=== PATIENT | male | born 1940 | race Caucasian/White ===

== ENCOUNTER 2017-10-31 09:07 | Emergency (ER) | payer MEDICARE, OTHER ==
[~2017-10-31] VITALS: Ht 175.3 cm; Wt 90.7 kg
[~2017-10-31 09:07] MED LIST: ADVAIR 100-501 EACH INH; AMLODIPINE BES2.5 MG PO; ASPIR 8181 MG PO; ATORVASTATIN CA20 MG PO; CENTRUM SILVER1 EAC3 PO; CIPRODEX OTIC7.5 ML AD; CITRUCEL500 MG PO; DYRENIUM50 MG PO; FLONASE ALLERG9.9 ML; LINSEED OIL1 ML MISC; PRILOSEC OTC20 MG PO; PROAIR RESPICL90 MCG INH; PROSCAR5 MG PO; QUALAQUIN PO; TRIAMTERENE-HC1 EAC1 PO; VIAGRA100 MG PO
[2017-10-31] MEDS ORDERED: PREDNISONE20 MG PO (09:41)
[2017-10-31] MEDS ORDERED: ROBAXIN-750750 MG PO (09:41)
== END 2017-10-31 09:55 | disposition home or self-care (01) ==
LOC: ED 09:07
DX: M54.42 Lumbago with sciatica, left side (principal); J45.909 Unspecified asthma, uncomplicated; Z88.2 Allergy status to sulfonamides; Z88.5 Allergy status to narcotic agent; Z79.899 Other long term (current) drug therapy; Z79.82 Long term (current) use of aspirin
CPT/HCPCS: 99283

== ENCOUNTER 2018-08-08 10:40 | Emergency (ER) | payer MEDICARE, OTHER ==
[~2018-08-08] VITALS: Ht 175.3 cm; Wt 93.4 kg
--- OUTSIDE RECORDS SUMMARY | ~2018-08-08 | XMS | Encounter Summary ---
Demographics + + + | Address | [address] | | | [place] [address] | + + + | Home Phone | | + + + | Preferred Language | Unknown | + + + | Marital Status | | + + + | Lutheran Affiliation | Unknown | + + + | Race | Unknown | + + + | Ethnic Group | Unknown | + + + Author + + + | Author | [facility] | | | and [place] | + + + | Organization | [facility] | | | and [place] | + + + | Address | Unknown | + + + | Phone | Unavailable | + + + Support + + +---------+ + | Name | Relationship | Address | Phone | + + +---------+ + | Bhavani Wagner | ECON | Unknown | | + + +---------+ + Care Team Providers + +------+ + | Care Letterpress Printing Machinist Name | Role | Phone | + +------+ + | Darrel Ross NP | PCP | | + +------+ + Encounter Details +--------+ + + + + | Date | Type | Department | Care Team | Description | +--------+ + + + + | 07/29/ | Imaging | [facility] | Provider, | | | 2018 | Exam | [facility] | [address] | | | | | IMAGING | [place] [address] | | | | | [phone] | [place] [address] | | +--------+ + + + + Social History + +-------+ +--------+------+ | Tobacco Use | Types | Packs/Day | Years | Date | | | | | Used | | + +-------+ +--------+------+ | Former Smoker | | | | | + +-------+ +--------+------+ + +---+---+---+ | Smokeless Tobacco: | | | | | Never Used | | | | + +---+---+---+ + + +---------+ + | Alcohol Use | Drinks/We | oz/Week | Comments | | | ek | | | + + +---------+ + | Yes | 1 Shots | 0.6 | Socialy, but not often | | | of | | | | | liquor | | | + + +---------+ + + + + | Sex Assigned at | Date Recorded | | | | + + + | Not on file | | + + + as of this encounter Plan of Treatment +--------+---------+ + + + | Date | Type | Specialty | Care Team | Description | +--------+---------+ + + + | 09/09/ | Office | Neurosurgery | Caleb Romero MD | | | 2018 | Visit | | [address] [facility] | | | | | | [address] | | | | | | [address] | | | | | | | | +--------+---------+ + + + as of this encounter Procedures + +--------+ + + + | Procedure Name | Priori | Date/Time | Associated Diagnosis | Comments | | | ty | | | | + +--------+ + + + | MRI LUMBAR SPINE WO | Routin | 07/29/2018 | | Results for this | | CONTRAST | e | 0905 PDT | | procedure are in the | | | | | | results section. | + +--------+ + + + in this encounter Results MRI Lumbar Spine wo Contrast (07/29/2018 0905) + + + | Narrative | Performed At | + + + | External films for comparison only | [facility] | | | | | No results will be in the chart. | | + + + + +---------+ + + | Performing | Address | City/State/Zipcode | Phone Number | | Organization | | | | + +---------+ + + | [facility] | | | | + +---------+ + + in this encounter Visit Diagnoses Not on filein this encounter"
--- OUTSIDE RECORDS SUMMARY | ~2018-08-08 | XMS | Encounter Summary ---
Demographics + + + | Address | [address] | | | [place] [address] | + + + | Home Phone | | + + + | Preferred Language | Unknown | + + + | Marital Status | | + + + | Uatsdin Affiliation | Unknown | + + + | Race | Unknown | + + + | Ethnic Group | Unknown | + + + Author + + + | Author | [facility] | | | and [place] | + + + | Organization | [facility] | | | and [place] [...] Team Providers + +------+ + | Care Hvac Manager Name | Role | Phone | + +------+ + | Darrel Ross NP | PCP | | + +------+ + Reason for Referral Evaluate & Treat (Routine) + + + + + + + | Status | Reason | Specialty | Diagnoses / | Referred By | Referred To | | | | | Procedures | Contact | Contact | + + + + + + + | Authorized | Specialty | Physical | Diagnoses | Josh | [facility] | | | Services | Therapy | Lumbar | [facility] | [facility] | | | Required | | foraminal | Main, PA-C | PHYSICAL | | | | | stenosis | [address] | [address] | | | | | Lumbar | [address] | [place] | | | | | radiculopath | [address] | [place], [place] | | | | | y Foraminal | [place], | [address] | | | | | stenosis of | [place] [address] | Phone: | | | | | lumbar | Phone: | [phone] | | | | | region | [phone] | Fax: | | | | | Lumbar facet | Fax: | [phone] | | | | | arthropathy | [phone] | | | | | | Procedures | | | | | | | .him | | | | | | | 05/27/18 | | | + + + + + + + Reason for Visit + + + | Reason | Comments | + + + | Follow-up | Discuss Symptoms | + + + Encounter Details +--------+---------+ + + + | Date | Type | Department | Care Team | Description | +--------+---------+ + + + | 05/26/ | Office | [facility] | Clemente Moreno | Lumbar foraminal | | 2017 | Visit | NEUROSURGERY [address] | [address] | stenosis (Primary | | | | [address] | [address] | Dx); Lumbar | | | | [place], [place] | [place], [place] | radiculopathy; | | | | [address] | [address] | Foraminal stenosis | | | | [phone] | | of lumbar region; | | | | | | Lumbar facet | | | | | | arthropathy (HCC) | +--------+---------+ + + + Social History + +-------+ [...] + + + as of this encounter Last Filed Vital Signs + + + + | Vital Sign | Reading | Time Taken | + + + + | Blood Pressure | 132/85 | 05/26/201854 PDT | + + + + | Pulse | 73 | 05/26/201854 PDT | + + + + | Temperature | - | - | + + + + | Respiratory Rate | - | - | + + + + | Oxygen Saturation | - | - | + + + + | Inhaled Oxygen | - | - | | Concentration | | | + + + + | Weight | 92.4 kg (203 lb 11.3 | 05/26/2018953 PDT | | | oz) | | + + + + | Height | 175.3 cm (5' 9") | 05/26/201854 PDT | + + + + | Body Mass Index | 30.08 | 05/26/201854 PDT | + + + + in this encounter Instructions Patient Instructions - Bel Villarreal, Golf Course Architect - 05/26/201845 PDTIt wa s a pleasure to see you today. Here is what we discussed. - Let pain be your guide. If you are doing an activity that starts causing you pain back of f and ease back into it slowly. We don't want you taking any risks that do not need to be ta kevon. - We have sent an order for you to start physical therapy, we will give you a call once the referral has been approved so you can schedule. - We have also sent a prescription for a Medrol dosepak to your pharmacy. in this encounter Progress Notes Clemente Moreno PA-C - 05/26/201845 PDTFormatting of this note may be different fr om the original. Clemente Moreno PA-C [address] [facility] [facility], [address] [place] [address] FAX: [phone] NEUROSURGERY HISTORY AND PHYSICAL EXAMINATION CHIEF COMPLAINT: Chief Complaint Patient presents with Follow-up Discuss Symptoms HISTORY OF PRESENT ILLNESS: The patient is a 78 y.o. male with the complaint of back pain symptoms that began 3 months ago. The patient was previously seen in the office and returns today to check on his progress when he was seen before he had improvements of his symptoms. The patient describes that he is having more lower back pain radiating to the leg. He stat es that as soon as he puts pressure on his legs he will experience pain, worse on the right. Also progressive weakness in his legs. He states that he is now having trouble lifting his legs to step up and getting in and out of his car. He is also not able to walk for long dist ances without stopping due to increased pain. He is now taking Tylenol and Advil to relieve his pain. He states that his symptoms had been stable up until about a month ago. He would like to go back to his regular activities. He has a few trips coming up and would like to be feeling b claudia for them. He will be leaving for fishing at the end of this week. In August he will be going to [place] for a month. PAST MEDICAL HISTORY: Past Medical History: Diagnosis Date Allergic rhinitis Asthma Basal cell carcinoma Benign prostatic hyperplasia (BPH) with urinary urge incontinence Chest pain Colon polyps Congestive heart failure, chronic, left-sided (HCC) Coronary arteriosclerosis ED (erectile dysfunction) GERD (gastroesophageal reflux disease) History of colonic diverticulitis Hyperlipidemia Hypertension Impaired memory Osteoarthritis Presbycusis PAST SURGICAL HISTORY: Past Surgical History: Procedure Laterality Date CARPAL TUNNEL RELEASE FACIAL RECONSTRUCTION SURGERY skin cancer removal Basel cell carcinoma TONSILLECTOMY TURP N/A 01/09/2017 Procedure: Cyber Laser Prostate Vaporization; Surgeon: Vinnie Silverio MD; Location: [facility] MAIN OR VASECTOMY CURRENT MEDICATIONS: Current Outpatient Prescriptions Medication Sig Dispense Refill albuterol (VENTOLIN HFA) 90 mcg/puff inhaler Inhale 2 puffs into the lungs as needed fo r Wheezing. atorvaSTATin (LIPITOR) 20 mg tablet Take 20 mg by mouth nightly. cholecalciferol (CHOLECALCIFEROL) 1,000 units capsule Take 1,000 Units by mouth Daily. DHA-Vitamin C-Lutein (EYE HEALTH FORMULA PO) Take 1 capsule by mouth Daily. Flaxseed, Linseed, (FLAXSEED OIL) 1200 MG CAPS Take 1,200 mg by mouth Daily. fluticasone (FLONASE) 50 mcg/nasal spray 1 spray by Nasal route. Methylcellulose, Laxative, (CITRUCEL) 500 MG TABS Take 500 mg by mouth Daily. mometasone (ASMANEX 60 METERED DOSES) 220 mcg/puff inhaler Inhale 2 puffs into the lung s every evening. Multiple Vitamins-Minerals (CENTRUM SILVER PO) Take 1 tablet by mouth Daily. OLODATEROL HCL IN Inhale into the lungs as needed. Omeprazole (PRILOSEC PO) Take 1 tablet by mouth Daily. sildenafil (VIAGRA) 100 MG tablet Take 100 mg by mouth as needed for Erectile Dysfuncti on. triamterene-hydrochlorothiazide (DYAZIDE) 37.5-25 MG per capsule Take 1 capsule by mout h every morning. No current facility-administered medications for this visit. ALLERGIES: Allergies Allergen Reactions Lisinopril Cough Sulfa Antibiotics Skin rashes Hydrocodone Other (See Comments) Skin sloughing from penis SOCIAL HISTORY: The patient reports that he has quit smoking. He has never used smokeless tobacco. He repo rts that he drinks about 0.6 oz of alcohol per week . He reports that he does not use drugs. FAMILY HISTORY: Family History Problem Relation Age of Onset Heart defect Mother 59 Valve dysfunction COPD Father Heart failure Father Other cancer Brother Leukemia Cancer Brother Leukemia REVIEW OF SYSTEMS GENERALLY: No fever, no night sweats, no anemia, no fatigue, no recent profound weight ch anges. EYES: No eye problems, no use of corrective lenses, no eye injury, no double vision, no bl indness. EARS, NOSE, AND THROAT: No changes in taste or smell, no hearing difficulty, no ringing in the ears, no ear drainage, no dizziness, no voice changes, no difficulty swallowing, no sig nificant snoring, no sleep apnea, no sinus problems, no major dental work. NEUROLOGICALLY: Please see the review of systems discussed above in the history of present illness. In addition, the patient has change in walk, and pain in back. PSYCHIATRIC: No depression, no sleep disorders, no anxiety, no bipolar disorder, no psycho tic episodes. CARDIOVASCULAR: No heart attacks, no heart murmur, no heart fluttering, no chest pain, no ankle swelling. LUNG DISEASE: No shortness of breath, no cough, no tuberculosis, no bloody cough, no asth ma, no emphysema/COPD. GASTROINTESTINAL: No bowel disease, no nausea or vomiting, no rectal bleeding, no constipa tion, no stool incontinence, no liver disease, no gallbladder disease, no abdominal pain, no ulcers. KIDNEY DISEASE: No urinary frequency, no painful or difficult urination, no incontinence. ENDOCRINE: No diabetes, no thyroid disease, no osteopenia or osteoporosis, no breast drain age. SKIN: No breast lumps, no skin changes, no rashes, no itches. HEMATOLOGIC/LYMPHATIC: + enlarged lymph nodes, no easy or unusual bleeding, no personal hi story of cancer. RHEUMATOLOGIC: No joint arthritis, no rheumatoid arthritis. PHYSICAL EXAMINATION: Blood pressure 132/85, pulse 73, height 1.753 m (5' 9"), weight 92.4 kg (203 lb 11.3 oz). B olive mass index is 30.08 kg/m. GENERAL: Quintin Wagner is in no acute distress with unlabored respirations. The ruby ent does not appear uncomfortable throughout the exam today. HEENT: Head: Normocephalic/atraumatic with no areas of recent trauma. Eyes: Normal sclerae without icterus. Ears: No drainage or tenderness. Nasopharnyx: Clear without drainage. Oropharnyx: Clear without erythema. NECK (ANTERIOR): Supple and without palpable masses. CHEST: Clear to ausculation without crackles or wheeze. HEART: Regular rate and rhythm without murmurs. ABDOMEN: Soft, non-tender, non-distended, and without palpable masses. The patient is not o bese. SPINE: There is no tenderness of there cervical or thoracic spine. The lumbar spine shows there is no tenderness in the midline of the L1, L2, L3, L4, L5, S1 levels. To palpation, there is no significant myofascial tenderness. There is no significant pain to provacative testing of the SI joint. There is no major deformity noted. EXTREMITIES: No cyanosis, clubbing, or edema. NEUROLOGICAL EXAM: MOTOR EXAM: (5 IS NORMAL) * Indicates pain limited MUSCLE/ MOVEMENT: RIGHT LEFT Deltoids 5 5 Biceps 5 5 Triceps 5 5 Wrist Flexion 5 5 Wrist Extension 5 5 Median Intrinsics 5 5 Ulnar Intrinsics 5 5 Blanker Operator Strength 5 5 Hip Flexion 5 5 Hip Extension 5 5 Knee Flexion 5 5 Knee Extension 5 5 Dorsiflexion 5 5 Extensor Hallicus Longus 5 5 Plantarflexion 5 5 SENSORY EXAM: Sensory exam shows no diminished sensation to light touch or pain throughout the upper and lower extremities. REFLEXES: (2 OR 2+ IS NORMAL) REFLEX: RIGHT LEFT BICEPS 1 1 BRACHIORADIALIS 1 1 TRICEPS 1 1 PATELLAR 1 1 ACHILLES 1 1 CHEW'S ABSENT ABSENT PLANTAR DOWNGOING DOWNGOING GAIT: Gait is steady. TEST AND RADIOGRAPHIC REVIEW: The patient's imaging was reviewed in detail with the patient today during the visit. The MRI from 2018 show L4-5 disc bulging causing bilateral foraminal narrowing. There is a prob able L4 synovial cyst on the left compression L4. Lumbar x-rays show degeneration but no major instability. Bones appear stable. ASSESSMENT: NEUROSURGICAL DIAGNOSES: Encounter Diagnoses Name Primary? Lumbar foraminal stenosis Yes Lumbar radiculopathy Foraminal stenosis of lumbar region Lumbar facet arthropathy (HCC) GENERAL DIAGNOSES: Past Medical History: Diagnosis Date Allergic rhinitis Asthma Basal cell carcinoma Benign prostatic hyperplasia (BPH) with urinary urge incontinence Chest pain Colon polyps Congestive heart failure, chronic, left-sided (HCC) Coronary arteriosclerosis ED (erectile dysfunction) GERD (gastroesophageal reflux disease) History of colonic diverticulitis Hyperlipidemia Hypertension Impaired memory Osteoarthritis Presbycusis PLAN: Quintin Wagner presented today, and we went over in great detail his neurologic proble ms. The patient has L4-5 degenerative disc disease. The patient has progressive symptoms despi te non-operative measures. I had a lengthy discussion with the patient about his options for care including surgical a nd non-surgical options. In discussing the surgical options, we discussed in detail the patient's options for a comb ined anterior and posterior approach for lumbar fusion at L4-5. We answered a number of que stions about surgery and the different available techniques. The patient understands that in most instances the recovery from surgery can be lengthy and sometimes difficult. We have sent another order for him to return to physical therapy, a prescription for a medr ol dosepak, and a referral for injections. The patient would like to continue conservative care and return to discuss surgery or addit ional treatment options if the symptoms worsen. I recommended that we intensify his conserv ative therapy. We will provide her referral back to physical therapy as noted above. We al so discussed using a Medrol Dosepak as well as ordering bilateral L5-S1 epidural steroid inj ections. The patient will call us with a progress report when he returns from his fishing t rip next week. If he is continuing to have significant radicular symptoms into his hip and into his legs then we should consider starting Neurontin and tapering up to 300 mg 3 times a day. We will have him return in about 2 months to discuss his progress. I, Clemente Moreno PA-C, personally performed the services described in this documentation , as scribed by Bel Mark CMA in my presence, and it is both accurate and complet e. Clemente Moreno PA-C 05/26/18 ELECTRONICALLY SIGNED BY: Clemente Moreno PA-C, 05/26/2018 10:43in this encounter Plan of Treatment +--------+---------+ + + + | Date | Type | Specialty | Care Team | Description | +--------+---------+ + + + | 09/09/ | Office | Neurosurgery | Caleb Romero MD | | | 2018 | Visit | | [address] [facility] | | | | | | [address] | | | | | | [address] | | | | | | | | +--------+---------+ + + + + +--------+ + + | Name | Priori | Associated Diagnoses | Order Schedule | | | ty | | | + +--------+ + + | OUTPATIENT PT EXTERNAL | Routin | Lumbar foraminal | Ordered: 05/26/2018 | | | e | stenosis Lumbar | | | | | radiculopathy | | | | | Foraminal stenosis | | | | | of lumbar region | | | | | Lumbar facet | | | | | arthropathy | | + +--------+ + + as of this encounter Visit Diagnoses + + | Diagnosis | + + | Lumbar foraminal stenosis - Primary | + + | Spinal stenosis, lumbar region, without neurogenic claudication | + + | Lumbar radiculopathy | + + | Thoracic or lumbosacral neuritis or radiculitis, unspecified | + + | Foraminal stenosis of lumbar region | + + | Spinal stenosis, lumbar region, without neurogenic claudication | + + | Lumbar facet arthropathy | + + | Lumbosacral spondylosis without myelopathy | + +
--- OUTSIDE RECORDS SUMMARY | ~2018-08-08 | XMS | Encounter Summary ---
Demographics + + + | Address | [address] | | | [place] [address] | + + + | Home Phone | | + + + | Preferred Language | Unknown | + + + | Marital Status | | + + + | Judaism Affiliation | Unknown | + + + | Race | Unknown | + + + | Ethnic Group | Unknown | + + + Author + + + | Author | [facility] | | | and [place] | + + + | Organization | [facility] | | | and [place] | [...] Team Providers + +------+ + | Care Dry End Operator Name | Role | Phone | + +------+ + | Darrel Ross NP | PCP | | + +------+ + Encounter Details +--------+ + + + + | Date | Type | Department | Care Team | Description | +--------+ + + + + | 06/07/ | Orders Only | [facility] | Ismael Luna | Lumbar radiculopathy | | 2018 | | PHYSIATRY [address] | (Primary Dx) | | | | [address], | [place], [place] | | | | | [place] [address] | [address] | | | | | [phone] | | | +--------+ + + + + [...] 2018 | Visit | | [address] [facility] | | | | | | [address] | | | | | | [address] | | | | | | | | +--------+---------+ + + + as of this encounter Results [facility] Lumbar Transforaminal (06/17/2018 1115) + + -+ | Narrative | Performed At | + + -+ | 06/17/2018 | [facility] | | Bilateral Transforaminal Epidural Steroid Injections Diagnosis: Lumbar | | | radiculopathy ICD-10 Code M54.16 Quintin Wagner presents to the | | | fluoroscopy suite for fluoroscopically-guided bilateral L5-S1 | | | transforaminal epidural steroid injections as part of conservative | | | management for chronic pain with lumbar radiculopathy and degenerative | | | disc disease. After informed consent was obtained, the patient lay in | | | the prone position on the fluoroscopy table. The areas were | | | identified under fluoroscopic guidance. The areas were prepped and | | | draped in sterile fashion. A 25-gauge, 1.5-inch needle was inserted | | | into each region and approximately 3 mL of buffered 1% lidocaine was | | | infused. Then, a 22-gauge spinal needle was inserted into the | | | posterior superior transforaminal space bilaterally and advanced into | | | the epidural space under fluoroscopic guidance. Confirmation into the | | | epidural space was obtained with infusion of approximately 1 mL of | | | Omnipaque contrast which showed epidural flow as well as nerve sheath | | | flow. Then, a combination of 2 mL of 1% lidocaine and 1.5 mL of 10 | | | mg/mL dexamethasone was infused, divided between the two sides. The | | | patient tolerated the procedure well without complications. Pre- and | | | post-procedure blood pressures were stable. The patient was given | | | verbal as well as written follow-up instructions. Prior to the start | | | of the procedure, the following were performed and/or verified, | | | including correct patient identity, correct site/side marked and | | | visible, agreement on the procedure to be done, correct patient | | | positioning and an accurate procedure consent form. Any safety | | | precautions based on clinical history and/or medication use have been | | | addressed. I personally performed the procedure above. Estimated blood | | | loss: MinimalComplications: NoneFindings: As expectedAnesthesia: | | | Local 1% Lidocaine | | |visible, agreement on the procedure to be done, correct patient | | |positioning and an accurate procedure consent form. Any safety precautions | | |based on clinical history and/or medication use have been addressed. I | | |personally performed the procedure above. | | | | | |Estimated blood loss: Minimal | | |Complications: None | | |Findings: As expected | | |Anesthesia: Local 1% Lidocaine | | | | | | | | + + -+ + +---------+ + + | Performing | Address | City/State/Zipcode | Phone Number | | Organization | | | | + +---------+ + + | [facility] | | | | + +---------+ + + in this encounter Visit Diagnoses + + | Diagnosis | + + | Lumbar radiculopathy - Primary | + + | Thoracic or lumbosacral neuritis or radiculitis, unspecified | + +"
--- OUTSIDE RECORDS SUMMARY | ~2018-08-08 | XMS | Clinical Summary ---
Demographics + + + | Address | [address] | | | [place] [address] | + + + | Home Phone | | + + + | Preferred Language | Unknown | + + + | Marital Status | | + + + | Orthodox Affiliation | Unknown | + + + | Race | Unknown | + + + | Ethnic Group | Unknown | + + + Author + + + | Author | [facility] | | | and [place] | + + + | Organization | 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 | Disp. | Refills | Star | End | Statu | | | | | | t | Date | s | | | | | | Date | | | + + +--------+---------+------+------+-------+ | mometasone | Inhale 2 puffs into | | | | | Activ | | (ASMANEX 60 METERED | the lungs every | | | | | e | | DOSES) 220 mcg/puff | evening. | | | | | | | inhaler | | | | | | | + + +--------+---------+------+------+-------+ | atorvaSTATin | Take 20 mg by mouth | | | | | Activ | | (LIPITOR) 20 mg | nightly. | | | | | e | | tablet | | | | | | | + + +--------+---------+------+------+-------+ | Multiple | Take 1 tablet by | | | | | Activ | | Vitamins-Minerals | mouth Daily. | | | | | e | | (CENTRUM SILVER PO) | | | | | | | + + +--------+---------+------+------+-------+ | Methylcellulose, | Take 500 mg by mouth | | | | | Activ | | Laxative, (CITRUCEL) | Daily. | | | | | e | | 500 MG TABS | | | | | | | + + +--------+---------+------+------+-------+ | Flaxseed, Linseed, | Take 1,200 mg by | | | | | Activ | | (FLAXSEED OIL) 1200 | mouth Daily. | | | | | e | | MG CAPS | | | | | | | + + +--------+---------+------+------+-------+ | fluticasone | 1 spray by Nasal | | | | | Activ | | (FLONASE) 50 | route. | | | | | e | | mcg/nasal spray | | | | | | | [...] | | + + +--------+---------+------+------+-------+ | albuterol | Inhale 2 puffs into | | | | | Activ | | (VENTOLIN HFA) 90 | the lungs as needed | | | | | e | | mcg/puff inhaler | for Wheezing. | | | | | | + + +--------+---------+------+------+-------+ | sildenafil | Take 100 mg by mouth | | | | | Activ | | (VIAGRA) 100 MG | as needed for | | | | | e | | tablet | Erectile | | | | | | | | Dysfunction. | | | | | | + + +--------+---------+------+------+-------+ | Omeprazole | Take 1 tablet by | | | | | Activ | | (PRILOSEC PO) | mouth Daily. | | | | | e | + + +--------+---------+------+------+-------+ | cholecalciferol | Take 1,000 Units by | | | | | Activ | | (CHOLECALCIFEROL) | mouth Daily. | | | | | e | | 1,000 units capsule | | | | | | | + + +--------+---------+------+------+-------+ | OLODATEROL HCL IN | Inhale into the | | | | | Activ | | | lungs as needed. | | | | | e | + + +--------+---------+------+------+-------+ | DHA-Vitamin | Take 1 capsule by | | | | | Activ | | C-Lutein (E[facility] HEALTH | mouth Daily. | | | | | e | | FORMULA PO) | | | | | | | + + +--------+---------+------+------+-------+ | methylPREDNISolone | Follow package | 21 | 0 | 07/2 | | Activ | | (MEDROL DOSEPAK) 4 | directions. | tablet | | 5/20 | | e | | mg tablet | | | | 18 | | | + + +--------+---------+------+------+-------+ Active Problems + + + | Problem | Noted Date | + + + | Lumbar radiculopathy | 05/26/2018 | + + + | Foraminal stenosis of lumbar region | 05/26/2018 | + + + | Lumbar facet arthropathy | 05/26/2018 | + + + | Synovial cyst of lumbar spine | 01/22/2018 | + + + Encounters +--------+ + + + + | Date | Type | Specialty | Care Team | Description | +--------+ + + + + | 08/06/ | Ancillary | | Provider, | | | 2018 | Orders | | MD Brent | | +--------+ + + + + | 08/06/ | Procedure | | | | | 2017 | Pass | | | | +--------+ + + + + | 07/29/ | Imaging | | Provider, | | | 2017 | Exam | | MD Brent | | +--------+ + + + + | 07/09/ | Office | | Clemente Moreno | Foraminal stenosis | | 2017 | Visit | | LUPILLO Quach | of lumbar region | | | | | | (Primary Dx); Lumbar | | | | | | radiculopathy; | | | | | | Synovial cyst of | | | | | | lumbar spine; Lumbar | | | | | | facet arthropathy | | | | | | (HCC) | +--------+ + + + + | 06/17/ | Hospital | | Asad Renteria, | Lumbar radiculopathy | | 2017 | Encounter | | LUPILLO [employer], | | | | | | Wsblanquita | | +--------+ + + + + | 06/07/ | Orders Only | | Ismael Luna | Lumbar radiculopathy | | 2017 | | | MD Marcos | (Primary Dx) | +--------+ + + + + | 05/26/ | Office | | Clemente Moreno | Lumbar foraminal | | 2017 | Visit | | LUPILLO Quach | stenosis (Primary | | | | | | Dx); Lumbar | | | | | | radiculopathy; | | | | | | Foraminal stenosis | | | | | | of lumbar region; | | | | | | Lumbar facet | | | | | | arthropathy (HCC) | +--------+ + + + + from Last 3 Months Family History + + +------+ + | Medical History | Relation | Name | Comments | + + +------+ + | Other cancer | Brother | | Leukemia | + + +------+ + | Cancer | Brother | | Leukemia | + + +------+ + | COPD | Father | | | + + +------+ + | Heart failure | Father | | | + + +------+ + | Heart defect | Mother | | Valve dysfunction | + + +------+ + + +------+ + + | Relation | Name | Status | Comments | + +------+ + + | Brother | | | | + +------+ + + | Brother | | | | + +------+ + + | Father | | | | + +------+ + + | Mother | | | | + +------+ + + Social [...] + + + | Blood Pressure | 130/77 | 07/09/2018927 PDT | + + + + | Pulse | 67 | 07/09/2018 0928 PDT | + + + + | Temperature | 36.5 C (97.7 F) | 01/09/2017921 PST | + + + + | Respiratory Rate | 18 | 07/09/2018927 PDT | + + + + | Oxygen Saturation | 95% | 01/09/2017 113 PST | + + + + | Inhaled Oxygen | - | - | | Concentration | | | + + + + | Weight | 94.3 kg (207 lb 14.3 | 07/09/2018927 PDT | | | oz) | | + + + + | Height | 175.3 cm (5' 9") | 07/09/2018927 PDT | + + + + | Body Mass Index | 30.7 | 07/09/2018927 PDT | + + + + Plan of Treatment +--------+---------+ + + + | Date | Type | Specialty | Care Team | Description | +--------+---------+ + + + | 09/09/ | Office | | Caleb Romero MD | | | 2017 | Visit | | [address] [facility] | | | | | | [address] | | | | | | [id number] | | | | | | | | +--------+---------+ + + + + + + + + | Health [...] Vaccine: Influenza | | | | | (#1) | 8 | | | + + + + + Procedures + +--------+ + + + | Procedure Name | Priori | Date/Time | Associated Diagnosis | Comments | | | ty | | | | + +--------+ + + + | MRI LUMBAR SPINE WO | Routin | 07/29/2018 | | Results for this | | CONTRAST | e | 904 PDT | | procedure are in the | | | | | | results section. | + +--------+ + + + | FL EPIDURAL STEROID | Routin | 06/17/2018 | Lumbar | Results for this | | INJECTION LUMBAR | e | 1115 PDT | radiculopathy | procedure are in the | | TRANSFORAMINAL | | | | results section. | + +--------+ + + + from Last 3 Months Results MRI Lumbar Spine wo Contrast (07/29/2018904) + + + | Narrative | Performed [...] | | | + +---------+ + + FL CHICO Lumbar Transforaminal (06/17/2018 1115) + + -+ | Narrative | Performed At | + + -+ | 06/17/2018 | [facility] | | Bilateral Transforaminal Epidural Steroid Injections Diagnosis: Lumbar | | | radiculopathy ICD-10 Code M54.16 Neymar Wagner presents to the | | | [...] + + | Performing | Address | City/State[facility] | Phone Number | | Organization | | | | + +---------+ + + | [facility] | | | | + +---------+ + + from Last 3 Months Insurance + +--------+ +--------+ +---------+ | Payer | Benefi | Subscriber | Type | Phone | Address | | | t Plan | ID | | | | | | / | | | | | | | Group | | | | | + +--------+ +--------+ +---------+ | MEDICARE | MEDICA | [id number] | Medica | [phone] | | | RE | | re | [phone] | | | | PART A | | | | | | | AND B | | | | | + +--------+ +--------+ +---------+ | CIGNA | CIGNA | [id number] | Indemn | [phone] | | | MDCR | | ity | [phone] | | | | SUPPLE | | | | | | | MENT | | | | | | | SOLUTI | | | | | | | ONS | | | | | + +--------+ +--------+ +---------+ + +--------+ +--------+ + + | Guarantor Name | Accoun | Relation to | Date | Phone | Billing Address | | | t Type | Patient | of | | | | | | | | | | + +--------+ +--------+ + + | NEYMAR WAGNER | Person | Self [birth year] Home: | [address] | | | [place] | | 1940 | [phone] [place] [address] | | | margie | | | 1890 | | + +--------+ +--------+ + +
--- OUTSIDE RECORDS SUMMARY | ~2018-08-08 | XMS | Encounter Summary ---
Demographics + + + | Address | [address] | | | [place] [address] | + + + | Home Phone | | + + + | Preferred Language | Unknown | + + + | Marital Status | | + + + | Uatsdin Affiliation | Unknown | + + + | Race | Unknown | + + + | Ethnic Group | Unknown | + + + Author + + + | Author | [facility] | | | and [place] | + + + | Organization | [facility] | | | and [place] [...] Team Providers + +------+ + | Care Filter Cloth Maker Name | Role | Phone | + +------+ + | Darrel Ross NP | PCP | | + +------+ + Reason for Referral Diagnostic/Screening (Routine) +--------+--------+ + + + + | Status | Reason | Specialty | Diagnoses / | Referred By | Referred To | | | | | Procedures | Contact | Contact | +--------+--------+ + + + + | Closed | | MRI | Diagnoses | [place], | [address] | | | | | Foraminal | Clemente | [facility] | | | | | stenosis of | [place] Quach | [address] | | | | | lumbar | [address] | [address] | | | | | region | [address] | [place], [place] | | | | | Lumbar | [address] | [address] | | | | | radiculopath | [place], | Phone: | | | | | y Synovial | [place] [address] | [phone] | | | | | cyst of | Phone: | Fax: | | | | | lumbar spine | [phone] | [phone] | | | | | Lumbar | Fax: | | | | | | facet | [phone] | | | | | | arthropathy | | | | | | | Procedures | | | | | | | MRI Lumbar | | | | | | | Spine wo | | | | | | | Contrast | | | +--------+--------+ + + + + Reason for Visit + + + | Reason | Comments | + + + | Follow-up | Discuss injections | + + + | Back Pain | | + + + Encounter Details +--------+---------+ + + + | Date | Type | Department | Care Team | Description | +--------+---------+ + + + | 07/09/ | Office | [facility] | Clemente Moreno | Foraminal stenosis | | 2018 | Visit | NEUROSURGERY [address] | [address] | of lumbar region | | | | [address] | [address] | (Primary Dx); Lumbar | | | | [place] | [place] | radiculopathy; | | | | [phone] | [address] | Synovial cyst of | | | | [phone] | | lumbar spine; Lumbar | | | | | | facet arthropathy | | | | | | ([facility]) | +--------+---------+ + + + Social History [...] + + | Pulse | 67 | 07/09/2018927 PDT | + + + [...] 07/09/2018927 PDT | + + + + in this encounter Instructions Patient Instructions - Kamla Brown, Informatics Pharmacist - 07/09/2018929 PDTIt was rossi borrero to see you today, we discussed the following in your appointment: 1. We always hope that the steroid spinal injections will work and give you relief from yocasta e of the discomfort. They are not a guarantee fix, but we like to try. 2. The MRI that we have is not very clear it has some artifact that causes problems when judi rodriguez to review it. We will order a new MRI to be completed at [facility] in [place]. Once it is authorized we will fax the order over and call you to set up an MRI appoin tment date. Please call us once it is completed then we can request those MRI images for Dr. Romero and Rika Moreno PA-C to review. 3. We can start looking at surgery options sometime around September. If you do choose back surgery it would look something like this: -1-3 days in the hospital, spend the first month lifting no more than 5lbs, no bending, lif ting above your head, or twisting. -We will want you to be up and walking very frequently. For the first 10-14 days we want yo u to be up every 45 minutes for 1-2 minutes in your house. After 10-14 days when you are fee ling comfortable you can walk outside with a walking partner. -You would wear a back brace for at least the first month. -No intercourse for the first month. -No driving for the first few weeks to 1 month as long as you have your strength back and a re not taking pain medication then you could drive. -You would need help with things like tying your shoes, getting socks on and what not to pr event you from bending over for that first month at least. -Recovery time would be 6-12 months depending on bone fusion and healing. You will have yocasta e waxing and waning of symptoms. The pain will vary in intensity and vary from day to day. A s time moves on the frequency and intensity of the pain will slowly go away.in this encounte r Progress Notes Clemente Moreno PA-C - 07/09/2018 0930 PDTFormatting of this note may be different fr om the original. Clemente Moreno PA-C [address] [address] [place], [place] [address] FAX: [phone] NEUROSURGERY HISTORY AND PHYSICAL EXAMINATION CHIEF COMPLAINT: Chief Complaint Patient presents with Follow-up Discuss injections Back Pain HISTORY OF PRESENT ILLNESS: The patient is a 78 y.o. male with the complaint of back pain symptoms that began 6-7 months ago. The patient was previously seen in the office and retur ns today to check on his lumbar pain after having lumbar injections done by physiatry in Jun. It is hard to tell if he had any improvement in symptoms as he still has the same sympt oms that have not changed for the better, but slightly worsening. He still gets the sharp pa in that is about 8-9/10 when he does any kind of "unnatural" movement like stepping of a cur b, coughing or sudden jerking motions that he did not notice. This will send a shock of pain from his lower back down into the right leg down into his feet. He is unable to He struggl es with sleeping due to being in pain and uncomfortable. He states that as soon as he puts pressure on his legs he will experience pain, worse on th e right. His right leg symptoms have progressed since his previous MRI Also progressive wea kness in his legs. He states that he is now having trouble lifting his legs to step up and g etting in and out of his car that is accompanied with lower back pain. He is also not able t o walk for long distances just about 1/2 a mile if he takes that slow, without stopping due to increased pain. He is walking much slower than before and his notices he tends to le an to favor the right leg. They feel feel like his right leg is weaker.. He is in physical therapy and he is able to walk with out his cane for the last few weeks due to the physical therapy. PAST MEDICAL HISTORY: Past Medical History: Diagnosis [...] Prostate Vaporization; Surgeon: Vinnie Silverio MD; Location: [facility] MAIN OR VASECTOMY CURRENT MEDICATIONS: Current Outpatient [...] TABS Take 500 mg by mouth Daily. methylPREDNISolone (MEDROL DOSEPAK) 4 mg tablet Follow package directions. 21 tablet 0 mometasone (ASMANEX 60 METERED DOSES) [...] present illness. In addition, the patient has pain in the back only when he coughs. PSYCHIATRIC: No depression, no sleep disorders, no [...] no personal h istory of cancer. RHEUMATOLOGIC: No joint arthritis, no rheumatoid arthritis. PHYSICAL EXAMINATION: Blood pressure 130/77, pulse 67, resp. rate 18, height 1.753 m (5' 9"), weight 94.3 kg (207 lb 14.3 oz). Body mass index is 30.7 kg/m. 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 In addition there appears to be facet cys t noted at L5 on the left as well. Lumbar x-rays show degeneration but no major instability. Bones appear stable. ASSESSMENT: NEUROSURGICAL DIAGNOSES: Encounter Diagnoses Name Primary? Foraminal stenosis of lumbar region Yes Lumbar radiculopathy Synovial cyst of lumbar spine Lumbar facet arthropathy (HCC) GENERAL DIAGNOSES: Past [...] has progressive symptoms despi te non-operative measures. His right leg symptoms appear to have been worsening since his p revious MRI I had a lengthy discussion with the [...] surgery can be lengthy and sometimes difficult. The patient would like to be considered for surgery. I would like him to have a repeat MRI primarily because of his progressive right leg symptoms however also there is motion artifa ct makes it difficult to assess his foraminal stenosis and to further evaluate his facet cys t at L4-5 and L5-S1. When the MRI is been completed he will let us know so that I can revie w this with . At that time we'll make further recommendations begin the review proces s as well as the scheduling and authorizing process. Our target would be for September if we decided to move forward with surgery. I, Clemente Moreno PA-C, personally performed the services described in this documentation , as scribed by IGLESIA Tatum in my presence, and it is both accurate and complete. Clemente Moreno PA-C 07/09/18 ELECTRONICALLY SIGNED BY: Clemente Moreno PA-C, 07/09/2018 10:09 Portions of this report were transcribed using [employer] voice recognition software. A lthough effort was made in correcting the errors; grammatical and sound alike errors may sti ll be present. in this encounter Plan of Treatment +--------+---------+ + + + | Date | Type | Specialty | Care Team | Description | +--------+---------+ + + + | 09/09/ | Office | Neurosurgery | Caleb Romero MD | | | 2018 | Visit | | [address] [facility] | | | | | | [address] [place] | | | | | | [id number] | | | | | | | | +--------+---------+ + + + + +--------+ + + | Name | Priori | Associated Diagnoses | Order Schedule | | | ty | | | + +--------+ + + | MRI Lumbar Spine wo Contrast | Routin | Foraminal stenosis | Expected: 07/19/2018 | | | e | of lumbar region | (Approximate), | | | | Lumbar radiculopathy | Expires: 07/08/2019 | | | | Synovial cyst of | | | | | lumbar spine Lumbar | | | | | facet arthropathy | | + +--------+ + + as of this encounter Visit Diagnoses + + | Diagnosis | + + | Foraminal stenosis of lumbar region - Primary | + + | Spinal stenosis, lumbar region, without neurogenic claudication | + + | Lumbar radiculopathy | + + | Thoracic or lumbosacral neuritis or radiculitis, unspecified | + + | Synovial cyst of lumbar spine | + + | Synovial cyst, unspecified | + + | Lumbar facet arthropathy | + + | Lumbosacral spondylosis without myelopathy | + +
--- OUTSIDE RECORDS SUMMARY | ~2018-08-08 | XMS | Clinical Summary ---
Demographics + + + | Address | [address] | | | [place] [address] | + + + | Home Phone | | + + + | Preferred Language | Unknown | + + + | Marital Status | | + + + | Druze Affiliation | Unknown | + + + | Race | White | + + + | Ethnic Group | Not or | + + + Author + + + | Organization | Unknown | + + + | Address | Unknown | + + + | Phone | Unavailable | + + + Care Team Providers + +------+ + | Care Visual And Stock Associate Name | Role | Phone | + +------+ + PP | Unavailable | + +------+ + Source Comments INESSA is fully live on both [facility] and [facility] InPatient.[facility] Allergies Not on File Current Medications Not on file Active Problems Not [...] on file | | + + + Plan of Treatment + + + + + | Health Maintenance | Due Date | Last Done | Comments | + + + + + | Pneumococcal (Adult) | | | | | (1 of 2 - PCV13) | 5 | | | + + + + + | Influenza (Flu) | | | | | vaccination (#1) | 8 | | | + + + + + Results Not on filefrom Last 3 Months"
--- OUTSIDE RECORDS SUMMARY | ~2018-08-08 | XMS | Encounter Summary ---
Demographics + + + | Address | [address] | | | [place] [address] | + + + | Home Phone | | + + + | Preferred Language | Unknown | + + + | Marital Status | | + + + | Restorationism Affiliation | Unknown | + + + | Race | Unknown | + + + | Ethnic Group | Unknown | + + + Author + + + | Author | [facility] | | | and [place] | + + + | Organization | [facility] | | | and [...] Team Providers + +------+ + | Care Assistant Manager Of Operations Name | Role | Phone | + +------+ + | Darrel Ross NP | PCP | | + +------+ + Reason for Visit Service/Procedure (Routine) +--------+--------+ + + + + | Status | Reason | Specialty | Diagnoses / | Referred By | Referred To | | | | | Procedures | Contact | Contact | +--------+--------+ + + + + | Closed | | Radiology | Diagnoses | | [facility] | | | | | Lumbar | Cheryl, | [address] | | | | | radiculopath | Ismael Rodríguez MD | Dariel [place], | | | | | y | [address] | [place] | | | | | Procedures | [place] | [address] | | | | | [place] INJECT | [place] | Phone: | | | | | ANES/STEROID | [address] | [phone] | | | | | FORAMEN | Phone: | Fax: | | | | | LUMBAR/SACRA | [phone] | [phone] | | | | | L W IMG | Fax: | | | | | | GUIDE ,1 | [phone] | | | | | | LEVEL MA | | | | | | | TRIAMCINOLON | | | | | | | E ACET INJ | | | | | | | NOS, 10 MG | | | | | | | Bilateral | | | | | | | L5/S1 TFESI | | | | | | | referred by | | | | | | | Clemente | | | | | | | Main Moreno, | | | | | | | PA-C | | | +--------+--------+ + + + + Encounter Details +--------+ + + + + | Date | Type | Department | Care Team | Description | +--------+ + + + + | 08/16/ | Hospital | [facility] | Asad Renteria, | Lumbar radiculopathy | | 2018 | Encounter | MED CTR XRAY [address] | PA-C [address] | | | | | [place] | [address] [place] | | | | | [place] [address] | [place] [address] | | | | | [phone] | [phone] | | | | | | | | | | | | Field Training Agent, [facility] | | +--------+ + + + + [...] this encounter Last Filed Vital Signs + +---------+ + | Vital Sign | Reading | Time Taken | + +---------+ + | Blood Pressure | 146/79 | 06/17/2018 1114 PDT | + +---------+ + | Pulse | 70 | 06/17/20181113 PDT | + +---------+ + | Temperature | - | - | + +---------+ + | Respiratory Rate | - | - | + +---------+ + | Oxygen Saturation | - | - | + +---------+ + | Inhaled Oxygen | - | - | | Concentration | | | + +---------+ + | Weight | - | - | + +---------+ + | Height | - | - | + +---------+ + | Body Mass Index | - | - | + +---------+ + in this encounter Medications at Time of Discharge + + +--------+---------+ + + | Medication | Sig. | Disp. | Refills | Start | End Date | | | | | | Date | | + + +--------+---------+ + + | albuterol | Inhale 2 puffs into | | | | | | (VENTOLIN HFA) 90 | the lungs as needed | | | | | | mcg/puff inhaler | for Wheezing. | | | | | + + +--------+---------+ + + | atorvaSTATin | Take 20 mg by mouth | | | | | | (LIPITOR) 20 mg | nightly. | | | | | | tablet | | | | | | + + +--------+---------+ + + | cholecalciferol | Take 1,000 Units by | | | | | | (CHOLECALCIFEROL) | mouth Daily. | | | | | | 1,000 units capsule | | | | | | + + +--------+---------+ + + | DHA-Vitamin | Take 1 capsule by | | | | | | C-Lutein (EYE HEALTH | mouth Daily. | | | | | | FORMULA PO) | | | | | | + + +--------+---------+ + + | Flaxseed, Linseed, | Take 1,200 mg by | | | | | | (FLAXSEED OIL) 1200 | mouth Daily. | | | | | | MG CAPS | | | | | | + + +--------+---------+ + + | fluticasone | 1 spray by Nasal | | | | | | (FLONASE) 50 | route. | | | | | | mcg/nasal spray | | | | | | + + +--------+---------+ + + | Methylcellulose, | Take 500 mg by mouth | | | | | | Laxative, (CITRUCEL) | Daily. | | | | | | 500 MG TABS | | | | | | + + +--------+---------+ + + | methylPREDNISolone | Follow package | 21 | 0 | 05/26/20 | | | (MEDROL DOSEPAK) 4 | directions. | tablet | | 18 | | | mg tablet | | | | | | + + +--------+---------+ + + | mometasone | Inhale 2 puffs into | | | | | | (ASMANEX 60 METERED | the lungs every | | | | | | DOSES) 220 mcg/puff | evening. | | | | | | inhaler | | | | | | + + +--------+---------+ + + | Multiple | Take 1 tablet by | | | | | | Vitamins-Minerals | mouth Daily. | | | | | | (CENTRUM SILVER PO) | | | | | | + + +--------+---------+ + + | OLODATEROL HCL IN | Inhale into the | | | | | | | lungs as needed. | | | | | + + +--------+---------+ + + | Omeprazole | Take 1 tablet by | | | | | | (PRILOSEC PO) | mouth Daily. | | | | | + + +--------+---------+ + + | sildenafil | Take 100 mg by mouth | | | | | | (VIAGRA) 100 MG | as needed for | | | | | | tablet | Erectile | | | | | | | Dysfunction. | | | | | + + +--------+---------+ + + | | Take 1 capsule by | | | | | | triamterene-hydrochl | mouth every morning. | | | | | | orothiazide | | | | | | | (DYAZIDE) 37.5-25 MG | | | | | | | per capsule | | | | | | + + +--------+---------+ + + as of this encounter Plan of Treatment +--------+---------+ + + + | Date | Type | Specialty | Care Team | Description | +--------+---------+ + + + | 09/09/ | Office | Neurosurgery | Caleb Romero MD | | | 2018 | Visit | | [address] [facility] | | | | | | [address] [place] | | | | | | [address] | | | | | | | [...] + + + in this encounter Results [place] [facility] Lumbar Transforaminal [...] Diagnosis | + + | Lumbar radiculopathy | + + | Thoracic or lumbosacral neuritis or radiculitis, unspecified | + + Administered Medications + +--------+ +-------+------+------+ | Medication Order | MAR | Action | Dose | Rate | Site | | | Action | Date | | | | + +--------+ +-------+------+------+ | dexamethasone (PF) 10 mg/mL | Given | | 15 mg | | | | injection 15 mg 15 mg, Other, | | 8 10:48 | | | | | ONCE, [facility] 06/17/18 at 1045, For 1 | | PDT | | | | | dose | | | | | | + +--------+ +-------+------+------+ +---+---+ | | | +---+---+ + +-------+ +-------+---+---+ | iohexol (OMNIPAQUE 300) 300 | Given | | 4 mLs | | | | mg/mL injection 4 mL 4 mL, | | 8 10:46 | | | | | Other, ONCE, [facility] 06/17/18 at 1045, | | PDT | | | | | For 1 dose | | | | | | + +-------+ +-------+---+---+ +---+---+ | | | +---+---+ + +-------+ +-------+---+---+ | lidocaine (PF) 1% injection 2 | Given | | 2 mLs | | | | mL 2 mL, Other, ONCE, [facility] | | 8 10:48 | | | | | 06/17/18 at 1045, For 1 dose, | | PDT | | | | | EPIDURAL | | | | | | + +-------+ +-------+---+---+ +---+---+ | | | +---+---+ + +-------+ +-------+---+---+ | lidocaine buffered 1.3% | Given | | 6 mLs | | | | injection 6 mL 6 mL, Other, | | 8 10:44 | | | | | ONCE, [facility] 06/17/18 at 1045, For 1 | | PDT | | | | | dose, INTRADERMAL | | | | | | + +-------+ +-------+---+---+ +---+---+ | | | +---+---+ in this encounter"
--- OUTSIDE RECORDS SUMMARY | ~2018-08-08 | XMS | Encounter Summary ---
Demographics + + + | Address | [address] | | | [place] [address] | + + + | Home Phone | | + + + | Preferred Language | Unknown | + + + | Marital Status | | + + + | Yazidism Affiliation | Unknown | + + + | Race | Unknown | + + + | Ethnic Group | Unknown | + + + Author + + + | Author | [facility] | | | and Gurinder[place] | + + + | Organization | [facility] | | | and [place] | [...] Team Providers + +------+ + | Care Batch Freezer Operator Name | Role | Phone | + +------+ + | Darrel Ross NP | PCP | | + +------+ + Encounter Details +--------+ + + + + | Date | Type | Department | Care Team | Description | +--------+ + + + + | 08/06/ | Procedure | [facility] | | | | 2017 | Pass | MED CTR EXTERNAL | | | | | | IMAGING | | | | | | [phone] | | | +--------+ + + + [...] | Visit | | [address] [facility] | | | | | | [address] | | | | | | [address] | | | | | | | | +--------+---------+ + + + as of this encounter Visit Diagnoses Not on filein this encounter"
--- OUTSIDE RECORDS SUMMARY | ~2018-08-08 | XMS | Clinical Summary ---
Demographics + + + | Address | [address] | | | [place] [address] | + + + | Home Phone | | + + + | Preferred Language | Unknown | + + + | Marital Status | | + + + | Anabaptism Affiliation | Unknown | + + + | Race | White | + + + | Ethnic Group | Not or | + + + Author + + + | Organization | Unknown | + + + | Address | Unknown | + + + | Phone | Unavailable | + + + Care Team Providers + +------+ + | Care Corner Former Name | Role | Phone | + +------+ + PP | Unavailable | + +------+ + Source Comments INESSA is fully live on both [facility] Ambulatory and [facility] InPatient.[facility] Allergies Not on File Current Medications [...]
--- OUTSIDE RECORDS SUMMARY | ~2018-08-08 | XMS | Encounter Summary ---
Demographics + + + | Address | [address] | | | [place] [address] | + + + | Home Phone | | + + + | Preferred Language | Unknown | + + + | Marital Status | | + + + | Protestant Affiliation | Unknown | + + + | Race | Unknown | + + + | Ethnic Group | Unknown | + + + Author + + + | Author | [facility] | | | and Gurinderana | + + + | Organization | [facility] | | | and [place] [...] Team Providers + +------+ + | Care Awning Hanger Helper Name | Role | Phone | + [...] Christian [address] | | | | | [phone] | [place] [address] | | +--------+ + + + + [...] | [address] [facility] | | | | | | [address] | | | | | | [address] | | | | | | | [...]
--- OUTSIDE RECORDS SUMMARY | ~2018-08-08 | XMS | Encounter Summary ---
Demographics + + + | Address | [address] | | | [place] [address] | + + + | Home Phone | | + + + | Preferred Language | Unknown | + + + | Marital Status | | + + + | Confucianist Affiliation | Unknown | + + + | Race | Unknown | + + + | Ethnic Group | Unknown | + + + Author + + + | Author | [facility] | | | and Gurinder[place] | + + + | Organization | [facility] | | | and [...] Providers + +------+ + | Care Client Service Coordinator Name | Role | Phone | + [...] | Services | Therapy | Lumbar | [place] | [facility] | | | Required | | foraminal | Main, PA-C | PHYSICAL | | | | | stenosis | [address] | THERAPY [address] | | | | | Lumbar | [address] | [place] | | | | | radiculopath | [address] | [place], [place] | | | | | y Foraminal | [place], | [address] | | | | | stenosis of | [place] [address] | Phone: | | | | | lumbar | Phone: | [phone] | | | | | region | [phone] | Fax: | | | | | Lumbar facet | Fax: | [phone] | | | | | arthropathy | [phone] | | | | | | Procedures [...] + + | 05/26/ | Office | [facility] | Clemente Moreno | Lumbar foraminal | | 2017 | Visit | NEUROSURGERY [address] | [address] | stenosis (Primary | | | | [address] | [address] | Dx); Lumbar | | | | [place], [place] | [place], [place] | radiculopathy; | | | | [address] | [address] | Foraminal stenosis | | | | [phone] | | of lumbar region; | | [...] encounter Instructions Patient Instructions - Bel Villarreal, Turbine Attendant - 05/26/201845 PDTIt wa s a pleasure [...] om the original. Clemente Moreno PA-C [address] [facility] [place] [address] FAX: [phone] NEUROSURGERY HISTORY AND PHYSICAL EXAMINATION CHIEF COMPLAINT: [...] Prostate Vaporization; Surgeon: Vinnie Silverio MD; Location: [facility] MAIN OR VASECTOMY CURRENT MEDICATIONS: [...] Intrinsics 5 5 Ulnar Intrinsics 5 5 Computer Repair Engineer Strength 5 5 Hip Flexion 5 5 [...] 2018 | Visit | | [address] [facility] | | | | | | [...]
--- OUTSIDE RECORDS SUMMARY | ~2018-08-08 | XMS | Clinical Summary ---
Demographics + + + | Address | [address] | | | [place] [address] | + + + | Home Phone | | + + + | Preferred Language | Unknown | + + + | Marital Status | | + + + | Orthodox Affiliation | Unknown | + + + | Race | Unknown | + + + | Ethnic Group | Unknown | + + + Author + + + | Author | [facility] [employer] | + + + | Organization | [facility] [employer] | + + + | Address | Unknown | + + + | Phone | Unavailable | + + + Support + + + + + | Name | Relationship | Address | Phone | + + + + + | Detailed,Message | ECON | [address] | | | | | [place], [place] | | | | | [address] | | + + + + + | Bhavani Echeverria | ECON | Unknown | | + + + + + Care Team Providers + +------+ + | Care Project Architect Name | Role | Phone | + +------+ + | Shawn Perez MD | PP | | + +------+ + [...] | | | + + +--------+---------+------+------+-------+ | omeprazole | Take 20 mg by mouth | | | | | Activ | | (PRILOSEC) 20 MG | every morning before | | | | | e | | capsule | breakfast. | | | | | | + + +--------+---------+------+------+-------+ | triamterene | Take 50 mg by mouth | | | | | Activ | | (DYRENIUM) 50 MG | daily. | | | | | e | | capsule | | | | | | | + + +--------+---------+------+------+-------+ | fluticasone | 1 spray by Each Nare | | | | | Activ | | (FLONASE) 50 MCG/ACT | route daily. | | | | | e | | nasal | | | | | | | + + +--------+---------+------+------+-------+ | | Inhale 1 puff into | | | | | Activ | | fluticasone-salmeter | the lungs 2 (two) | | | | | e | | ol (ADVAIR) 100-50 | times daily. | | | | | | | MCG/DOSE diskus | | | | | | | [...] | | | + + +--------+---------+------+------+-------+ | amLODIPine | Take 2.5 mg by mouth | | | | | Activ | | (NORVASC) 2.5 MG | daily. | | | | | [...] | Activ | | Vitamins-Minerals | mouth daily. | | | | | e | | (MULTIVITAMIN WITH | | | | | | | | MINERALS) tablet | | | | | | | + + +--------+---------+------+------+-------+ | quiNINE 324 MG | Take 324 mg by mouth | | | | | Activ | | capsule | nightly as needed. | | | | | e | + + +--------+---------+------+------+-------+ | Flaxseed, Linseed, [...] Noted Date | + + + | Allergic rhinitis [...] of colon | | + +---+ | CHF (congestive heart failure) | | + +---+ | Erectile dysfunction | | + +---+ | Essential hypertension | | + +---+ | Osteoarthrosis | | + +---+ | Presbycusis | | + +---+ Family History + + +------+ + | [...] + + + | Blood Pressure | 110/70 | 02/28/2016 10:09 AM PDT | + + + + | Pulse | 68 | 02/28/2016 10:09 AM PDT | + + + + | Temperature | - | - | + + + + | Respiratory Rate | 18 | 02/28/2016 10:09 AM PDT | + + + + | Oxygen Saturation | 95% | 02/28/2016 10:09 AM PDT | + + + + | Inhaled Oxygen | - | - | | Concentration | | | + + + + | Weight | 92.5 kg (204 lb) | 02/28/2016 10:09 AM PDT | + + + + | Height | 174 cm (5' 8.5") | 02/28/2016 10:09 AM PDT | + + + + | Body Mass Index | 30.57 | 02/28/2016 10:09 AM PDT | + + + + Plan [...] filefrom Last 3 Months Insurance + +--------+ +------+-------+ + | Payer | Benefi | Subscriber | Type | Phone | Address | | | t Plan | ID | | | | | | / | | | | | | | Group | | | | | + +--------+ +------+-------+ + | MEDICARE | MEDICA | [id number] | | | [address] | | | RE | | | | [place] [address] | | | IP-OP | | | | | + +--------+ +------+-------+ + | COMMERCIAL OTHER | TRANSA | [id number] | | | | | | MERICA | | | | | | | LIFE | | | | | + +--------+ +------+-------+ + + +--------+ +--------+ + + | Guarantor Name | Accoun | Relation to | Date | Phone | Billing Address | | | t Type | Patient | of | | | | | | | | | | + +--------+ +--------+ + + | QUINTIN WAGNER | Person | Self [birth year] Home: | [address] | | | al/Fam | | 1940 | [phone] | [place] [address] | | | margie | | | [phone] | | + +--------+ +--------+ + +
--- OUTSIDE RECORDS SUMMARY | ~2018-08-08 | XMS | Clinical Summary ---
Demographics + + + | Address | [address] | | | [place] [address] | + + + | Home Phone | | + + + | Preferred Language | Unknown | + + + | Marital Status | | + + + | Christian Affiliation | Unknown | + + + | Race | Unknown | + + + | Ethnic Group | Unknown | + + + Author + + + | Author | [facility] [employer] | + + + | Organization | [facility] [employer] | + + + | Address | Unknown | + + + | Phone | Unavailable | + + + Support + + + + + | Name | Relationship | Address | Phone | + + + + + | Detailed,Message | ECON | [address] | | | | | [place], [place] | | | | | [address] | | + + + + + | Bhavani Echeverria | ECON | Unknown | | + + + + + Care Team Providers + +------+ + | Care Irrigation Teacher Name | Role | Phone | [...] +------+-------+ + | MEDICARE | MEDICA | [id number] | | | [address] | | | RE | | | | [place] [address] | | | IP-OP | | | | | + +--------+ +------+-------+ + | COMMERCIAL OTHER | TRANSA | [id number] | | | | | | MERICA [...] | | al/Fam | | 1940 | [phone] | [place] [address] | | | margie | | | [phone] | | + +--------+ +--------+ + +
--- OUTSIDE RECORDS SUMMARY | ~2018-08-08 | XMS | Encounter Summary ---
Demographics + + + | Address | [address] | | | [place] [address] | + + + | Home Phone | | + + + | Preferred Language | Unknown | + + + | Marital Status | | + + + | Islam Affiliation | Unknown | + + + | Race | Unknown | + + + | Ethnic Group | Unknown | + + + Author + + + | Author | [facility] | | | and [place] | + + + | Organization | [facility] | | | and [...] Providers + +------+ + | Care Assistant Center Director Name | Role | Phone | + +------+ + | Darrel Ross NP | PCP | | + +------+ + Encounter Details +--------+ + + + + | Date | Type | Department | Care Team | Description | +--------+ + + + + | 08/06/ | Ancillary | [facility] | Provider, | | | 2018 | Orders | MED CTR EXTERNAL | MD [address] | | | | | IMAGING | [place] [address] | | | | | [phone] | [place] [address] | | +--------+ + + + + [...] 2018 | Visit | | [address] [facility] | | | | | | [address] | | | | | | [address] | | | | | | | | +--------+---------+ + + + as of this encounter Results MRI Lumbar Spine wo Contrast (07/29/2018904) [...]
--- OUTSIDE RECORDS SUMMARY | ~2018-08-08 | XMS | Encounter Summary ---
Demographics + + + | Address | [address] | | | [place] [address] | + + + | Home Phone | | + + + | Preferred Language | Unknown | + + + | Marital Status | | + + + | Advent Affiliation | Unknown | + + + | Race | Unknown | + + + | Ethnic Group | Unknown | + + + Author + + + | Author | [facility] | | | and [place]inder[place] | + + + | Organization | [facility] | | | and [place] [...] Team Providers + +------+ + | Care Honest John Rocket Crew Member Name | Role | Phone | + [...] | | | Foraminal | Clemente | [facility] | | | | | stenosis of | [address] | [address] | | | | | lumbar | [address] | [address] | | | | | region | [address] | [place], [place] | | | | | Lumbar | [address] | [address] | | | | | radiculopath | [place], | Phone: | | | | | y Synovial | [place] [address] | [phone] | | | | | cyst of | Phone: | Fax: | | | | | lumbar spine | [phone] | [phone] | | | | | Lumbar | Fax: | | | | | | facet | [phone] | | | | | | arthropathy [...] + + | 07/09/ | Office | [facility] | Clemente Moreno | Foraminal stenosis | | 2018 | Visit | NEUROSURGERY [address] | [address] | of lumbar region | | | | [address] | [address] | (Primary Dx); Lumbar | | | | [place], [place] | [place], [place] | radiculopathy; | | | | [address] | [address] | Synovial cyst of | | | | [phone] | | lumbar spine; Lumbar | | | | | | facet arthropathy | | | | | | ([facility]) | +--------+---------+ + + + Social History [...] encounter Instructions Patient Instructions - Kamla Brown, Logging Supervisor - 07/09/2018929 PDTIt was rossi borrero to [...] a new MRI to be completed at [facility] in [place]. Once it [...] om the original. Clemente Moreno PA-C [address] [facility], [address] [place], [place] [address] FAX: [phone] NEUROSURGERY HISTORY AND PHYSICAL EXAMINATION CHIEF COMPLAINT: [...] Prostate Vaporization; Surgeon: Vinnie Silverio MD; Location: [facility] MAIN OR VASECTOMY CURRENT MEDICATIONS: Current [...] Intrinsics 5 5 Ulnar Intrinsics 5 5 Launch Manager Strength 5 5 Hip Flexion 5 5 [...] Portions of this report were transcribed using [employer] voice recognition software. A lthough effort was [...] 2018 | Visit | | [address] [facility] | | | | | | [address] [place] | | | | | | [id number] | | | | | | | [...]
--- OUTSIDE RECORDS SUMMARY | ~2018-08-08 | XMS | Encounter Summary ---
Demographics + + + | Address | [address] | | | [place] [address] | + + + | Home Phone | | + + + | Preferred Language | Unknown | + + + | Marital Status | | + + + | Mandaen Affiliation | Unknown | + + + | Race | Unknown | + + + | Ethnic Group | Unknown | + + + Author + + + | Author | [facility] | | | and [place] | + + + | Organization | [facility] | | [...] Team Providers + +------+ + | Care Electric Serviceman Name | Role | Phone | + [...] | (Primary Dx) | | | | [place], | [place], [place] | | | | | [place] [address] | [address] | | | | | [phone] | | | +--------+ + + + [...] | Visit | | [address] [facility] | | | | | | [address] | | | | | | [address] | | | | | | | [...]
--- OUTSIDE RECORDS SUMMARY | ~2018-08-08 | XMS | Clinical Summary ---
Demographics + + + | Address | [address] | | | [place] [address] | + + + | Home Phone | | + + + | Preferred Language | Unknown | + + + | Marital Status | | + + + | Voodoo Affiliation | Unknown | + + + | Race | Unknown | + + + | Ethnic Group | Unknown | + + + Author + + + | Author | [facility] | | | and [place]inder[place] | + + + | Organization | [facility] | | | and [place] [...] Team Providers + +------+ + | Care Baker Operator Automatic Name | Role | Phone | + [...] | 2017 | Encounter | | LUPILL[address] Field Handyman, | | | | | | Ws[place]quita [...] 2017 | Visit | | [address] [facility] | | | | | | [address] | | | | | | [address] | | | | | | | [...] + + | Performing | Address | City[facility]State[facility] | Phone Number | | Organization | [...] +--------+ +---------+ | MEDICARE | MEDICA | [id number] | Medica | [phone] | | | RE | | re | [phone] | | | | PART A | | | | | | | AND B | | | | | + +--------+ +--------+ +---------+ | CIGNA | CIGNA | [id number] | Indemn | [phone] | | [...] | 1940 | [phone] | [place] [address] | | | margie | | | 1890 | | + +--------+ +--------+ + +
--- OUTSIDE RECORDS SUMMARY | ~2018-08-08 | XMS | Encounter Summary ---
Demographics + + + | Address | [address] | | | [place] [address] | + + + | Home Phone | | + + + | Preferred Language | Unknown | + + + | Marital Status | | + + + | Anabaptist Affiliation | Unknown | + + + | Race | Unknown | + + + | Ethnic Group | Unknown | + + + Author + + + | Author | [facility] | | | and [place] | + + + | Organization | [facility] | | [...] Team Providers + +------+ + | Care Vice President & General Manager [employer] Name | Role | Phone | + [...] IMAGING | | | | | | [phone] | | | +--------+ + + + [...] | Visit | | [address] [facility] | | | | | | [address] | | | | | | [address] | | | | | | | | +--------+---------+ + + + as of this encounter Visit Diagnoses Not on filein this encounter"
--- OUTSIDE RECORDS SUMMARY | ~2018-08-08 | XMS | Encounter Summary ---
Demographics + + + | Address | [address] | | | [place] [address] | + + + | Home Phone | | + + + | Preferred Language | Unknown | + + + | Marital Status | | + + + | Adventist Affiliation | Unknown | + + + | Race | Unknown | + + + | Ethnic Group | Unknown | + + + Author + + + | Author | [facility] | | | and Gurinderana | + + + | Organization | [facility] | | | and [...] Team Providers + +------+ + | Care Ambulance Assistant Name | Role | Phone | + [...] | Lumbar | Cheryl, | [address] | | | | | radiculopath | Ismael Rodríguez MD | [place], | | | | | y | [address] | [place] | | | | | Procedures | [place] | [address] | | | | | [place] INJECT | [place] | Phone: | | | | | ANES/STEROID | [address] | [phone] | | | | | FORAMEN | Phone: | Fax: | | | | | LUMBAR/SACRA | [phone] | [phone] | | | | | L W IMG | Fax: | | | | | | GUIDE ,1 | [phone] | | | | | | LEVEL [place] | | | | | | | [...] + + | 08/16/ | Hospital | [facility] | Asad Renteria, | Lumbar radiculopathy | | 2018 | Encounter | MED CTR XRAY [address] | PA-C [address] | | | | | [place] | [address] [place] | | | | | [place] [address] | [place] [address] | | | | | [phone] | [phone] | | | | | | | | | | | | Regional Medical Director, [facility] | | +--------+ + + + [...] | Visit | | [address] [facility] | | | | | | [address] [place] | | | | | | [address] | | | | | | | [...] 10:48 | | | | | ONCE, [facility] 06/17/18 at 1045, For 1 | | [...] 10:44 | | | | | ONCE, [facility] 06/17/18 at 1045, For 1 | | PDT | | | | | dose, INTRADERMAL | | | | | | + +-------+ +-------+---+---+ +---+---+ | | | +---+---+ in this encounter"
--- OUTSIDE RECORDS SUMMARY | ~2018-08-08 | XMS | Encounter Summary ---
Demographics + + + | Address | [address] | | | [place] [address] | + + + | Home Phone [...] | Author | [facility] | | | and Gurinderana | + + + | Organization | [facility] | [...] Team Providers + +------+ + | Care Inbound Sales Consultant Name | Role | Phone | + [...] | MED CTR EXTERNAL | MD [address] | | | | | IMAGING | [place] | | | | | [phone] | [place] [address] | | +--------+ + + + + [...] 2018 | Visit | | [address] [facility] | | | | | | [address] [place] | | | | | | [id number] | | | | | | | [...]
[~2018-08-08 10:40] MED LIST changes: +PREDNISONE20 MG PO; +ROBAXIN-750750 MG PO
[2018-08-08] MEDS ORDERED: PREDNISONE20 MG PO (12:21)
[2018-08-08] MEDS ORDERED: DOXYCYCLINE HY100 MG PO (12:21)
--- NOTE | 2018-08-09 18:39 | EKG ---
[facility] [address] [facility] [facility] [place] [address] Signed Normal sinus rhythm Right bundle branch block Left anterior fascicular block Bifascicular block Abnormal ECG No previous ECGs available Confirmed by VIJAY GONZALES MD ([id number]) on 08/09/2018 6:39:37 PM Electronically Signed By: VIJAY GONZALES MD 08/09/18 1839 PATIENT NAME: THONYNEYMAR MELE Electrocardiogram DATE OF : 40 PHYSICIAN: VIJAY GONZALES MD REPORT #: [id number] REPORT IS CONFIDENTIAL AND NOT TO BE RELEASED WITHOUT AUTHORIZATION
== END 2018-08-08 13:00 | disposition home or self-care (01) ==
LOC: ED 10:40
DX: J44.0 Chronic obstructive pulmonary disease with (acute) lower respiratory infection (principal); J18.9 Pneumonia, unspecified organism; J44.1 Chronic obstructive pulmonary disease with (acute) exacerbation; Z87.891 Personal history of nicotine dependence; Z88.2 Allergy status to sulfonamides; Z88.5 Allergy status to narcotic agent; Z79.899 Other long term (current) drug therapy; Z79.82 Long term (current) use of aspirin
CPT/HCPCS: 71046; 80053; 83880; 84484; 85025; 93005; 93010; 94640; 96374; 99285; J2930

== ENCOUNTER 2019-03-29 12:21 | Emergency (ER) | payer MEDICARE, OTHER ==
[~2019-03-29] VITALS: Ht 175.3 cm; Wt 94.8 kg
--- OUTSIDE RECORDS SUMMARY | ~2019-03-29 | XMS | Clinical Summary ---
Demographics + + + | Address | [address] | | | [place] [address] | + + + | Home Phone | | + + + | Preferred Language | Unknown | + + + | Marital Status | | + + + | Synagogue Affiliation | Unknown | + + + | Race | White | + + + | Ethnic Group | Not or | + + + Author + + + | Organization | Unknown | + + + | Address | Unknown | + + + | Phone | Unavailable | + + + Care Team Providers + +------+ + | Care Client Delivery Manager Name | Role | Phone | + +------+ + PP | Unavailable | + +------+ + Source Comments INESSA is fully live on both [facility] Ambulatory and [facility] InPatient.[facility] Allergies Not on File Medications Not on file Active Problems Not on file Social History + +-------+ +--------+------+ | Tobacco Use | Types | Packs/Day | Years | Date | | | | | Used | | + +-------+ +--------+------+ | Never Assessed | | | | | + +-------+ +--------+------+ + + + | Sex Assigned at | Date Recorded | | | | + + + | Not on file | | + + + + + + + | Job Start Date | Occupation | Industry | + + + + | Not on file | Not on file | Not on file | + + + + + + + + | Travel History | Travel Start | Travel End | + + + + + + | No recent travel history available. | + + Plan of Treatment + + + + + | Health Maintenance | Due Date | Last Done | Comments | + + + + + | Pneumococcal (Adult) | | | | | (1 of 2 - PCV13) | 5 | | | + + + + + | Influenza (Flu) | | | | | vaccination (Season | 9 | | | | Ended) | | | | + + + + + Results Not on filefrom Last 3 Months"
--- OUTSIDE RECORDS SUMMARY | ~2019-03-29 | XMS | Clinical Summary ---
Demographics + + + | Address | [address] | | | [place] [address] | + + + | Home Phone | | + + + | Preferred Language | Unknown | + + + | Marital Status | | + + + | Pentecostal Affiliation | Unknown | + + + | Race | Unknown | + + + | Ethnic Group | Unknown | + + + Author + + + | Author | [facility] | + + + | Organization | [facility] | + + + | Address | Unknown | + + + | Phone | Unavailable | + + + Support + + + + + | Name | Relationship | Address | Phone | + + + + + | Detailed,Message | ECON | [address] | | | | | [place], [place] | | | | | [address] | | + + + + + | Bhavani Echeverria | ECON | Unknown | | + + + + + Care Team Providers + +------+ + | Care Camp Maintenance Supervisor Name | Role | Phone | + +------+ + | Darrel Ross | PP | | + +------+ + Allergies + + + + + + | Active Allergy | Reactions | Severity | Noted | Comments | | | | | Date | | + + + + + + | Hydrocodone | Hives | High | 07/05/20 | | | | | | 15 | | + + + + + + | Lisinopril | Cough | Low | 07/05/20 | | | | | | 15 | | + + + + + + | Sulfa Antibiotics | Hives | High | 07/05/20 | | | | | | 15 | | + + + + + + Current Medications + + +--------+---------+------+------+-------+ | Prescription | Sig. | Disp. | Refills | Star | End | Statu | | | | | | t | Date | s | | | | | | Date | | | + + +--------+---------+------+------+-------+ | albuterol (PROAIR | Inhale 2 puffs into | | | | | Activ | | HFA) 108 (90 BASE) | the lungs every 4 | | | | | e | | MCG/ACT inhaler | (four) hours as | | | | | | | | needed for Wheezing. | | | | | | + + +--------+---------+------+------+-------+ | aspirin 81 MG | Take 81 mg by mouth | | | | | Activ | | tablet | daily. | | | | | e | + + +--------+---------+------+------+-------+ | Methylcellulose, | Take 500 mg by mouth | | | | | Activ | | Laxative, (CITRUCEL) | daily. | | | | | e | | 500 MG TABS | | | | | | | + + +--------+---------+------+------+-------+ | Flaxseed, Linseed, | Take 1 tablet by | | | | | Activ | | (FLAX SEEDS PO) | mouth daily. | | | | | e | + + +--------+---------+------+------+-------+ | nitroGLYCERIN | Place 1 tablet under | 90 | 12 | 10/1 | | Activ | | (NITROSTAT) 0.4 MG | the tongue every 5 | tablet | | 5/20 | | e | | SL | (five) minutes as | | | 15 | | | | tabletIndications: | needed for Chest | | | | | | | Abnormal | pain. | | | | | | | cardiovascular | | | | | | | | stress test | | | | | | | + + +--------+---------+------+------+-------+ | atorvastatin | Take 20 mg by mouth | | | | | Activ | | (LIPITOR) 20 MG | nightly. | | | | | e | | tablet | | | | | | | + + +--------+---------+------+------+-------+ | | Take 1 capsule by | | | | | Activ | | triamterene-hydrochl | mouth every morning. | | | | | e | | orothiazide | | | | | | | | (DYAZIDE) 37.5-25 MG | | | | | | | | per capsule | | | | | | | + + +--------+---------+------+------+-------+ | mometasone | Inhale 1 puff into | | | | | Activ | | (ASMANEX) 220 | the lungs daily. | | | | | e | | MCG/INH inhaler | | | | | | | + + +--------+---------+------+------+-------+ | Olodaterol HCl | Inhale into the | | | | | Activ | | (STRIVERDI RESPIMAT) | lungs. | | | | | e | | 2.5 MCG/ACT AERS | | | | | | | + + +--------+---------+------+------+-------+ | cholecalciferol | Take by mouth. | | | | | Activ | | 92392 units CAPS | | | | | | e | + + +--------+---------+------+------+-------+ | Multiple | Take by mouth. 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) | | + + + | Chest pain | | + + + + + | Last Assessment & Plan: No chest pain75 yr old male with h/o | | HTN, HLDEKG showed NSR PACs, RBBB, high lateral infarctGood | | functional capacityEST nuclear stress test reasonable exercise | | capacity with small apical ischemiaEcho normal LV function, WMA, | | valves, structureContinue ASA, Norvasc, TriamtereneDiscussed | | about stress test- its role in management of CAD, signs and | | symptoms of CAD- management options including coronary angiogram, | | medical management, he do not have any symptoms at this time- we | | will continue to monitor closely for symptoms. Coronary | | angiogram if symptoms recur or worsenHe will come to ER in case | | of acute chest painNGT sl prn as neededDiscussed about CAD | | presentations, management options, diet, exerciseAdvised him to | | stop using sildenafil and also explained heart risks if taken | | together with nitroglycerineContinue Norvasc, TriamtereneLipid | | profile from Dr. Morales office to review.- lipids reviewed- LDL- | | 100, HDL- 34.9, TGL- 145, CHS- 164 09/2015F/u in 6 months or | | early. | + + + +---+ | Colon polyps | | + +---+ | Diverticulosis of colon | | + +---+ | Erectile dysfunction | | + +---+ | Essential hypertension | | + +---+ | Osteoarthrosis | | + +---+ | Presbycusis | | + +---+ Resolved Problems + +--------+ + | Problem | Noted | Resolved | | | Date | Date | + +--------+ + | CHF (congestive heart failure) | | | | | | 8 | + +--------+ + Family History + + +------+ + | Medical History | Relation | Name | Comments | + + +------+ + | Heart failure | Father | | | + + +------+ + + +------+ + + | Relation | Name | Status | Comments | + +------+ + + | Father | | | COPD, CHF | | | | (Age | | | | | 80) | | + +------+ + + | Mother | | | VALVE | | | | (Age | | | | | 59) | | + +------+ + + Social History + +-------+ +--------+------+ [...] | | + + +---------+ + | No | 0 | 0.0 | | | | Standard | | | | | drinks or | | | | | | | | | | equivalen | | | | | t | | | + + +---------+ + + + + | Sex Assigned at | Date Recorded | | | | + + + | Not on file | | + + + Last Filed Vital Signs + + + + | Vital Sign | Reading | Time Taken | + + + + | Blood Pressure | 134/80 | 09/21/2018 3:46 PM PST | + + + + | Pulse | 91 | 09/21/2018 3:46 PM PST | + + + + | Temperature | - | - | + + + + | Respiratory Rate | 18 | 09/21/2018 3:46 PM PST | + + + + | Oxygen Saturation | 95% | 09/21/2018 3:46 PM PST | + + + + | Inhaled Oxygen | - | - | | Concentration | | | + + + + | Weight | 92.8 kg (204 lb 9.6 | 09/21/2018 3:46 PM PST | | | oz) | | + + + + | Height | 175.3 cm (5' 9") | 09/21/2018 3:46 PM PST | + + + + | Body Mass Index | 30.21 | 09/21/2018 3:46 PM PST | + + + + Plan of Treatment + + + + + | Health Maintenance | Due Date | Last Done | Comments | + + + + + | Vaccine: | | | | | Dtap/Tdap/Td (1 - | 9 | | | | Tdap) | | | | + + + + + | Vaccine: Zoster (1 | | | | | of 2) | 0 | | | + + + + + | Vaccine: | | | | | Pneumococcal 65+ | 5 | | | | Low/Medium Risk (1 | | | | | of 2 - PCV13) | | | | + + + + + | Vaccine: Influenza | | | | | (Season Ended) | 9 | | | + + + + + Results Not on filefrom Last 3 Months Insurance + +--------+ +--------+-------+ + | Payer | Benefi | Subscriber | Type | Phone | Address | | | t Plan | ID | | | | | | / | | | | | | | Group | | | | | + +--------+ +--------+-------+ + | MEDICARE | MEDICA | [id number] | | | [address] | | | RE | | | | [place] [phone] | | | IP-OP | | | | | + +--------+ +--------+-------+ + | CIG[employer] | LOYAL | [id number] | Indemn | | | | | AMERIC | | ity | | | | | AN | | | | | + +--------+ +--------+-------+ + + +--------+ +--------+ + + | Guarantor Name | Accoun | Relation to | Date | Phone | Billing Address | | | t Type | Patient | of | | | | | | | | | | + +--------+ +--------+ + + | QUINTIN WAGNER | Person | Self [birth year] Home: | [address] | | | [place] | | 1940 | [phone] [place] [address] | | | marg[place] | | | [phone] | | + +--------+ +--------+ + +
--- OUTSIDE RECORDS SUMMARY | ~2019-03-29 | XMS | Encounter Summary ---
Demographics + + + | Address | [address] | | | [place] [address] | + + + | Home Phone | | + + + | Preferred Language | Unknown | + + + | Marital Status | | + + + | Faith Affiliation | Unknown | + + + | Race | Unknown | + + + | Ethnic Group | Unknown | + + + Author + + + | Author | [facility] | | | and [place] | + + + | Organization | [facility] | | | and [place] | + + + | Address | Unknown | + + + | Phone | Unavailable | + + + Support + + + + + | Name | Relationship | Address | Phone | + + + + + | Detailed,Message | ECON | [address] | | | | | [place], [place] | | | | | [address] | | + + + + + | Bhavani Echeverria | ECON | Unknown | | + + + + + Care Team Providers + +------+ + | Care Chief Construction Inspector Name | Role | Phone | + +------+ + | Darrel Ross NP | PCP | | + +------+ + Reason for Visit +---------+ + | Reason | Comments | +---------+ + | Post Op | | +---------+ + Encounter Details +--------+---------+ + + + | Date | Type | Department | Care Team | Description | +--------+---------+ + + + | 01/10/ | Office | [facility] [place] | Mahesh Perez, | S/P lumbar fusion | | 2019 | Visit | NEUROSURGERY [address] | PA-C [address] | (Primary Dx); Back | | | | [address] | [address] | pain, unspecified | | | | [place], [place] | [place] [address] | back location, | | | | [address] | [phone] | unspecified back | | | | [phone] | | pain laterality, | | | | | | unspecified | | | | | | chronicity; Weakness | | | | | | of right leg | +--------+---------+ + + + Social History + + + +--------+ + | Tobacco Use | Types | Packs/Day | Years | Date | | | | | Used | | + + + +--------+ + | Former Smoker | Cigarettes, Cigars, | 0.25 | 3 | Quit: 1960 | | | Pipe | | | | + + + +--------+ + + +---+---+---+ | Smokeless Tobacco: | | | | | Never Used | | | | + +---+---+---+ + + +---------+ + | Alcohol Use | Drinks/We | oz/Week | Comments | | | ek | | | + + +---------+ + | Yes | 1 Shots | 0.6 | Socially, but not often | | | of [...] recent travel history available. | + + documented as of this encounter Last Filed Vital Signs + + + + | Vital Sign | Reading | Time Taken | + + + + | Blood Pressure | 138/90 | 01/10/2019 1021 PDT | + + + + | Pulse | 100 | 01/10/2019 1021 PDT | + + + + | Temperature | - | - | + + + + | Respiratory Rate | - | - | + + + + | Oxygen Saturation | - | - | + + + + | Inhaled Oxygen | - | - | | Concentration | | | + + + + | Weight | 91.2 kg (201 lb) | 01/10/2019 1021 PDT | + + + + | Height | 175.3 cm (5' 9") | 01/10/2019 1021 PDT | + + + + | Body Mass Index | 29.68 | 01/10/2019 1021 PDT | + + + + documented in this encounter Patient Instructions Patient Instructions Margo Corrigan, Marketing Designer - 01/10/2019 10:00 PDT You can try taking Oxycodone and Robaxin together however if you find him dosing off or teja ble to finish a sentence then you will know that you should not give the Robaxin and Oxycodo ne together. You can try staggering the dosing of Robaxin and Oxycodone to help avoid the s edating him. You can also try taking 1/2 a Robaxin instead of a full one. You received a bone growth stimulator today. Make sure that you wear that daily until the battery runs out which will be about 9 months or so. You can use Vitamin E oil on your incision sites to help them heal up nicely. Try to avoid putting the oil directly on the incisions for the extension 2 weeks and just rub the oil ar ound your incisions. We also gave you refills on your Oxycodone and Robaxin (Methocarbamol). Let us know when y ou will need a refill. We are going to cancel the physical therapy for now. If you decide that you want to do [facility] physical therapy in a month or so please call and let us know. 1 Week from now you can begin this process: 4 WEEK LUMBAR POST-OP INSTRUCTIONS: You may now slowly increase your lifting up to 15 pounds as tolerated. You may now reach o verhead but it should only be 1-2 pounds. Please refrain from twisting for the next 8 weeks . In the meantime, you can also begin to wean out of your brace as instructed below. SPINE BRACE WEANING PROTOCOL (5 WEEKS) Below are instructions for weaning your brace. You can move through the weeks slower if yo u feel the need to do so, but the overall goal is to get you out of the brace slowly over th e next several weeks. WEEK 1 If you have been using your brace for activities like sleeping, showering, do not use the P2i race for these activities any longer but continue using it for everything else. WEEK 2 Stop wearing your brace for sitting and short distance walking. You should use the brace f or anything more involved. WEEK 3 Stop using the brace for medium distance walking. You can bend and twist your back but sti ll proceed slowly with these activities. WEEK 4 Stop using the brace for everything but the most difficult tasks. You should now be able t o go on long walks and lift more weight as directed. Add more bending and twisting as goldy ated. WEEK 5 Stop using the brace for daily use. I would encourage you to use the brace in the future f or activities that you know might aggravate your back or cause pain. You should still work to strengthen your back and use good technique when forklift picker things and bending. documented in this encounter Progress Notes Mahesh Perez PA-C - 01/10/2019 1000 PDTFormatting of this note might be different fro m the original. Mahesh Perez PA-C [address], [address] [place] [address] PHONE: FAX: NEUROSURGERY FOLLOW-UP CHIEF COMPLAINT: Chief Complaint Patient presents with Post Op HISTORY OF PRESENT ILLNESS: Quintin Wagner is a 78 y.o. male that had a lumbar fusion for back and right leg pain on 12/23/2018. He returns and overall is doing fairly well. Today he states that his right leg pain has improved since surgery. Since surgery he has h ad muscle pain in his back which has subsided somewhat. He is scheduled to go in for a phys ical therapy evaluation tomorrow however he is concerned that he is not ready to begin. He has been walking as much as directed. He is taking (2) Oxycodone every 6 hours at this point. He has had no issues with his surgical site. PAST MEDICAL HISTORY: Past Medical History: Diagnosis Date Allergic rhinitis Asthma Basal cell carcinoma Benign prostatic hyperplasia (BPH) with urinary urge incontinence Chest pain Colon polyps Congestive heart failure, chronic, left-sided (HCC) Coronary arteriosclerosis ED (erectile dysfunction) GERD (gastroesophageal reflux disease) Hard of hearing hearing aids History of colonic diverticulitis Hyperlipidemia Hypertension Impaired memory Osteoarthritis Presbycusis PAST SURGICAL HISTORY: Past Surgical History: Procedure Laterality Date CARPAL TUNNEL RELEASE FACIAL RECONSTRUCTION SURGERY LUMBAR SPINE SURGERY N/A 12/23/2018 Procedure: L4-5 LAIF, L5-S1 TLIF; Surgeon: Caleb Villasenor MD; Location: [facility] MAIN OR skin cancer removal Basel cell carcinoma TONSILLECTOMY TURP N/A 01/09/2017 Procedure: Cyber Laser Prostate Vaporization; Surgeon: Vinnie Silverio MD; Location: [facility] MAIN OR VASECTOMY CURRENT MEDICATIONS: Current Outpatient Prescriptions Medication Sig Dispense Refill acetaminophen (TYLENOL) 325 mg tablet Take 2 tablets by mouth every 4 hours as needed f or Pain. 120 tablet 1 albuterol (VENTOLIN HFA) 90 mcg/puff inhaler Inhale 2 puffs into the lungs as needed fo r Wheezing. aspirin 81 mg EC tablet Take 81 mg by mouth Daily. atorvaSTATin (LIPITOR) 20 mg tablet Take 20 mg by mouth nightly. DHA-Vitamin C-Lutein (EYE HEALTH FORMULA PO) Take 1 capsule by mouth Daily. docusate-senna (SENOKOT-S) 50-8.6 mg per tablet Take 1 tablet by mouth BID PC. 60 table t 1 fluticasone (FLONASE) 50 mcg/nasal spray 1 spray by Nasal route. methocarbamol (ROBAXIN) 750 mg tablet Take 1 tablet by mouth every 6 hours as needed fo r Muscle spasms. 40 tablet 0 Methylcellulose, Laxative, (CITRUCEL) 500 MG TABS Take 500 mg by mouth Daily. mometasone (ASMANEX 60 METERED DOSES) 220 mcg/puff inhaler Inhale 2 puffs into the lung s Daily. Multiple Vitamins-Minerals (CENTRUM SILVER PO) Take 1 tablet by mouth Daily. OLODATEROL HCL IN Inhale into the lungs as needed. oxyCODONE (ROXICODONE) 5 mg tablet Take 1-2 tablets by mouth every 6 hours as needed fo r Pain. Exam today: Recent major spine surgery. 60 tablet 0 sildenafil (VIAGRA) 100 MG tablet Take 100 mg by mouth as needed for Erectile Dysfuncti on. triamterene-hydrochlorothiazide (DYAZIDE) 37.5-25 MG per capsule Take 1 capsule by mout h Daily. 30 capsule 0 No current facility-administered medications for this visit. ALLERGIES: Allergies Allergen Reactions Hydrocodone Other (See Comments) Skin sloughing from penis Lisinopril Other (See Comments) Cough Sulfa Antibiotics Rash SOCIAL HISTORY: The patient reports that he quit smoking about 59 years ago. His smoking use included Ciga rettes, Cigars, and Pipe. He has a 0.75 pack-year smoking history. He has never used smokele ss tobacco. He reports that he drinks about 0.6 oz of alcohol per week . He reports that he does not use drugs. FAMILY HISTORY: Family History Problem Relation Age of Onset Heart defect Mother 59 Valve dysfunction COPD Father Heart failure Father Other cancer Brother Leukemia Cancer Brother Leukemia REVIEW OF SYSTEMS: GENERALLY: No fever, no night sweats, no anemia, no fatigue, no recent profound weight ch anges. EYES: No eye problems, no impaired sight, + use of corrective lenses, no eye injury, no do uble vision, no transient blindness. EARS, NOSE, AND THROAT: No changes in taste or smell, + hearing difficulty, no ringing in the ears, no ear drainage, no ear injury, no dizziness, no voice changes, no difficulty swal lowing, no significant snoring, no sleep apnea/CPAP, no sinus problems, no major dental work . NEUROLOGICALLY: Please see the review of systems discussed above in the history of present illness. In addition, the patient has numbness/pain of legs, muscle aching. PSYCHIATRIC: No depression, + difficulty sleeping, no anxiety, no bipolar disorder. CARDIOVASCULAR: No heart attacks, no heart murmur, no heart fluttering, no chest pain, no ankle swelling. LUNG DISEASE: No shortness of breath, no cough, no tuberculosis, no bloody cough, no asthm a, no emphysema/COPD. GASTROINTESTINAL: No bowel disease, no nausea or vomiting, no rectal bleeding, no constipa tion, no fecal stool incontinence, no liver/gallbladder disease, no abdominal pain, no ulcer s. KIDNEY DISEASE: No urinary frequency, no painful or difficult urination, no urinary incont inence, no bladder problems, no impotence. ENDOCRINE: No diabetes, no thyroid disease, no osteopenia or osteoporosis, no breast drain age. SKIN: No breast lumps, no skin disease or skin changes, no rashes/itches. HEMATOLOGIC/LYMPHATIC: No enlarged lymph nodes, no easy or unusual bleeding, no personal h istory of cancer. RHEUMATOLOGIC: + joint pain/arthritis, no rheumatoid arthritis. INTERIM PHYSICAL EXAMINATION: Blood pressure 138/90, pulse 100, height 1.753 m (5' 9"), weight 91.2 kg (201 lb). Body mas s index is 29.68 kg/m. GENERAL: Quintin Wagner is in no acute distress with unlabored respirations. SPINE: The patient s incisions are healing well without drainage, significant erythema, o r discharge. EXTREMITIES: No lower extremity edema. NEUROLOGICAL EXAMINATION: MENTAL STATUS: The patient is awake, alert, and oriented. He follows simple and complex commands MOTOR EXAM: Motor strength is 5/5 with the exception of right dorsiflexion which is 4 almos t 4-/5. SENSORY EXAM: The sensory examination is unchanged when compared to the preoperative exam. RADIOGRAPHIC REVIEW: His x-rays show stable instrumentation and alignment and were reviewed with the him today. There have been no interval changes since the immediate postoperative films. Complete fusi on has not yet occurred, but this is normal and would not be expected at this time. ASSESSMENT: Outpatient Morphine Equivalent Daily Dose (MEDD) 01/10/19 and after 30-60 mg MEDD Order Name Dose Route Frequency Maximum MEDD oxyCODONE (ROXICODONE) 5 mg tablet 5-10 mg Oral EVERY 6 HOURS PRN 30-60 mg MEDD Total Potential Daily Morphine Equivalence 30-60 mg MEDD Calculation Information oxyCODONE (ROXICODONE) 5 mg tablet oxyCODONE 5 mg Tabs: single dose of 5-10 mg * 4 doses per day * morphine equivalence facto r of 1.5 = 30-60 mg MEDD PEG Pain screening tool: Total score: 5 (01/10/19 1023) Encounter Diagnoses Name Primary? S/P lumbar fusion Yes Back pain, unspecified back location, unspecified back pain laterality, unspecified chr onicity Weakness of right leg PLAN: Overall, the he is doing well. The patient can see some improvements but continues to melany yuli from recent surgery. We discussed increasing the patient s activities now allowing 15 pound lifting. The ruby ent will begin the process of brace weaning as directed. We would like the patient to advclifton liao slowly with this process and discussed this at length during today's visit. Right now my primary concern is the right dorsiflexion weakness. Because of this, I am asking that he co me back for an 8 week postop evaluation and set up to 12 weeks. We will still have a 3 gurinder h postop appointment set up for him to meet with Dr. villasenor, but in addition to this I will see him 1 month earlier. If there is any worsening I will likely order physical therapy focusi ng on this along with aquatic therapy and a consideration for an MRI if appropriate. Right now, I am concerned that physical therapy may be too aggressive for him and have asked him t o continue walking around his house as much as possible for short stents every 30-40 minutes . We discussed that we can provide pain medications for up to 84 days after their surgical da te. We discussed the need to continue tapering pain medication. If they need longer term p ain medication, they should begin working on either pain management or with the primary care provider. The patient's MEDD, pain assessments, as well as [place] and [place] RESIDENT MANAGER's were reviewed under the documentation encounter on 12/07/2018 by me personally. We are hoping to see improvement over the coming weeks to months and plan to continue to fo llow this patient. The patient will follow-up in clinic in around 8 weeks for re-evaluation . I, Mahesh Perez PA-C, personally performed the services described in this documentati on, as scribed by IGLESIA Cortes, in my presence, and it is both accurate and complet e. Mahesh Perez PA-C 01/10/19 ELECTRONICALLY SIGNED BY: Mahesh Perez PA-C, 01/10/2019 11:05 documented in this e ncounter Plan of Treatment Not on filedocumented as of this encounter Results XR Lumbar Spine 2 or 3 Vw (03/17/2019 9:19 PDT) + + | Specimen | + + | | + + + + + | Narrative | Performed At | + + + | XR LUMBAR SPINE 2 OR 3 VW 03/17/2019 9:19 AM HISTORY: 3 month PO. | [facility] | | COMPARISON: Multiple priors. FINDINGS: Again visualized are | | | hardware for posterior fusion from L4 through S1 with spacer hardware | | | at these levels. Right lateral screws are noted of L4 and L5. The | | | spacer hardware at L4-5 extends beyond the anterior borders of the | | | vertebral bodies, as before. There is mild spondylosis. S1 shows | | | transitional morphology. Bone mineralization is mildly decreased. | | | Vertebral body height are preserved with no evidence for compression | | | fractures. Disc height are maintained. Facet joints are intact. | | | Visualized ribs and pelvic osseous structures show no acute findings. | | | There is mild atherosclerosis. IMPRESSION - Stable posterior | | | fusion from L4 through S1. Dictated and Signed by: Chele Henderson, | | | MD Electronically signed: 03/17/2019 9:58 AM | | + + + + + | Procedure Note | + + | Josr, Rad Results In - 03/17/2019 1001 PDT XR LUMBAR SPINE 2 OR 3 VW 03/17/2019 9:19 AM | | | | HISTORY: 3 month PO. | | | | COMPARISON: Multiple priors. | | | | FINDINGS: | | Again visualized are hardware for posterior fusion from L4 through S1 with | | spacer hardware at these levels. Right lateral screws are noted of L4 and L5. | | The spacer hardware at L4-5 extends beyond the anterior borders of the vertebral | | bodies, as before. There is mild spondylosis. S1 shows transitional morphology. | | Bone mineralization is mildly decreased. Vertebral body height are preserved | | with no evidence for compression fractures. Disc height are maintained. Facet | | joints are intact. Visualized ribs and pelvic osseous structures show no acute | | findings. There is mild atherosclerosis. | | | | IMPRESSION - | | Stable posterior fusion from L4 through S1. | | | | Dictated and Signed by: Chele Henderson MD | | Electronically signed: 03/17/2019 9:58 AM | + + + +---------+ + + | Performing | Address | City/State/Zipcode | Phone Number | | Organization | | | | + +---------+ + + | [facility] | | | | + +---------+ + + documented in this encounter Visit Diagnoses + + | Diagnosis | + + | S/P lumbar fusion - Primary Arthrodesis status | + + | Back pain, unspecified back location, unspecified back pain laterality, unspecified | | chronicity | + + | Weakness of right leg Other musculoskeletal symptoms referable to limbs | + + documented in this encounter
--- OUTSIDE RECORDS SUMMARY | ~2019-03-29 | XMS | Encounter Summary ---
Demographics + + + | Address | [address] | | | [place] [address] | + + + | Home Phone | | + + + | Preferred Language | Unknown | + + + | Marital Status | | + + + | Zoroastrian Affiliation | Unknown | + + + | Race | Unknown | + + + | Ethnic Group | Unknown | + + + Author + + + | Author | [facility] | | | and [place] | + + + | Organization | [facility] | | | and [place] | + + + | Address | Unknown | + + + | Phone | Unavailable | + + + Support + + + + + | Name | Relationship | Address | Phone | + + + + + | Detailed,Message | ECON | [address] | | | | | [place] | | | | | [address] | | + + + + + | Bhavani Echeverria | ECON | Unknown | | + + + + + Care Team Providers + +------+ + | Care Fingernail Former Name | Role | Phone | + [...] | Specialty | Physical | Diagnoses | Caleb Romero | [facility] | | | Services | Therapy | S/P lumbar | [address] | HOSPITAL | | | Required | | fusion | [address] | PHYSICAL | | | | | | [address] | [address]AP[address] | | | | | | [place], | [place] | | | | | | [place] [address] | [place] | | | | | | Phone: | [phone] | | | | | | [phone] | Phone: | | | | | | Fax: | [phone] | | | | | | [phone] | Fax: | | | | | | | [phone] | + + + + + + + Reason for Visit + + + | Reason | Comments | + + + | Post-op Exam | 3 month post op | + + + | Weakness | right leg | + + + Encounter Details +--------+---------+ + + + | Date | Type | Department | Care Team | Description | +--------+---------+ + + + | 03/17/ | Office | [facility] | Caleb Romero MD | S/P lumbar fusion | | 2019 | Visit | NEUR[address]URGERY [address] | [address] [place] | | | | | [address] | [address] [place] | | | | | [place] | [address] | | | | | [address] | | | | | | [phone] | | | +--------+---------+ + + + Social History [...] + + + | Blood Pressure | 119/65 | 03/17/20191108 PDT | + + + + | Pulse | - | - | + + + + | Temperature | - | - | + + + + | Respiratory Rate | - | - | + + + + | Oxygen Saturation | - | - | + + + + | Inhaled Oxygen | - | - | | Concentration | | | + + + + | Weight | 95.8 kg (211 lb 3.2 | 03/17/2019 1109 PDT | | | oz) | | + + + + | Height | 175.3 cm (5' 9") | 03/17/2019 1109 PDT | + + + + | Body Mass Index | 31.19 | 03/17/2019 1109 PDT | + + + + documented in this encounter Progress Notes Caleb Romero MD - 03/17/2019 1100 PDTFormatting of this note might be different from the o radhainal. Caleb Romero MD [address] [place] [address], [address] [place] [address] PHONE: FAX: NEUROSURGERY FOLLOW-UP CHIEF COMPLAINT: Chief Complaint Patient presents with Post-op Exam 3 month post op Weakness right leg HISTORY OF PRESENT ILLNESS: uQintin Wagner is a 79 y.o. male that had a lumbar fusion for back and right leg symptoms on 12/23/2018. He returns and overall is doing better than last visit. He still has some right foot weakness but it has improved. His pain is lessen ed and he is off narcotics. He has some numbness in the right foot still. He has been walking as much as directed. He has had no issues with his [...] Procedure: L4-5 LAIF, L5-S1 TLIF; Surgeon: Caleb Romero MD; Location: [facility] MAIN OR skin cancer removal Basel cell carcinoma TONSILLECTOMY TURP N/A 01/09/2017 Procedure: Cyber Laser Prostate Vaporization; Surgeon: Vinnie Silverio MD; Location: [facility] MAIN OR VASECTOMY CURRENT MEDICATIONS: Current Outpatient Medications Medication Sig Dispense Refill acetaminophen (TYLENOL) 325 [...] mcg/nasal spray 1 spray by Nasal route. latanoprost (XALATAN) 0.005% ophthalmic solution Place 1 drop into both eyes Daily. 0 meloxicam (MOBIC) 15 mg tablet Take 0.5 tablets by mouth Twice daily as needed for Jeniffer n. 30 tablet 1 methocarbamol (ROBAXIN) 750 mg tablet Take 1 tablet by mouth every 6 hours as needed fo r Muscle spasms. 40 tablet 0 mometasone (ASMANEX 60 METERED DOSES) 220 mcg/puff inhaler Inhale 2 puffs into the lung s Daily. Multiple Vitamins-Minerals (CENTRUM SILVER PO) Take 1 tablet by mouth Daily. OLODATEROL HCL IN Inhale into the lungs as needed. oxyCODONE (ROXICODONE) 5 mg tablet Take 1-2 tablets by mouth every 6 hours as needed fo r Pain. Exam today: Recent major spine surgery. 20 tablet 0 RESTASIS 0.05 % ophthalmic emulsion Place 1 drop into both eyes 2 times daily. 0 sildenafil (VIAGRA) 100 MG tablet Take [...] 59 years ago. His smoking use included ciga rettes, cigars, and pipe. He has a 0.75 pack-year smoking history. He has never used smokele ss tobacco. He reports that he drinks about 0.6 oz of alcohol per week. He reports that he d oes not use drugs. FAMILY HISTORY: Family History Problem Relation Age of Onset Heart defect Mother 59 Valve dysfunction COPD Father Heart failure Father Other cancer Brother Leukemia Cancer Brother Leukemia REVIEW OF SYSTEMS GENERALLY: No fever, no night sweats, no anemia, no fatigue, no recent profound weight ch anges. EYES: No eye problems, + use of corrective lenses, no eye injury, no double vision, no bli ndness. EARS, NOSE, AND THROAT: No changes in taste or smell, no hearing difficulty, no ringing in the ears, no ear drainage, no dizziness, no voice changes, no difficulty swallowing, no sig nificant snoring, no sleep apnea, no sinus problems, no major dental work. NEUROLOGICALLY: Please see the review of systems discussed above in the history of present illness. In addition, the patient has + muscle ache, + pain in back. PSYCHIATRIC: No depression, no [...] vomiting, no rectal bleeding, no constipa tion, + stool incontinence, no liver disease, no gallbladder disease, no abdominal pain, no ulcers. KIDNEY DISEASE: No urinary frequency, no painful or difficult urination, no incontinence. ENDOCRINE: No diabetes, no thyroid disease, no osteopenia or osteoporosis, no breast drain age. SKIN: No breast lumps, no skin changes, no rashes, no itches. HEMATOLOGIC/LYMPHATIC: No enlarged lymph nodes, no easy or unusual bleeding, no personal h istory of cancer. RHEUMATOLOGIC: + joint arthritis, no rheumatoid arthritis. INTERIM PHYSICAL EXAMINATION: Blood pressure 119/65, height 1.753 m (5' 9"), weight 95.8 kg (211 lb 3.2 oz). Body mass in dex is 31.19 kg/m. GENERAL: Quintin Wagner is in no acute distress with unlabored respirations. SPINE: The patient s incisions are well healed. EXTREMITIES: No lower extremity edema. NEUROLOGICAL EXAMINATION: MENTAL STATUS: The patient is awake, alert, and oriented. He follows simple and complex commands MOTOR EXAM: MUSCLE/ MOVEMENT: RIGHT LEFT Hip Flexion 5 5 Hip Extension 5 5 Knee Flexion 5 5 Knee Extension 5 5 Dorsiflexion 4+ 5 Extensor Hallicus Longus 5 5 Plantarflexion 5 5 SENSORY EXAM: The sensory examination is unchanged when compared to the preoperative exam. Motor strength was 5/5 before surgery. REFLEXES: (2 OR 2+ IS NORMAL) REFLEX: RIGHT LEFT PATELLAR 2 2 ACHILLES 2 2 HOFFMANS ABSENT ABSENT RADIOGRAPHIC REVIEW: His MRI and x-rays show improvement overall although there is some inflammation at the righ t L5 region. ASSESSMENT: Encounter Diagnosis Name Primary? S/P lumbar fusion PLAN: Overall, the he is doing fairly well . The patient can see some improvements but continues to recover from recent surgery. His pain is reduced and his strength is increasing. I oft en see that NSAIDS will help at this stage and discussed the minimal risk to his fusion. I recommended a short term course and instructed him to wean them when the symptoms are better . I also asked him to call in about 4 weeks to update me. We discussed increasing the patient s activities now allowing up to a 75 pound lifting re striction. We would like the patient to advance slowly with this process and discussed this at length during today's visit. I would also like the patient to continue with postoperati ve rehabilitation and to advance with therapy as tolerated. termite treater pain medication does not appear to be needed. He will have x-rays in 6 months for review to assess his fusion and should follow-up in per son if he doesn't make the progress that we would expect. ELECTRONICALLY SIGNED BY: Caleb Romero MD, 03/17/2019 11:49 documented in this encounte r Plan of Treatment + +--------+ + + | Name | Priori | Associated Diagnoses | Order Schedule | | | ty | | | + +--------+ + + | XR Lumbar Spine 2 or 3 Vw | Routin | S/P lumbar fusion | Expected: 09/13/2019 | | | e | | (Approximate), | | | | | Expires: 03/15/2020 | + +--------+ + + + +--------+ + + | Name | Priori | Associated Diagnoses | Order Schedule | | | ty | | | + +--------+ + + | OUTPATIENT PT EXTERNAL | Routin | S/P lumbar fusion | Ordered: 03/17/2019 | | | e | | | + +--------+ + + documented as of this encounter Visit Diagnoses + + | Diagnosis | + + | S/P lumbar fusion Arthrodesis status | + + documented in this encounter
--- OUTSIDE RECORDS SUMMARY | ~2019-03-29 | XMS | Encounter Summary ---
Demographics + + + | Address | [address] | | | [place] [address] | + + + | Home Phone | | + + + | Preferred Language | Unknown | + + + | Marital Status | | + + + | Jew Affiliation | Unknown | + + + | Race | Unknown | + + + | Ethnic Group | Unknown | + + + Author + + + | Author | [facility] | | | and [place] | + + + | Organization | [facility] | | | and [place] | + + + | Address | Unknown | + + + | Phone | Unavailable | + + + Support + + + + + | Name | Relationship | Address | Phone | + + + + + | Detailed,Message | ECON | [address] | | | | | [place], [place] | | | | | [address] | | + + + + + | Bhavani Echeverria | ECON | Unknown | | + + + + + Care Team Providers + +------+ + | Care Student Advisor Name | Role | Phone | + +------+ + | Darrel Ross NP | PCP | | + +------+ + Reason for Visit + + + | Reason | Comments | + + + | Post-op Question | | + + + Encounter Details +--------+ + + + + | Date | Type | Department | Care Team | Description | +--------+ + + + + | 01/25/ | Telephone | [facility] [place] | Caleb Romero MD | Post-op Question | | 2019 | | [address]UR[address] | [address] [facility] | | | | | [address] [facility] [address] | [address] [place] | | | | | [place], [place] | [address] | | | | | [address] | | | | | | [phone] | | | +--------+ + + + + Social History + + [...] + + documented as of this encounter Plan of Treatment Not on filedocumented as of this encounter Visit Diagnoses Not on filedocumented in this encounter"
--- OUTSIDE RECORDS SUMMARY | ~2019-03-29 | XMS | Encounter Summary ---
Demographics + + + | Address | [address] | | | [place] [address] | + + + | Home Phone | | + + + | Preferred Language | Unknown | + + + | Marital Status | | + + + | Zoroastrian Affiliation | Unknown | + + + | Race | Unknown | + + + | Ethnic Group | Unknown | + + + Author + + + | Author | [facility] | | | and [place] | + + + | Organization | [facility] | | | and [place] | + + + | Address | Unknown | + + + | Phone | Unavailable | + + + Support + + + + + | Name | Relationship | Address | Phone | + + + + + | Detailed,Message | ECON | [address] | | | | | [place], [place] | | | | | [address] | | + + + + + | Bhavani Echeverria | ECON | Unknown | | + + + + + Care Team Providers + +------+ + | Care Gold Blower Name | Role | Phone | + +------+ + | Darrel Ross NP | PCP | | + +------+ + Encounter Details +--------+ + + + + | Date | Type | Department | Care Team | Description | +--------+ + + + + | 02/09/ | Orders Only | [facility] [place] | Mahesh Perez, | Synovial cyst of | | 2019 | | NEUROSURGERY [address] | PA-C [address] | lumbar spine | | | | [address] | [address] [place] | (Primary Dx); Lumbar | | | | [place], [place] | [place] [address] | radiculopathy | | | | [address] | [phone] | | | | | [phone] | | | +--------+ + + + [...] as of this encounter Plan of Treatment + +--------+ + + | Name | Priori | Associated Diagnoses | Order Schedule | | | ty | | | + +--------+ + + | Bun/Creatinine Ratio | Routin | Synovial cyst of | 1 Occurrences | | | e | lumbar spine Lumbar | starting 02/09/2019 | | | | radiculopathy | until 02/10/2020 | + +--------+ + + documented as of this encounter Visit Diagnoses + + | Diagnosis | + + | 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
--- OUTSIDE RECORDS SUMMARY | ~2019-03-29 | XMS | Encounter Summary ---
Demographics + + + | Address | [address] | | | [place] [address] | + + + | Home Phone | | + + + | Preferred Language | Unknown | + + + | Marital Status | | + + + | Anabaptist Affiliation | Unknown | + + + | Race | White | + + + | Ethnic Group | Not or | + + + Author + + + | Author | [facility] | + + + | Organization | [facility] | + + + | Address | Unknown | + + + | Phone | Unavailable | + + + Care Team Providers + +------+ + | Care Primary Counselor Name | Role | Phone | + +------+ + PCP | Unavailable | + +------+ + Encounter Details +--------+ + + + + | Date | Type | Department | Care Team | Description | +--------+ + + + + | 11/06/ | Office | [facility] | Note, Outpatient | Progress Note | | 1998 | Visit-Trans | MEDICINE | Clinic | | | | cribed | | | | +--------+ + + [...] + + documented as of this encounter Progress Notes Interface, Master Police Detective In - 11/02/2006 5:10 AM PSTCLINIC DATE: 11/06/1998 NEURO-OTOLOGY [facility]: SUBJECTIVE: The patient is a 58-year-old male who is referred from the Audiology Clinic regarding an asymmetric speech discrimination score. The patient presented today in Audiology for a routine hearing test regarding bilateral slowly progressive hearing loss over the past several years. The patient states the hearing loss has been equal on both sides. He has tenderness which is likewise symmetric. He does not notice that one ear is any worse or less useable than the other. He does not use the phone preferentially in one ear. 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 He also occasionally hunts. All told none of the exposures are side specific nor significant enough to explain the decreased discrimination score on the right. The patient denies any exposures to ototoxic medications. He has never had meningitis. He denies any significant family history of hearing. He denies any dizziness spells or unsteadiness. PAST MEDICAL HISTORY: Asthma. REVIEW OF SYSTEMS: Cardiac, respiratory, hematologic, and head and neck review of systems are negative except as above. MEDICATIONS: Serevent meter dose inhaler and Flovent. ALLERGIES: No known medication allergies. HABITS: Tobacco - none. Alcohol - none. SOCIAL HISTORY: The patient lives in [place], [place] with his . PHYSICAL EXAMINATION: This is a healthy appearing male in no apparent distress. The oral cavity/oropharynx reveals no lesions or abnormalities. The nose is clear bilaterally. On examination of the ears, the right tympanic membrane is slightly atelectatic, but moves well with pneumatoscopy. The left tympanic membrane is normal and canal clear. The nasopharynx, hypopharynx, and glottis are grossly normal to mirror examination. The neck is supple without lymphadenopathy or masses, thyroid gland normal. The chest is clear to auscultation bilaterally. The heart has a regular rate and rhythm without murmurs, rubs, or gallops. DIAGNOSTICS: Audiogram from today is reviewed. It shows a fairly symmetric bilateral severe high frequency sensorineural hearing loss. Speech discrimination score is 92% on the left and 72% on the right. ASSESSMENT: Bilateral sensorineural high frequency hearing loss most likely attributable to aging and noise exposure. Poor speech discrimination in the right ear raises the possibility of an acoustic neuroma. PLAN: Approximately 30 minutes was spent discussing the different options for working up this poor speech discrimination. Both observation and obtaining an MRI scan were considered. The patient prefers to proceed with an MRI scan and as such, will have that test performed [facility]. We will review the MRI scan and the patient will telephone the clinic in one to two weeks for the results. The patient was seen and examined by Dr. Armin Gonzalez in clinic today. Jovan Vasquez M.D. Armin Gonzalez M.D., F.A.C.S. BOB/humphrey P cc: documente d in this encounter Plan of Treatment Not on filedocumented as of this encounter Visit Diagnoses Not on filedocumented in this encounter"
--- OUTSIDE RECORDS SUMMARY | ~2019-03-29 | XMS | Encounter Summary ---
Demographics + + + | Address | [address] | | | [place] [address] | + + + | Home Phone | | + + + | Preferred Language | Unknown | + + + | Marital Status | | + + + | Buddhist Affiliation | Unknown | + + + | Race | Unknown | + + + | Ethnic Group | Unknown | + + + Author + + + | Author | [facility] | | | and [place]inder[place] | + + + | Organization | [facility] | | | and [place] | + + + | Address | Unknown | + + + | Phone | Unavailable | + + + Support + + + + + | Name | Relationship | Address | Phone | + + + + + | Detailed,Message | ECON | [address] | | | | | [place], [place] | | | | | [address] | | + + + + + | Bhavani Echeverria | ECON | Unknown | | + + + + + Care Team Providers + +------+ + | Care Revenue Agent Name | Role | Phone | + [...] + + + | Closed | | Radiology | Diagnoses | Sucharda, | [facility] | | | | | S/P lumbar | Mahesh E, | [address] | | | | | fusion Back | PA-C [address] | [place], | | | | | pain, | [address] | [place] | | | | | unspecified | [address] | [address] | | | | | back | [place], | Phone: | | | | | location, | [place] [address] | [phone] | | | | | unspecified | Phone: | Fax: | | | | | back pain | [phone] | [phone] | | | | | laterality, | Fax: | | | | | | unspecified | [phone] | | | | | | chronicity | | | | | | | Right leg | | | | | | | weakness | | | | | | | L-MRI | | | | | | | Procedures | | | | | | | MRI Lumbar | | | | | | | Spine w wo | | | | | | | Contrast | | | +--------+--------+ + + + + Reason for Visit +---------+ + | Reason | Comments | +---------+ + | Post Op | | +---------+ + Encounter Details +--------+---------+ + + + | Date | Type | Department | Care Team | Description | +--------+---------+ + + + | 02/07/ | Office | [facility] | Mahesh Perez, | S/P lumbar fusion | | 2019 | Visit | NEUROSURGERY [address] | PA-C [address] | (Primary Dx); Back | | | | [address] | [address] [place] | pain, unspecified | | | | [place], [place] | [place] [address] | back location, | | | | [address] | [phone] | unspecified back | | | | [phone] | | pain laterality, | | | | | | unspecified | | | | | | chronicity; Right | | | | | | leg weakness; Lumbar | | | | | | radiculopathy | +--------+---------+ + + + Social History [...] + + + | Blood Pressure | 115/84 | 02/07/2019 1332 PDT | + + + + | Pulse | 100 | 02/07/2019 1332 PDT | + + + + | [...] Weight | 91.2 kg (201 lb) | 02/07/2019 1332 PDT | + + + + | Height | 175.3 cm (5' 9") | 02/07/2019 1332 PDT | + + + + | Body Mass Index | 29.68 | 02/07/2019 1332 PDT | + + + + documented in this encounter Patient Instructions Patient Instructions Margo Corrigan, Sociology Professor - 02/07/2019 13:00 PDT We would like to get an MRI of your lumbar back so that we can take a closer look at the ne rves in your back. We will take a look after it is completed and let you know the results. Try to not use the pain medication for the leg pain. Try using tylenol for your leg pain a s needed. Unless you are having muscle spasms try not taking the muscle relaxer. In addition we would like to have you start a medication called GABAPENTIN. This should he lp your leg symptoms. This medication has the possibility of making you sleepy. Try taking this tonight before bed to see if this helps your leg symptoms enough so that you are able to sleep. Tomorrow add a morning dose and afternoon dose to see if it helps throughout the day. Check in with us to let us know how the gabapentin is working for you. We can always incre ase the dose if you are tolerating the gabapentin okay. Let pain be your guide. If you are doing an activity that starts causing you pain back off and ease back into it slowly. We don't want you taking any risks that do not need to be ta kevon. We like to use surgery as a last resort. We are permanently altering your spine for the re st of your life. Pay attention to evolving trends. If you notice an increase in pain that does not get bett er with a few days rest and medication please let us know. documented in this encounter Progress Notes Mahesh Perez PA-C - 02/07/2019 1300 PDTFormatting of this note might be different fro m the original. Mahesh Perez PA-C [address] [place] [address] PHONE: FAX: NEUROSURGERY FOLLOW-UP CHIEF COMPLAINT: Chief Complaint Patient presents with Post Op HISTORY OF PRESENT ILLNESS: Quintin Wagner is a 79 y.o. male that had a lumbar fusion for back and right leg symptoms on 12/23/2018. He returns and overall is doing fair. He returns today for re-evaluation of his right dorsiflexion. He describes today that he s truggles to get comfortable at night so that he can get a good nights sleep. He thinks that his symptoms have remained stable overall. He experiences some pain in his left leg howeve r a majority of his pain is in his right leg. His states that when he tries to walk wi th a walking stick he cannot walk very far and it looks painful. He has been walking as much as directed. He is taking pain medications and muscle relaxers at this point. These medications help him get to sleep a little but only because they make him sleepy. They really don't help his leg pain that much. He is not currently taking gabap entin or other other nerve medications. He has had no issues with his [...] L5-S1 TLIF; Surgeon: Caleb Romero MD; Location: [facility] MAIN OR skin cancer removal Basel cell carcinoma TONSILLECTOMY TURP N/A 01/09/2017 Procedure: Cyber Laser Prostate Vaporization; Surgeon: Vinnie Silverio MD; Location: [facility] MAIN OR VASECTOMY CURRENT MEDICATIONS: Current [...] mcg/nasal spray 1 spray by Nasal route. gabapentin (NEURONTIN) 300 mg capsule Take 1 capsule by mouth 3 times daily. 90 capsule 2 latanoprost (XALATAN) 0.005% ophthalmic solution Place 1 drop into both eyes Daily. 0 methocarbamol (ROBAXIN) 750 mg tablet Take 1 [...] Recent major spine surgery. 60 tablet 0 RESTASIS 0.05 % ophthalmic emulsion [...] smoking history. He has never used smokele [employer] tobacco. He reports that he drinks about [...] no recent profound weight ch anges. EYES: + eye problems, no impaired sight, no use of corrective lenses, no eye [...] addition, the patient has numbness/pain of legs, awake with numbness/pain, wea kness, muscle aching. PSYCHIATRIC: No depression, + difficulty [...] h istory of cancer. RHEUMATOLOGIC: No joint pain/arthritis, no rheumatoid arthritis. INTERIM PHYSICAL EXAMINATION: Blood pressure 115/84, pulse 100, height 1.753 m (5' 9"), [...] 5 5 Knee Extension 5 5 Dorsiflexion 4 almost 4- 5 Extensor Hallicus Longus 5 5 Plantarflexion 5 5 SENSORY EXAM: The sensory examination is unchanged when compared to the preoperative exam. Motor strength was 5/5 before surgery. REFLEXES: (2 OR 2+ IS NORMAL) REFLEX: RIGHT LEFT PATELLAR 2 2 ACHILLES 2 2 HOFFMANS ABSENT ABSENT ASSESSMENT: Outpatient Morphine Equivalent Daily Dose (MEDD) 02/07/19 and after 30-60 mg MEDD Order Name [...] MEDD PEG Pain screening tool: Total score: 7 (02/07/19 1335) Encounter Diagnoses Name Primary? S/P lumbar fusion Yes Back pain, unspecified back location, unspecified back pain laterality, unspecified chr onicity Right leg weakness Lumbar radiculopathy PLAN: Overall, the he is doing okay. The patient can see some improvements but continues to melany yuli from recent surgery.I don't get the sense that it is any worse since his last visit, but it certainly isn't any better. Given that it was 5/5 Before surgery and it is now 4-/5 and certainly is no better than it was a month ago. Given that it has been 2 months without im provement and is notably worse in this 1 specific dermatomal I feel that it is appropriate a t this time we will get an MRI of his lumbar spine. This will be with and without contrast. To help him with his symptoms, I have given him a prescription of Neurontin. He is aware of the potential side effects and will call us should any of these arise. Patient is also a ch that adjustments can be made to increase the dose as needed. He will call us in the ne xt 7-10 days and report to us how he is doing on his Neurontin. We discussed increasing the patient s activities now allowing 15 pound lifting. The ruby ent will begin the process of brace weaning as discussed at his 4 week post operative appoin tment. We would like the patient to advance slowly with this process and discussed this at length during today's visit. We discussed that we can provide pain medications for up to 84 days after their surgical da te. We discussed the need to continue tapering pain medication. If they need longer term p ain medication, they should begin working on either pain management or with the primary care provider. The patient needs to obtain a new MRI as recommended. We will look at the MRI and call him with results and he can also follow up in clinic with Dr. Romero at his 3 month post op. Mahesh Mullins PA-C, personally performed the services described in this documentati on, as scribed by IGLESIA Cortes, in my presence, and it is both accurate and complet eCarlita Perez PA-C 02/07/19 ELECTRONICALLY SIGNED BY: Mahesh Perez PA-C, 02/07/2019 14:18 documented in this e ncounter Plan of Treatment Not on filedocumented as of this encounter Results MRI Lumbar Spine w wo Contrast (02/14/2019 10:28 PDT) + + | Specimen | + + | | + + + + + | Narrative | Performed At | + + + | MRI LUMBAR SPINE W WO CONTRAST 02/14/2019 9:59 AM HISTORY: s/p | [facility] | | lumbar fusion, right dorsiflexion weakness. COMPARISON: None. | | | PROTOCOL: Sagittal T2, sagittal T1, axial T2, axial T1, sagittal STIR, | | | coronal T2, sagittal T1 fat sat postgadolinium, axial T1 fat sat | | | post gadolinium. The patient was administered 10 cc Gadavist. | | | FINDINGS: Again visualized are hardware for posterior fusion from L4 | | | through S1 with spacer hardware at these levels. There is mild | | | spondylosis. Vertebral body height are preserved. Disc height | | | are maintained. Imaged spinal cord and cauda equina demonstrate | | | normal signal with no evidence for myelomalacia or mass lesions. The | | | conus medullaris terminates at level L1-2, which is normal. L3-4: | | | Moderate facet hypertrophy and ligamentum flavum hypertrophy are | | | present. There is a small right facet joint effusion. Mild central | | | stenosis is observed with AP dimension of the canal measuring 10 mm. | | | There is no neural foraminal canal stenosis. L4-5: A 1 mm | | | posterior disc bulge is seen along with moderate facet hypertrophy | | | and ligamentum flavum hypertrophy. There is mild central stenosis | | | transversely with the canal measuring 10 mm. Moderate bilateral | | | neural foraminal canal stenoses are noted. L5-S1: No central | | | canal or neural foramina canal stenosis. Imaged abdomen and pelvis | | | demonstrate no acute findings. IMPRESSION - Posterior fusion | | | from L4 through S1. Degenerative changes including mild central | | | stenoses at L3-4 and L4-5. Moderate bilateral neural foraminal canal | | | stenoses are at L4-5. Dictated and Signed by: Chele Henderson MD | | | Electronically signed: 02/14/2019 10:59 AM | | + + + + + | Procedure Note | + + | Josr, Rad Results In - 02/14/2019 1103 PDT MRI LUMBAR SPINE W WO CONTRAST 02/14/2019 | | 9:59 AM HISTORY: s/p lumbar fusion, right dorsiflexion weakness.COMPARISON: | | None.PROTOCOL: Sagittal T2, sagittal T1, axial T2, axial T1, sagittal STIR, coronalT2, | | sagittal T1 fat sat postgadolinium, axial T1 fat sat post gadolinium. Thepatient was | | administered 10 cc Gadavist.FINDINGS:Again visualized are hardware for posterior fusion | | from L4 through S1 withspacer hardware at these levels. There is mild spondylosis. | | Vertebral bodyheight are preserved. Disc height are maintained. Imaged spinal cord and | | cauda equina demonstrate normal signal with no evidencefor myelomalacia or mass lesions. | | The conus medullaris terminates at level L1-2,which is normal.L3-4: Moderate facet | | hypertrophy and ligamentum flavum hypertrophy are present.There is a small right facet | | joint effusion. Mild central stenosis is observedwith AP dimension of the canal | | measuring 10 mm. There is no neural foraminalcanal stenosis.L4-5: A 1 mm posterior disc | | bulge is seen along with moderate facet hypertrophyand ligamentum flavum hypertrophy. | | There is mild central stenosis transverselywith the canal measuring 10 mm. Moderate | | bilateral neural foraminal canalstenoses are noted. L5-S1: No central canal or neural | | foramina canal stenosis.Imaged abdomen and pelvis demonstrate no acute | | findings.IMPRESSION -Posterior fusion from L4 through S1.Degenerative changes including | | mild central stenoses at L3-4 and L4-5. Moderatebilateral neural foraminal canal | | stenoses are at L4-5.Dictated and Signed by: Chele Henderson MD Electronically signed: | | 02/14/2019 10:59 AM | | | |L3-4: Moderate facet hypertrophy and ligamentum flavum hypertrophy are present. | |There is a small right facet joint effusion. Mild central stenosis is observed | |with AP dimension of the canal measuring 10 mm. There is no neural foraminal | |canal stenosis. | | | |L4-5: A 1 mm posterior disc bulge is seen along with moderate facet hypertrophy | |and ligamentum flavum hypertrophy. There is mild central stenosis transversely | |with the canal measuring 10 mm. Moderate bilateral neural foraminal canal | |stenoses are noted. | | | |L5-S1: No central canal or neural foramina canal stenosis. | | | |Imaged abdomen and pelvis demonstrate no acute findings. | | | |IMPRESSION - | |Posterior fusion from L4 through S1. | | | |Degenerative changes including mild central stenoses at L3-4 and L4-5. Moderate | |bilateral neural foraminal canal stenoses are at L4-5. | | | |Dictated and Signed by: Chele Henderson MD | | Electronically signed: 02/14/2019 10:59 AM | + + + +---------+ + [...] | | chronicity | + + | Right leg weakness Other musculoskeletal symptoms referable to limbs | + + | Lumbar radiculopathy Thoracic or lumbosacral neuritis or radiculitis, unspecified | + + documented in this encounter
--- OUTSIDE RECORDS SUMMARY | ~2019-03-29 | XMS | Encounter Summary ---
Demographics + + + | Address | [address] | | | [place] [address] | + + + | Home Phone | | + + + | Preferred Language | Unknown | + + + | Marital Status | | + + + | Bahai Affiliation | Unknown | + + + | Race | Unknown | + + + | Ethnic Group | Unknown | + + + Author + + + | Author | [facility] | | | and [place] | + + + | Organization | [facility] | | | and [place] | + + + | Address | Unknown | + + + | Phone | Unavailable | + + + Support + + + + + | Name | Relationship | Address | Phone | + + + + + | Detailed,Message | ECON | [address] | | | | | [place], [place] | | | | | [address] | | + + + + + | Bhavani Echeverria | ECON | Unknown | | + + + + + Care Team Providers + +------+ + | Care Drafting Teacher Name | Role | Phone | + [...] lumbar | Mahesh E, | [address] | | | | | fusion Back | PA-C [address] | [place], | | | | | pain, | [address] | [place] | | | | | unspecified | [address] | [address] | | | | | back | [place], | Phone: | | | | | location, | [place] [address] | [phone] | | | | | unspecified | Phone: | Fax: | | | | | back pain | [phone] | [phone] | | | | | laterality, | Fax: | | | | | | unspecified | [phone] | | | | | | chronicity [...] | | +--------+--------+ + + + + Diagnostic/Screening (Routine) +--------+--------+ + + + + | Status | Reason | Specialty | Diagnoses / | Referred By | Referred To | | | | | Procedures | Contact | Contact | +--------+--------+ + + + + | Closed | | Radiology | Diagnoses | Sucharda, | [facility] | | | | | S/P lumbar | Mahesh E, | [address] | | | | | fusion Back | PA-C [address] | [place], | | | | | pain, | [address] | [place] | | | | | unspecified | [address] | [address] | | | | | back | [place], | Phone: | | | | | location, | [place] [address] | [phone] | | | | | unspecified | Phone: | Fax: | | | | | back pain | [phone] | [phone] | | | | | laterality, | Fax: | | | | | | unspecified | [phone] | | | | | | chronicity [...] + + + + Reason for Visit Diagnostic/Screening (Routine) +--------+--------+ + + + + | Status | Reason | Specialty | Diagnoses / | Referred By | Referred To | | | | | Procedures | Contact | Contact | +--------+--------+ + + + + | Closed | | Radiology | Diagnoses | Sucharda, | [facility] | | | | | S/P lumbar | Mahesh E, | [address] | | | | | fusion Back | PA-C [address] | [place], | | | | | pain, | [address] | [place] | | | | | unspecified | [address] | [address] | | | | | back | [place], | Phone: | | | | | location, | [place] [address] | [phone] | | | | | unspecified | Phone: | Fax: | | | | | back pain | [phone] | [phone] | | | | | laterality, | Fax: | | | | | | unspecified | [phone] | | | | | | chronicity [...] | | +--------+--------+ + + + + Encounter Details +--------+ + + + + | Date | Type | Department | Care Team | Description | +--------+ + + + + | 02/14/ | Hospital | [facility] | Mahesh Perez, | S/P lumbar fusion; | | 2019 | Encounter | [facility] [address] | PA-C [address] | Back pain, | | | | [address] [place], | [address] [place] | unspecified back | | | | [place] [address] | [place] [address] | location, | | | | [phone] | [phone] | unspecified back | | | | | | pain laterality, | | | | | | unspecified | | | | | | chronicity; Right | | | | | | leg weakness | +--------+ + + + + Social [...] + + documented as of this encounter Medications at Time of Discharge + + + +---------+ + + | Medication | Sig | Dispensed | Refills | Start | End Date | | | | | | Date | | + + + +---------+ + + | acetaminophen | Take 2 tablets by | 120 | 1 | 01/04/20 | | | (TYLENOL) 325 mg | mouth every 4 hours | tablet | | 19 | | | tablet | as needed for Pain. | | | | | + + + +---------+ + + | albuterol | Inhale 2 puffs into | | 0 | | | | (VENTOLIN HFA) 90 | the lungs as needed | | | | | | mcg/puff inhaler | for Wheezing. | | | | | + + + +---------+ + + | aspirin 81 mg EC | Take 81 mg by mouth | | 0 | | | | tablet | Daily. | | | | | + + + +---------+ + + | atorvaSTATin | Take 20 mg by mouth | | 0 | | | | (LIPITOR) 20 mg | nightly. | | | | | | tablet | | | | | | + + + +---------+ + + | DHA-Vitamin | Take 1 capsule by | | 0 | | | | C-Lutein (EYE HEALTH | mouth Daily. | | | | | | FORMULA PO) | | | | | | + + + +---------+ + + | docusate-senna | Take 1 tablet by | 60 | 1 | 01/04/20 | | | (SENOKOT-S) 50-8.6 | mouth BID PC. | tablet | | 19 | | | mg per tablet | | | | | | + + + +---------+ + + | fluticasone | 1 spray by Nasal | | 0 | | | | (FLONASE) 50 | route. | | | | | | mcg/nasal spray | | | | | | + + + +---------+ + + | latanoprost | Place 1 drop into | | 0 | 01/19/20 | | | (XALATAN) 0.005% | both eyes Daily. | | | 19 | | | ophthalmic solution | | | | | | + + + +---------+ + + | methocarbamol | Take 1 tablet by | 40 | 0 | 01/11/20 | | | (ROBAXIN) 750 mg | mouth every 6 hours | tablet | | 19 | | | tabletIndications: | as needed for Muscle | | | | | | S/P lumbar fusion, | spasms. | | | | | | Back pain, | | | | | | | unspecified back | | | | | | | location, | | | | | | | unspecified back | | | | | | | pain laterality, | | | | | | | unspecified | | | | | | | chronicity | | | | | | + + + +---------+ + + | mometasone | Inhale 2 puffs into | | 0 | | | | (ASMANEX 60 METERED | the lungs Daily. | | | | | | DOSES) 220 mcg/puff | | | | | | | inhaler | | | | | | + + + +---------+ + + | Multiple | Take 1 tablet by | | 0 | | | | Vitamins-Minerals | mouth Daily. | | | | | | (CENTRUM SILVER PO) | | | | | | + + + +---------+ + + | OLODATEROL HCL IN | Inhale into the | | 0 | | | | | lungs as needed. | | | | | + + + +---------+ + + | oxyCODONE | Take 1-2 tablets by | 20 | 0 | 02/08/20 | | | (ROXICODONE) 5 mg | mouth every 6 hours | tablet | | 19 | | | tabletIndications: | as needed for Pain. | | | | | | S/P lumbar fusion, | Exam today: Recent | | | | | | Back pain, | major spine surgery. | | | | | | unspecified back | | | | | | | location, | | | | | | | unspecified back | | | | | | | pain laterality, | | | | | | | unspecified | | | | | | | chronicity | | | | | | + + + +---------+ + + | RESTASIS 0.05 % | Place 1 drop into | | 0 | 01/19/20 | | | ophthalmic emulsion | both eyes 2 times | | | 19 | | | | daily. | | | | | + + + +---------+ + + | sildenafil | Take 100 mg by mouth | | 0 | | | | (VIAGRA) 100 MG | as needed for | | | | | | tablet | Erectile | | | | | | | Dysfunction. | | | | | + + + +---------+ + + | | Take 1 capsule by | 30 | 0 | 03/05/20 | | | triamterene-hydrochl | mouth Daily. | capsule | | 19 | | | orothiazide | | | | | | | (DYAZIDE) 37.5-25 MG | | | | | | | per capsule | | | | | | + + + +---------+ + + | gabapentin | Take 1 capsule by | 90 | 2 | 02/08/20 | | | (NEURONTIN) 300 mg | mouth 3 times daily. | capsule | | 19 | 9 | | capsuleIndications: | | | | | | | S/P lumbar fusion, | | | | | | | Back pain, | | | | | | | unspecified back | | | | | | | location, | | | | | | | unspecified back | | | | | | | pain laterality, | | | | | | | unspecified | | | | | | | chronicity, Right | | | | | | | leg weakness | | | | | | + + + +---------+ + + | Methylcellulose, | Take 500 mg by mouth | | 0 | | | | Laxative, (CITRUCEL) | Daily. | | | | 9 | | 500 MG TABS | | | | | | + + + +---------+ + + documented as of this encounter Plan of Treatment Not on filedocumented as of this encounter Procedures + +--------+ + + + | Procedure Name | Priori | Date/Time | Associated Diagnosis | Comments | | | ty | | | | + +--------+ + + + | MRI LUMBAR SPINE W | Routin | 02/14/2019 | S/P lumbar fusion | Results for this | | WO CONTRAST | e | 10:28 PDT | Back pain, | procedure are in the | | | | | unspecified back | results section. | | | | | location, | | | | | | unspecified back | | | | | | pain laterality, | | | | | | unspecified | | | | | | chronicity Right | | | | | | leg weakness | | + +--------+ + + + documented in this encounter Results MRI Lumbar Spine w [...] lumbar fusion Arthrodesis status | + + | Back pain, unspecified back location, unspecified back pain laterality, unspecified | | chronicity | + + | Right leg weakness Other musculoskeletal symptoms referable to limbs | + + documented in this encounter Administered Medications + +--------+ +--------+------+------+ | Medication Order | MAR | Action | Dose | Rate | Site | | | Action | Date | | | | + +--------+ +--------+------+------+ | gadobutrol (GADAVIST) injection | Given | 02/15/20 | 10 mLs | | | | 10 mL 10 mL, Intravenous, ONCE | | 19 10:28 | | | | | PRN, Other, Starting 02/14/19 | | PDT | | | | | at 1027, For 1 dose, MRI | | | | | | + +--------+ +--------+------+------+ +---+---+ | | | +---+---+ documented in this encounter"
--- OUTSIDE RECORDS SUMMARY | ~2019-03-29 | XMS | Encounter Summary ---
Demographics + + + | Address | [address] | | | [place] [address] | + + + | Home Phone | | + + + | Preferred Language | Unknown | + + + | Marital Status | | + + + | Evangelical Affiliation | Unknown | + + + | Race | White | + + + | Ethnic Group | Not or | + + + Author + + + | Author | [facility] | + + + | Organization | [facility] | + + + | Address | Unknown | + + + | Phone | Unavailable | + + + Care Team Providers + +------+ + | Care Fashion Show Director Name | Role | Phone | + [...] as of this encounter Progress Notes Interface, Mangle Roll Operator In - 11/02/2006 5:10 AM PSTCLINIC DATE: [...] none. SOCIAL HISTORY: The patient lives in [place], [place] with his . PHYSICAL EXAMINATION: This [...]
--- OUTSIDE RECORDS SUMMARY | ~2019-03-29 | XMS | Clinical Summary ---
Demographics + + + | Address | [address] | | | [place] [address] | + + + | Home Phone | | + + + | Preferred Language | Unknown | + + + | Marital Status | | + + + | Baptism Affiliation | Unknown | + + + | Race | Unknown | + + + | Ethnic Group | Unknown | + + + Author + + + | Author | [facility] | | | and [place] | + + + | Organization | [facility] | | | and [place] | + + + | Address | Unknown | + + + | Phone | Unavailable | + + + Support + + + + + | Name | Relationship | Address | Phone | + + + + + | Detailed,Message | ECON | [address] | | | | | [place], [place] | | | | | [id number] | | + + + + + | Bhavani Echeverria | ECON | Unknown | | + + + + + Care Team Providers + +------+ + | [employer] Up Technician Name | Role | Phone | + [...] + + + + | Lisinopril | Other (See Comments) | Low | 01/09/20 | Cough | | | | | 17 | | + + + + + + | Sulfa Antibiotics | Rash | Low | 01/09/20 | | | | | | 17 | | + + + + + + Medications + + + +---------+------+------+-------+ | Medication | Sig | Dispensed | Refills | Star | End | Statu | | | | | | t | Date | s | | | | | | Date | | | + + + +---------+------+------+-------+ | mometasone | Inhale 2 puffs into | | 0 | | | Activ | | (ASMANEX 60 METERED | the lungs Daily. | | | | | e | | DOSES) 220 mcg/puff | | | | | | | | inhaler | | | | | | | + + + +---------+------+------+-------+ | atorvaSTATin | Take 20 mg by mouth | | 0 | | | Activ | | (LIPITOR) 20 mg | nightly. | | | | | e | | tablet | | | | | | | + + + +---------+------+------+-------+ | Multiple | Take 1 tablet by | | 0 | | | Activ | | Vitamins-Minerals | mouth Daily. | | | | | e | | (CENTRUM SILVER PO) | | | | | | | + + + +---------+------+------+-------+ | fluticasone | 1 spray by Nasal | | 0 | | | Activ | | (FLONASE) 50 | route. | | | | | e | | mcg/nasal spray | | | | | | | + + + +---------+------+------+-------+ | albuterol | Inhale 2 puffs into | | 0 | | | Activ | | (VENTOLIN HFA) 90 | the lungs as needed | | | | | e | | mcg/puff inhaler | for Wheezing. | | | | | | + + + +---------+------+------+-------+ | sildenafil | Take 100 mg by mouth | | 0 | | | Activ | | (VIAGRA) 100 MG | as needed for | | | | | e | | tablet | Erectile | | | | | | | | Dysfunction. | | | | | | + + + +---------+------+------+-------+ | OLODATEROL HCL IN | Inhale into the | | 0 | | | Activ | | | lungs as needed. | | | | | e | + + + +---------+------+------+-------+ | DHA-Vitamin | Take 1 capsule by | | 0 | | | Activ | | C-Lutein (EYE HEALTH | mouth Daily. | | | | | e | | FORMULA PO) | | | | | | | + + + +---------+------+------+-------+ | aspirin 81 mg EC | Take 81 mg by mouth | | 0 | | | Activ | | tablet | Daily. | | | | | e | + + + +---------+------+------+-------+ | docusate-senna | Take 1 tablet by | 60 | 1 | 03/0 | | Activ | | (SENOKOT-S) 50-8.6 | mouth BID PC. | tablet | | 4/20 | | e | | mg per tablet | | | | 19 | | | + + + +---------+------+------+-------+ | acetaminophen | Take 2 tablets by | 120 | 1 | 03/0 | | Activ | | (TYLENOL) 325 mg | mouth every 4 hours | tablet | | 4/20 | | e | | tablet | as needed for Pain. | | | 19 | | | + + + +---------+------+------+-------+ | | Take 1 capsule by | 30 | 0 | 03/0 | | Activ | | triamterene-hydrochl | mouth Daily. | capsule | | 5/20 | | e | | orothiazide | | | | 19 | | | | (DYAZIDE) 37.5-25 MG | | | | | | | | per capsule | | | | | | | + + + +---------+------+------+-------+ | methocarbamol | Take 1 tablet by | 40 | 0 | 03/1 | | Activ | | (ROBAXIN) 750 mg | mouth every 6 hours | tablet | | 1/20 | | e | | tabletIndications: | as needed for Muscle | | | 19 | | | | S/P lumbar fusion, | spasms. | | | | | | | [...] | | | | + + + +---------+------+------+-------+ | RESTASIS 0.05 % | Place 1 drop into | | 0 | 03/2 | | Activ | | ophthalmic emulsion | both eyes 2 times | | | 0/20 | | e | | | daily. | | | 19 | | | + + + +---------+------+------+-------+ | latanoprost | Place 1 drop into | | 0 | 03/1 | | Activ | | (XALATAN) 0.005% | both eyes Daily. | | | 9/20 | | e | | ophthalmic solution | | | | 19 | | | + + + +---------+------+------+-------+ | oxyCODONE | Take 1-2 tablets by | 20 | 0 | 04/0 | | Activ | | (ROXICODONE) 5 mg | mouth every 6 hours | tablet | | 8/20 | | e | | tabletIndications: | as needed for Pain. | | | 19 | | | | S/P lumbar fusion, | Exam today: Recent | | | | | | | Back pain, | major spine surgery. | | | | | | | [...] | | | | + + + +---------+------+------+-------+ | meloxicam (MOBIC) | Take 0.5 tablets by | 30 | 1 | 05/1 | 05/1 | Activ | | 15 mg tablet | mouth Twice daily | tablet | | 6/20 | 520 | e | | | as needed for Pain. | | | 19 | 20 | | + + + +---------+------+------+-------+ | Methylcellulose, | Take 500 mg by mouth | | 0 | | 05/1 | Disco | | Laxative, (CITRUCEL) | Daily. | | | | 6/20 | ntinu | | 500 MG TABS | | | | | 19 | ed | + + + +---------+------+------+-------+ | gabapentin | Take 1 capsule by | 90 | 2 | 04/0 | 05/1 | Disco | | (NEURONTIN) 300 mg | mouth 3 times daily. | capsule | | 8/20 | 6/20 | ntinu | | capsuleIndications: | | | | 19 | 19 | ed | | S/P lumbar fusion, | | [...] | | | | + + + +---------+------+------+-------+ Active Problems + + + | Problem | Noted Date | + + + | S/P lumbar fusion | 03/17/2019 | + + + | Acute bilateral low back pain with sciatica | 12/28/2018 | + + + | Simple chronic bronchitis | 12/28/2018 | + + + | CAD (coronary artery disease) | 12/23/2018 | + + + | Spinal stenosis of lumbar region without neurogenic claudication | 09/09/2018 | + + + | Lumbar radiculopathy | 05/26/2018 | + + + | Foraminal stenosis of lumbar region | 05/26/2018 | + + + | Lumbar facet arthropathy | 05/26/2018 | + + + | Synovial cyst of lumbar spine | 01/22/2018 | + + + | Hypertension | | + + + | Hyperlipidemia | | + + + | Congestive heart failure, chronic, left-sided | | + + + | Chest pain | | + + + | Asthma | | + + + Encounters +--------+ + + + + | Date | Type | Specialty | Care Team | Description | +--------+ + + + + | 03/29/ | Telephone | | Caleb Romero MD | Headache | | 2019 | | | | | +--------+ + + + + | 03/17/ | Office | | Caleb Romero MD | S/P lumbar fusion | | 2018 | Visit | | | | +--------+ + + + + | 03/17/ | Hospital | | Mahesh Perez, | S/P lumbar fusion; | | 2018 | Encounter | | PA-C | Back pain, | | | | | | unspecified back | | | | | | location, | | | | | | unspecified back | | | | | | pain laterality, | | | | | | unspecified | | | | | | chronicity; Weakness | | | | | | of right leg | +--------+ + + + + | 02/14/ | Hospital | | Mahesh Perez, | S/P lumbar fusion; | | 2018 | Encounter | | PA-C | Back pain, | | | | | | unspecified back | | | | | | location, | | | | | | unspecified back | | | | | | pain laterality, | | | | | | unspecified | | | | | | chronicity; Right | | | | | | leg weakness | +--------+ + + + + | 02/09/ | Orders Only | | Mahesh Perez, | Synovial cyst of | | 2018 | | | PA-C | lumbar spine | | | | | | (Primary Dx); Lumbar | | | | | | radiculopathy | +--------+ + + + + | 02/07/ | Office | | Mahesh Perez, | S/P lumbar fusion | | 2018 | Visit | | PA-C | (Primary Dx); Back | | | | | | pain, unspecified | | | | | | back location, | | | | | | unspecified back | | | | | | pain laterality, | | | | | | unspecified | | | | | | chronicity; Right | | | | | | leg weakness; Lumbar | | | | | | radiculopathy | +--------+ + + + + | 01/25/ | Telephone | | Caleb Romero MD | Post-op Question | | 2018 | | | | | +--------+ + + + + | 01/20/ | Telephone | | Caleb Romero MD | Other (Therapy ) | | 2018 | | | | | +--------+ + + + + | 01/10/ | Office | | Mahesh Perez, | S/P lumbar fusion | | 2019 | Visit | | PA-Tami | (Primary Dx); Back | | | | | | pain, unspecified | | | | | | back location, | | | | | | unspecified back | | | | | | pain laterality, | | | | | | unspecified | | | | | | chronicity; Weakness | | | | | | of right leg | +--------+ + + + + | 01/10/ | Hospital | | Caleb Romero MD | Lumbar | | 2018 | Encounter | | | radiculopathy; S/P | | | | | | lumbar fusion | +--------+ + + + + | 01/03/ | Hospital | | Joelle Lugo, PT | | | 2018 | Encounter | | | | +--------+ + + + + | 12/27/ | Hospital | | Santana Sagastume | Spinal stenosis of | | 2019 - | Encounter | | MD Selena | lumbar region | | | | | | without neurogenic | | 01/03/ | | | | claudication | | 2018 | | | | (Primary Dx); Lumbar | | | | | | radiculopathy | +--------+ + + + + +---+ + | | Discharge | | | Summary - | | | Santana Sagastume | | | MD Selena | | | - | | | 01/03/2019 | | | 10:44 PST | | | Formatting | | | of this | | | note might | | | be | | | different | | | from the | | | original.RE | | | HABILITATIO | | | N DISCHARGE | | | SUMMARY | | | Patient | | | Identificat | | | ion: Quintin | | | Gale | | | MarshallDOB | | | : | | | 1940MR | | | [id number] | | | 76Admit | | | Date: | | | 12/27/2018At | | | tending | | | Provider: | | | Santana | | | Selena | | | MD Mitesh | | | | | | Neurosurgeo | | | n : Caleb | | | A Yam, | | | | | | | | | | | | Primary | | | Care | | | Physician: | | | Darrel RCarlita | | | [place], | | | EDUCATIONAL INSTITUTION CURATOR | | | Impairment | | | Group: | | | Spinal Cord | | | | | | Dysfunction | | | , | | | Non-traumat | | | ic 04.130 | | | Other | | | non-traumat | | | ic spinal | | | cordEtiolog | | | ic | | | Diagnosis: | | | spinal | | | stenosisDis | | | charge date | | | and time: | | | 01/03/19 | | | Discharge | | | Physician: | | | Santana | | | Selena | | | Mitesh, | | | MDProblem | | | ListPrincip | | | al Problem: | | | Lumbar | | | radiculopat | | | hyActive | | | Problems: | | | Synovial | | | cyst of | | | lumbar | | | spine | | | Foraminal | | | stenosis of | | | lumbar | | | region | | | Spinal | | | stenosis of | | | lumbar | | | region | | | without | | | neurogenic | | | claudicatio | | | n | | | Hypertensio | | | n Acute | | | bilateral | | | low back | | | pain with | | | sciatica | | | Simple | | | chronic | | | bronchitis | | | Consults:Re | | | hab Nursing | | | Physical | | | TherapyOccu | | | pational | | | TherapySpee | | | ch | | | TherapySoci | | | al Work | | | Significant | | | Diagnostic | | | Studies: | | | Recent | | | Results | | | (from the | | | past 360 | | | hour(s)) [place] | | | C-Arm | | | Stats No | | | Charge | | | Narrative | | | This exam | | | has been | | | auto-finali | | | zed. It | | | was entered | | | for | | | statistical | | | purposes | | | only. XR | | | Lumbar | | | Spine 2 or | | | 3 Vw | | | Narrative | | | XR LUMBAR | | | SPINE 2 OR | | | 3 VW | | | 12/23/2018 | | | 1:52 | | | PMHISTORY: | | | SP lumbar | | | surgery | | | with | | | hardware..C | | | OMPARISON: | | | 01/20/2018FI | | | NDINGS: | | | Interval | | | posterior | | | and | | | interbody | | | fusion of | | | L4-S1. | | | Right | | | lateral | | | screwsare | | | seen at | | | L4-L5. | | | Vertebral | | | body | | | heights are | | | preserved. | | | Aortic | | | calcificati | | | onsare | | | seen. Right | | | paraspinal | | | surgical | | | drainage | | | catheter is | | | | | | present.IMP | | | RESSION -No | | | | | | radiographi | | | c evidence | | | for an | | | immediate | | | postoperati | | | ve | | | complicatio | | | n.Dictated | | | and Signed | | | by: Santino | | | MD Han | | | | | | Electronica | | | lly signed: | | | 12/23/2018 | | | 2:32 PM | | | Treatments: | | | intensive | | | inpatient | | | rehabilitat | | | ionADMISSIO | | | N HPI: | | | Chief | | | Complaint/I | | | dentificati | | | on: Quintin | | | Gale | | | Bernard i | | | s a 78 | | | y.o. male | | | who was | | | admitted to | | | [place] | | | [facility] | | | on | | | 12/23/2018 | | | for Lumbar | | | radiculopat | | | hy | | | (M54.16), | | | Synovial | | | cyst of | | | lumbar | | | spine | | | (M71.38), | | | Foraminal | | | stenosis of | | | lumbar | | | region | | | (M99.83), | | | Lumbar | | | facet | | | arthropathy | | | (M47.816), | | | Spinal | | | stenosis of | | | lumbar | | | region | | | without | | | neurogenic | | | claudicatio | | | n | | | (M48.061). | | | PM&R | | | consultatio | | | n was | | | requested | | | by | | | Caleb Calero | | | MD Heather to | | | provide an | | | opinion | | | regarding | | | Quintin Gale | | | Bernard r | | | ehabilitati | | | on | | | needs. 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 It | | | began to | | | worsen | | | in intensi | | | fy last | | | year ,It | | | was | | | refractory | | | to | | | conservativ | | | e | | | management. | | | So with | | | standing | | | and walking | | | began | | | getting | | | pain in his | | | legs left | | | worse than | | | right and | | | at times | | | with | | | associated | | | weakness | | | which he | | | feels | | | worsened | | | recently. | | | He was | | | going to | | | the gym and | | | try to do | | | some | | | strengtheni | | | ng without | | | benefit. | | | Also he | | | also noted | | | times some | | | numbness | | | and | | | tingling in | | | his legs | | | mainly | | | around the | | | feet , | | | worse than | | | left. Thyr | | | oid | | | neurosurgic | | | germainey by | | | yam. | | | Imaging | | | study | | | showed | | | advanced | | | degenerativ | | | e changes | | | of lumbar | | | spine with | | | severe | | | stenosis | | | with | | | central and | | | foraminal | | | compromise | | | at L4-5 and | | | L5-S1 on | | | the left as | | | was | | | exacerbated | | | by large | | | left | | | foraminal | | | synovial | | | cyst. He | | | therefore | | | was | | | admitted to | | | the | | | hospital | | | and | | | underwent | | | surgery | | | December 23 | | | :Proc. | | | Date | | | 12/23/2018 | | | Preop Dx | | | Spinal | | | stenosis | | | without | | | claudicatio | | | nForaminal | | | stenosis of | | | lumbar | | | region | | | (M99.83)Lum | | | bar facet | | | arthropathy | | | | | | (M47.816)Alaina | | | mbar | | | radiculopat | | | hy | | | (M54.16) | | | Postop Dx | | | same | | | Procedure | | | 1. | | | Minimally | | | invasive | | | lumbar | | | fusion via | | | anterior | | | and | | | posterior | | | approaches2 | | | . Combined | | | posteriolat | | | eral and | | | posterior | | | interbody | | | arthrodesis | | | L5-S13. | | | Anterior | | | lumbar | | | interbody | | | arthrodesis | | | L4-54. | | | Posterolate | | | ral lumbar | | | arthrodesis | | | L4, L55. | | | Posterior | | | spinal | | | instrumenta | | | tion L4-S1 | | | with use of | | | Precept6. | | | Placement | | | of PEEK | | | interbody | | | spacer | | | L4-5, | | | L5-S17. L5 | | | and partial | | | S1 | | | laminectomy | | | , L5-S1 | | | facetectomy | | | , L5 and S1 | | | | | | foraminotom | | | y for | | | decompressi | | | on of L5 | | | and S1 | | | nerves8. | | | Microsurgic | | | al | | | technique | | | with use of | | | operating | | | microscope9 | | | . | | | Intraoperat | | | candy | | | fluoroscopy | | | for spinal | | | | | | instrumenta | | | tion | | | Anesthesia | | | General | | | Surgeon | | | Je | | | Yam, MD - | | | PrimaryDere | | | k E | | | Sucharda, | | | PA-C - | | | Assisting | | | EBL 204 | | | Findings | | | L4-5 and | | | L5-S1 facet | | | | | | arthropathy | | | . B | | | bracing. | | | Complicatio | | | ns none | | | Tolerated | | | procedure | | | well | | | neurologica | | | lly and | | | orthopedica | | | lly. He | | | has | | | a history | | | of loose | | | stools but | | | no | | | incontinenc | | | e. He | | | does have | | | bowel | | | urgency and | | | some | | | bladder | | | urgency. | | | Since | | | hospitaliza | | | tion 90s | | | and | | | constipatio | | | n but is | | | passing | | | flatus. he | | | was been | | | stabilized | | | acutely, | | | but still | | | has | | | problems | | | with | | | self-care | | | and | | | functional | | | mobility. 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 | | | | | | Benign | | | prostatic | | | hyperplasia | | | (BPH) with | | | urinary | | | urge | | | incontinenc | | | e | | | Chest | | | pain | | | Colon | | | polyps | | | | | | Congestive | | | heart | | | failure, | | | chronic, | | | left-sided | | | (HCC) | | | Coronary | | | arterioscle | | | rosis | | | ED | | | (erectile | | | dysfunction | | | ) | | | GERD | | | (gastroesop | | | hageal | | | reflux | | | disease) | | | | | | Hard of | | | hearing | | | hearing | | | aids | | | History | | | of colonic | | | diverticuli | | | tis | | | | | | Hyperlipide | | | isaias | | | | | | Hypertensio | | | n | | | Impaired | | | memory | | | | | | Osteoarthri | | | tis | | | | | | Presbycusis | | | PSx:Past | | | Surgical | | | History: | | | Procedure | | | Laterality | | | Date | | | CARPAL | | | TUNNEL | | | RELEASE | | | | | | FACIAL | | | RECONSTRUCT | | | ION SURGERY | | | | | | LUMBAR | | | SPINE | | | SURGERY N/A | | | 12/23/2018 | | | Procedure: | | | L4-5 LAIF, | | | L5-S1 | | | TLIF; | | | Surgeon: | | | Je | | | Yam, MD; | | | Location: | | | [facility] OR | | | | | | skin | | | cancer | | | removal | | | Basel cell | | | carcinoma | | | | | | | | | TONSILLECTO | | | MY | | | TURP N/A | | | 01/09/2017 | | | Procedure: | | | Cyber Laser | | | Prostate | | | Vaporizatio | | | n; | | | Surgeon: | | | Vinnie G | | | Sislow, MD; | | | Location: | | | [facility] | | | OR | | | VASECTOMY | | | Meds | | | During | | | Hospitaliza | | | tionNo | | | current | | | facility-ad | | | ministered | | | medications | | | for this | | | encounter. | | | Current | | | Outpatient | | | Prescriptio | | | ns | | | Medication | | | Sig | | | Dispense | | | Refill | | | | | | acetaminoph | | | en | | | (TYLENOL) | | | 325 mg | | | tablet Take | | | 2 tablets | | | by mouth | | | every 4 | | | hours as | | | needed for | | | Pain. 120 | | | tablet 1 | | | albuterol | | | (VENTOLIN | | | HFA) 90 | | | mcg/puff | | | inhaler | | | Inhale 2 | | | puffs into | | | the lungs | | | as needed | | | for | | | Wheezing. | | | | | | aspirin | | | 81 mg EC | | | tablet Take | | | 81 mg by | | | mouth | | | Daily. | | | | | | atorvaSTATi | | | n (LIPITOR) | | | 20 mg | | | tablet Take | | | 20 mg by | | | mouth | | | nightly. | | | | | | | | | cyclobenzap | | | rine | | | (FLEXERIL) | | | 10 mg | | | tablet Take | | | 1 tablet | | | by mouth | | | nightly as | | | needed for | | | Muscle | | | spasms. 20 | | | tablet 0 | | | | | | DHA-Vitamin | | | C-Lutein | | | (EYE HEALTH | | | FORMULA | | | PO) Take 1 | | | capsule by | | | mouth | | | Daily. | | | | | | docusate-se | | | nna | | | (SENOKOT-S) | | | 50-8.6 mg | | | per tablet | | | Take 1 | | | tablet by | | | mouth BID | | | PC. 60 | | | tablet 1 | | | | | | famotidine | | | (PEPCID) 20 | | | mg tablet | | | Take 1 | | | tablet by | | | mouth 2 | | | times daily | | | (before | | | meals). 60 | | | tablet 1 | | | | | | fluticasone | | | (FLONASE) | | | 50 | | | mcg/nasal | | | spray 1 | | | spray by | | | Nasal | | | route. | | | | | | methocarbam | | | ol | | | (ROBAXIN) | | | 750 mg | | | tablet Take | | | 1 tablet | | | by mouth | | | every 6 | | | hours as | | | needed for | | | Muscle | | | spasms. 40 | | | tablet 0 | | | | | | Methylcellu | | | lose, | | | Laxative, | | | (CITRUCEL) | | | 500 MG TABS | | | Take 500 | | | mg by mouth | | | Daily. | | | | | | | | | mometasone | | | (ASMANEX 60 | | | METERED | | | DOSES) 220 | | | mcg/puff | | | inhaler | | | Inhale 2 | | | puffs into | | | the lungs | | | Daily. | | | Multiple | | | Vitamins-Mi | | | nerals | | | (CENTRUM | | | SILVER PO) | | | Take 1 | | | tablet by | | | mouth | | | Daily. | | | | | | OLODATEROL | | | HCL IN | | | Inhale | | | into the | | | lungs as | | | needed. | | | | | | oxyCODONE | | | | | | (ROXICODONE | | | ) 5 mg | | | tablet Take | | | 1-2 | | | tablets by | | | mouth every | | | 6 hours as | | | needed for | | | Pain. 60 | | | tablet 0 | | | | | | sildenafil | | | (VIAGRA) | | | 100 MG | | | tablet Take | | | 100 mg by | | | mouth as | | | needed for | | | Erectile | | | Dysfunction | | | . | | | | | | triamterene | | | -hydrochlor | | | othiazide | | | (DYAZIDE) | | | 37.5-25 MG | | | per capsule | | | Take 1 | | | capsule by | | | mouth | | | Daily. 30 | | | capsule 0 | | | Allergies:A | | | llergies | | | Allergen | | | Reactions | | | Hydrocodone | | | Other (See | | | Comments) | | | Skin | | | sloughing | | | from penis | | | | | | Sulfa | | | Antibiotics | | | Rash | | | Intolerance | | | Allergen | | | Reactions | | | | | | Lisinopril | | | Other (See | | | Comments) | | | Cough | | | Family | | | History:Fam | | | margie History | | | Problem | | | Relation | | | Age of | | | Onset | | | Heart | | | defect | | | Mother 59 | | | Valve | | | dysfunction | | | | | | COPD | | | Father | | | Heart | | | failure | | | Father | | | Other | | | cancer | | | Brother | | | Leukemia | | | | | | Cancer | | | Brother | | | Leukemia | | | Social | | | History: | | | per chart | | | review and | | | confirmed | | | with | | | ptSocial | | | History | | | Social | | | History | | | Marital | | | status: | | | | | | Spouse | | | name: N/A | | | | | | Number of | | | children: | | | N/A | | | Years of | | | education: | | | N/A | | | Occupationa | | | l History | | | | | | Not on | | | file. | | | Social | | | History | | | Main Topics | | | | | | Smoking | | | status: | | | Former | | | Smoker | | | Packs/day: | | | 0.25 | | | Years: 3.00 | | | Types: | | | Cigarettes, | | | Cigars, | | | Pipe Quit | | | date: 1960 | | | | | | Smokeless | | | tobacco: | | | Never Used | | | | | | Alcohol | | | use 0.6 | | | oz/week 1 | | | Shots of | | | liquor per | | | week | | | Comment: | | | Socially, | | | but not | | | often | | | Drug use: | | | No | | | Sexual | | | activity: | | | Not on file | | | Other | | | Topics | | | Concern | | | Not on | | | file Social | | | History | | | Narrative | | | | | | No | | | narrative | | | on file | | | Functional | | | Status:Curr | | | ent:[facility] | | | BladderScor | | | e: 5 [facility] | | | Bowel | | | Score: 6 | | | [facility] | | | Bed/Chair/W | | | heelchair | | | Score: 5 | | | [facility] Toilet | | | Transfer | | | Score: 6 | | | [facility] | | | Tub/Shower | | | Transfer | | | Score: 5 | | | [facility] Walk | | | Score: 5 | | | [facility] | | | Distance | | | Walked(feet | | | ): 150 feet | | | [facility] | | | Wheelchair | | | Score: | | | [facility] Stairs | | | Score :4 | | | [facility] Eating | | | Score: 7 | | | [facility] | | | Grooming | | | Score: 6 | | | [facility] Bathing | | | Score: 5 | | | [facility] | | | Dressing | | | Upper Body | | | Score: 6 | | | [facility] | | | Dressing | | | Lower Body | | | Score: 5 | | | [facility] | | | Toileting | | | Score: 5 | | | DISCHARGE | | | PHYSICAL | | | EXAMINATION | | | :VS: BP | | | 139/81 | | | | Pulse 72 | | | | Temp 37.3 | | | C (99.1 | | | F) (Oral) | | | | Resp 18 | | | | Ht | | | 1.753 m (5' | | | 9") | Wt | | | 89.5 kg | | | (197 lb 5 | | | oz) | SpO2 | | | 95% | | | Comment: | | | Sitting in | | | chair, no | | | signs of | | | distress | | | | BMI 29.14 | | | kg/m | | | HEENT: | | | Eyes clear. | | | Oral | | | mucosa | | | moist.LYMPH | | | ATICS: No | | | significant | | | adenopathy | | | noted in | | | neck, | | | axilla or | | | groin.RESPI | | | RATORY: | | | Breathing | | | comfortably | | | , unlabored | | | | | | respiration | | | s.CARDIOVAS | | | CULAR: | | | Regular | | | rate and | | | rhythm | | | without | | | audible | | | murmur or | | | rub noted. | | | No edema. | | | Palpable | | | peripheral | | | pulses.RICK | | | ROINTESTINA | | | L: Abdomen | | | soft, | | | non-tender, | | | with | | | active | | | bowel | | | sounds | | | present.MUS | | | CULOSKELETA | | | L: | | | Extremities | | | symmetric | | | with stable | | | range of | | | motion.NEUR | | | OLOGIC: | | | Stable. | | | LABORATORY: | | | @LAB72@[facility] | | | ital | | | Course:REAS | | | ON FOR | | | ADMISSION:C | | | omprehensiv | | | e medical | | | inpatient | | | rehabilitat | | | ion program | | | to treat | | | problems | | | with | | | self-care | | | and | | | functional | | | mobility | | | secondary | | | to and | | | multiple | | | comorbiditi | | | es. Please | | | see | | | History & | | | Physical | | | for full | | | details of | | | history and | | | status at | | | time of | | | admission.[facility] | | | [facility] | | | COURSE:The | | | patient was | | | admitted | | | to the | | | inpatient | | | rehabilitat | | | ion service | | | and | | | participate | | | d in full | | | program. | | | Vital | | | Signs, | | | including | | | orthostatic | | | blood | | | pressure | | | and pulse, | | | and changes | | | with | | | exercise | | | activity | | | were | | | closely | | | monitored | | | and | | | discussed. | | | | | | Respiratory | | | Therapy | | | protocol | | | was | | | implemented | | | . Bowel | | | and bladder | | | management | | | program | | | was begun. | | | | | | Appropriate | | | nutrition | | | was | | | provided. | | | Follow-up | | | laboratory | | | data was | | | obtained | | | regarding | | | metabolic | | | and | | | hematologic | | | issues. | | | Pain | | | management | | | was | | | effective | | | with | | | prescribed | | | medications | | | . Staff | | | reinforced | | | safety | | | measures | | | and | | | awareness.T | | | he patient | | | was also | | | seen and | | | followed | | | closely by | | | hospitalist | | | s for | | | medical | | | comorbiditi | | | es. Self | | | care and | | | function | | | mobility | | | are | | | improved. | | | Appropriate | | | patient | | | education | | | and family | | | training | | | have been | | | provided.Th | | | e patient | | | will be | | | discharged | | | today with | | | referral to | | | outpatient | | | PT | | | services. | | | Please see | | | final | | | Rehabilitat | | | ion Team | | | Conference | | | Note for | | | Functional | | | Status of | | | Discharge.R | | | efer to | | | Case | | | Management | | | Discharge | | | Instruction | | | s regarding | | | | | | coordinatio | | | n of future | | | | | | rehabilitat | | | ion | | | therapies | | | and | | | discharge | | | equipment | | | needs, as | | | well as | | | Medical | | | follow-up | | | appointment | | | s.IMPRESSIO | | | N :1. 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 | | | Severe | | | lumbar | | | spine | | | stenosis | | | with the | | | central and | | | foraminal | | | compromise | | | bilaterally | | | at L4-5 | | | and L5-S1, | | | with | | | exacerbatio | | | n of the | | | foraminal | | | stenosis by | | | associated | | | large | | | left-sided | | | foraminal | | | synovial | | | cyst at | | | L5-S1 ; | | | requiring | | | 3. | | | Successfu | | | l surgery | | | 12/23/18 :1. | | | | | | | | | Minimally | | | invasive | | | lumbar | | | fusion via | | | anterior | | | and | | | posterior | | | approaches2 | | | . Combined | | | posteriolat | | | eral and | | | posterior | | | interbody | | | arthrodesis | | | L5-S13. | | | Anterior | | | lumbar | | | interbody | | | arthrodesis | | | L4-54. | | | Posterolate | | | ral lumbar | | | arthrodesis | | | L4, L55. | | | Posterior | | | spinal | | | instrumenta | | | tion L4-S1 | | | with use of | | | Precept6. | | | Placement | | | of PEEK | | | interbody | | | spacer | | | L4-5, | | | L5-S1L5 and | | | partial S1 | | | | | | laminectomy | | | , L5-S1 | | | facetectomy | | | , L5 and S1 | | | | | | foraminotom | | | y for | | | decompressi | | | on of L5 | | | and S1 | | | nerves 4. | | | Acute | | | postoperati | | | ve pain, | | | requiring | | | narcotic | | | analgesics | | | 5. Acute | | | bowel and | | | bladder | | | voiding | | | problems A | | | ssociated | | | active | | | medical | | | comorbiditi | | | es : 6. | | | Hyperte | | | nsion 7. | | | COPD | | | with | | | bronchospas | | | tic | | | componentDI | | | SCHARGE | | | MEDICATIONS | | | : Discharge | | | | | | Medications | | | New | | | Medications | | | Details | | | | | | cyclobenzap | | | rine 10 mg | | | tablet Take | | | 1 tablet | | | by mouth | | | nightly as | | | needed for | | | Muscle | | | spasms.aka: | | | FLEXERIL | | | docusate-se | | | nna 50-8.6 | | | mg per | | | tablet Take | | | 1 tablet | | | by mouth | | | BID PC.aka: | | | SENOKOT-S | | | famotidine | | | 20 mg | | | tablet Take | | | 1 tablet | | | by mouth 2 | | | times daily | | | (before | | | meals).aka: | | | PEPCID | | | methocarbam | | | ol 750 mg | | | tabletNotes | | | to | | | patient: | | | May take at | | | 12:30 Take | | | 1 tablet | | | by mouth | | | every 6 | | | hours as | | | needed for | | | Muscle | | | spasms.aka: | | | ROBAXIN | | | oxyCODONE 5 | | | mg tablet | | | Take 1-2 | | | tablets by | | | mouth every | | | 6 hours as | | | needed for | | | Pain.aka: | | | ROXICODONE | | | Changed | | | Medications | | | Details | | | | | | acetaminoph | | | en 325 mg | | | tablet Take | | | 2 tablets | | | by mouth | | | every 4 | | | hours as | | | needed for | | | Pain.What | | | changed: | | | medication | | | strength | | | how much to | | | take | | | when to | | | take | | | thisaka: | | | TYLENOL | | | triamterene | | | -hydrochlor | | | othiazide | | | 37.5-25 MG | | | per capsule | | | Take 1 | | | capsule by | | | mouth | | | Daily.What | | | changed: | | | when to | | | take | | | thisaka: | | | DYAZIDE | | | Unchanged | | | Medications | | | Details | | | ASMANEX 60 | | | METERED | | | DOSES 220 | | | mcg/puff | | | inhalerGene | | | horacio drug: | | | mometasone | | | Inhale 2 | | | puffs into | | | the lungs | | | Daily. | | | aspirin 81 | | | mg EC | | | tablet Take | | | 81 mg by | | | mouth | | | Daily. | | | atorvaSTATi | | | n 20 mg | | | tablet Take | | | 20 mg by | | | mouth | | | nightly.aka | | | : LIPITOR | | | CENTRUM | | | SILVER PO | | | Take 1 | | | tablet by | | | mouth | | | Daily. | | | CITRUCEL | | | 500 MG | | | TabsGeneric | | | drug: | | | Methylcellu | | | lose | | | (Laxative) | | | Take 500 mg | | | by mouth | | | Daily. EYE | | | HEALTH | | | FORMULA PO | | | Take 1 | | | capsule by | | | mouth | | | Daily. | | | fluticasone | | | 50 | | | mcg/nasal | | | spray 1 | | | spray by | | | Nasal | | | route.aka: | | | FLONASE | | | OLODATEROL | | | HCL IN | | | Inhale | | | into the | | | lungs as | | | needed. | | | VENTOLIN | | | HFA 90 | | | mcg/puff | | | inhalerGene | | | horacio drug: | | | albuterol | | | Inhale 2 | | | puffs into | | | the lungs | | | as needed | | | for | | | Wheezing. | | | VIAGRA 100 | | | MG | | | tabletGener | | | ic drug: | | | sildenafil | | | Take 100 mg | | | by mouth | | | as needed | | | for | | | Erectile | | | Dysfunction | | | . | | | Discontinue | | | d | | | Medications | | | | | | cholecalcif | | | bhakti 1,000 | | | units | | | capsuleGene | | | horacio drug: | | | cholecalcif | | | bhakti | | | Flaxseed | | | Oil 1200 MG | | | Caps | | | PRILOSEC PO | | | TYLENOL PM | | | EXTRA | | | STRENGTH | | | 25-500 MG | | | TabsGeneric | | | drug: | | | diphenhydrA | | | MINE-acetam | | | inophen | | | Current | | | Discharge | | | Medication | | | List | | | START | | | taking | | | these | | | medications | | | | | | Medication | | | Dose Last | | | Dose Taken; | | | | | | acetaminoph | | | en | | | (TYLENOL) | | | 325 mg | | | tablet 650 | | | mg [ ] | | | Take 2 | | | tablets by | | | mouth every | | | 4 hours as | | | needed for | | | Pain. Qty: | | | 120 | | | tablet | | | Refills: 1 | | | Start | | | date: | | | 01/03/2019 | | | | | | cyclobenzap | | | rine | | | (FLEXERIL) | | | 10 mg | | | tablet 10 | | | mg [ ] | | | Take 1 | | | tablet by | | | mouth | | | nightly as | | | needed for | | | Muscle | | | spasms. | | | Qty: 20 | | | tablet | | | Refills: 0 | | | Start | | | date: | | | 01/03/2019 | | | | | | docusate-se | | | nna | | | (SENOKOT-S) | | | 50-8.6 mg | | | per tablet | | | 1 tablet [ | | | ] Take 1 | | | tablet by | | | mouth BID | | | PC. Qty: | | | 60 tablet | | | Refills: 1 | | | Start | | | date: | | | 01/03/2019 | | | | | | famotidine | | | (PEPCID) 20 | | | mg tablet | | | 20 mg [ ] | | | Take 1 | | | tablet by | | | mouth 2 | | | times daily | | | (before | | | meals). | | | Qty: 60 | | | tablet | | | Refills: 1 | | | Start | | | date: | | | 01/03/2019 | | | | | | methocarbam | | | ol | | | (ROBAXIN) | | | 750 mg | | | tablet 750 | | | mg [ ] | | | Take 1 | | | tablet by | | | mouth every | | | 6 hours as | | | needed for | | | Muscle | | | spasms. | | | Qty: 40 | | | tablet | | | Refills: 0 | | | Start | | | date: | | | 01/03/2019 | | | | | | oxyCODONE | | | (ROXICODONE | | | ) 5 mg | | | tablet 5-10 | | | mg [ ] | | | Take 1-2 | | | tablets by | | | mouth every | | | 6 hours as | | | needed for | | | Pain. Qty: | | | 60 tablet | | | Refills: | | | 0 Start | | | date: | | | 01/03/2019 | | | | | | triamterene | | | -hydrochlor | | | othiazide | | | (DYAZIDE) | | | 37.5-25 MG | | | per capsule | | | 1 capsule | | | [ ] Take | | | 1 capsule | | | by mouth | | | Daily. Qty: | | | 30 | | | capsule | | | Refills: 0 | | | Start | | | date: | | | 01/04/2019 | | | | | | CONTINUE | | | these | | | medications | | | which have | | | NOT | | | CHANGED | | | Medication | | | Dose Last | | | Dose Taken; | | | albuterol | | | (VENTOLIN | | | HFA) 90 | | | mcg/puff | | | inhaler 2 | | | puffs [ ] | | | Inhale 2 | | | puffs into | | | the lungs | | | as needed | | | for | | | Wheezing. | | | | | | aspirin 81 | | | mg EC | | | tablet 81 | | | mg [ ] | | | Take 81 mg | | | by mouth | | | Daily. | | | | | | atorvaSTATi | | | n (LIPITOR) | | | 20 mg | | | tablet 20 | | | mg [ ] | | | Take 20 mg | | | by mouth | | | nightly. | | | | | | DHA-Vitamin | | | C-Lutein | | | (EYE HEALTH | | | FORMULA | | | PO) 1 | | | capsule [ | | | ] Take 1 | | | capsule by | | | mouth | | | Daily. | | | | | | fluticasone | | | (FLONASE) | | | 50 | | | mcg/nasal | | | spray 1 | | | spray [ ] | | | 1 spray | | | by Nasal | | | route. | | | | | | Methylcellu | | | lose, | | | Laxative, | | | (CITRUCEL) | | | 500 MG TABS | | | 500 mg [ | | | ] Take | | | 500 mg by | | | mouth | | | Daily. | | | | | | mometasone | | | (ASMANEX 60 | | | METERED | | | DOSES) 220 | | | mcg/puff | | | inhaler 2 | | | puffs [ ] | | | Inhale 2 | | | puffs into | | | the lungs | | | Daily. | | | | | | Multiple | | | Vitamins-Mi | | | nerals | | | (CENTRUM | | | SILVER PO) | | | 1 tablet [ | | | ] Take 1 | | | tablet by | | | mouth | | | Daily. | | | | | | OLODATEROL | | | HCL IN [ | | | ] Inhale | | | into the | | | lungs as | | | needed. | | | | | | sildenafil | | | (VIAGRA) | | | 100 MG | | | tablet 100 | | | mg [ ] | | | Take 100 mg | | | by mouth | | | as needed | | | for | | | Erectile | | | Dysfunction | | | . | | | | | | DISPOSITION | | | : Home with | | | | | | familyFOLLO | | | [facility]:-PCP: | | | 1-2 weeks | | | after d/c | | | from | | | hospital:[facility] | | | [place], | | | EDUCATIONAL INSTITUTION CURATOR | | | Neurosurgeo | | | n : Caleb | | | A Yam, | | | MD | | | | | | 01/10/19DISC | | | HARGE | | | INSTRUCTION | | | S:Discharge | | | | | | Instruction | | | s Patient | | | has front | | | wheel | | | walker.Home | | | | | | program.Out | | | patient | | | physical | | | therapy.Fol | | | low-up | | | appointment | | | s with his | | | community | | | physicians | | | as above.I | | | spent 35 | | | minutes on | | | date of | | | discharge | | | with | | | unit/floor | | | time | | | including | | | face to | | | face with | | | the | | | patient, | | | with over | | | 50% spent | | | in | | | counseling | | | and/or | | | coordinatio | | | n of care | | | regarding | | | discharge | | | meds, and | | | addressing | | | home | | | program, | | | f/u | | | appointment | | | s, setting | | | up d/c | | | therapies, | | | arranging | | | for | | | equipment.S | | | igned:Santana | | | H. Hill, | | | MD | | | 0:44CC: | | | Neurosurgeo | | | n : Caleb | | | A Yam, | | | MD | | | | | | | | | Primary | | | Care | | | Physician: | | | Darrel Lawson | | | [place], | | | EDUCATIONAL INSTITUTION CURATOR Portions | | | of this | | | chart may | | | have been | | | created | | | with [employer] | | | voice | | | recognition | | | software. | | | Occasional | | | wrong-word | | | or | | | | | | sound-alike | | | | | | | | | substitutio | | | ns may have | | | occurred | | | due to the | | | inherent | | | limitations | | | of voice | | | recognition | | | software. | | | Please read | | | the chart | | | carefully | | | and | | | recognize, | | | using | | | context, | | | where these | | | | | | substitutio | | | ns have | | | occurred | | | Electronica | | | lly signed | | | by Santana | | | Selena | | | MD Mitesh at | | | 01/04/2019 | | | 13:03 PST | +---+ + from Last 3 Months Immunizations + + + + | Name | Dates Previously Given | Next Due | + + + + | ZOEY PF 18-64 | 08/07/2016, 08/09/2013, 11/06/2009 | | | YRS,QUAD INTRADERMAL | | | + + + + | INFLUENZA 65 Y OR >, | 08/16/2014 | | | TRIVALENT HIGH-DOSE | | | + + + + | INFLUENZA PF 65 Y OR | 07/09/2018 | | | >,TRIVALENT (FLUAD) | | | + + + + | PNEUMOCOCCAL | 09/30/2016, 08/09/2013 | | | POLYSACCHARIDE | | | | 23-VALENT (PPSV23) | | | + + + + | ZOSTER, 1 DOSE | 02/01/2009 | | | (ZOSTAVAX) | | | + + + + Family History + + +------+ + [...] + +------+ + + Social History + + + [...] recent travel history available. | + + Last Filed Vital Signs + + + + | Vital Sign | Reading | Time Taken | + + + + | Blood Pressure | 119/65 | 03/17/2019 1109 PDT | + + + + | Pulse | 100 | 02/07/2019 1332 PDT | + + + + | Temperature | 37.3 C (99.1 F) | 01/03/2019804 PST | + + + + | Respiratory Rate | 18 | 01/03/2019935 PST | + + + + | Oxygen Saturation | 95% | 01/03/2019935 PST | + + + + | Inhaled Oxygen | - | - | | Concentration | | | + + + + | Weight | 95.8 kg (211 lb 3.2 | 03/17/20191108 PDT | | | oz) | | + + + + | Height | 175.3 cm (5' 9") | 03/17/20191108 PDT | + + + + | Body Mass Index | 31.19 | 03/17/2019 1109 PDT | + + + + Plan of Treatment + + + + + | Health Maintenance | Due Date | Last Done | Comments | + + + + + | Vaccine: | | | | | Dtap/Tdap/Td (1 - | 9 | | | | Tdap) | | | | + + + + + | Vaccine: Zoster (2 | | 02/01/2009 | | | of 3) | 9 | | | + + + + + | Adult Annual | | | | | Wellness Visit | 5 | | | + + + + + | Vaccine: | | 09/30/2016, 08/09/2013 | | | Pneumococcal 65+ | 7 | | | | Low/Medium Risk (2 | | | | | of 2 - PCV13) | | | | + + + + + | Vaccine: Influenza | Completed | 07/09/2018, 08/07/2016, | | | | | 08/16/2014, Additional history | | | | | exists | | + + + + + Implants + +--------+--------+ +--------+--------+--------+ | Implanted | Type | Area | Manufacture | Device | Shelf | Model | | | | | r | | Expira | / | | | | | | Identi | tion | Serial | | | | | | fier | Date | / Lot | + +--------+--------+ +--------+--------+--------+ | Tlif Oblique [id number] 12deg | Generi | N/A: | NUVASIVE - | | | [id number] | | - Sn/AImplanted: Qty: 1 on | c | Spine | NVSV | | | 2 /N/A | | 12/23/2018 by Caleb Romero, | | Lumbar | | | | /N/A | | MD | | | | | | | + +--------+--------+ +--------+--------+--------+ | Tlif Oblique [id number] 12deg | Generi | N/A: | NUVASIVE - | | | [id number] | | - Sn/AImplanted: Qty: 1 on | c | Spine | NVSV | | | 2 /N/A | | 12/23/2018 by Caleb Romero, | | Lumbar | | | | /N/A | | MD | | | | | | | + +--------+--------+ +--------+--------+--------+ | Imp Spn Intbdy Cor | Generi | N/A: | NUVASIVE - | | | [id number] | | [id number] - Sn/AImplanted: | c | Spine | NVSV | | | 5 /N/A | | Qty: 1 on 12/23/2018 by Heather, | | Lumbar | | | | /N/A | | Caleb Calero MD | | | | | | | + +--------+--------+ +--------+--------+--------+ | He Ti Prebent Lordtc 65mm - | Generi | N/A: | NUVASIVE - | | | [id number] | | Sn/AImplanted: Qty: 1 on | c | Spine | NVSV | | | 5 /N/A | | 12/23/2018 by Caleb Romero, | | Lumbar | | | | /N/A | | MD | | | | | | | + +--------+--------+ +--------+--------+--------+ | He Ti Prebent Lordtc 60mm - | Generi | N/A: | NUVASIVE - | | | [id number] | | Sn/AImplanted: Qty: 1 on | c | Spine | NVSV | | | 0 /N/A | | 12/23/2018 by Caleb Romero, | | Lumbar | | | | /N/A | | MD | | | | | | | + +--------+--------+ +--------+--------+--------+ | Putty Ai 10cc Dbm - | Graft | N/A: | MEDTRONIC - | | 06/30/ | [id number] | | [id number]: Qty: 1 | | Spine | MEDT | | 2020 | | | on 12/23/2018 by Caleb Romero | | Lumbar | | | | /[id number] | | MD Abdias | | | | | | 6-024 | | | | | | | | /N/A | + +--------+--------+ +--------+--------+--------+ | Graft Infuse Bone Kit Xxs - | Graft | N/A: | MEDTRONIC - | | 09/01/ | [id number] | | Sn/AImplanted: Qty: 1 on | | Spine | MEDT | | 2018 | 0 /N/A | | 12/23/2018 by Caleb Romero, | | Lumbar | | | | | | MD | | | | | | /[id number] | | | | | | | | [id number] | + +--------+--------+ +--------+--------+--------+ | Graft Infuse Bone Kit Xs - | Graft | N/A: | MEDTRONIC - | | 09/01/ | [id number] | | Sn/AImplanted: Qty: 1 on | | Spine | MEDT | | 2019 | 0 /N/A | | 12/23/2018 by Caleb Romero, | | Lumbar | | | | | | MD | | | | | | /[id number] | | | | | | | | [id number] | + +--------+--------+ +--------+--------+--------+ | Screw Set - Sn/AImplanted: | Screw | N/A: | NUVASIVE - | | | [id number] | | Qty: 6 on 12/23/2018 by Heather, | | Spine | NVSV | | | 0 /N/A | | Caleb Calero MD | | Lumbar | | | | /N/A | + +--------+--------+ +--------+--------+--------+ | Screw Yaquelin Alba Xlf 5.5x25mm - | Screw | N/A: | NUVASIVE - | | | [id number] | | Sn/AImplanted: Qty: 2 on | | Spine | NVSV | | | 5 /N/A | | 12/23/2018 by Caleb Romero, | | Lumbar | | | | /N/A | | MD | | | | | | | + +--------+--------+ +--------+--------+--------+ | Screw Polyax Prcpt 7.5x50mm - | Screw | N/A: | NUVASIVE - | | | [id number] | | [id number]: Qty: 4 | | Spine | NVSV | | | 0A / / | | on 12/23/2018 by Caleb Romero | | Lumbar | | | | | | A, MD | | | | | | | + +--------+--------+ +--------+--------+--------+ | Screw Polyax Prcpt 8.5x50mm - | Screw | N/A: | NUVASIVE - | | | [id number] | | [id number]: Qty: 2 | | Spine | NVSV | | | 0A / / | | on 12/23/2018 by Caleb Romero | | Lumbar | | | | | | A, MD | | | | | | | + +--------+--------+ +--------+--------+--------+ Procedures + +--------+ + + + | Procedure Name | Priori | Date/Time | Associated Diagnosis | Comments | | | ty | | | | + +--------+ + + + | XR LUMBAR SPINE 2 OR | Routin | 03/17/2019 | S/P lumbar fusion | Results for this | | 3 VW | e | 9:19 PDT | Back pain, | procedure are in the | | | | | unspecified back | results section. | | | | | location, | | | | | | unspecified back | | | | | | pain laterality, | | | | | | unspecified | | | | | | chronicity Weakness | | | | | | of right leg | | + +--------+ + + + [...] | + +--------+ + + + | XR LUMBAR SPINE 2 OR | Routin | 01/10/2019 | Lumbar | Results for this | | 3 VW | e | 9:14 PDT | radiculopathy S/P | procedure are in the | | | | | lumbar fusion | results section. | + +--------+ + + + | POC GLUCOSE | Routin | 01/03/2019 | | Results for this | | | e | 6:27 PST | | procedure are in the | | | | | | results section. | + +--------+ + + + | CBC WITH | Routin | 01/03/2019 | | Results for this | | DIFFERENTIAL | e | 6:01 PST | | procedure are in the | | | | | | results section. | + +--------+ + + + | BASIC METABOLIC | Routin | 01/03/2019 | | Results for this | | PANEL | e | 6:01 PST | | procedure are in the | | | | | | results section. | + +--------+ + + + | POC GLUCOSE | Routin | 01/02/2019 | | Results for this | | | e | 21:28 PST | | procedure are in the | | | | | | results section. | + +--------+ + + + | POC GLUCOSE | Routin | 01/02/2019 | | Results for this | | | e | 16:45 PST | | procedure are in the | | | | | | results section. | + +--------+ + + + | POC GLUCOSE | Routin | 01/02/2019 | | Results for this | | | e | 12:01 PST | | procedure are in the | | | | | | results section. | + +--------+ + + + | POC GLUCOSE | Routin | 01/02/2019 | | Results for this | | | e | 6:45 PST | | procedure are in the | | | | | | results section. | + +--------+ + + + | POC GLUCOSE | Routin | 01/01/2019 | | Results for this | | | e | 22:15 PST | | procedure are in the | | | | | | results section. | + +--------+ + + + | POC GLUCOSE | Routin | 01/01/2019 | | Results for this | | | e | 11:56 PST | | procedure are in the | | | | | | results section. | + +--------+ + + + | POC GLUCOSE | Routin | 01/01/2019 | | Results for this | | | e | 6:49 PST | | procedure are in the | | | | | | results section. | + +--------+ + + + | POC GLUCOSE | Routin | 12/31/2018 | | Results for this | | | e | 22:11 PST | | procedure are in the | | | | | | results section. | + +--------+ + + + | POC GLUCOSE | Routin | 12/31/2018 | | Results for this | | | e | 17:17 PST | | procedure are in the | | | | | | results section. | + +--------+ + + + | POC GLUCOSE | Routin | 12/31/2018 | | Results for this | | | e | 6:46 PST | | procedure are in the | | | | | | results section. | + +--------+ + + + | POC GLUCOSE | Routin | 12/30/2018 | | Results for this | | | e | 21:57 PST | | procedure are in the | | | | | | results section. | + +--------+ + + + | POC GLUCOSE | Routin | 12/30/2018 | | Results for this | | | e | 17:24 PST | | procedure are in the | | | | | | results section. | + +--------+ + + + | POC GLUCOSE | Routin | 12/30/2018 | | Results for this | | | e | 12:53 PST | | procedure are in the | | | | | | results section. | + +--------+ + + + | POC GLUCOSE | Routin | 12/30/2018 | | Results for this | | | e | 6:52 PST | | procedure are in the | | | | | | results section. | + +--------+ + + + from Last 3 Months Results XR Lumbar Spine 2 or 3 Vw (03/17/2019 9:19 PDT)Only the most recent of 2 results within e time period is included. + + | Specimen | + + [...] through S1. Dictated and Signed by: Chele Henderson | | | Electronically signed: 03/17/2019 9:58 AM | | [...] | | | + +---------+ + + MRI Lumbar Spine w wo Contrast (02/14/2019 [...] | | | + +---------+ + + POC Glucose (01/03/2019 6:27 PST)Only the most recent of 15 results within the time period is included. + +-------+ + + + | Component | Value | Ref Range | Performed | Pathologist | | | | | At | Signature | + +-------+ + + + | Glucose, | 109 | 70 - 109 mg/dL | [facility] | | | P[facility] | | | [facility] | | | | | | [facility] | | | | | | [facility] - | | | | | | LABORATORY | | + +-------+ + + + + + | Specimen | + + | Blood | + + + + + + + | Performing | Address | City/State/Zipcode | Phone Number | | Organization | | | | + + + + + | [facility] | [address] | [place] | [phone] | | [facility] | | [id number] | | | - LABORATORY | | | | + + + + + CBC with Differential (01/03/2019 6:01 PST) + + + + + + | Component | Value | Ref Range | Performed | Pathologist | | | | | At | Signature | + + + + + + | WBC | 10.5 | 4.0 - 11.0 K/uL | [facility] | | | | | | [facility] | | | | | | [facility] | | | | | | [facility] - | | | | | | LABORATORY | | + + + + + + | RBC | 5.49 | 4.30 - 5.70 | [facility] | | | | | M/uL | [facility] | | | | | | [facility] | | | | | | [facility] - | | | | | | LABORATORY | | + + + + + + | Hemoglobin | 15.3 | 13.5 - 18.0 | [facility] | | | | | g/dL | [facility] | | | | | | [facility] | | | | | | [facility] - | | | | | | LABORATORY | | + + + + + + | Hematocrit | 46.3 | 40.0 - 51.0 % | [facility] | | | | | | [facility] | | | | | | [facility] | | | | | | [facility] - | | | | | | LABORATORY | | + + + + + + | MCV | 84.3 | 83.0 - 101.0 fL | [facility] | | | | | [facility] [facility] | | | | | | [facility] - | | | | | | LABORATORY | | + + + + + + | MCH | 27.9 (L) | 28.0 - 35.0 pg | [facility] | | | | | | [facility] | | | [facility] | [facility] | | | | | | [facility]ENTER - | | | | | | LABORATORY | | + + + + + + | MCHC | 33.0 | 32.0 - 36.0 | [facility] | | | | | g/dL | [facility] | | | | | | [facility] | | | | | | [facility] - | | | | | | LABORATORY | | + + + + + + | RDW-CV | 13.2 | <15.0 % | [facility] | | | | | | [facility] | | [facility] | [facility] | | | | | | [facility] - | | | | | | LABORATORY | | + + + + + + | RDW-SD | 40.6 | 35.1 - 46.3 fL | [facility] | | | | | | [facility] | | [facility] | [facility] | | | | | | CENTER - | | | | | | LABORATORY | | + + + + + + | Platelet | 362 | 140 - 440 K/uL | [facility] | | | Count | | | [facility] | | | | | [facility] | | | | | | [facility]ENTER - | | | | | | LABORATORY | | + + + + + + | MPV | 8.4 | 6.5 - 12.4 fL | [facility] | | | | | | [facility] | | [facility] | [facility] | | | | | | CENTER - | | | | | | LABORATORY | | + + + + + + | % | 50.2 | 45.0 - 82.0 % | [facility] | | | Neutrophils | | | [facility] | | | | | | [facility] | | | | | | CENTER - | | | | | | LABORATORY | | + + + + + + | % | 22.3 | 20.0 - 45.0 % | [facility] | | | Lymphocytes | | | [facility] | | | | | | [facility] | | | | | | CENTER - | | | | | | LABORATORY | | + + + + + + | % Monocytes | 12.3 (H) | 4.0 - 12.0 % | [facility] | | | | | | [facility] | | | | | | [facility] | | | | | | CENTER - | | | | | | LABORATORY | | + + + + + + | % | 11.8 (H) | 0.0 - 5.0 % | [facility] | | | Eosinophils | | | [facility] | | | | | | [facility] | | | | | | CENTER - | | | | | | LABORATORY | | + + + + + + | % Basophils | 1.0 | 0.0 - 1.0 % | [facility] | | | | | | [facility] | | | | | | [facility] | | | | | | CENTER - | | | | | | LABORATORY | | + + + + + + | % Immature | 2.4 (H)Comment: | 0.0 - 0.4 % | [facility] | | | Granulocyte | Preliminary studIes have | | [facility] | | | s | indicated the IG% | | MEDICAL | | | | and/or IG# show promise | | CENTER - | | | | as an early screen for | | LABORATORY | | | | infection. | | | | + + + + + + | Absolute | 5.26 | 1.80 - 8.50 | [facility] | | | Neutrophils | | K/uL | [facility] | | | | | | [facility] | | | | | | CENTER - | | | | | | LABORATORY | | + + + + + + | Absolute | 2.34 | 0.60 - 3.20 | [facility] | | | Lymphocytes | | K/uL | [facility] | | | | | | [facility] | | | | | | CENTER - | | | | | | LABORATORY | | + + + + + + | Absolute | 1.29 (H) | 0.00 - 1.00 | [facility] | | | Monocytes | | K/uL | [facility] | | | | | | [facility] | | | | | | CENTER - | | | | | | LABORATORY | | + + + + + + | Absolute | 1.24 (H) | 0.00 - 0.40 | [facility] | | | Eosinophils | | K/uL | [facility] | | | | | | MEDICAL | | | | | | CENTER - | | | | | | LABORATORY | | + + + + + + | Absolute | 0.10 | 0.00 - 0.10 | [facility] | | | Basophils | | K/uL | [facility] | | | | | | [facility] | | | | | | CENTER - | | | | | | LABORATORY | | + + + + + + | Absolute | 0.25 (H) | 0.00 - 0.03 | [facility] | | | Immature | | K/uL | [facility] | | | Granulocyte | | | MEDICAL | | | s | | | CENTER - | | | | | | LABORATORY | | + + + + + + | % nRBC | 0 | 0 - 2 per 100 | [facility] | | | | | WBC's | [facility] | | | | | | MEDICAL | | | | | | CENTER - | | | | | | LABORATORY | | + + + + + + | Absolute | 0.00 | 0.00 - 0.01 | [facility] | | | nRBC | | K/uL | [facility] | | | | | | MEDICAL | | | | | | CENTER - | | | | | | LABORATORY | | + + + + + + + + | Specimen | + + | Blood | + + + + + + + | Performing | Address | City/State/Zipcode | Phone Number | | Organization | | | | + + + + + | [facility] | [address] | [place], [place] | [phone] | | [facility] | | [address] | | | - LABORATORY | | | | + + + + + Basic Metabolic Panel (01/03/2019 6:01 PST) + +---------+ + + + | Component | Value | Ref Range | Performed | Pathologist | | | | | At | Signature | + +---------+ + + + | Na | 136 | 136 - 145 | [facility] | | | | | mmol/L | [facility] | | | | | | MEDICAL | | | | | | CENTER - | | | | | | LABORATORY | | + +---------+ + + + | K | 3.8 | 3.4 - 5.1 | [facility] | | | | | mmol/L | [facility] | | | | | | MEDICAL | | | | | | CENTER - | | | | | | LABORATORY | | + +---------+ + + + | Cl | 96 (L) | 98 - 107 mmol/L | [facility] | | | | | | [facility] | | | | | | [facility] | | | | | | CENTER - | | | | | | LABORATORY | | + +---------+ + + + | CO2 | 34 (H) | 20 - 31 mmol/L | [facility] | | | | | | [facility] | | | | | | [facility] | | | | | | CENTER - | | | | | | LABORATORY | | + +---------+ + + + | Anion Gap | 6 | 3 - 16 mmol/L | [facility] | | | | | | [facility] | | | | | | [facility]ICAL | | | | | | CENTER - | | | | | | LABORATORY | | + +---------+ + + + | Glucose | 116 (H) | 60 - 106 mg/dL | [facility] | | | | | | [facility] | | | | | | MEDICAL | | | | | | CENTER - | | | | | | LABORATORY | | + +---------+ + + + | BUN | 16 | 9 - 23 mg/dL | [facility] | | | | | | [facility] | | | | | | MEDICAL | | | | | | CENTER - | | | | | | LABORATORY | | + +---------+ + + + | Creatinine | 1.06 | 0.70 - 1.30 | [facility] | | | | | mg/dL | [facility] | | | [facility] | | MEDICAL | | | | | | CENTER - | | | | | | LABORATORY | | + +---------+ + + + | eGFR if not | >60 | >=60 | [facility] | | | | | mL/min/1.73m2 | [facility] | | | [facility] | | | MEDICAL | | | | | | CENTER - | | | | | | LABORATORY | | + +---------+ + + + | Ca | 9.4 | 8.7 - 10.4 | [facility] | | | | | mg/dL | [facility] | | | | | | MEDICAL | | | | | | CENTER - | | | | | | LABORATORY | | + +---------+ + + + | BUN/Creatin | 15.1 | | [facility] | | | ine Ratio | | | [facility] | | | | | | MEDICAL | | | | | | CENTER - | | | | | | LABORATORY | | + +---------+ + + + + + | Specimen | + + | Blood | + + + + + + + | Performing | Address | City/State/Zipcode | Phone Number | | Organization | | | | + + + + + | [facility] | [address] | [place] | [phone] | | [facility] | | [address] | | | - LABORATORY | | | | + + + + + from Last 3 Months Insurance + +--------+ +--------+ +---------+--------+ | Payer | Benefi | Subscriber | Effect | Phone | Address | Type | | | t Plan | ID | candy | | | | | | / | | Dates | | | | | | Group | | | | | | + +--------+ +--------+ +---------+--------+ | MEDICARE | MEDICA | [id number] | 01/01/20 | [phone] | | Medica | | | RE | | 05-Pre | 5 | | re | | | PART A | | sent | | | | | | AND B | | | | | | + +--------+ +--------+ +---------+--------+ | CIGNA | CIGNA | [id number] | 03/02/20 | [phone] | | Indemn | | | MDCR | | 17-Pre | 1 | | ity | | | SUPPLE | | sent | | | | | | MENT | | | | | | | | SOLUTI | | | | | | | | ONS | | | | | | + +--------+ +--------+ +---------+--------+ + +--------+ +--------+ + + | Guarantor Name | Accoun | Relation to | Date | Phone | Billing Address | | | t Type | Patient | of | | | | | | | | | | + +--------+ +--------+ + + | Quintin Wagner | Person | Self [birth year] | [address] | | | al/Fam | | 1940 | [phone] | [place] [address] | | | margie | | | 0 (Home) | | + +--------+ +--------+ + + Advance Directives Patient has advance care planning documents, and code status on file. For more information, please contact:[facility] [place] [address] + + + + + | Code Status | Date | Date | Comments | | | Activated | Inactivated | | + + + + + | Full Code | 12/28/2018 | 01/03/2019 | | | | 14:37 | 13:45 | | + + + + + + + + +---+ | | | | | + + + +---+ | Full Code | 12/23/2018 | 12/27/2018 | | | | 14:08 | 14:28 | | + + + +---+ + + + +---+ | | | | | + + + +---+ | Full Code | 01/09/2017 | 01/09/2017 | | | | 10:03 | 15:50 | | + + + +---+
--- OUTSIDE RECORDS SUMMARY | ~2019-03-29 | XMS | Encounter Summary ---
Demographics + + + | Address | [address] | | | [place] [address] | + + + | Home Phone | | + + + | Preferred Language | Unknown | + + + | Marital Status | | + + + | Cheondoism Affiliation | Unknown | + + + | Race | Unknown | + + + | Ethnic Group | Unknown | + + + Author + + + | Author | [facility] | | | and [place] | + + + | Organization | [facility] | | | and [place] | + + + | Address | Unknown | + + + | Phone | Unavailable | + + + Support + + + + + | Name | Relationship | Address | Phone | + + + + + | Detailed,Message | ECON | [address] | | | | | [place], [place] | | | | | [address] | | + + + + + | Bhavani Echeverria | ECON | Unknown | | + + + + + Care Team Providers + +------+ + | Care Day Care Center Director Name | Role | Phone | [...] lumbar | Mahesh E, | [address] | | | | | fusion Back | PA-C [address] | [place], | | | | | pain, | [address] | [place] | | | | | unspecified | [address] | [address] | | | | | back | [place], | Phone: | | | | | location, | [place] [address] | [phone] | | | | | unspecified | Phone: | Fax: | | | | | back pain | [phone] | [phone] | | | | | laterality, | Fax: | | | | | | unspecified | [phone] | | | | | | chronicity [...] + + | 02/07/ | Office | [facility] | Mahesh Perez, | S/P lumbar fusion | | 2019 | Visit | NEUROSURGERY [address] | PA-C [address] | (Primary Dx); Back | | | | [address] | [address] [place] | pain, unspecified | | | | [place], [place] | [place] [address] | back location, | | | | [address] | [phone] | unspecified back | | | | [phone] | | pain laterality, | | | [...] encounter Patient Instructions Patient Instructions Margo Corrigan, Aircraft Electronics Technical Officer - 02/07/2019 13:00 PDT We would like [...] m the original. Mahesh Perez PA-C [address] [facility], [address] [place] [address] PHONE: FAX: NEUROSURGERY FOLLOW-UP CHIEF COMPLAINT: Chief [...] L5-S1 TLIF; Surgeon: Caleb Romero MD; Location: [facility] MAIN OR skin cancer removal Basel cell carcinoma TONSILLECTOMY TURP N/A 01/09/2017 Procedure: Cyber Laser Prostate Vaporization; Surgeon: Vinnie Silverio MD; Location: [facility] MAIN OR VASECTOMY CURRENT MEDICATIONS: Current [...] smoking history. He has never used smokele [employer] tobacco. He reports that he drinks about [...]
--- OUTSIDE RECORDS SUMMARY | ~2019-03-29 | XMS | Encounter Summary ---
Demographics + + + | Address | [address] | | | [place] [address] | + + + | Home Phone | | + + + | Preferred Language | Unknown | + + + | Marital Status | | + + + | Congregation Affiliation | Unknown | + + + | Race | Unknown | + + + | Ethnic Group | Unknown | + + + Author + + + | Author | [facility] | | | and [place] | + + + | Organization | [facility] | | | and [place] | + + + | Address | Unknown | + + + | Phone | Unavailable | + + + Support + + + + + | Name | Relationship | Address | Phone | + + + + + | Detailed,Message | ECON | [address] | | | | | [place], [place] | | | | | [address] | | + + + + + | Bhavani Echeverria | ECON | Unknown | | + + + + + Care Team Providers + +------+ + | Care Hims Clerk Name | Role | Phone | + +------+ + | Darrel Ross NP | PCP | | + +------+ + Encounter Details +--------+ + + + + | Date | Type | Department | Care Team | Description | +--------+ + + + + | 01/10/ | Hospital | [facility] | Caleb Romero MD | Lumbar | | 2019 | Encounter | MED CTR XRAY [address] | [address] [place] | radiculopathy; S/P | | | | [place] | [address] [place], [place] | lumbar fusion | | | | [place] [address] | [id number] | | | | | [phone] | | | +--------+ + + + [...] capsule by | 30 | 0 | 01/05/20 | | | triamterene-hydrochl | mouth Daily. [...] oxyCODONE | Take 1-2 tablets by | 60 | 0 | 01/11/20 | | | (ROXICODONE) 5 mg | mouth every 6 hours | tablet | | 19 | 9 | | tabletIndications: | as needed for [...] section. | + +--------+ + + + documented in this encounter Results XR Lumbar Spine 2 or 3 Vw (01/10/2019 9:14 PDT) + + | Specimen | + + | | + + + + + | Narrative | Performed At | + + + | EXAM:XR LUMBAR SPINE 2 OR 3 VW CLINICAL HISTORY: S/P: | [facility] | | COMPARISON: Lumbar spine . radiographs dating to 01/11/2018. | | | FINDINGS: Frontal and lateral views of the Lumbar spine. Posterior and | | | interbody fusion changes at L4-L5 and L5-S1. Right lateral screws | | | are present in L4 and L5. The hardware is intact. There is no | | | change in position of the interbody graft markers. There is no | | | change in spinal alignment. There are no interval compression | | | deformities. Interval removal of the drain catheter. IMPRESSION | | | - No radiographic evidence for an interval complication. | | | Dictated and Signed by: Kong Butler MD Electronically signed: | | | 01/10/2019 10:07 AM | | + + + + + | Procedure Note | + + | Josr, Primitivo Results In - 01/10/2019 1010 PDT EXAM:XR LUMBAR SPINE 2 OR 3 VW | | | | CLINICAL HISTORY: S/P: | | | | COMPARISON: Lumbar spine . radiographs dating to 01/11/2018. | | | | FINDINGS: Frontal and lateral views of the Lumbar spine. Posterior and interbody | | fusion changes at L4-L5 and L5-S1. Right lateral screws are present in L4 and | | L5. The hardware is intact. There is no change in position of the interbody | | graft markers. There is no change in spinal alignment. There are no interval | | compression deformities. Interval removal of the drain catheter. | | | | IMPRESSION - | | | | No radiographic evidence for an interval complication. | | | | Dictated and Signed by: Kong Butler MD | | Electronically signed: 01/10/2019 10:07 AM | + + + +---------+ + + | Performing | Address | City/State/Zipcode | Phone Number | | Organization | | | | + +---------+ + + | [facility] | | | | + +---------+ + + documented in this encounter Visit Diagnoses + + | Diagnosis | + + | Lumbar radiculopathy Thoracic or lumbosacral neuritis or radiculitis, unspecified | + + | S/P lumbar fusion Arthrodesis status | + + documented in this encounter"
--- OUTSIDE RECORDS SUMMARY | ~2019-03-29 | XMS | Encounter Summary ---
Demographics + + + | Address | [address] | | | [place] [address] | + + + | Home Phone | | + + + | Preferred Language | Unknown | + + + | Marital Status | | + + + | Congregation Affiliation | Unknown | + + + | Race | Unknown | + + + | Ethnic Group | Unknown | + + + Author + + + | Author | [facility] | | | and [place] | + + + | Organization | [facility] | | | and [place] | + + + | Address | Unknown | + + + | Phone | Unavailable | + + + Support + + + + + | Name | Relationship | Address | Phone | + + + + + | Detailed,Message | ECON | [address] | | | | | [place], [place] | | | | | [address] | | + + + + + | Bhavani Echeverria | ECON | Unknown | | + + + + + Care Team Providers + +------+ + | Care Product Distribution Specialist Name | Role | Phone | + +------+ + | Darrel Ross NP | PCP | | + +------+ + Encounter Details +--------+ + + + + | Date | Type | Department | Care Team | Description | +--------+ + + + + | 03/17/ | Hospital | [facility] | Mahesh Perez, | S/P lumbar fusion; | | 2019 | Encounter | MED CTR XRAY [address] | PA-C [address] | Back pain, | | | | [place] | [address] [place] | unspecified back | | | | [place] [address] | [place] [address] | location, | | | | [phone] | [phone] | unspecified back | | | | | | pain laterality, | | | | | | unspecified | | | | | | chronicity; Weakness | | | | | | of right leg | +--------+ + + + + Social [...] + + + +---------+ + + | meloxicam (MOBIC) | Take 0.5 tablets by | 30 | 1 | 03/17/20 | | | 15 mg tablet | mouth Twice daily | tablet | | 19 | 0 | | | as needed for Pain. [...] 1 drop into | | 0 | 01/20/20 | | | ophthalmic emulsion | both [...] limbs | + + documented in this encounter"
--- OUTSIDE RECORDS SUMMARY | ~2019-03-29 | XMS | Encounter Summary ---
Demographics + + + | Address | [address] | | | [place] [address] | + + + | Home Phone | | + + + | Preferred Language | Unknown | + + + | Marital Status | | + + + | Temple Affiliation | Unknown | + + + | Race | Unknown | + + + | Ethnic Group | Unknown | + + + Author + + + | Author | [facility] | | | and [place] | + + + | Organization | [facility] | | | and [place] | + + + | Address | Unknown | + + + | Phone | Unavailable | + + + Support + + + + + | Name | Relationship | Address | Phone | + + + + + | Detailed,Message | ECON | [address] | | | | | [place] | | | | | [address] | | + + + + + | Bhavani Echeverria | ECON | Unknown | | + + + + + Care Team Providers + +------+ + | Care It Service Technician Name | Role | Phone | + +------+ + | Darrel Ross NP | PCP | | + +------+ + Reason for Visit + + + | Reason | Comments | + + + | Headache | | + + + Encounter Details +--------+ + + + + | Date | Type | Department | Care Team | Description | +--------+ + + + + | 03/29/ | Telephone | [facility] | Caleb Romero MD | Headache | | 2019 | | NEUROSURGERY [address] | [address] [place] | | | | | [address] | [address] [place] | | | | | [place] | [address] | | | | | [address] | | | | | | [phone] | | | +--------+ + + + [...]
--- OUTSIDE RECORDS SUMMARY | ~2019-03-29 | XMS | Encounter Summary ---
Demographics + + + | Address | [address] | | | [place] [address] | + + + | Home Phone | | + + + | Preferred Language | Unknown | + + + | Marital Status | | + + + | Oriental Orthodox Affiliation | Unknown | + + + | Race | Unknown | + + + | Ethnic Group | Unknown | + + + Author + + + | Author | [facility] | | | and [place] | + + + | Organization | [facility] | | | and [place] | + + + | Address | Unknown | + + + | Phone | Unavailable | + + + Support + + + + + | Name | Relationship | Address | Phone | + + + + + | Detailed,Message | ECON | [address] | | | | | [place], [place] | | | | | [address] | | + + + + + | Bhavani Echeverria | ECON | Unknown | | + + + + + Care Team Providers + +------+ + | Care Home Health Aide Caregiver Name | Role | Phone | + +------+ + | Darrel Ross NP | PCP | | + +------+ + Encounter Details +--------+ + + + + | Date | Type | Department | Care Team | Description | +--------+ + + + + | 01/03/ | Hospital | [facility] | Joelle Lugo, PT | | | 2019 | Encounter | MED CTR ACUTE | | | | | | PHYSICAL THERAPY | | | | | | [address] | | | | | | [place] [address] | | | | | | [phone] | | | +--------+ + + + [...] + + + +---------+ + + | cyclobenzaprine | Take 1 tablet by | 20 | 0 | 01/04/20 | | | (FLEXERIL) 10 mg | mouth nightly as | tablet | | 19 | 9 | | tablet | needed for Muscle | | | | | | | spasms. | | | | | + + + +---------+ + + | famotidine | Take 1 tablet by | 60 | 1 | 01/04/20 | | | (PEPCID) 20 mg | mouth 2 times daily | tablet | | 19 | 9 | | tablet | (before meals). | | | | | + + + +---------+ + + | methocarbamol | Take 1 tablet by | 40 | 0 | 01/04/20 | | | (ROBAXIN) 750 mg | mouth every 6 hours | tablet | | 19 | 9 | | tablet | as needed for Muscle | | | | | | | spasms. | | | | | + + [...] tablets by | 60 | 0 | 01/04/20 | | | (ROXICODONE) 5 mg | mouth every 6 hours | tablet | | 19 | 9 | | tablet | as needed for Pain. | | | | | + + + +---------+ + + documented as of this encounter Plan of Treatment Not on filedocumented as of this encounter Visit Diagnoses Not on filedocumented in this encounter"
--- OUTSIDE RECORDS SUMMARY | ~2019-03-29 | XMS | Encounter Summary ---
Demographics + + + | Address | [address] | | | [place] [address] | + + + | Home Phone | | + + + | Preferred Language | Unknown | + + + | Marital Status | | + + + | Baptism Affiliation | Unknown | + + + | Race | Unknown | + + + | Ethnic Group | Unknown | + + + Author + + + | Author | [facility] | | | and [place] | + + + | Organization | [facility] | | | and [place] | + + + | Address | Unknown | + + + | Phone | Unavailable | + + + Support + + + + + | Name | Relationship | Address | Phone | + + + + + | Detailed,Message | ECON | [address] | | | | | [place] | | | | | [address] | | + + + + + | Bhavani Echeverria | ECON | Unknown | | + + + + + Care Team Providers + +------+ + | Care Transfer Car Operator Name | Role | Phone | [...] | | | | | | [place] [address] | [place] | | | | | | Phone: | [address] | | | | | | [phone] | Phone: | | | | | | Fax: | [phone] | | | | | | [phone] | Fax: | | | | | | | [phone] | + + + + + + [...] + + | 03/17/ | Office | [facility] | Caleb Romero MD | S/P lumbar fusion | | 2019 | Visit | NEUROSURGERY [address] | [address] [place] | | | | | [address] | [address] [place] | | | | | [place] | [address] | | | | | [address] | | | | | | [phone] | | | +--------+---------+ + + + [...] from the o radhainal. Caleb Romero MD [address] [place] [address], [address] [place] [address] PHONE: FAX: NEUROSURGERY FOLLOW-UP CHIEF COMPLAINT: Chief Complaint Patient presents with Post-op Exam 3 month post op Weakness right leg HISTORY OF PRESENT ILLNESS: Quintin Wagner is [...] L5-S1 TLIF; Surgeon: Caleb Romero MD; Location: [facility] MAIN OR skin cancer removal Basel cell carcinoma TONSILLECTOMY TURP N/A 01/09/2017 Procedure: Cyber Laser Prostate Vaporization; Surgeon: Vinnie Silverio MD; Location: [facility] MAIN OR VASECTOMY CURRENT MEDICATIONS: Current [...] and to advance with therapy as tolerated. 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
--- OUTSIDE RECORDS SUMMARY | ~2019-03-29 | XMS | Encounter Summary ---
Demographics + + + | Address | [address] | | | [place] [address] | + + + | Home Phone | | + + + | Preferred Language | Unknown | + + + | Marital Status | | + + + | Nondenominational Affiliation | Unknown | + + + | Race | Unknown | + + + | Ethnic Group | Unknown | + + + Author + + + | Author | [facility] | | | and [place] | + + + | Organization | [facility] | | | and [place] | + + + | Address | Unknown | + + + | Phone | Unavailable | + + + Support + + + + + | Name | Relationship | Address | Phone | + + + + + | Detailed,Message | ECON | [address] | | | | | [place], [place] | | | | | [address] | | + + + + + | Bhavani Echeverria | ECON | Unknown | | + + + + + Care Team Providers + +------+ + | Care Director Of Corporate Strategy Name | Role | Phone | + [...] + + | 01/10/ | Office | [facility] | Mahesh Perez, | S/P lumbar fusion | | 2019 | Visit | NEUROSURGERY [address] | PA-C [address] | (Primary Dx); Back | | | | [address] | [address] [place] | pain, unspecified | | | | [place], [place] | [place] [address] | back location, | | | | [address] | [phone] | unspecified back | | | | [phone] | | pain laterality, | | | [...] encounter Patient Instructions Patient Instructions Margo Corrigan, Admin Secretary - 01/10/2019 10:00 PDT You can try [...] decide that you want to do [facility] in a month or so [...] like sleeping, showering, do not use the [employer] race for these activities any longer but [...] your back and use good technique when package pick up things and bending. documented in this encounter Progress Notes Mahesh Perez PA-C - 01/10/2019 1000 PDTFormatting of this note might be different fro m the original. Mahesh Perez PA-C [address] [facility] [place] [address] PHONE: FAX: NEUROSURGERY FOLLOW-UP CHIEF COMPLAINT: Chief [...] L5-S1 TLIF; Surgeon: Caleb Villasenor MD; Location: [facility] MAIN OR skin cancer removal Basel cell carcinoma TONSILLECTOMY TURP N/A 01/09/2017 Procedure: Cyber Laser Prostate Vaporization; Surgeon: Vinnie Silverio MD; Location: [facility] MAIN OR VASECTOMY CURRENT MEDICATIONS: Current [...] patient's MEDD, pain assessments, as well as [place] and [place] BOILER SHOP SUPERVISOR's were reviewed under the documentation encounter on [...]
--- OUTSIDE RECORDS SUMMARY | ~2019-03-29 | XMS | Encounter Summary ---
Demographics + + + | Address | [address] | | | [place] [address] | + + + | Home Phone | | + + + | Preferred Language | Unknown | + + + | Marital Status | | + + + | Confucianism Affiliation | Unknown | + + + | Race | Unknown | + + + | Ethnic Group | Unknown | + + + Author + + + | Author | [facility] | | | and [place] | + + + | Organization | [facility] | | | and [place] | + + + | Address | Unknown | + + + | Phone | Unavailable | + + + Support + + + + + | Name | Relationship | Address | Phone | + + + + + | Detailed,Message | ECON | [address] | | | | | [place], [place] | | | | | [address] | | + + + + + | Bhavani Echeverria | ECON | Unknown | | + + + + + Care Team Providers + +------+ + | Care Station Mechanic Apprentice Name | Role | Phone | + +------+ + | Darrel Ross NP | PCP | | + +------+ + Encounter Details +--------+ + + + + | Date | Type | Department | Care Team | Description | +--------+ + + + + | 01/10/ | Hospital | [facility] | Caleb Romero MD | Lumbar | | 2019 | Encounter | MED CTR XRAY [address] | [address] | radiculopathy; S/P | | | | [place] | [address] [place], [place] | lumbar fusion | | | | [place] [address] | [id number] | | | | | [phone] | | | +--------+ + + + [...]
--- OUTSIDE RECORDS SUMMARY | ~2019-03-29 | XMS | Encounter Summary ---
Demographics + + + | Address | [address] | | | [place] [address] | + + + | Home Phone | | + + + | Preferred Language | Unknown | + + + | Marital Status | | + + + | Scientology Affiliation | Unknown | + + + | Race | Unknown | + + + | Ethnic Group | Unknown | + + + Author + + + | Author | [facility] | | | and [place] | + + + | Organization | [facility] | | | and [place] | + + + | Address | Unknown | + + + | Phone | Unavailable | + + + Support + + + + + | Name | Relationship | Address | Phone | + + + + + | Detailed,Message | ECON | [address] | | | | | [place], [place] | | | | | [address] | | + + + + + | Bhavani Echeverria | ECON | Unknown | | + + + + + Care Team Providers + +------+ + | Care Vine Pruner Name | Role | Phone | + +------+ + | Darrel Ross NP | PCP | | + +------+ + Encounter Details +--------+ + + + + | Date | Type | Department | Care Team | Description | +--------+ + + + + | 01/03/ | Hospital | [facility] | Joelle Lugo, PT | | | 2019 | Encounter | MED CTR ACUTE | | | | | | PHYSICAL THERAPY | | | | | | [address] | | | | | | [place] [address] | | | | | | [phone] | | | +--------+ + + + [...]
--- OUTSIDE RECORDS SUMMARY | ~2019-03-29 | XMS | Clinical Summary ---
Demographics + + + | Address | [address] | | | [place] [address] | + + + | Home Phone | | + + + | Preferred Language | Unknown | + + + | Marital Status | | + + + | Zoroastrianism Affiliation | Unknown | + + + | Race | Unknown | + + + | Ethnic Group | Unknown | + + + Author + + + | Author | [facility] | + + + | Organization | [facility] | + + + | Address | Unknown | + + + | Phone | Unavailable | + + + Support + + + + + | Name | Relationship | Address | Phone | + + + + + | Detailed,Message | ECON | [address] | | | | | [place], [place] | | | | | [address] | | + + + + + | Bhavani Echeverria | ECON | Unknown | | + + + + + Care Team Providers + +------+ + | Care Stranding Supervisor Name | Role | Phone | [...] | | | | Activ | | [phone] units CAPS | | | | | [...] +--------+-------+ + | MEDICARE | MEDICA | [id number] | | | [address] | | | RE | | | | [place] [address] | | | IP-OP | | | | | + +--------+ +--------+-------+ + | CIGNA | LOYAL | [id number] | Indemn | | | | | [...] | 1940 | [phone] | [place] [address] | | | margie | | | [phone] | | + +--------+ +--------+ + +
--- OUTSIDE RECORDS SUMMARY | ~2019-03-29 | XMS | Encounter Summary ---
Demographics + + + | Address | [address] | | | [place] [address] | + + + | Home Phone | | + + + | Preferred Language | Unknown | + + + | Marital Status | | + + + | Church Affiliation | Unknown | + + + | Race | Unknown | + + + | Ethnic Group | Unknown | + + + Author + + + | Author | [facility] | | | and [place] | + + + | Organization | [facility] | | | and [place] | + + + | Address | Unknown | + + + | Phone | Unavailable | + + + Support + + + + + | Name | Relationship | Address | Phone | + + + + + | Detailed,Message | ECON | [address] | | | | | [place] | | | | | [address] | | + + + + + | Bhavani Echeverria | ECON | Unknown | | + + + + + Care Team Providers + +------+ + | Care Clay House Worker Name | Role | Phone | + +------+ + | Darrel Ross NP | PCP | | + +------+ + Reason for Visit +--------+ + | Reason | Comments | +--------+ + | Other | Therapy | +--------+ + Encounter Details +--------+ + + + + | Date | Type | Department | Care Team | Description | +--------+ + + + + | 01/20/ | [facility] | [facility] [place] | Caleb [facility] | Other (Therapy ) | | 2019 | | NEUROSUR[address]ERY [address] | [address] | | | | | [address] [facility] [address] | [address] [place] | | | | | [place] | [address] | | | | | [address] | | | | | | [phone] | | | +--------+ + + + [...]
--- OUTSIDE RECORDS SUMMARY | ~2019-03-29 | XMS | Encounter Summary ---
Demographics + + + | Address | [address] | | | [place] [address] | + + + | Home Phone | | + + + | Preferred Language | Unknown | + + + | Marital Status | | + + + | Jew Affiliation | Unknown | + + + | Race | Unknown | + + + | Ethnic Group | Unknown | + + + Author + + + | Author | [facility] | | | and [place] | + + + | Organization | [facility] | | | and [place] | + + + | Address | Unknown | + + + | Phone | Unavailable | + + + Support + + + + + | Name | Relationship | Address | Phone | + + + + + | Detailed,Message | ECON | [address] | | | | | [place] | | | | | [address] | | + + + + + | Bhavani Echeverria | ECON | Unknown | | + + + + + Care Team Providers + +------+ + | Care Wood Cabinetmaker Name | Role | Phone | + [...] + + | 01/20/ | Telephone | [facility] [place] | Caleb Romero MD | Other (Therapy ) | | 2019 | | [address] | [address] | | | | | [address] [facility] [address] | [address] | | | | | [place] | [address] | | | | | [address] | | | | | | [phone] | | | +--------+ + + + [...]
--- OUTSIDE RECORDS SUMMARY | ~2019-03-29 | XMS | Encounter Summary ---
Demographics + + + | Address | [address] | | | [place] [address] | + + + | Home Phone | | + + + | Preferred Language | Unknown | + + + | Marital Status | | + + + | Islam Affiliation | Unknown | + + + | Race | Unknown | + + + | Ethnic Group | Unknown | + + + Author + + + | Author | [facility] | | | and [place] | + + + | Organization | [facility] | | | and [place] | + + + | Address | Unknown | + + + | Phone | Unavailable | + + + Support + + + + + | Name | Relationship | Address | Phone | + + + + + | Detailed,Message | ECON | [address] | | | | | [place] | | | | | [address] | | + + + + + | Bhavani Echeverria | ECON | Unknown | | + + + + + Care Team Providers + +------+ + | Care Dishwashing Machine Repairer Name | Role | Phone | + [...] | [address] | | | | | [address] | | | | | | [phone] | | | +--------+ + + + [...]
--- OUTSIDE RECORDS SUMMARY | ~2019-03-29 | XMS | Encounter Summary ---
Demographics + + + | Address | [address] | | | [place] [address] | + + + | Home Phone | | + + + | Preferred Language | Unknown | + + + | Marital Status | | + + + | Christianity Affiliation | Unknown | + + + | Race | Unknown | + + + | Ethnic Group | Unknown | + + + Author + + + | Author | [facility] | | | and [place] | + + + | Organization | [facility] | | | and [place] | + + + | Address | Unknown | + + + | Phone | Unavailable | + + + Support + + + + + | Name | Relationship | Address | Phone | + + + + + | Detailed,Message | ECON | [address] | | | | | [place], [place] | | | | | [address] | | + + + + + | Bhavani Echeverria | ECON | Unknown | | + + + + + Care Team Providers + +------+ + | Care Longshore Equipment Operator Name | Role | Phone | + +------+ + | Darrel Ross NP | PCP | | + +------+ + Encounter Details +--------+ + + + + | Date | Type | Department | Care Team | Description | +--------+ + + + + | 03/17/ | Hospital | [facility] | Mahesh Perez, | S/P lumbar fusion; | | 2019 | Encounter | MED CTR XRAY [address] | PA-C [address] | Back pain, | | | | [place] | [address] [place] | unspecified back | | | | [place] [address] | [place] [address] | location, | | | | [phone] | [phone] | unspecified back | | | | [...]
--- OUTSIDE RECORDS SUMMARY | ~2019-03-29 | XMS | Clinical Summary ---
Demographics + + + | Address | [address] | | | [place] [address] | + + + | Home Phone | | + + + | Preferred Language | Unknown | + + + | Marital Status | | + + + | Catholic Affiliation | Unknown | + + + | Race | White | + + + | Ethnic Group | Not or | + + + Author + + + | Organization | Unknown | + + + | Address | Unknown | + + + | Phone | Unavailable | + + + Care Team Providers + +------+ + | Care Thermodynamics Teacher Name | Role | Phone | + +------+ + PP | Unavailable | + +------+ + Source Comments INESSA is fully live on both [facility] and [facility] InPatient.[facility] Allergies Not on File Medications Not on [...]
--- OUTSIDE RECORDS SUMMARY | ~2019-03-29 | XMS | Encounter Summary ---
Demographics + + + | Address | [address] | | | [place] [address] | + + + | Home Phone | | + + + | Preferred Language | Unknown | + + + | Marital Status | | + + + | Buddhist Affiliation | Unknown | + + + | Race | Unknown | + + + | Ethnic Group | Unknown | + + + Author + + + | Author | [facility] | | | and [place] | + + + | Organization | [facility] | | | and [place] | + + + | Address | Unknown | + + + | Phone | Unavailable | + + + Support + + + + + | Name | Relationship | Address | Phone | + + + + + | Detailed,Message | ECON | [address] | | | | | [place] | | | | | [address] | | + + + + + | Bhavani Echeverria | ECON | Unknown | | + + + + + Care Team Providers + +------+ + | Care Studio Control Operator Name | Role | Phone | [...] + + | Authorized | Specialty | Occupational | Diagnoses | [place], | [facility] | | | Services | Therapy | Spinal | [facility] | | | Required | | stenosis of | MD [place] | PHYSICAL | | | | | lumbar | [address] | [address] | | | | | region | [place] [facility] | | | | | without | [place] | [place] | | | | | neurogenic | [address] | [address] | | | | | claudication | Phone: | Phone: | | | | | | [phone] | [phone] | | | | | | Fax: | Fax: | | | | | | [phone] | [phone] | + + + + + + + Evaluate & Treat (Routine) + + + + + + + | Status | Reason | Specialty | Diagnoses / | Referred By | Referred To | | | | | Procedures | Contact | Contact | + + + + + + + | Authorized | Specialty | Physical | Diagnoses | [place], | [facility] | | | Services | Therapy | Spinal | [facility] | [facility] | | | Required | | stenosis of | MD [place] | PHYSICAL | | | | | lumbar | [address] | [address] | | | | | region | [place] | [place] | | | | | without | [place] | [place] | | | | | neurogenic | [address] | [address] | | | | | claudication | Phone: | Phone: | | | | | | [phone] | [phone] | | | | | | Fax: | Fax: | | | | | | [phone] | [phone] | + + + + + + + Encounter Details +--------+ + + + + | Date | Type | Department | Care Team | Description | +--------+ + + + + | 12/27/ | Hospital | [facility] | Santana Sagastume | Spinal stenosis of | | 2019 - | Encounter | [facility] [address] | MD [place] [address] | lumbar region | | | | [place], | [address] [place] | without neurogenic | | 01/03/ | | [place] [address] | [place] [address] | claudication | | 2019 | | [phone] | [phone] | (Primary Dx); Lumbar | | | | | | radiculopathy | +--------+ + + + + Social [...] + + + | Blood Pressure | 139/81 | 01/03/2019 0805 PST | + + + + | Pulse | 72 | 01/03/2019935 PST | + + + [...] + + + + | Weight | 89.5 kg (197 lb 5 | 01/03/2019612 PST | | | oz) | | + + + + | Height | 175.3 cm (5' 9") | 12/27/2018 1630 PST | + + + + | Body Mass Index | 29.14 | 12/27/2018 1630 PST | + + + + documented in this encounter Discharge Summaries Santana Sagastume MD - 01/03/2019 1044 PST REHABILITATION DISCHARGE SUMMARY Patient Identification: Quintin Wagner : 1940 Admit Date: 12/27/2018 Attending Provider: Santana Sagastume MD Neurosurgeon : Caleb Villasenor MD Primary Care Physician: Darrel Ross NP Impairment Group: Spinal Cord Dysfunction, Non-traumatic 04.130 Other non-traumatic spinal cord Etiologic Diagnosis: spinal stenosis Discharge date and time: 01/03/19 Discharge Physician: Santana Sagastume MD 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 It was entered for statistical purposes only. XR Lumbar Spine 2 or 3 Vw Narrative XR LUMBAR SPINE 2 OR 3 VW 12/23/2018 1:52 PM HISTORY: SP lumbar surgery with hardware.. COMPARISON: 01/20/2018 FINDINGS: Interval posterior and interbody fusion of L4-S1. Right lateral screws are seen at L4-L5. Vertebral body heights are preserved. Aortic calcifications are seen. Right paraspinal surgical drainage catheter is present. IMPRESSION - No radiographic evidence for an immediate postoperative complication. Dictated and Signed by: Santino Short MD Electronically signed: 12/23/2018 2:32 PM Treatments: intensive inpatient rehabilitation ADMISSION HPI: Chief Complaint/Identification: Quintin Lewis a 78 y.o.malewho was [facility] on 2018for Lumbar radiculopathy (M54.16), Synovial cyst of lumbar spine (M71.38), Foraminal s tenosis of lumbar region (M99.83), Lumbar facet arthropathy (M47.816), Spinal stenosis of raymundo mbar region without neurogenic claudication (M48.061). PM&R consultation was requested by Dr. Caleb Villasenor MDto provide an opinion regarding Quintin Wagnerrehabilitation lauren cohen. 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 It began to worsen inintensify last year , It was refractory to conservative management. So with standing and walking began getting pain in his legs left worse than right and at times with associated weakness which he feels worsened recently. He was going to the gym and try to do some strengthening without benefi t. Also he also noted times some numbness and tingling in his legs mainly around the feet , worse than left. Thyroid neurosurgically by Dr. villasenro. Imaging study showed advanced degenerative changes of lumbar spine with severe stenosis with central and foraminal compromise at L4-5 and L5-S1 o n the left as was exacerbated by large left foraminal synovial cyst. He therefore was admitted to the hospital and underwent surgery December 23 : Proc. Date 12/23/2018 Preop Dx Spinal stenosis without claudication Foraminal stenosis of lumbar region (M99.83) Lumbar facet arthropathy (M47.816) Lumbar radiculopathy (M54.16) Postop Dx same Procedure 1. Minimally invasive lumbar fusion via anterior and posterior approaches 2. Combined posteriolateral and posterior interbody arthrodesis L5-S1 3. Anterior lumbar interbody arthrodesis L4-5 4. Posterolateral lumbar arthrodesis L4, L5 5. Posterior spinal instrumentation L4-S1 with use of Precept 6. Placement of PEEK interbody spacer L4-5, L5-S1 7. L5 and partial S1 laminectomy, L5-S1 facetectomy, L5 and S1 foraminotomy for decompressi on of L5 and S1 nerves 8. Microsurgical technique with use of operating microscope 9. Intraoperative fluoroscopy for spinal instrumentation Anesthesia General Surgeon Caleb Villasenor MD - Primary Mahesh Perez PA-C - Assisting EBL 204 Findings L4-5 and L5-S1 facet arthropathy. B bracing. Complications none Tolerated procedure well neurologically and orthopedically. He has ahistory of loose stools but no incontinence. He does have bowel urgency and yocasta e bladder urgency. Since hospitalization 90s and constipation but is passing flatus. he was been stabilized acutely, but still has problems with self-care and functional mobili ty. It was recommended he have a short stay in inpatient rehab so we can follow status clos jasen and facilitate more rapid return to home safely and avoid prolonged convalescence in a [facility] home. PMHx: (per chart review confirmed with pt) Past Medical History: Diagnosis Date Allergic rhinitis Asthma Basal cell carcinoma Benign prostatic hyperplasia (BPH) with urinary urge incontinence Chest pain Colon polyps Congestive heart failure, chronic, left-sided (HCC) Coronary arteriosclerosis ED (erectile dysfunction) GERD (gastroesophageal reflux disease) Hard of hearing hearing aids History of colonic diverticulitis Hyperlipidemia Hypertension Impaired memory Osteoarthritis Presbycusis PSx: Past Surgical History: Procedure Laterality Date CARPAL TUNNEL RELEASE FACIAL RECONSTRUCTION SURGERY LUMBAR SPINE SURGERY N/A 12/23/2018 Procedure: L4-5 LAIF, L5-S1 TLIF; Surgeon: Caleb Villasenor MD; Location: [facility] MA[facility] OR skin cancer removal Basel cell carcinoma TONSILLECTOMY TURP N/A 01/09/2017 Procedure: Cyber Laser Prostate Vaporization; Surgeon: Vinnie Silverio MD; Location: [facility] MA[facility] OR VASECTOMY Meds During Hospitalization No current facility-administered medications for this encounter. Current Outpatient Prescriptions Medication Sig Dispense Refill [...] tablet Take 20 mg by mouth nightly. cyclobenzaprine (FLEXERIL) 10 mg tablet Take 1 tablet by mouth nightly as needed for Mu scle spasms. 20 tablet 0 DHA-Vitamin C-Lutein (EYE HEALTH FORMULA PO) Take 1 capsule by mouth Daily. docusate-senna (SENOKOT-S) 50-8.6 mg per tablet Take 1 tablet by mouth BID PC. 60 table t 1 famotidine (PEPCID) 20 mg tablet Take 1 tablet by mouth 2 times daily (before meals). 6 0 tablet 1 fluticasone (FLONASE) 50 mcg/nasal spray 1 [...] 6 hours as needed fo r Pain. 60 tablet 0 sildenafil (VIAGRA) 100 MG tablet Take 100 mg by mouth as needed for Erectile Dysfuncti on. triamterene-hydrochlorothiazide (DYAZIDE) 37.5-25 MG per capsule Take 1 capsule by mout h Daily. 30 capsule 0 Allergies: Allergies Allergen Reactions Hydrocodone Other (See Comments) Skin sloughing from penis Sulfa Antibiotics Rash Intolerance Allergen Reactions Lisinopril Other (See Comments) Cough Family History: Family History Problem Relation Age of Onset Heart defect Mother 59 Valve dysfunction COPD Father Heart failure Father Other cancer Brother Leukemia Cancer Brother Leukemia Social History: per chart review and confirmed with pt Social History Social History Marital status: Spouse name: N/A Number of children: N/A Years of education: N/A Occupational History Not on file. Social History Main Topics Smoking status: Former Smoker Packs/day: 0.25 Years: 3.00 Types: Cigarettes, Cigars, Pipe Quit date: 1959 Smokeless tobacco: Never Used Alcohol use 0.6 oz/week 1 Shots of liquor per week Comment: Socially, but not often Drug use: No Sexual activity: Not on file Other Topics Concern Not on file Social History Narrative No narrative on file Functional Status: Current: FIM BladderScore: 5 FIM Bowel Score: 6 FIM Bed/Chair/Wheelchair Score: 5 FIM Toilet Transfer Score: 6 FIM Tub/Shower Transfer Score: 5 FIM Walk Score: 5 FIM Distance Walked(feet): 150 feet FIM Wheelchair Score: FIM Stairs Score :4 FIM Eating Score: 7 FIM Grooming Score: 6 FIM Bathing Score: 5 FIM Dressing Upper Body Score: 6 FIM Dressing Lower Body Score: 5 FIM Toileting Score: 5 DISCHARGE PHYSICAL EXAMINATION: VS: BP 139/81 | Pulse 72 | Temp 37.3 C (99.1 F) (Oral) | Resp 18 | Ht 1.753 m (5' 9 ") | Wt 89.5 kg (197 lb 5 oz) | SpO2 95% Comment: Sitting in chair, no signs of distress | BMI 29.14 kg/m HEENT: Eyes clear. Oral mucosa moist. LYMPHATICS: No significant adenopathy noted in neck, axilla or groin. RESPIRATORY: Breathing comfortably, unlabored respirations. CARDIOVASCULAR: Regular rate and rhythm without audible murmur or rub noted. No edema. Pal pable peripheral pulses. GASTROINTESTINAL: Abdomen soft, non-tender, with active bowel sounds present. MUSCULOSKELETAL: Extremities symmetric with stable range of motion. NEUROLOGIC: Stable. LABORATORY: @LAB72@ Hospital Course: REASON FOR ADMISSION: Comprehensive medical inpatient rehabilitation program to treat problems with self-care and functional mobility secondary to and multiple comorbidities. Please see History & Physical for full details of history and status at time of admission. HOSPITAL COURSE: The patient was admitted to the inpatient rehabilitation service and participated in full p rogram. Vital Signs, including orthostatic blood pressure and pulse, and changes with exercise acti vity were closely monitored and discussed. Respiratory Therapy protocol was implemented. Bowel and bladder management program was begun. Appropriate nutrition was provided. Follow-up laboratory data was obtained regarding metabolic and hematologic issues. Pain management was effective with prescribed medications. Staff reinforced safety measures and awareness. The patient was also seen and followed closely by hospitalists for medical comorbidities. Self care and function mobility are improved. Appropriate patient education and family training have been provided. The patient will be discharged today with referral to outpatient PT services. Please see final Rehabilitation Team Conference Note for Functional Status of Discharge. Refer to Case Management Discharge Instructions regarding coordination of future rehabilita tion therapies and discharge equipment needs, as well as Medical follow-up appointments. IMPRESSION : 1. 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 Severe lumbar spine stenosis with the central and foraminal compromise bilaterally at L4-5 and L5-S1, with exacerbation of the foraminal stenosis by associated large left-sided f oraminal synovial cyst at L5-S1 ; requiring 3. Successful surgery 12/23/18 : 1. Minimally invasive lumbar fusion via anterior and posterior approaches 2. Combined posteriolateral and posterior interbody arthrodesis L5-S1 3. Anterior lumbar interbody arthrodesis L4-5 4. Posterolateral lumbar arthrodesis L4, L5 5. Posterior spinal instrumentation L4-S1 with use of Precept 6. Placement of PEEK interbody spacer L4-5, L5-S1 L5 and partial S1 laminectomy, L5-S1 facetectomy, L5 and S1 foraminotomy for decompression of L5 and S1 nerves 4. Acute postoperative pain, requiring narcotic analgesics 5. Acute bowel and bladder voiding problems Associated active medical comorbidities : 6. Hypertension 7. COPD with bronchospastic component DISCHARGE MEDICATIONS: Discharge Medications New Medications Details cyclobenzaprine 10 mg tablet Take 1 tablet by mouth nightly as needed for Muscle spasms. aka: FLEXERIL docusate-senna 50-8.6 mg per tablet Take 1 tablet by mouth BID PC. aka: SENOKOT-S famotidine 20 mg tablet Take 1 tablet by mouth 2 times daily (before meals). aka: PEPCID methocarbamol 750 mg tablet Notes to patient: May take at 12:30 Take 1 tablet by mouth every 6 hours as needed for Muscle spasms. aka: ROBAXIN oxyCODONE 5 mg tablet Take 1-2 tablets by mouth every 6 hours as needed for Pain. aka: ROXICODONE Changed Medications Details acetaminophen 325 mg tablet Take 2 tablets by mouth every 4 hours as needed for Pain. What changed: medication strength how much to take when to take this aka: TYLENOL triamterene-hydrochlorothiazide 37.5-25 MG per capsule Take 1 capsule by mouth Daily. What changed: when to take this aka: DYAZIDE Unchanged Medications Details ASMANEX 60 METERED DOSES 220 mcg/puff inhaler Generic drug: mometasone Inhale 2 puffs into the lungs Daily. aspirin 81 mg EC tablet Take 81 mg by mouth Daily. atorvaSTATin 20 mg tablet Take 20 mg by mouth nightly. aka: LIPITOR CENTRUM SILVER PO Take 1 tablet by mouth Daily. CITRUCEL 500 MG Tabs Generic drug: Methylcellulose (Laxative) Take 500 mg by mouth Daily. EYE HEALTH FORMULA PO Take 1 capsule by mouth Daily. fluticasone 50 mcg/nasal spray 1 spray by Nasal route. aka: FLONASE OLODATEROL HCL IN Inhale into the lungs as needed. VENTOLIN HFA 90 mcg/puff inhaler Generic drug: albuterol Inhale 2 puffs into the lungs as needed for Wheezing. VIAGRA 100 MG tablet Generic drug: sildenafil Take 100 mg by mouth as needed for Erectile Dysfunction. Discontinued Medications cholecalciferol 1,000 units capsule Generic drug: cholecalciferol Flaxseed Oil 1200 MG Caps PRILOSEC PO TYLENOL PM EXTRA STRENGTH 25-500 MG Tabs Generic drug: diphenhydrAMINE-acetaminophen Current Discharge Medication List START taking these medications Medication Dose Last Dose Taken; acetaminophen (TYLENOL) 325 mg tablet 650 mg [ ] Take 2 tablets by mouth every 4 hours as needed for Pain. Qty: 120 tablet Refills: 1 Start date: 01/03/2019 cyclobenzaprine (FLEXERIL) 10 mg tablet 10 mg [ ] Take 1 tablet by mouth nightly as needed for Muscle spasms. Qty: 20 tablet Refills: 0 Start date: 01/03/2019 docusate-senna (SENOKOT-S) 50-8.6 mg per tablet 1 tablet [ ] Take 1 tablet by mouth BID PC. Qty: 60 tablet Refills: 1 Start date: 01/03/2019 famotidine (PEPCID) 20 mg tablet 20 mg [ ] Take 1 tablet by mouth 2 times daily (before meals). Qty: 60 tablet Refills: 1 Start date: 01/03/2019 methocarbamol (ROBAXIN) 750 mg tablet 750 mg [ ] Take 1 tablet by mouth every 6 hours as needed for Muscle spasms. Qty: 40 tablet Refills: 0 Start date: 01/03/2019 oxyCODONE (ROXICODONE) 5 mg tablet 5-10 mg [ ] Take 1-2 tablets by mouth every 6 hours as needed for Pain. Qty: 60 tablet Refills: 0 Start date: 01/03/2019 triamterene-hydrochlorothiazide (DYAZIDE) 37.5-25 MG per capsule 1 capsule [ ] Take 1 capsule by mouth Daily. Qty: 30 capsule Refills: 0 Start date: 01/04/2019 CONTINUE these medications which have NOT CHANGED Medication Dose Last Dose Taken; albuterol (VENTOLIN HFA) 90 mcg/puff inhaler 2 puffs [ ] Inhale 2 puffs into the lungs as needed for Wheezing. aspirin 81 mg EC tablet 81 mg [ ] Take 81 mg by mouth Daily. atorvaSTATin (LIPITOR) 20 mg tablet 20 mg [ ] Take 20 mg by mouth nightly. DHA-Vitamin C-Lutein (EYE HEALTH FORMULA PO) 1 capsule [ ] Take 1 capsule by mouth Daily. fluticasone (FLONASE) 50 mcg/nasal spray 1 spray [ ] 1 spray by Nasal route. Methylcellulose, Laxative, (CITRUCEL) 500 MG TABS 500 mg [ ] Take 500 mg by mouth Daily. mometasone (ASMANEX 60 METERED DOSES) 220 mcg/puff inhaler 2 puffs [ ] Inhale 2 puffs into the lungs Daily. Multiple Vitamins-Minerals (CENTRUM SILVER PO) 1 tablet [ ] Take 1 tablet by mouth Daily. OLODATEROL HCL IN [ ] Inhale into the lungs as needed. sildenafil (VIAGRA) 100 MG tablet 100 mg [ ] Take 100 mg by mouth as needed for Erectile Dysfunction. DISPOSITION: Home with family FOLLOW UP: -PCP: 1-2 weeks after d/c from hospital:Darrel Ross NP Neurosurgeon : Caleb Villasenor MD 01/10/19 DISCHARGE INSTRUCTIONS: Discharge Instructions Patient has front wheel walker. Home program. Outpatient physical therapy. Follow-up appointments with his community physicians as above. I spent 35 minutes on date of discharge with unit/floor time including face to face with th e patient, with over 50% spent in counseling and/or coordination of care regarding discharge meds, and addressing home program, f/u appointments, setting up d/c therapies, arranging fo r equipment. Signed: Santana Sagastume MD 01/04/2019 10:44 CC: Neurosurgeon : Caleb Villasenor MD Primary Care Physician: Darrel Ross NP Portions of this chart may have been created with [employer] voice recognition software. Occasi onal wrong-word or sound-alike substitutions may have occurred due to the inherent alvarez itations of voice recognition software. Please read the chart carefully and recognize, using context, where these substitutions have occurred documented in this encounter Discharge Instructions Instructions Jeanne Lyons RN - 01/03/2019Formatting of this note might be different fr om the original. Laminectomy The entire lamina is removed from the affected vertebra. Vertebrae are the bones that make up the spine. Laminectomy is a surgery that removes the p art of the vertebra called the lamina. This takes pressure off nerves in the low back and he lps reduce symptoms. A similar surgery is called a laminotomy. For a laminotomy, only part o f the lamina is removed. A laminectomy is usually done to remove pressure from the spinal cord or the nerve roots. I t can also be done to access a tumor, an infection, an abnormal blood vessel, or a blood antonieta t. A laminectomy can be followed by a fusion of the vertebrae. Before your surgery Be sure to follow all of your doctor's instructions on preparing for surgery. Follow any directions you are given for not eating or drinking before surgery. If you take a daily medicine, ask if you should still take it the morning of surgery. If you take any blood-thinning medicines, such as aspirin, discuss them with your doctor at least a week before surgery. At the hospital, your temperature, pulse, breathing, and blood pressure will be checked. An IV (intravenous line) will be started to provide fluids and medicines needed during s urgery. During your surgery Once in the operating room, you will be given anesthesia. After you are asleep, an incision is made near the center of your low back. The incision may be 2 to 6 inches long, depending on how many vertebrae are involved. You may have 1 or 2 drains, which will be removed in the next few days. During a laminectomy, the lamina, or bone that forms the back of the spinal canal, is re moved from the affected vertebra. The opening created may be enough to take pressure off the spinal cord or the nerve roots. If needed, your doctor can also remove any bone spurs or di sk matter pressing on the nerve root. After laminectomy, the opening in the spine is protect ed by the thick back muscles, which are closed over the bony defect. Once the nerve is free of pressure, the incision is closed with stitches or surgical sta ples. After your surgery After surgery, you ll be sent to the PACU or postanesthesia care unit. When you are fully awake and stable, you ll be moved to your room. The nurses will give you medicines to eas e your pain. You may have a small tube called a catheter in your bladder. Soon, healthcare p roviders will help you get up and moving. You ll also be shown how to keep your lungs tres r with coughing and deep breathing exercises. When to call your healthcare provider Once at home, call your provider if you have any of the symptoms below: Unusual redness, heat, or drainage at the incision site Increasing pain, numbness, or weakness in your leg Fever over 100.4F (38C), or higher, or as advised Date Last Reviewed: 04/02/201819991319-3997 [employer]. [address] [place] [address]. All righ ts reserved. This information is not intended as a substitute for professional medical care. Always follow your healthcare professional's instructions. Cyclobenzaprine tablets Brand Names: Fexmid, Flexeril What is this medicine? CYCLOBENZAPRINE (sye kloe KATE za preen) is a muscle relaxer. It is used to treat muscle mirtha n, spasms, and stiffness. How should I use this medicine? Take this medicine by mouth with a glass of water. Follow the directions on the prescriptio n label. If this medicine upsets your stomach, take it with food or milk. Take your medicine at regular intervals. Do not take it more often than directed. Talk to your cable installer regarding the use of this medicine in children. Special care may be needed. What side effects may I notice from receiving this medicine? Side effects that you should report to your doctor or health neonatal intensive care nurse as soon as p ossible: allergic reactions like skin rash, itching or hives, swelling of the face, lips, or tong ue breathing problems chest pain fast, irregular heartbeat hallucinations seizures unusually weak or tired Side effects that usually do not require medical attention (report to your doctor or health neonatal intensive care nurse if they continue or are bothersome): headache nausea, vomiting What may interact with this medicine? Do not take this medicine with any of the following medications: certain medicines for fungal infections like fluconazole, itraconazole, ketoconazole, po saconazole, voriconazole cisapride dofetilide dronedarone halofantrine levomethadyl MAOIs like Carbex, Eldepryl, Marplan, Nardil, and Parnate narcotic medicines for cough pimozide thioridazine ziprasidone This medicine may also interact with the following medications: alcohol antihistamines for allergy, cough and cold certain medicines for anxiety or sleep certain medicines for cancer certain medicines for depression like amitriptyline, fluoxetine, sertraline certain medicines for infection like alfuzosin, chloroquine, clarithromycin, levofloxaci n, mefloquine, pentamidine, troleandomycin certain medicines for irregular heart beat certain medicines for seizures like phenobarbital, primidone contrast dyes general anesthetics like halothane, isoflurane, methoxyflurane, propofol local anesthetics like lidocaine, pramoxine, tetracaine medicines that relax muscles for surgery narcotic medicines for pain other medicines that prolong the QT interval (cause an abnormal heart rhythm) phenothiazines like chlorpromazine, mesoridazine, prochlorperazine What if I miss a dose? If you miss a dose, take it as soon as you can. If it is almost time for your next dose, ta ke only that dose. Do not take double or extra doses. Where should I keep my medicine? Keep out of the reach of children. Store at room temperature between 15 and 30 degrees C (59 and 86 degrees F). Keep container tightly closed. Throw away any unused medicine after the expiration date. What should I tell my health care provider before I take this medicine? They need to know if you have any of these conditions: heart disease, irregular heartbeat, or previous heart attack liver disease thyroid problem an unusual or allergic reaction to cyclobenzaprine, tricyclic antidepressants, lactose, other medicines, foods, dyes, or preservatives or trying to get breast-feeding What should I watch for while using this medicine? Tell your doctor or health neonatal intensive care nurse if your symptoms do not start to get better or if they get worse. You may get drowsy or dizzy. Do not drive, use machinery, or do anything that needs mental alertness until you know how this medicine affects you. Do not stand or sit up quickly, mona cially if you are an older patient. This reduces the risk of dizzy or fainting spells. Alcoh ol may interfere with the effect of this medicine. Avoid alcoholic drinks. If you are taking another medicine that also causes drowsiness, you may have more side effe cts. Give your health care provider a list of all medicines you use. Your doctor will tell y ou how much medicine to take. Do not take more medicine than directed. Call emergency for he lp if you have problems breathing or unusual sleepiness. Your mouth may get dry. Chewing sugarless gum or sucking hard candy, and drinking plenty of water may help. Contact your doctor if the problem does not go away or is severe. NOTE:This sheet is a summary. It may not cover all possible information. If you have questi ons about this medicine, talk to your doctor, pharmacist, or health care provider. Copyright 2019 [employer] Methocarbamol tablets Brand Name: Robaxin What is this medicine? METHOCARBAMOL (meth oh MARCELA ba mole) helps to relieve pain and stiffness in muscles caused b y strains, sprains, or other injury to your muscles. How should I use this medicine? Take this medicine by mouth with a full glass of water. Follow the directions on the prescr iption label. Take your medicine at regular intervals. Do not take your medicine more often than directed. Talk to your cable installer regarding the use of this medicine in children. Special care may be needed. What side effects may I notice from receiving this medicine? Side effects that you should report to your doctor or health neonatal intensive care nurse as soon as p ossible: allergic reactions like skin rash, itching or hives, swelling of the face, lips, or tong ue breathing problems confusion seizures unusually weak or tired Side effects that usually do not require medical attention (report to your doctor or health neonatal intensive care nurse if they continue or are bothersome): dizziness headache metallic taste tiredness upset stomach What may interact with this medicine? Do not take this medication with any of the following medicines: narcotic medicines for cough This medicine may also interact with the following medications: alcohol antihistamines for allergy, cough and cold certain medicines for anxiety or sleep certain medicines for depression like amitriptyline, fluoxetine, sertraline certain medicines for seizures like phenobarbital, primidone cholinesterase inhibitors like neostigmine, ambenonium, and pyridostigmine bromide general anesthetics like halothane, isoflurane, methoxyflurane, propofol local anesthetics like lidocaine, pramoxine, tetracaine medicines that relax muscles for surgery narcotic medicines for pain phenothiazines like chlorpromazine, mesoridazine, prochlorperazine, thioridazine What if I miss a dose? If you miss a dose, take it as soon as you can. If it is almost time for your next dose, ta ke only the next dose. Do not take double or extra doses. Where should I keep my medicine? Keep out of the reach of children. Store at room temperature between 20 and 25 degrees C (68 and 77 degrees F). Keep container tightly closed. Throw away any unused medicine after the expiration date. What should I tell my health care provider before I take this medicine? They need to know if you have any of these conditions: kidney disease seizures an unusual or allergic reaction to methocarbamol, other medicines, foods, dyes, or prese rvatives or trying to get breast-feeding What should I watch for while using this medicine? Tell your doctor or health neonatal intensive care nurse if your symptoms do not start to get better or if they get worse. You may get drowsy or dizzy. Do not drive, use machinery, or do anything that needs mental alertness until you know how this medicine affects you. Do not stand or sit up quickly, mona cially if you are an older patient. This reduces the risk of dizzy or fainting spells. Alcoh ol may interfere with the effect of this medicine. Avoid alcoholic drinks. If you are taking another medicine that also causes drowsiness, you may have more side effe cts. Give your health care provider a list of all medicines you use. Your doctor will tell y ou how much medicine to take. Do not take more medicine than directed. Call emergency for he lp if you have problems breathing or unusual sleepiness. NOTE:This sheet is a summary. It may not cover all possible information. If you have questi ons about this medicine, talk to your doctor, pharmacist, or health care provider. Copyright 2019 [employer] Acetaminophen; Oxycodone capsules What is this medicine? ACETAMINOPHEN; OXYCODONE (a set a MYLES yamil fen; ox i KOE done) is a pain reliever. It is use d to treat moderate to severe pain. How should I use this medicine? Take this medicine by mouth with a full glass of water. Follow the directions on the prescr iption label. You can take it with or without food. If it upsets your stomach, take it with food. Take your medicine at regular intervals. Do not take it more often than directed. A special MedGuide will be given to you by the pharmacist with each prescription and refill . Be sure to read this information carefully each time. Talk to your cable installer regarding the use of this medicine in children. Special care may be needed. What side effects may I notice from receiving this medicine? Side effects that you should report to your doctor or health neonatal intensive care nurse as soon as p ossible: allergic reactions like skin rash, itching or hives, swelling of the face, lips, or tong ue breathing problems confusion redness, blistering, peeling or loosening of the skin, including inside the mouth signs and symptoms of liver injury like dark yellow or brown urine; general ill feeling or flu-like symptoms; light-colored stools; loss of appetite; nausea; right upper belly pain ; unusually weak or tired; yellowing of the eyes or skin signs and symptoms of low blood pressure like dizziness; feeling faint or lightheaded, f alls; unusually weak or tired trouble passing urine or change in the amount of urine Side effects that usually do not require medical attention (report to your doctor or health neonatal intensive care nurse if they continue or are bothersome): constipation dry mouth nausea, vomiting tiredness What may interact with this medicine? This medicine may interact with the following medications: alcohol antihistamines for allergy, cough and cold antiviral medicines for HIV or AIDS atropine certain antibiotics like clarithromycin, erythromycin, linezolid, rifampin certain medicines for anxiety or sleep certain medicines for bladder problems like oxybutynin, tolterodine certain medicines for depression like amitriptyline, fluoxetine, sertraline certain medicines for fungal infections like ketoconazole, itraconazole, voriconazole certain medicines for migraine headache like almotriptan, eletriptan, frovatriptan, daisha triptan, rizatriptan, sumatriptan, zolmitriptan certain medicines for nausea or vomiting like dolasetron, ondansetron, palonosetron certain medicines for Parkinson's disease like benztropine, trihexyphenidyl certain medicines for seizures like phenobarbital, phenytoin, primidone certain medicines for stomach problems like dicyclomine, hyoscyamine certain medicines for travel sickness like scopolamine diuretics general anesthetics like halothane, isoflurane, methoxyflurane, propofol ipratropium local anesthetics like lidocaine, pramoxine, tetracaine MAOIs like Carbex, Eldepryl, Marplan, Nardil, and Parnate medicines that relax muscles for surgery methylene blue nilotinib other medicines with acetaminophen other narcotic medicines for pain or cough phenothiazines like chlorpromazine, mesoridazine, prochlorperazine, thioridazine What if I miss a dose? If you miss a dose, take it as soon as you can. If it is almost time for your next dose, ta ke only that dose. Do not take double or extra doses. Where should I keep my medicine? Keep out of the reach of children. This medicine can be abused. Keep your medicine in a saf e place to protect it from theft. Do not share this medicine with anyone. Selling or giving away this medicine is dangerous and against the law. Store at room temperature between 15 and 30 degrees C (59 and 86 degrees F). Keep container tightly closed. Protect from light. This medicine may cause harm and if it is taken by other adults, children, or pets. R eturn medicine that has not been used to an official disposal site. Contact the [employer] at [phone] or your [facility] government to find a site. If you cannot return the medicine, flush it down the toilet. Do not use the medicine after the expiration date. What should I tell my health care provider before I take this medicine? They need to know if you have any of these conditions: brain tumor Crohn's disease, inflammatory bowel disease, or ulcerative colitis drug abuse or addiction head injury heart or circulation problems if you often drink alcohol kidney disease or problems going to the bathroom liver disease lung disease, asthma, or breathing problems an unusual or allergic reaction to salicylates, acetaminophen, oxycodone, other opioid a nalgesics, other medicines, foods, dyes, or preservatives or trying to get breast-feeding What should I watch for while using this medicine? Tell your doctor or health neonatal intensive care nurse if your pain does not go away, if it gets wors e, or if you have new or a different type of pain. You may develop tolerance to the medicine . Tolerance means that you will need a higher dose of the medication for pain relief. Tolera nce is normal and is expected if you take this medicine for a long time. Do not suddenly stop taking your medicine because you may develop a severe reaction. Your b olive becomes used to the medicine. This does NOT mean you are addicted. Addiction is a behavi or related to getting and using a drug for a nonmedical reason. If you have pain, you have a medical reason to take pain medicine. Your doctor will tell you how much medicine to take. If your doctor wants you to stop the medicine, the dose will be slowly lowered over time to avoid any side effects. There are different types of narcotic medicines (opiates). If you take more than one type a t the same time or if you are taking another medicine that also causes drowsiness, you may h ave more side effects. Give your health care provider a list of all medicines you use. Your doctor will tell you how much medicine to take. Do not take more medicine than directed. James l emergency for help if you have problems breathing or unusual sleepiness. Do not take other medicines that contain acetaminophen with this medicine. Always read labramakrishna kidd carefully. If you have questions, ask your doctor or pharmacist. If you take too much acetaminophen get medical help right away. Too much acetaminophen can be very dangerous and cause liver damage. Even if you do not have symptoms, it is important to get help right away. You may get drowsy or dizzy. Do not drive, use machinery, or do anything that needs mental alertness until you know how this medicine affects you. Do not stand or sit up quickly, mona cially if you are an older patient. This reduces the risk of dizzy or fainting spells. Alcoh ol may interfere with the effect of this medicine. Avoid alcoholic drinks. The medicine will cause constipation. Try to have a bowel movement at least every 2 to 3 da ys. If you do not have a bowel movement for 3 days, call your doctor or health care professi onal. Your mouth may get dry. Chewing sugarless gum or sucking hard candy, and drinking plenty of water may help. Contact your doctor if the problem does not go away or is severe. NOTE:This sheet is a summary. It may not cover all possible information. If you have questi ons about this medicine, talk to your doctor, pharmacist, or health care provider. Copyright 2019 [employer] documented in this encounter Medications at Time of [...] capsule by | 30 | 0 | 01/04/ | | | triamterene-hydrochl | mouth Daily. [...] documented as of this encounter Progress Notes Santana Sagastume MD - 01/02/2019 1327 PST [id number] Daily Progress Note Date: 01/02/2019 ANU Wagner is a 78 y.o. male who was admitted 12/27/2018 Reason for encounter : CC : Physician follow-up to address the Medical and Rehabilitation needs, issues, and prob lems . These include serving as the patient's attending physician while on our Inpatient Acute R ehabilitation Service . I am responsible for managing and treating the active medical diagnoses as documented in t he Rehabilitation History and Physical Impressions , Progress Notes , and Orders . Also I am responsible for leading and directing our Interdisciplinary Rehabilitation Treatm ent Team members' efforts including management of problems with function including facilitat ing our patient achieving optimal levels of independence and safety with self-care/activitie s of daily living , as well as safely negotiating the environment / functional mobility. Interval History: His rehab program is progressing well. Chief problem : Weakness and difficulty with self-care/ADLs and functional mobility Patient is pleased with his progress. He states his pain is improved. He is eager for discharge to home and in fact is insistent on discharge to home tomorrow. 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 Hypertension Acute bilateral low back pain with sciatica Simple chronic bronchitis ROS- Review of systems stated in the Interval History as applicable Current Meds: Current Facility-Administered Medications: acetaminophen (TYLENOL) tablet 650 mg, 650 mg, Oral, Q4H PRN, Santana Sagastume MD, 6 50 mg at 01/02/19 0549 albuterol 2.5 mg/3 mL nebulizer solution 2.5 mg, 2.5 mg, Nebulization, RT Q4H PRN, Paulino esther Sagastume MD, 2.5 mg at 12/30/182006 aluminum & magnesium hydroxide-simethicone (MAALOX PLUS REGULAR STRENGTH) 200-200-20 m g/5 mL suspension 30 mL, 30 mL, Oral, 4x Daily PC and HS, Santana Sagatsume MD, 30 mL at 105 atorvaSTATin (LIPITOR) tablet 20 mg, 20 mg, Oral, Nightly, Santana Sagastume MD, 20 m g at 01/01/19 211 budesonide (PULMICORT) 0.5 mg/2 mL nebulizer solution 0.5 mg, 0.5 mg, Nebulization, RT BID, Santana Sagastume MD, 0.5 mg at 01/02/19 0751 calcium carbonate (TUMS) chewable tablet 500-1,000 mg, 500-1,000 mg, Oral, Q4H PRN, Deutsch reyes Sagastume MD, 1,000 mg at 12/30/18 0955 cloNIDine (CATAPRES) tablet 0.1 mg, 0.1 mg, Oral, 4x Daily PRN, Santana Sagastume MD cyclobenzaprine (FLEXERIL) tablet 10 mg, 10 mg, Oral, Q8H PRN, Santana Sagastume MD, 10 mg at 12/29/18 0116 docusate sodium (COLACE) capsule 100 mg, 100 mg, Oral, BID PC, Santana Sagastume MD, 100 mg at 01/02/19 1056 docusate-senna (SENOKOT-S) 50-8.6 mg per tablet 2 tablet, 2 tablet, Oral, BID PC, Celia Sagastume MD, 2 tablet at 01/02/19 1056 enoxaparin (LOVENOX) 40 mg/0.4 mL injection 40 mg, 40 mg, Subcutaneous, Daily, Santana Sagastume MD, 40 mg at 01/02/19 1054 famotidine (PEPCID) tablet 20 mg, 20 mg, Oral, BID AC, Santana Sagastume MD, 20 mg at 01/02/19 0644 fluticasone (FLONASE) 50 mcg/nasal spray 2 spray, 2 spray, Each Nare, BID PRN, Santana Sagastume MD methocarbamol (ROBAXIN) tablet 1,500 mg, 1,500 mg, Oral, Q6H PRN, Zahida Bradley D, 1,500 mg at 01/02/19 1055 ondansetron (ZOFRAN ODT) disintegrating tablet 4 mg, 4 mg, Oral, Q6H PRN, Santana Sagastume MD oxyCODONE (ROXICODONE) tablet 5-10 mg, 5-10 mg, Oral, Q4H PRN, Santana Sagastume MD, 10 mg at 01/02/19 1106 polyethylene glycol (MIRALAX) powder 17 g, 17 g, Oral, Daily, Santana Sagastume MD, 1 7 g at 01/01/19 0940 triamterene-hydrochlorothiazide (DYAZIDE) 37.5-25 MG per capsule 1 capsule, 1 capsule, Oral, Daily, Santana Sagastume MD, 1 capsule at 01/02/19 1055 zolpidem (AMBIEN) tablet 5 mg, 5 mg, Oral, Nightly PRN, Santana Sagastume MD Allergies: Allergies Allergen Reactions Hydrocodone Other (See Comments) Skin sloughing from penis Sulfa Antibiotics Rash Intolerance Allergen Reactions Lisinopril Other (See Comments) Cough PFSH has been reviewed for today as applicable. The complete PFSH is documented in the ini tia history and physical on admission to our Inpatient Rehab services Physical Exam: BP 160/79 | Pulse 86 | Temp 36.8 C (98.2 F) (Oral) | Resp 16 | Ht 1.753 m (5' 9") | Wt 91.4 kg (201 lb 8 oz) | SpO2 96% | BMI 29.76 kg/m Gen: Alert, sitting in bed, NAD EYES: Conjunctiva clear. Pupils react to light. ENMT: External nose and ears normal. Mucosa moist in nose and mouth. NECK: No abnormal masses noted. Trachea midline. No thyromegaly. LYMPTHATIC: No significant adenopathy noted in neck, axillae or groin. RESPIRATORY: Normal comfortable respiratory effort. Lungs clear. CARDIOVASCULAR: No abnormal thrill or palpitation. Regular rate and rhythm.Peripheral pulses are symmetric. GASTROINTESTINAL: No abnormal masses noted. No organomegaly appreciated. Abdomen soft. Bowel sounds present. The surgical incisions in the lateral abdomen and lumbar region posteriorly are clean and h ealing. No drainage. MUSCULOSKELETAL: Range of motion stable. No new areas of increased tenderness noted. NEUROLOGIC: The patient is Alert. The strength and mobility are both improving. Labs: Recent Results (from the past 48 hour(s)) POC Glucose Result Value Ref Range Glucose, POC 124 (H) 70 - 109 mg/dL POC Glucose Result Value Ref Range Glucose, POC 142 (H) 70 - 109 mg/dL POC Glucose Result Value Ref Range Glucose, POC 135 (H) 70 - 109 mg/dL POC Glucose Result Value Ref Range Glucose, POC 98 70 - 109 mg/dL POC Glucose Result Value Ref Range Glucose, POC 112 (H) 70 - 109 mg/dL POC Glucose Result Value Ref Range Glucose, POC 150 (H) 70 - 109 mg/dL POC Glucose Result Value Ref Range Glucose, POC 138 (H) 70 - 109 mg/dL Most recent FIM scores: Report Date 01/02/2019 FIM BladderScore: 5 FIM Bowel Score: 6 FIM Bed/Chair/Wheelchair Score: 5 FIM Toilet Transfer Score: 5 FIM Tub/Shower Transfer Score: 5 FIM Walk Score: 1 FIM Distance Walked(feet): 40 feet FIM Wheelchair Score: FIM Stairs Score :4 FIM Eating Score: 7 FIM Grooming Score: 5 FIM Bathing Score: 5 FIM Dressing Upper Body Score: 5 FIM Dressing Lower Body Score: 5 FIM Toileting Score: 5 Assessment and Rehab Plan: . 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 Severe lumbar spine stenosis with the central and foraminal compromise bilaterally at L4-5 and L5-S1, with exacerbation of the foraminal stenosis by associated large left-sided f oraminal synovial cyst at L5-S1 ; requiring 3. Successful surgery 12/23/18 : 1. Minimally invasive lumbar fusion via anterior and posterior approaches 2. Combined posteriolateral and posterior interbody arthrodesis L5-S1 3. Anterior lumbar interbody arthrodesis L4-5 4. Posterolateral lumbar arthrodesis L4, L5 5. Posterior spinal instrumentation L4-S1 with use of Precept 6. Placement of PEEK interbody spacer L4-5, L5-S1 L5 and partial S1 laminectomy, L5-S1 facetectomy, L5 and S1 foraminotomy for decompression of L5 and S1 nerves 4. Acute postoperative pain, requiring narcotic analgesics 5. Acute bowel and bladder voiding problems Associated active medical comorbidities : 6. Hypertension 7. COPD with bronchospastic component #Diet - Active Orders Diet Diet general; Effective Now PLAN : The patient is seen in collaboration with the rehab team. I met with the charge nurse regarding overall nursing care concerns. Medication and lab data reviewed. I ordered to recheck lab in the morning. We also met with the patient's bedside nurse, reviewing the patient's current status and a ddressing any questions, concerns and/or related issues. Doing well with his bowel and bladder program. Note: my Progress Notes document close and ongoing Physiatric involvement; [id number] vis its , professionally assessing the Patient, both Medically and Functionally, with the empha sis on the important interactions between our Patient's current clinical status, especially issues/barriers that may impact on the Rehabilitation Team's treatment and progress toward o ur medical and functional go I opine that this is important, so we may maximize our Patient's capacity to benefit from [facility] Comprehensive Inpatient Medical Rehabilitation process. I also met with his physical therapist. The patient showed significant improvement in his safety awareness with mobility. Discussed with him and his regarding current status and her needs. Given his improvement we will plan on completing the inpatient training today and tomorrow morning with discharge to home tomorrow. Signed: Santana Sagastume MD ihoracio, Zahida Simmons D - 12/31/2018 1647 PST [id number] Medicine Daily Progress Note Date: 12/31/2018 ANU Wagner is a 78 y.o. male who was admitted 12/27/2018 Reason for encounter : CC : Physician follow-up to address the Medical and Rehabilitation needs, issues, and prob lems . These include serving as the patient's attending physician while on our Inpatient Acute R ehabilitation Service . I am responsible for managing and treating the active medical diagnoses as documented in [facility] Rehabilitation History and Physical Impressions , Progress Notes , and Orders . Also I am responsible for leading and directing our Interdisciplinary Rehabilitation Treatm ent Team members' efforts including management of problems with function including facilitat ing our patient achieving optimal levels of independence and safety with self-care/activitie s of daily living , as well as safely negotiating the environment / functional mobility. Interval History: No new significant acute problems reported today. Chief problem : Weakness and difficulty with self-care/ADLs and functional mobility Is in better spirits. He reports his pain is improved some. 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 Hypertension Acute bilateral low back pain with sciatica Simple chronic bronchitis ROS- Review of systems stated in the Interval History as applicable Current Meds: Current Facility-Administered Medications: acetaminophen (TYLENOL) tablet 650 mg, 650 mg, Oral, Q4H PRN, Santana Sagastume MD, 6 50 mg at 12/31/18 1532 albuterol 2.5 mg/3 mL nebulizer solution 2.5 mg, 2.5 mg, Nebulization, RT Q4H PRN, Paulino Sagastume MD, 2.5 mg at 12/30/18 2007 aluminum & magnesium hydroxide-simethicone (MAALOX PLUS REGULAR STRENGTH) 200-200-20 m g/5 mL suspension 30 mL, 30 mL, Oral, 4x Daily PC and HS, Santana Sagastume MD, 30 mL at 1401 atorvaSTATin (LIPITOR) tablet 20 mg, 20 mg, Oral, Nightly, Santana Sagastume MD, 20 m g at 12/30/18 2158 budesonide (PULMICORT) 0.5 mg/2 mL nebulizer solution 0.5 mg, 0.5 mg, Nebulization, RT BID, Santana Sagastume MD, 0.5 mg at 12/31/18 0739 calcium carbonate (TUMS) chewable tablet 500-1,000 mg, 500-1,000 mg, Oral, Q4H PRN, Deutsch reyes Sagastume MD, 1,000 mg at 12/30/18 0955 cloNIDine (CATAPRES) tablet 0.1 mg, 0.1 mg, Oral, 4x Daily PRN, Santana Sagastume MD cyclobenzaprine (FLEXERIL) tablet 10 mg, 10 mg, Oral, Q8H PRN, Santana Sagastume MD, 10 mg at 12/29/18 0116 docusate sodium (COLACE) capsule 100 mg, 100 mg, Oral, BID PC, Santana Sagastume MD, 100 mg at 12/31/18 0818 docusate-senna (SENOKOT-S) 50-8.6 mg per tablet 2 tablet, 2 tablet, Oral, BID PC, Celia Sagastume MD, 2 tablet at 12/31/18 0818 enoxaparin (LOVENOX) 40 mg/0.4 mL injection 40 mg, 40 mg, Subcutaneous, Daily, Santana Sagastume MD, 40 mg at 12/31/18 0817 famotidine (PEPCID) tablet 20 mg, 20 mg, Oral, BID AC, Santana Sagastume MD, 20 mg at 12/31/18 1532 fluticasone (FLONASE) 50 mcg/nasal spray 2 spray, 2 spray, Each Nare, BID PRN, Santana Sagastume MD methocarbamol (ROBAXIN) tablet 1,500 mg, 1,500 mg, Oral, Q6H PRN, Zahida Bradley D, 1,500 mg at 12/31/18 1401 ondansetron (ZOFRAN ODT) disintegrating tablet 4 mg, 4 mg, Oral, Q6H PRN, Santana Sagastume MD oxyCODONE (ROXICODONE) tablet 5-10 mg, 5-10 mg, Oral, Q4H PRN, Santana Sagastume MD, 10 mg at 12/31/18 1532 polyethylene glycol (MIRALAX) powder 17 g, 17 g, Oral, Daily, Santana Sagastume MD, 1 7 g at 12/31/18 0817 triamterene-hydrochlorothiazide (DYAZIDE) 37.5-25 MG per capsule 1 capsule, 1 capsule, Oral, Daily, Santana Sagastume MD, 1 capsule at 12/31/18 0818 zolpidem (AMBIEN) tablet 5 mg, 5 mg, Oral, Nightly PRN, Santana Sagastume MD Allergies: Allergies Allergen Reactions Hydrocodone Other (See Comments) Skin sloughing from penis Sulfa Antibiotics Rash Intolerance Allergen Reactions Lisinopril Other (See Comments) Cough PFSH has been reviewed for today as applicable. [facility] physical on admission to our Inpatient Rehab services Physical Exam: BP 146/70 | Pulse 78 | Temp 36.1 C (97 F) (Axillary) | Resp 18 | Ht 1.753 m (5' 9") | Wt 91.4 kg (201 lb 8 oz) | SpO2 94% | BMI 29.76 kg/m Gen: Alert, sitting in bed, NAD ENT: Sclerae clear. Oral mucosa moist. NECK: Supple. Trachea midline. No thyromegaly. RESPIRATORY: Lungs are clear to auscultation and percussion bilaterally with symmetrical a ir movement. The patient is breathing comfortably. CARDIOVASCULAR: Cardiac rhythmis regular. No murmur. Peripheral pulses stable. GASTROINTENSTINAL: Abdomen soft and nontender. Bowel sounds Present. GENITOURINARY: Genital normal adult male. rectal exam not performed. Bowel and bladder m anagement program continued. MUSCULOSKELETAL: Extremities stable. Range of motion is stable. NEUROLOGIC: Finds the patient awake, alert and cooperative. Follows commands. Strength an d mobility are stable Labs: Recent Results (from the past 48 hour(s)) POC Glucose Result Value Ref Range Glucose, POC 113 (H) 70 - 109 mg/dL POC Glucose Result Value Ref Range Glucose, POC 107 70 - 109 mg/dL POC Glucose Result Value Ref Range Glucose, POC 130 (H) 70 - 109 mg/dL POC Glucose Result Value Ref Range Glucose, POC 143 (H) 70 - 109 mg/dL POC Glucose Result Value Ref Range Glucose, POC 115 (H) 70 - 109 mg/dL POC Glucose Result Value Ref Range Glucose, POC 141 (H) 70 - 109 mg/dL POC Glucose Result Value Ref Range Glucose, POC 117 (H) 70 - 109 mg/dL Most recent FIM scores: Report Date 12/31/2018 FIM BladderScore: 5 FIM Bowel Score: 6 FIM Bed/Chair/Wheelchair Score: 5 FIM Toilet Transfer Score: 5 FIM Tub/Shower Transfer Score: 5 FIM Walk Score: 1 FIM Distance Walked(feet): 40 feet FIM Wheelchair Score: FIM Stairs Score :4 FIM Eating Score: 7 FIM Grooming Score: 5 FIM Bathing Score: 5 FIM Dressing Upper Body Score: 5 FIM Dressing Lower Body Score: 5 FIM Toileting Score: 5 Assessment and Rehab Plan: . 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 Severe lumbar spine stenosis with the central and foraminal compromise bilaterally at L4-5 and L5-S1, with exacerbation of the foraminal stenosis by associated large left-sided f oraminal synovial cyst at L5-S1 ; requiring 3. Successful surgery 12/23/18 : 1. Minimally invasive lumbar fusion via anterior and posterior approaches 2. Combined posteriolateral and posterior interbody arthrodesis L5-S1 3. Anterior lumbar interbody arthrodesis L4-5 4. Posterolateral lumbar arthrodesis L4, L5 5. Posterior spinal instrumentation L4-S1 with use of Precept 6. Placement of PEEK interbody spacer L4-5, L5-S1 L5 and partial S1 laminectomy, L5-S1 facetectomy, L5 and S1 foraminotomy for decompression of L5 and S1 nerves 4. Acute postoperative pain, requiring narcotic analgesics 5. Acute bowel and bladder voiding problems Associated active medical comorbidities : 6. Hypertension 7. COPD with bronchospastic component #Diet - Active Orders Diet Diet general; Effective Now PLAN : The patient is seen and evaluated on rounds. Laboratory data reviewed. Meds reviewed. I reviewed status with patient's nurse and addressed current status, questions and issues. I reviewed status with patient's Rehabilitation speech therapist and addressed current sta tus, questionsand issues. The testing showed moderate deficits with short-term memory as well as impaired judgment an d problem solving, especially for more complex task. Fortunately for these areas. I met with our patient and the supportive employment case manager, and we reviewed the overall plan of care and p rojected discharged date and destination. The patient is hopeful illness. That the discharge date. We'll follow-up check with the team on this. Note: My Progress Notes document close and ongoing Physiatric involvement; [id number] vi sits, professionally assessing the Patient, both Medically and Functionally, with the empha sis on the important interactions between our Patient's current clinical status, especially issues/barriers that may impact on the Rehabilitation Team's treatment and progress toward our medical and functional goals. I opine that this is important, so we will maximize our Patient's capacity to benefit from the Comprehensive Inpatient Medical Rehabilitation process. We are following up on and addressing rehabilitation team treatment focus in current progra m. The patient status and our Medical Rehabilitation team's recommendations were shared in d etail with the patient. An overview of our current treatment plan was provided to the savi galan. Each wall steamer is addressing this as the patient advances within the short-term rehabi litation treatment plan. We opine that we may continue to anticipate significant practical improvement in function o f our patient measured against the patient's condition at the onset of the inpatient rehabil itation treatment program. Patient demonstrates functional deficits in strength, balance, functional mobility and safe ty negotiating his environment, coordination, ADL's and cognition. I will coordinate with the full team regarding the above plan and continue full rehabilitat ion program. Please see rehabilitation team notes. Signed: Santana Sagastume MD eyna Mulligan RN - 12/30/2018 2238 PSTRN entered the room to find pt in the bathroom alone washing his hands a t the sink with his FWW. Pt did not call for assist. Pt turned bed alarm off. Assisted pt ba ck to bed. Ensured bed alarm on and call light within reach. Pt verbalized understanding of need to call for assist and not to get OOB without an assist. Santana Hernandes MD - 12/30/2018 1513 PSTFormatting o f this note might be different from the original. [id number] Rehabilitation Medicine Daily Progress Note Date: 12/30/2018 ID Quintin Wagner is a 78 y.o. male who was admitted 12/27/2018 Reason for encounter : CC : Physician follow-up to address the Medical and Rehabilitation needs, issues, and prob lems . These include serving as the patient's attending physician while on our Inpatient Acute R ehabilitation Service . I am responsible for managing and treating the active medical diagnoses as documented in t he Rehabilitation History and Physical Impressions , Progress Notes , and Orders . Also I am responsible for leading and directing our Interdisciplinary Rehabilitation Treatm ent Team members' efforts including management of problems with function including facilitat ing our patient achieving optimal levels of independence and safety with self-care/activitie s of daily living , as well as safely negotiating the environment / functional mobility. Interval History: Blood sugar pattern assessed. Running in the low to mid 100s. Chief problem : Weakness and difficulty with self-care/ADLs and functional mobility He is complaining of upset stomach and intermittent nausea. Also with increased activity he is complaining of some increased pain in his back and legs . 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 Hypertension Acute bilateral low back pain with sciatica Simple chronic bronchitis ROS- Review of systems stated in the Interval History as applicable Current Meds: Current Facility-Administered Medications: acetaminophen (TYLENOL) tablet 650 mg, 650 mg, Oral, Q4H PRN, Santana Sagastume MD, 6 50 mg at 12/30/18 1250 albuterol 2.5 mg/3 mL nebulizer solution 2.5 mg, 2.5 mg, Nebulization, RT Q4H PRN, Paulino Sagastume MD, 2.5 mg at 12/29/182048 aluminum & magnesium hydroxide-simethicone (MAALOX PLUS REGULAR STRENGTH) 200-200-20 m g/5 mL suspension 30 mL, 30 mL, Oral, 4x Daily PC and HS, Santana Sagastume MD atorvaSTATin (LIPITOR) tablet 20 mg, 20 mg, Oral, Nightly, Santana Sagastume MD, 20 m g at 12/29/18 2030 budesonide (PULMICORT) 0.5 mg/2 mL nebulizer solution 0.5 mg, 0.5 mg, Nebulization, RT BID, Santana Sagastume MD, 0.5 mg at 12/29/18 205 calcium carbonate (TUMS) chewable tablet 500-1,000 mg, 500-1,000 mg, Oral, Q4H PRN, Deutsch reyes Sagastume MD, 1,000 mg at 12/30/18 0955 cloNIDine (CATAPRES) tablet 0.1 mg, 0.1 mg, Oral, 4x Daily PRN, Santana Sagastume MD cyclobenzaprine (FLEXERIL) tablet 10 mg, 10 mg, Oral, Q8H PRN, Santana Sagastume MD, 10 mg at 12/29/18 0116 docusate sodium (COLACE) capsule 100 mg, 100 mg, Oral, BID PC, Santana Sagastume MD, 100 mg at 12/30/18 0820 docusate-senna (SENOKOT-S) 50-8.6 mg per tablet 2 tablet, 2 tablet, Oral, BID PC, Celia Sagastume MD, 2 tablet at 12/30/18 0820 enoxaparin (LOVENOX) 40 mg/0.4 mL injection 40 mg, 40 mg, Subcutaneous, Daily, Santana Sagastume MD, 40 mg at 12/30/18 0819 famotidine (PEPCID) tablet 20 mg, 20 mg, Oral, BID AC, Santana Sagastume MD fluticasone (FLONASE) 50 mcg/nasal spray 2 spray, 2 spray, Each Nare, BID PRN, Santana Sagastume MD methocarbamol (ROBAXIN) tablet 1,500 mg, 1,500 mg, Oral, Q6H PRN, Zahida Bradley D, 1,500 mg at 12/30/18 1027 ondansetron (ZOFRAN ODT) disintegrating tablet 4 mg, 4 mg, Oral, Q6H PRN, Santana Sagastume MD oxyCODONE (ROXICODONE) tablet 5-10 mg, 5-10 mg, Oral, Q4H PRN, Santana Sagastume MD, 10 mg at 12/30/18 1250 polyethylene glycol (MIRALAX) powder 17 g, 17 g, Oral, Daily, Santana Sagastume MD, 1 7 g at 12/30/18 0819 triamterene-hydrochlorothiazide (DYAZIDE) 37.5-25 MG per capsule 1 capsule, 1 capsule, Oral, Daily, Santana Sagastume MD, 1 capsule at 12/30/18 0820 zolpidem (AMBIEN) tablet 5 mg, 5 mg, Oral, Nightly PRN, Santana Sagastume MD Allergies: Allergies Allergen Reactions Hydrocodone Other (See Comments) Skin sloughing from penis Sulfa Antibiotics Rash Intolerance Allergen Reactions Lisinopril Other (See Comments) Cough PFSH has been reviewed for today as applicable. The complete PFSH is documented in the ini tia history and physical on admission to our Inpatient Rehab services Physical Exam: BP 124/73 | Pulse 80 | Temp 36.1 C (97 F) (Oral) | Resp 15 | Ht 1.753 m (5' 9") | Wt 91.4 kg (201 lb 8 oz) | SpO2 92% | BMI 29.76 kg/m Gen: Alert, sitting in bed, NAD HEENT: Head normocephalic. Mucosa moist. Pupils reactive to light. RESPIRATORY: Breathing comfortably. On auscultation lungs are clear, without retractions or adventitious sounds. CARDIOVASCULAR: Cardiac auscultation reveals regular rate and rhythm. Edema-none. CHEST: Nontender. GASTROINTESTINAL: Abdomen soft with active bowel sounds present. No abnormal masses or ten derness. The surgical incisions in the lateral abdomen area and lumbar region are clean and healing. MUSCULOSKELETAL: Extremities symmetric. Range of motion stable. NEUROLOGIC: The patient is alert. . PSYCHIATRIC: Mood and affect stable Focuses on the Examiner and follows commands Cranial nerves stable. Strength is stable. Labs: Recent Results (from the past 48 hour(s)) POC Glucose Result Value Ref Range Glucose, POC 138 (H) 70 - 109 mg/dL POC Glucose Result Value Ref Range Glucose, POC 109 70 - 109 mg/dL POC Glucose Result Value Ref Range Glucose, POC 97 70 - 109 mg/dL POC Glucose Result Value Ref Range Glucose, POC 91 70 - 109 mg/dL POC Glucose Result Value Ref Range Glucose, POC 113 (H) 70 - 109 mg/dL POC Glucose Result Value Ref Range Glucose, POC 107 70 - 109 mg/dL POC Glucose Result Value Ref Range Glucose, POC 130 (H) 70 - 109 mg/dL POC Glucose Result Value Ref Range Glucose, POC 143 (H) 70 - 109 mg/dL Most recent FIM scores: Report Date 12/30/2018 FIM BladderScore: 5 FIM Bowel Score: 6 FIM Bed/Chair/Wheelchair Score: 5 FIM Toilet Transfer Score: 5 FIM Tub/Shower Transfer Score: 5 FIM Walk Score: 2 FIM Distance Walked(feet): 100 feet FIM Wheelchair Score: FIM Stairs Score :4 FIM Eating Score: 7 FIM Grooming Score: 5 FIM Bathing Score: 5 FIM Dressing Upper Body Score: 5 FIM Dressing Lower Body Score: 5 FIM Toileting Score: 5 Assessment and Rehab Plan: . 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 Severe lumbar spine stenosis with the central and foraminal compromise bilaterally at L4-5 and L5-S1, with exacerbation of the foraminal stenosis by associated large left-sided f oraminal synovial cyst at L5-S1 ; requiring 3. Successful surgery 12/23/18 : 1. Minimally invasive lumbar fusion via anterior and posterior approaches 2. Combined posteriolateral and posterior interbody arthrodesis L5-S1 3. Anterior lumbar interbody arthrodesis L4-5 4. Posterolateral lumbar arthrodesis L4, L5 5. Posterior spinal instrumentation L4-S1 with use of Precept 6. Placement of PEEK interbody spacer L4-5, L5-S1 L5 and partial S1 laminectomy, L5-S1 facetectomy, L5 and S1 foraminotomy for decompression of L5 and S1 nerves 4. Acute postoperative pain, requiring narcotic analgesics 5. Acute bowel and bladder voiding problems Associated active medical comorbidities : 6. Hypertension 7. COPD with bronchospastic component #Diet - Active Orders Diet Diet general; Effective Now PLAN : The patient is seen and clinical status addressed in collaboration with the rehab team. I met with the charge nurse and discussed the overall nursing problematic issues. We als o followed up with the patient's floor nurse, discussing the above, as well as addressing th e specific nursing patient care focus of the day. He is doing better with his bowel and bladder program. I ordered to change suppository gloria ly when necessary. For his systolic place him on Pepcid 20 mg twice a day as well as adding in Mylanta 4 times a day with meals and bedtime. The full Medical Rehabilitation Team did meet today in conference. The patient's pertinent active medical problems, comorbidities, and medical rehabilitation needs were discussed and shared with the team members. I opine that there is a reasonable expectation that due to the complexity of our patient's current active nursing/medical management and rehabilitation needs, currently our patient r equires an inpatient stay, including a physician lead and coordinated Interdisciplinary Tea m approach to the delivery of rehabilitation care. I chaired the Rehabilitation Team Conference and led the Team's discussion. Each Studio Control Operator reported on the current treatment focus ; we all discussed and assessed o ur patient's current status and any barriers; noting tolerance and compliance progress towar ds the rehabilitation goals. The full Rehab Team collaborated; considering and addressing the patient's current clinical medical and rehabilitation functional needs , tolerance and compliance with the rehabilitat ion treatment , noting any active issues and seeking resolution of any problems/barriers imp eding progress towards goals. I garnered the information from all of the Medical Rehabilitation in flight crew member's assessments and reports as we synthesized and advanced the overall plan of care. The validity of our re habilitation goals were reassessed as we monitored and revised the treatment plan as indicat ed. He remains impulsive with his mobility. I ordered a speech therapy to do more detailed cognitive eval to further assess this. Is doing better with his self-care skills and is now independent with basic ADLs of feeding grooming and hygiene. His other ADLs are standby assist. OT and nursing recording on safety with bathroom skills and IADLs. Transfers are standby assist with cues. Standing balance and endurance are improved. However advancing his ambulation with front wheel walker. Currently he is able to go 40 fe et with assist. However he does complain of increased pain in the back and left leg with this. We are investigating this problem further. Scheduling additional hands-on family training for his . I recommend day pass this weekend to work on his rehab skills in the community setting. Projecting discharged to home next January 05. Following team conference I met with the patient and discussed the above. Safety with self-care and mobility were discussed. The patient's current Rehabilitation plan of care and projected discharge destination were discussed and reviewed with the patient and our supportive employment case manager. She is collaborating with the patient's support system to solicit their input as we advan ce the program. Total time: 36 minutes. We spent greater than 50% of the time regarding patient care and coordination on this date, including unit/floor time, as well as time communicating with the patient and treatment team as discussed above. Signed: Santana Sagastume MD ill, Zahida Simmons D - 12/29/2018 1702 PST [id number] Rehabilitation Medicine Daily Progress Note Date: 12/29/2018 ANU Wagner is a 78 y.o. male who was admitted 12/27/2018 Reason for encounter : CC : Physician follow-up to address the Medical and Rehabilitation needs, issues, and prob lems . These include serving as the patient's attending physician while on our Inpatient Acute R ehabilitation Service . I am responsible for managing and treating the active medical diagnoses as documented in t he Rehabilitation History and Physical Impressions and Progress Notes . Also I am responsible for leading and directing our Interdisciplinary Rehabilitation treatm ent Team members' efforts including management of problems with function including safety wi th self-care/activities of daily living as well as safely negotiating the environment/functi onal mobility. Interval history: He still is having problems with his bowels and not had a good BM since admission here and in fact on discussion of having a BM on acute. He is passing flatus. I ordered suppository after dinner tonight. With his bladder is doing well. We checked his postvoid residuals and they were low at 60 and 0 cc. Ordered to DC the scans. Chief problem : Weakness and difficulty with self-care/ADLs and functional mobility Reviewed the above. He is complaining that he is having ongoing and with increased activity increased back pain . I increased his Roxicodone 5 10 milligrams every 3 hours when necessary. 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 Hypertension Acute bilateral low back pain with sciatica Simple chronic bronchitis Current Meds: Current Facility-Administered Medications: acetaminophen (TYLENOL) tablet 650 mg, 650 mg, Oral, Q4H PRN, Santana Sagastume MD, 6 50 mg at 12/29/18 1128 albuterol 2.5 mg/3 mL nebulizer solution 2.5 mg, 2.5 mg, Nebulization, RT Q4H PRN, Paulino Sagastume MD aluminum & magnesium hydroxide-simethicone (MAALOX PLUS REGULAR STRENGTH) 200-200-20 m g/5 mL suspension 30 mL, 30 mL, Oral, Q4H PRN, Santana Sagastume MD, 30 mL at 12/28/18 0428 atorvaSTATin (LIPITOR) tablet 20 mg, 20 mg, Oral, Nightly, Santana Sagastume MD, 20 m g at 12/28/182035 bisacodyl (DULCOLAX) suppository 10 mg, 10 mg, Rectal, Daily, Santana Sagastume MD budesonide (PULMICORT) 0.5 mg/2 mL nebulizer solution 0.5 mg, 0.5 mg, Nebulization, RT BID, Santana Sagastume MD, 0.5 mg at 12/29/18 0956 calcium carbonate (TUMS) chewable tablet 500-1,000 mg, 500-1,000 mg, Oral, Q4H PRN, Deutsch reyes Sagastume MD, 1,000 mg at 12/28/18 2036 cloNIDine (CATAPRES) tablet 0.1 mg, 0.1 mg, Oral, 4x Daily PRN, Santana Sagastume MD cyclobenzaprine (FLEXERIL) tablet 10 mg, 10 mg, Oral, Q8H PRN, Santana Sagastume MD, 10 mg at 12/29/18 0116 docusate sodium (COLACE) capsule 100 mg, 100 mg, Oral, BID PC, Santana Sagastume MD, 100 mg at 12/29/18 0856 docusate-senna (SENOKOT-S) 50-8.6 mg per tablet 2 tablet, 2 tablet, Oral, BID PC, Celia Sagastume MD, 2 tablet at 12/29/18 0856 enoxaparin (LOVENOX) 40 mg/0.4 mL injection 40 mg, 40 mg, Subcutaneous, Daily, Santana Sagastume MD, 40 mg at 12/29/18 0856 famotidine (PEPCID) tablet 20 mg, 20 mg, Oral, BID, Santana Sagastume MD, 20 mg at 0856 fluticasone (FLONASE) 50 mcg/nasal spray 2 spray, 2 spray, Each Nare, BID PRN, Santana Sagastume MD methocarbamol (ROBAXIN) tablet 1,500 mg, 1,500 mg, Oral, Q6H PRN, Zahida Bradley D, 1,500 mg at 12/29/18 1227 ondansetron (ZOFRAN ODT) disintegrating tablet 4 mg, 4 mg, Oral, Q6H PRN, Santana Sagastume MD oxyCODONE (ROXICODONE) tablet 5-10 mg, 5-10 mg, Oral, Q3H PRN, Santana Sagastume MD polyethylene glycol (MIRALAX) powder 17 g, 17 g, Oral, Daily, Santana Sagastume MD, 1 7 g at 12/29/18 0856 triamterene-hydrochlorothiazide (DYAZIDE) 37.5-25 MG per capsule 1 capsule, 1 capsule, Oral, Daily, Santana Sagastume MD, 1 capsule at 12/29/18 0856 zolpidem (AMBIEN) tablet 5 mg, 5 mg, Oral, Nightly PRN, Santana Sagastume MD Allergies: Allergies Allergen Reactions Hydrocodone Other (See Comments) Skin sloughing from penis Sulfa Antibiotics Rash Intolerance Allergen Reactions Lisinopril Other (See Comments) Cough Physical Exam: BP 128/70 | Pulse 87 | Temp 36 C (96.8 F) (Oral) | Resp 18 | Ht 1.753 m (5' 9") | Wt 91.4 kg (201 lb 8 oz) | SpO2 95% | BMI 29.76 kg/m Gen: Alert, sitting in bed, NAD ENT: Sclerae clear. Oral mucosa moist. NECK: Supple. Trachea midline. No thyromegaly. RESPIRATORY: Lungs are clear to auscultation and percussion bilaterally with symmetrical a ir movement. The patient is breathing comfortably. CARDIOVASCULAR: Cardiac rhythmis regular. No murmur. Peripheral pulses stable. GASTROINTENSTINAL: Abdomen soft and nontender. Bowel sounds Present. GENITOURINARY: Genital normal adult male, no discharge; rectal exam not performed. Bowel and bladder management program continued. Abdominal and lumbar surgical incisions are clean and healing MUSCULOSKELETAL: Extremities stable. Range of motion is stable. NEUROLOGIC: Finds the patient awake, alert and cooperative. Follows Commands. Strength and mobility are stable. Labs: Recent Results (from the past 48 hour(s)) B Type Natriuretic Peptide Result Value Ref Range BNP 115 (H) <100 pg/mL CBC with Differential Result Value Ref Range WBC 18.7 (H) 4.0 - 11.0 K/uL RBC 5.55 4.30 - 5.70 M/uL Hemoglobin 15.4 13.5 - 18.0 g/dL Hematocrit 46.1 40.0 - 51.0 % MCV 83.1 83.0 - 101.0 fL MCH 27.7 (L) 28.0 - 35.0 pg MCHC 33.4 32.0 - 36.0 g/dL RDW-CV 13.3 <15.0 % RDW-SD 40.1 35.1 - 46.3 fL Platelet Count 402 140 - 440 K/uL MPV 8.7 6.5 - 12.4 fL % Neutrophils 64.7 45.0 - 82.0 % % Lymphocytes 20.9 20.0 - 45.0 % % Monocytes 9.0 4.0 - 12.0 % % Eosinophils 0.9 0.0 - 5.0 % % Basophils 0.4 0.0 - 1.0 % % Immature Granulocytes 4.1 (H) 0.0 - 0.4 % Absolute Neutrophils 12.09 (H) 1.80 - 8.50 K/uL Absolute Lymphocytes 3.91 (H) 0.60 - 3.20 K/uL Absolute Monocytes 1.68 (H) 0.00 - 1.00 K/uL Absolute Eosinophils 0.17 0.00 - 0.40 K/uL Absolute Basophils 0.07 0.00 - 0.10 K/uL Absolute Immature Granulocytes 0.77 (H) 0.00 - 0.03 K/uL % nRBC 0 0 - 2 per 100 WBC's Absolute nRBC 0.02 (H) 0.00 - 0.01 K/uL Comprehensive Metabolic Panel Result Value Ref Range Na 135 (L) 136 - 149 mmol/L K 3.8 3.5 - 5.1 mmol/L Cl 97 (L) 98 - 109 mmol/L CO2 28 24 - 31 mmol/L Anion Gap 10 3 - 16 mmol/L Glucose 124 (H) 70 - 109 mg/dL BUN 21 (H) 7 - 18 mg/dL Creatinine 0.86 0.60 - 1.30 mg/dL eGFR if not >60 >=60 mL/min/1.73m2 Ca 8.8 8.3 - 10.5 mg/dL Albumin 3.1 (L) 3.2 - 5.0 g/dL Bilirubin Total 0.8 0.1 - 1.5 mg/dL Total Protein 6.7 6.0 - 7.8 g/dL AST 32 10 - 42 U/L ALT 40 6 - 45 U/L Alkaline Phosphatase 46 40 - 110 U/L Globulin 3.6 2.1 - 3.8 g/dL Albumin/Globulin Ratio 0.9 0.8 - 2.0 BUN/Creatinine Ratio 24.4 Hemoglobin A1C Result Value Ref Range Hemoglobin A1c 6.3 (H) 4.3 - 6.0 % Estimated Average Glucose 134 mg/dL Magnesium Result Value Ref Range Magnesium 2.0 1.8 - 2.5 mg/dL Prealbumin Result Value Ref Range Prealbumin 29 18 - 38 mg/dL POC Glucose Result Value Ref Range Glucose, POC 138 (H) 70 - 109 mg/dL POC Glucose Result Value Ref Range Glucose, POC 109 70 - 109 mg/dL POC Glucose Result Value Ref Range Glucose, POC 97 70 - 109 mg/dL POC Glucose Result Value Ref Range Glucose, POC 91 70 - 109 mg/dL Most recent FIM scores: Report Date 12/29/2018 FIM BladderScore: 5 FIM Bowel Score: 6 FIM Bed/Chair/Wheelchair Score: 5 FIM Toilet Transfer Score: 5 FIM Tub/Shower Transfer Score: 4 FIM Walk Score: 2 FIM Distance Walked(feet): 100 feet FIM Wheelchair Score: FIM Stairs Score :4 FIM Eating Score: 7 FIM Grooming Score: 5 FIM Bathing Score: 4 FIM Dressing Upper Body Score: 5 FIM Dressing Lower Body Score: 4 FIM Toileting Score: 5 Assessment and Rehab Plan: . The patient is benefiting from inpatient rehabilitation : Physiatric and nursing interv ention; physical therapy, occupational therapy, case management, and social insurance administrator #Rehab - -Continue PT for gait, mobility -Continue OT for ADL's, toileting, adaptive equipment -Continue SW for discharge planning IMPRESSION : 1. 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 Severe lumbar spine stenosis with the central and foraminal compromise bilaterally at L 4-5 and L5-S1, with exacerbation of the foraminal stenosis by associated large left-sided fo raminal synovial cyst at L5-S1 ; requiring 3. Successful surgery 12/23/18 : 1. Minimally invasive lumbar fusion via anterior and posterior approaches 2. Combined posteriolateral and posterior interbody arthrodesis L5-S1 3. Anterior lumbar interbody arthrodesis L4-5 4. Posterolateral lumbar arthrodesis L4, L5 5. Posterior spinal instrumentation L4-S1 with use of Precept 6. Placement of PEEK interbody spacer L4-5, L5-S1 L5 and partial S1 laminectomy, L5-S1 facetectomy, L5 and S1 foraminotomy for decompression of L5 and S1 nerves 4. Acute postoperative pain, requiring narcotic analgesics 5. Acute bowel and bladder voiding problems Associated active medical comorbidities : 6. Hypertension 7. COPD with bronchospastic component #Diet - Active Orders Diet Diet general; Effective Now PLAN : We are following up on yesterday's rehabilitation team conference. The patient's current Rehabilitation Team treatment focus and recommendations were discus sed with the patient. An overview of our current progress toward goals, and active Comprehensive Inpatient Medica l Rehabilitation treatment plan was provided to the patient. Each wall steamer is addressing this as the patient advances within the short-term rehabili tation treatment plan. We opine that we may continue to anticipate significant practical improvement in function f or our patient measured against the patient's condition at the onset of the inpatient rehabi litation program. The patient is seen and evaluated on rounds. Laboratory data reviewed. Meds reviewed. See the above comments on the adjustments in the meds. I reviewed status with patient's nurse and addressed current status, questions and issues. As above, we addressed the bowel and bladder program. I reviewed status with patient's Rehabilitation therapist and addressed current status, qu estionsand issues. Also evaluated him in the rehab therapy clinic. 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 However he remains impulsive. I discussed with him our concerns about the safety issues. PT is addressing this. I met with our patient and the supportive employment case manager, and we reviewed the overall plan of care and p rojected discharged date and destination. Note: My Progress Notes document close and ongoing Physiatric involvement; [id number] vi sits, professionally assessing the Patient, both Medically and Functionally, with the empha sis on the important interactions between our Patient's current clinical status, especially issues/barriers that may impact on the Rehabilitation Team's treatment and progress toward our medical and functional goals. I opine that this is important, so we will maximize our Patient's capacity to benefit from the Comprehensive Inpatient Medical Rehabilitation process. I will coordinate with the full team regarding the above plan and continue full rehabilitat ion program. Please see rehabilitation team notes. Individualized Overall Plan of Care: The patient is admitted for a course of Comprehensive Inpatient Medical Rehabilitation Serv ices, both reasonable and necessary; including 24 hr. Physician supervision for direction of all medical and rehabilitation care. The patient's functional status on admission to Inpatient Rehab is different and has declin ed compared to his/her premorbid status. The current functional status is similar to the Patient's functional status documented in the Pre-Admission screen. Specific plans are as follows: Medical issues: See H&P, Problem List, and Orders Precautions: Fall/Safety, Aspiration, Pain, Spinal, Seizure, Shower, Pressure Ulcer, Bowel and Bladder, Metabolic, and Vital Signs precautions Rehabilitation Nursing: Address, treat and train the patient and family/caregivers: Medication management, indicati on and management bowel and bladder, and coordination with the Human Performance Technologist managing medical co -morbidities; including Coordinate with Rehab therapies as we carry over and continue the Re habilitation Skill Training from the Rehab Clinic to the Nursing Unit. Therapies: Physical Therapy (Approx. 1 and one half hours daily at least 6 days per week) to include a s indicated: transfer training, gait training, balance juju, neuro juju, A/PROM, strengthen ing, and to safely negotiate the environment Occupational Therapy (Approx 1 and one half hours daily at least 6 days per week) to includ e: self care/ADL training, A/PROM, strengthening, visual-perceptual juju, neuro juju, IADLs , and safely function and perform self care skills Automobile Bumper Straightener Respiratory Therapy Please see each of the Medical Rehabilitation Team members' Individualized Plans of Care . I appreciate their input . I opine that this is important. I chandra additional pertinent information, and from this. I integrate input from all of of our Medical Rehabilitation Team that is required for fur ther details regarding the ongoing and further development of the Patient's expected course of Treatment Note: I synthesized all of the Rehabilitation Team Members' input to support this documente d overall Plan of Care. These expectations for the Patient's course of treatment are also based on my professional Physiatric training and experience as it pertains to our Patient's medical and functional ne eds and conditions. I coordinate all of this collaboration of our Interdisciplinary Team, along with my medical opinions considering our Patient's impairments, functional status, co- morbid I complicatin g conditions, and any other contributing factors. Goals: Medical stability and safety with all aspects of function to allow discharge to the [facility] at the optimal level of function. Current goals include medication management and administration, appropriate diet and nutrit ion, optimal management of bowel and bladder, addressing and minimizing pain management, fa cilitating mood and affect. Also addressing any problems with Activities of Daily Living, transfers, and safely negotia ting the environment. Family/caregiver training, and evaluation for adaptive equipment, will be included as progr am is advanced. Specific short term and buttermaker helper Rehabilitation Team Treatment Goals will be developed, sh ared and implemented in collaboration with our patient and family/caregivers. The Patient Care Secretary is the faye Rehab wall steamer interfacing with them. Rehab Potential: Good Expected Functional Level at Discharge: Independent/Modified Independent. Estimated length of stay: 4 days Discharge Plan: Discharge to pre-morbid independent living setting with the supportive care of patient's spouse/significant other/family/caregivers and community resources. Total time: 36 minutes. I spent greater than 50% of the time regarding patient care and co ordination of the Medical Rehabilitation Team treatment focus addressing these patient care needs on this date, including nursing unit/floor time, as well as time communicating with [facility] patient and treatment team as discussed above. Signed: Santana Sagastume MD Portions of this chart may have been created with [employer] voice recognition software. Occasi onal wrong-word or sound-alike substitutions may have occurred due to the inherent alvarez itations of voice recognition software. Please read the chart carefully and recognize, using context, where these substitutions have occurred. Reyna Moreno RN - 12/29/2018 0602 PSTContinues w/poor pain relief, asking for pain med an hour after receiving dose. Have tried ice pack to back and warm blanket to back w/o success. Will plan to repeat oxycodone at 0730. Will discuss w/Dr Sagastume pain management options Reyna Moreno RN - 12/29/2018 0211 PSTExperiencing increased pain in back radiating to rt buttock and down rt leg. Medicated w/oxycodone, tyle nol, and flexeril at 0110. Continues to c/o pain and request further pain med at this time.E lectronically signed by Reyna Camara RN at 12/29/2018 2:12 PSTHill, Santana Walters MD - 1401 PST [facility] Daily Progress Note Date: 12/28/2018 ID Quintin Wagner is a 78 y.o. male who was admitted 12/27/2018 Reason for encounter : CC : Physician follow-up to address the Medical and Rehabilitation needs, issues, and prob lems . These include serving as the patient's attending physician while on our Inpatient Acute R ehabilitation Service . I am responsible for managing and treating the active medical diagnoses as documented in t he Rehabilitation History and Physical Impressions and Progress Notes . Also I am responsible for leading and directing our Interdisciplinary Rehabilitation treatm ent Team members' efforts including management of problems with function including safety wi th self-care/activities of daily living as well as safely negotiating the environment/functi onal mobility. Interval history: Patient was admitted the inpatient rehab program yesterday Chief problem : Weakness and difficulty with self-care/ADLs and functional mobility He states he had some difficulty sleeping last night, partly due to his back pain, and also probably due to abdominal discomfort because he has not had a bowel movement since hospital ization. He is passing flatus. 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 Hypertension Acute bilateral low back pain with sciatica Simple chronic bronchitis Current Meds: Current Facility-Administered Medications: acetaminophen (TYLENOL) tablet 650 mg, 650 mg, Oral, Q4H PRN, Santana Sagastume MD, 6 50 mg at 12/28/18 1214 albuterol 2.5 mg/3 mL nebulizer solution 2.5 mg, 2.5 mg, Nebulization, RT Q4H PRN, Paulino Sagastume MD aluminum & magnesium hydroxide-simethicone (MAALOX PLUS REGULAR STRENGTH) 200-200-20 m g/5 mL suspension 30 mL, 30 mL, Oral, Q4H PRN, Santana Sagastume MD, 30 mL at 12/28/18 0428 atorvaSTATin (LIPITOR) tablet 20 mg, 20 mg, Oral, Nightly, Santana Sagastume MD, 20 m g at 12/27/182017 budesonide (PULMICORT) 0.5 mg/2 mL nebulizer solution 0.5 mg, 0.5 mg, Nebulization, RT BID, Santana Sagastume MD, 0.5 mg at 12/28/18 0921 calcium carbonate (TUMS) chewable tablet 500-1,000 mg, 500-1,000 mg, Oral, Q4H PRN, Deutsch reyes Sagastume MD, 1,000 mg at 12/27/182017 cloNIDine (CATAPRES) tablet 0.1 mg, 0.1 mg, Oral, 4x Daily PRN, Santana Sagastume MD cyclobenzaprine (FLEXERIL) tablet 10 mg, 10 mg, Oral, Q8H PRN, Santana Sagastume MD docusate sodium (COLACE) capsule 100 mg, 100 mg, Oral, BID PC, Santana Sagastume MD, 100 mg at 12/28/18 0812 docusate-senna (SENOKOT-S) 50-8.6 mg per tablet 2 tablet, 2 tablet, Oral, BID PC, Celia Sagastume MD, 2 tablet at 12/28/18 0813 enoxaparin (LOVENOX) 40 mg/0.4 mL injection 40 mg, 40 mg, Subcutaneous, Daily, Santana Sagastume MD, 40 mg at 12/28/18 0815 famotidine (PEPCID) tablet 20 mg, 20 mg, Oral, BID, Santana Sagastume MD, 20 mg at 0812 fluticasone (FLONASE) 50 mcg/nasal spray 2 spray, 2 spray, Each Nare, BID PRN, Santana Sagastume MD methocarbamol (ROBAXIN) tablet 1,500 mg, 1,500 mg, Oral, Q6H PRN, Zahida Bradley ondansetron (ZOFRAN ODT) disintegrating tablet 4 mg, 4 mg, Oral, Q6H PRN, Santana Sagastume MD oxyCODONE (ROXICODONE) tablet 5 mg, 5 mg, Oral, Q3H PRN, Santana Sagastume MD, 5 mg a t 12/28/18 1214 polyethylene glycol (MIRALAX) powder 17 g, 17 g, Oral, Daily, Santana Sagastume MD, 1 7 g at 12/28/18 0812 triamterene-hydrochlorothiazide (DYAZIDE) 37.5-25 MG per capsule 1 capsule, 1 capsule, Oral, Daily, Santana Sagastume MD, 1 capsule at 12/28/18 0812 zolpidem (AMBIEN) tablet 5 mg, 5 mg, Oral, Nightly PRN, Santana Sagastume MD Allergies: Allergies Allergen Reactions Hydrocodone Other (See Comments) Skin sloughing from penis Sulfa Antibiotics Rash Intolerance Allergen Reactions Lisinopril Other (See Comments) Cough Physical Exam: BP 122/80 | Pulse 84 | Temp 36.4 C (97.6 F) (Oral) | Resp 18 | Ht 1.753 m (5' 9") | Wt 91.4 kg (201 lb 8 oz) | SpO2 96% | BMI 29.76 kg/m Gen: Alert, sitting in bed, NAD HEENT: Head normocephalic. Mucosa moist. Pupils reactive to light. RESPIRATORY: Breathing comfortably. On auscultation lungs are clear, without retractions or adventitious sounds. CARDIOVASCULAR: Cardiac auscultation reveals regular rate and rhythm. Edema-none. CHEST: Nontender. GASTROINTESTINAL: Abdomen soft , mildly distended , with active bowel sounds present. No a bnormal masses or tenderness. The surgical incisions on the abdomen and back are clean and healing. MUSCULOSKELETAL: Extremities symmetric. Range of motion stable. NEUROLOGIC: The patient is alert. . PSYCHIATRIC: Mood and affect stable Focuses on the Examiner and follows commands Cranial nerves stable. NEUROMUSCULOSKELETAL: Normal tone and bullk. Strength testing in both upper extremities is normal and unremarkable. He has good contro l of his trunk musculature. In the lower extremity strength testing cause increased back pain with slight associated gi veaway weakness. Superimposed on this is mild smooth weakness of his ankle and toe dorsifle xors and foot everters right more than left. Sensation is intact to confrontation throughout. DTRs symmetric and hypoactive throughout. Labs: Recent Results (from the past 48 hour(s)) B Type Natriuretic Peptide Result Value Ref Range BNP 115 (H) <100 pg/mL CBC with Differential Result Value Ref Range WBC 18.7 (H) 4.0 - 11.0 K/uL RBC 5.55 4.30 - 5.70 M/uL Hemoglobin 15.4 13.5 - 18.0 g/dL Hematocrit 46.1 40.0 - 51.0 % MCV 83.1 83.0 - 101.0 fL MCH 27.7 (L) 28.0 - 35.0 pg MCHC 33.4 32.0 - 36.0 g/dL RDW-CV 13.3 <15.0 % RDW-SD 40.1 35.1 - 46.3 fL Platelet Count 402 140 - 440 K/uL MPV 8.7 6.5 - 12.4 fL % Neutrophils 64.7 45.0 - 82.0 % % Lymphocytes 20.9 20.0 - 45.0 % % Monocytes 9.0 4.0 - 12.0 % % Eosinophils 0.9 0.0 - 5.0 % % Basophils 0.4 0.0 - 1.0 % % Immature Granulocytes 4.1 (H) 0.0 - 0.4 % Absolute Neutrophils 12.09 (H) 1.80 - 8.50 K/uL Absolute Lymphocytes 3.91 (H) 0.60 - 3.20 K/uL Absolute Monocytes 1.68 (H) 0.00 - 1.00 K/uL Absolute Eosinophils 0.17 0.00 - 0.40 K/uL Absolute Basophils 0.07 0.00 - 0.10 K/uL Absolute Immature Granulocytes 0.77 (H) 0.00 - 0.03 K/uL % nRBC 0 0 - 2 per 100 WBC's Absolute nRBC 0.02 (H) 0.00 - 0.01 K/uL Comprehensive Metabolic Panel Result Value Ref Range Na 135 (L) 136 - 149 mmol/L K 3.8 3.5 - 5.1 mmol/L Cl 97 (L) 98 - 109 mmol/L CO2 28 24 - 31 mmol/L Anion Gap 10 3 - 16 mmol/L Glucose 124 (H) 70 - 109 mg/dL BUN 21 (H) 7 - 18 mg/dL Creatinine 0.86 0.60 - 1.30 mg/dL eGFR if not >60 >=60 mL/min/1.73m2 Ca 8.8 8.3 - 10.5 mg/dL Albumin 3.1 (L) 3.2 - 5.0 g/dL Bilirubin Total 0.8 0.1 - 1.5 mg/dL Total Protein 6.7 6.0 - 7.8 g/dL AST 32 10 - 42 U/L ALT 40 6 - 45 U/L Alkaline Phosphatase 46 40 - 110 U/L Globulin 3.6 2.1 - 3.8 g/dL Albumin/Globulin Ratio 0.9 0.8 - 2.0 BUN/Creatinine Ratio 24.4 Hemoglobin A1C Result Value Ref Range Hemoglobin A1c 6.3 (H) 4.3 - 6.0 % Estimated Average Glucose 134 mg/dL Magnesium Result Value Ref Range Magnesium 2.0 1.8 - 2.5 mg/dL Prealbumin Result Value Ref Range Prealbumin 29 18 - 38 mg/dL Most recent FIM scores: Report Date 12/28/2018 FIM BladderScore: 5 FIM Bowel Score: 6 FIM Bed/Chair/Wheelchair Score: 4 FIM Toilet Transfer Score: 5 FIM Tub/Shower Transfer Score: FIM Walk Score: 2 FIM Distance Walked(feet): 100 feet FIM Wheelchair Score: FIM Stairs Score :4 FIM Eating Score: FIM Grooming Score: FIM Bathing Score: FIM Dressing Upper Body Score: FIM Dressing Lower Body Score: FIM Toileting Score: 5 Assessment and Rehab Plan: . The patient is benefiting from inpatient rehabilitation : Physiatric and nursing interv ention; physical therapy, occupational therapy, case management, and social insurance administrator #Rehab - -Continue PT for gait, mobility -Continue OT for ADL's, toileting, adaptive equipment -Continue SW for discharge planning IMPRESSION : 1. 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 Severe lumbar spine stenosis with the central and foraminal compromise bilaterally at L 4-5 and L5-S1, with exacerbation of the foraminal stenosis by associated large left-sided fo raminal synovial cyst at L5-S1 ; requiring 3. Successful surgery 12/23/18 : 1. Minimally invasive lumbar fusion via anterior and posterior approaches 2. Combined posteriolateral and posterior interbody arthrodesis L5-S1 3. Anterior lumbar interbody arthrodesis L4-5 4. Posterolateral lumbar arthrodesis L4, L5 5. Posterior spinal instrumentation L4-S1 with use of Precept 6. Placement of PEEK interbody spacer L4-5, L5-S1 L5 and partial S1 laminectomy, L5-S1 facetectomy, L5 and S1 foraminotomy for decompression of L5 and S1 nerves 4. Acute postoperative pain, requiring narcotic analgesics 5. Acute bowel and bladder voiding problems Associated active medical comorbidities : 6. Hypertension 7. COPD with bronchospastic component #Diet - Active Orders Diet Diet general; Effective Now PLAN I opine that the patient will benefit from our acute inpatient rehabilitation program to en sure patient's safety and maximize outcome prior to discharge. Reviewed recent diagnostic studies. Reviewed current medications, and addressed medication management. The patient is seen and evaluated on rounds. Laboratory data reviewed. The CBC shows significant elevation of WBCs of 18.7. Clinically there is no sign of active infection. I believe this is because of the recent IV Decadron which we have discontinued. I will follow him closely clinically on this. H+H normal. No sign of anemia. Chemistry studies show increased glucose at 124 and glycohemoglobin at 6.3. Patient does n ot have history of diabetes. We'll follow blood sugars for now. I reviewed status with patient's nurse and addressed current status, questions and issues. He addressed his bowel and bladder program. We'll have her receive suppository after dinner tonight. Rechecking his postvoid residual. I reviewed status with patient's Rehabilitation therapist and addressed current status, qu estionsand issues. Initial rehab therapy evaluation and treatments are underway. We are orienting him to the program. I met with our patient and his , as well as our supportive employment case manager, and we reviewed the over all plan of care and projected discharged date and destination. Also I met with the full rehab team in conference today and provided an overview of his rec ent medical history and treatment, as well as pertinent comorbidities. Is cleared for full program with spinal B precautions Note: My Progress Notes document close and ongoing Physiatric involvement; [id number] vi sits, professionally assessing the Patient, both Medically and Functionally, with the empha sis on the important interactions between our Patient's current clinical status, especially issues/barriers that may impact on the Rehabilitation Team's treatment and progress toward our medical and functional goals. I opine that this is important, so we will maximize our Patient's capacity to benefit from the Comprehensive Inpatient Medical Rehabilitation process. I will coordinate with the full team regarding the above plan and continue full rehabilitat ion program. Please see rehabilitation team notes. Reviewed current rehabilitation therapy treatment documentation, noting the patient's s tatus and tolerance. Rehabilitation therapy staff is continuing to coordinate and collaborate with the [facility]'s nursing staff to complement their therapy treatment focus, especially considering safet y factors as the patient is mobilized on the nursing unit. Respiratory therapy is following; 02 weaning with activity as tolerated. Hypertension/Hypotension. BP pattern being followed with activity. Continue to monitorBP to rule out any orthostatic problem. Bowel/Bladder Management. Continue routine bowel program including stool softeners and laxatives and as needed suppository/enema with current constipation; and continue routine b ladder program with void trial/bladder scanning for PVR's with IC as indicated. DVT Prophylaxis. Per protocol. Rehabilitation. Continue early rehab therapy regimen as tolerated; therapy staff follo w closely to see if any fatigue complaints reported after therapy. I am directing the above issues, and coordinating with the patient's other physicians in this regards, considering relationships with the other medical co-morbidities, as well a s following up with the patient's bedside nurse, and supportive employment case manager/social insurance administrator. Total time: 37 minutes. I spent greater than 50% of the time regarding patient care and co ordination of the Medical Rehabilitation Team treatment focus addressing these patient care needs on this date, including nursing unit/floor time, as well as time communicating with [facility] patient and treatment team as discussed above. Post- Admission Rehabilitation Physician Evaluation and Plan of Care: Inpatient Rehabilitation Post-admission note Quintin Wagner is a 78 y.o. male. : 1940 Admit Date: 12/27/2018 Attending Provider: Santana Sagastume MD Admitting Diagnosis: spinal stenosis Compared to the preadmission screen, the patient is as described. Major discrepancies from pre-admission screen: None It is safe to initiate therapies. This admission is reasonable and necessary because of both medical and functional necessity . See H and P note dated 12/27/2018 for details, as well as Admitting Functional Status repo rted next. Admitting Functional Status: FIM BladderScore: 5 FIM Bowel Score: 5 FIM Bed/Chair/Wheelchair Score: 4 FIM Toilet Transfer Score: 3 FIM Tub/Shower Transfer Score: 3 FIM Walk Score: 1 FIM Distance Walked(feet): 80 ; FWW ; CGA FIM Wheelchair Score: 4 FIM Stairs Score :2 FIM Eating Score: 5 FIM Grooming Score: 5 FIM Bathing Score: 2 FIM Dressing Upper Body Score: 4 FIM Dressing Lower Body Score: 3 FIM Toileting Score: 3 Prior functional status:Patient was independent in mobility, self-care, swallowing, bladder /bowel, communication, cognition. Medical History: See H&P note dated 12/27/2018 Patient's condition on admission: See H&P note dated 12/27/2018 Physical Exam: See H&P note dated 12/27/2018 Clinical complications and medical conditions the patient is at risk for d/t comorbidities and rigors of the intensive rehab program with the specific plan to avoid them: See H&P note dated 12/27/2018 Functional Goals: Mod I bed mobility Mod I transfers Mod I >150 feet gait with FWW Mod I UE dressing Mod I LE dressing Mod I 6 steps Mod I toileting Mod I toileting transfers Continent of bowel and bladder Patient Active Problem List Diagnosis Synovial cyst of lumbar spine Lumbar radiculopathy Foraminal stenosis of lumbar region Lumbar facet arthropathy Spinal stenosis of lumbar region without neurogenic claudication Hypertension Hyperlipidemia Congestive heart failure, chronic, left-sided Chest pain Asthma CAD (coronary artery disease) ADMIT PLAN OF CARE Plan of Care: The patient is admitted for a course of Comprehensive Inpatient Medical Rehabilitation Serv ices. I opine that from an objective medical perspective these services are both reasonable and necessary. This includes 24-hour Physician supervision and direction of all medical an d rehabilitation care. The patient's functional status on admission to Inpatient Rehab is different and has decli jennifer compared to premorbid status. The current functional status is similar as that document ed in Preadmission screen. Specific plans are as follows: See orders Precautions: Medical stability and clearance for full Rehab, including Aspiration/Fall/Safety precaution s. See the above H+P Assessments and Comments. Rehabilitation Nursing Coordinate with Rehab therapies as we carry over and continue the Rehabilitation Skill tra ining from the Rehab Clinic to the Nursing Unit. Address, treat and train the patient and family/caregivers: Medication indication and mt gement, bowel and bladder, and coordination with the Human Performance Technologist management medical comorbid ities. Therapies: Physical Therapy (1-1 Y2 hours daily at least 6 days per week) Occupational Therapy (1- 1 Y2 hours daily at least 6 days per week) Respiratory Therapy (evaluate and treat as appropriate, including coordinating with P.T., O .T. and Nursing as we follow the patient's blood pressure, heart rate, and pulse oximetry a s we advance the intensity of the Comprehensive Medical Rehabilitation Program.) Clinical Test Desk Supervisor Pharmacist Goals: Medical stability and safety with function to allow discharge to the community at the optim al level of function. Current goals include medication management and administration, appro priate diet and.nutrition,' optimal management of bowel and bladder, addressing and minimizi ng pain problems, facilitating mood and affect. Also addressing any problems with Nutrition , Dysphagia, Activities of Daily Living, transfers and safety negotiating the environment. Family/caregiver training and evaluation for adaptive equipment, continue and educate/melany mmend medical care co-morbidities will be included as program is advanced. Specific short-term and long-term Rehabilitation Team Treatment Goals will be developed, sy nthesized and implemented in collaboration with our patient and family/caregivers. The Patient Care Secretary is the faye Rehab wall steamer interfacing with them. Rehab potential is good. Estimated length of stay: 6 days. Discharge Plan: Discharge to premorbid independent living setting with the supportive car e of family/caregivers and community resources. Signed: Santana Sagastume MD 12/28/2018 14:02 Portions of this chart may have been created with [employer] voice recognition software. Occasi onal wrong-word or sound-alike substitutions may have occurred due to the inherent alvarez itations of voice recognition software. Please read the chart carefully and recognize, using context, where these substitutions have occurred. documented in this en counter Plan of Treatment + +--------+ + + | Name | Priori | Associated Diagnoses | Order Schedule | | | ty | | | + +--------+ + + | Physical Therapy - Ambulatory | Routin | Spinal stenosis of | Ordered: 01/03/2019 | | Referral | e | lumbar region | | | | | without neurogenic | | | | | claudication | | + +--------+ + + | Occupational Therapy, External - | Routin | Spinal stenosis of | Ordered: 01/03/2019 | | AMB Referral | e | lumbar region | | | | | without neurogenic | | | | | claudication | | + +--------+ + + documented as of this encounter Procedures + +--------+ [...] + | POC GLUCOSE | Routin | 12/29/2018 | | Results for this | | | e | 21:44 PST | | procedure are in the | | | | | | results section. | + +--------+ + + + | POC GLUCOSE | Routin | 12/29/2018 | | Results for this | | | e | 17:36 PST | | procedure are in the | | | | | | results section. | + +--------+ + + + | POC GLUCOSE | Routin | 12/29/2018 | | Results for this | | | e | 11:59 PST | | procedure are in the | | | | | | results section. | + +--------+ + + + | POC GLUCOSE | Routin | 12/29/2018 | | Results for this | | | e | 7:54 PST | | procedure are in the | | | | | | results section. | + +--------+ + + + | POC GLUCOSE | Routin | 12/28/2018 | | Results for this | | | e | 21:12 PST | | procedure are in the | | | | | | results section. | + +--------+ + + + | POC GLUCOSE | Routin | 12/28/2018 | | Results for this | | | e | 16:57 PST | | procedure are in the | | | | | | results section. | + +--------+ + + + | CBC WITH | Routin | 12/28/2018 | | Results for this | | DIFFERENTIAL | e | 6:45 PST | | procedure are in the | | | | | | results section. | + +--------+ + + + | PREALBUMIN | Routin | 12/28/2018 | | Results for this | | | e | 6:45 PST | | procedure are in the | | | | | | results section. | + +--------+ + + + | B TYPE NATRIURETIC | Routin | 12/28/2018 | | Results for this | | PEPTIDE | e | 6:45 PST | | procedure are in the | | | | | | results section. | + +--------+ + + + | MAGNESIUM | Routin | 12/28/2018 | | Results for this | | | e | 6:45 PST | | procedure are in the | | | | | | results section. | + +--------+ + + + | HEMOGLOBIN A1C | Routin | 12/28/2018 | | Results for this | | | e | 6:45 PST | | procedure are in the | | | | | | results section. | + +--------+ + + + | COMPREHENSIVE | Routin | 12/28/2018 | | Results for this | | METABOLIC PANEL | e | 6:45 PST | | procedure are in the | | | | | | results section. | + +--------+ + + + documented in this encounter Results POC Glucose (01/03/2019 6:27 PST) + +-------+ + + + | Component | Value | Ref Range | Performed | Pathologist | | | | | At | Signature | + +-------+ + + + | Glucose, | 109 | 70 - 109 mg/dL | [facility] | | | POC | | | [facility] | | | | | | [...] | + + + + + | [facility] | [address] | [place] | [phone] | | [facility] | | [address] | | | - LABORATORY | | | | + + + + + CBC with Differential (01/03/2019 6:01 PST) + + + + + + | Component | Value | Ref Range | Performed | Pathologist | | | | | At | Signature | + + + + + + | WBC | 10.5 | 4.0 - 11.0 K/uL | [facility] - | | | | | | LAB[facility]ATORY | | + + + + + + | RBC | 5.49 | 4.30 - 5.70 | [facility] | | | | | M/uL | [facility] | [facility] | [facility] | | | | | | C[facility] - | | | | | | LABORATORY | | + + + + + + | Hemoglobin | 15.3 | 13.5 - 18.0 | [facility] | | | | | g/dL | [facility] | [facility] | | | | | | CENTER - | | | | | | LABORATORY | | + + + + + + | Hematocrit | 46.3 | 40.0 - 51.0 % | [facility] | | | | [facility] | [facility] | [facility] | | | | | | [facility] - | | | | | | LABORATORY | | + + + + + + | MCV | 84.3 | 83.0 - 101.0 fL | [facility] | [facility] | [facility] | [facility] | [facility] | | | | | | C[facility] - | | | | | | LABORATORY | | + + + + + + | MCH | 27.9 (L) | 28.0 - 35.0 pg | [facility] | | | | | [facility] | | | | | | [facility] | | | | | | C[facility] - | | | | | | LABORATORY | | + + + + + + | MCHC | 33.0 | 32.0 - 36.0 | [facility] | | | | | g/dL | [facility] | | | | | | [facility] | | | | | | CENTER - | | | | | | LABORATORY | | + + + + + + | RDW-CV | 13.2 | <15.0 % | [facility] | [facility] | | [facility] | | | [facility] | [facility] | | | | | | CENTER - | | | | | | LABORATORY | | + + + + + + | RDW-SD | 40.6 | 35.1 - 46.3 fL | [facility] | [facility] | | [facility] | [facility] | [facility] | | | | | | [facility] - | | | | | | LABORATORY | | + + + + + + | Platelet | 362 | 140 - 440 K/uL | [facility] | | | Count | | | [facility] | | | [facility] | [facility] | | | | | | CENTER - | | | | | | LABORATORY | | + + + + + + | MPV | 8.4 | 6.5 - 12.4 fL | [facility] | | | | | [facility] | | | | | | [facility] | | | | | | CENTER - | | | | | | LABORATORY | | + + + + + + | % | 50.2 | 45.0 - 82.0 % | [facility] | | | Neutrophils | | | [facility] | | | | | | [facility] | | | | | | CENTER - | | | | | | LABORATORY | | + + + + + + | % | 22.3 | 20.0 - 45.0 % | [facility] | | | Lymphocytes | | | [facility] | | | | | | [facility] | | | | | | CENTER - | | | | | | LABORATORY | | + + + + + + | % Monocytes | 12.3 (H) | 4.0 - 12.0 % | [facility] | | | | | | [facility] | | | | | | [facility] | | | | | | CENTER - | | | | | | LABORATORY | | + + + + + + | % | 11.8 (H) | 0.0 - 5.0 % | [facility] | | | Eosinophils | | | [facility] | | | | | | [facility] | | | | | | CENTER - | | | | | | LABORATORY | | + + + + + + | % Basophils | 1.0 | 0.0 - 1.0 % | [facility] | | | | | | [facility] | | | | | | [facility] | | | | | | CENTER - | | | | | | LABORATORY | | + + + + + + | % Immature | 2.4 (H)Comment: | 0.0 - 0.4 % | [facility] | | | Granulocyte | Preliminary studIes have | | [facility] | | | s | indicated the [...] | Neutrophils | | K/uL | [facility] | [facility] | [facility] | | | | | | CENTER - | | | | | | LABORATORY | | + + + + + + | Absolute | 2.34 | 0.60 - 3.20 | [facility] | | | Lymphocytes | | K/uL | [facility] | | | [facility] | | [facility] | | | | | | CENTER - | | | | | | LABORATORY | | + + + + + + | Absolute | 1.29 (H) | 0.00 - 1.00 | [facility] | | | Monocytes | | K/uL | [facility] | | | | | | [facility] | | | | | | CENTER - | | | | | | LABORATORY | | + + + + + + | Absolute | 1.24 (H) | 0.00 - 0.40 | [facility] | | | Eosinophils | | K/uL | [facility] | | | | | | [facility] | | | | | | CENTER - | | | | | | LABORATORY | | + + + + + + | Absolute | 0.10 | 0.00 - 0.10 | [facility] | | | Basophils | | K/uL | [facility] | | | | | | [facility] | | | | | | CENTER - | | | | | | LABORATORY | | + + + + + + | Absolute | 0.25 (H) | 0.00 - 0.03 | [facility] | | | Immature | | K/uL | [facility] | | | Granulocyte | | | [...] | + + + + + | [facility] | [address] | [place] | [phone] | | [facility] | | [address] | | | - LABORATORY | | [...] | | | | mmol/L | [facility] | | | | | | MEDICAL | | | | | | CENTER - | | | | | | LABORATORY | | + +---------+ + + + | K | 3.8 | 3.4 - 5.1 | [facility] | | | | | mmol/L | [facility] | | | | | | [facility]ICAL | | | | | | CENTER - | | | | | | LABORATORY | | + +---------+ + + + | Cl | 96 (L) | 98 - 107 mmol/L | [facility] | | | | | | [facility] | | | | | | [facility] | | | | | | CENTER - | | | | | | LABORATORY | | + +---------+ + + + | CO2 | 34 (H) | 20 - 31 mmol/L | [facility] | | | | | [facility] | | | | | | [facility] | | | | | | CENTER - | | | | | | LABORATORY | | + +---------+ + + + | Anion Gap | 6 | 3 - 16 mmol/L | [facility] | | | | | | [facility] | | | | | | [facility] | | | | | | CENTER - | | | | | | LABORATORY | | + +---------+ + + + | Glucose | 116 (H) | 60 - 106 mg/dL | [facility] | | | | | | [facility] | | | | | | [facility]ICAL | | | | | | CENTER - | | | | | | LABORATORY | | + +---------+ + + + | BUN | 16 | 9 - 23 mg/dL | [facility] | | | | | | [facility] | | | | | | MEDICAL [...] | | | | mL/min/1.73m2 | [facility] | | | [place] | | | MEDICAL | | | | | | CENTER - | | | | | | LABORATORY | | + +---------+ + + + | Ca | 9.4 | 8.7 - 10.4 | [facility] | | | | | mg/dL | [facility] | | | | | | MEDICAL | | | | | | CENTER - | | | | | | LABORATORY | | + +---------+ + + + | BUN/Creatin | 15.1 | | [facility] | | | ine Ratio | | | [facility] | | | | | | MEDICAL [...] | + + + + + | [facility] | [address] | [place] | [phone] | | [facility] | | [address] | | | - LABORATORY | | | | + + + + + POC Glucose (01/02/2019 21:28 PST) + +---------+ + + + | Component | Value | Ref Range | Performed | Pathologist | | | | | At | Signature | + +---------+ + + + | Glucose, | 115 (H) | 70 - 109 mg/dL | [facility] | | | POC | | | [facility] | | | | | | [...] | + + + + + | [facility] | [address] | [place] | [phone] | | [facility] | | [address] | | | - LABORATORY | | | | + + + + + POC Glucose (01/02/2019 16:45 PST) + +-------+ + + + | Component | Value | Ref Range | Performed | Pathologist | | | | | At | Signature | + +-------+ + + + | Glucose, | 101 | 70 - 109 mg/dL | [facility] | | | POC | | | [facility] | | | | | | MEDICAL [...] ST. | [address] | [place] | [phone] | | [facility] | | [address] | | | - LABORATORY | | | | + + + + + POC Glucose (01/02/2019 12:01 PST) + +---------+ + + + | Component | Value | Ref Range | Performed | Pathologist | | | | | At | Signature | + +---------+ + + + | Glucose, | 138 (H) | 70 - 109 mg/dL | [facility] | | | POC | | | [facility] | | | | | | MEDICAL [...] | + + + + + | [facility] | [address] | [place] | [phone] | | [facility] | | [address] | | | - LABORATORY | | | | + + + + + POC Glucose (01/02/2019 6:45 PST) + +---------+ + + + | Component | Value | Ref Range | Performed | Pathologist | | | | | At | Signature | + +---------+ + + + | Glucose, | 150 (H) | 70 - 109 mg/dL | [facility] | | | POC | | | [facility] | | | | | | MEDICAL [...] | + + + + + | [facility] | [address] | [place] | [phone] | | [facility] | | [address] | | | - LABORATORY | | | | + + + + + POC Glucose (01/01/2019 22:15 PST) + +---------+ + + + | Component | Value | Ref Range | Performed | Pathologist | | | | | At | Signature | + +---------+ + + + | Glucose, | 112 (H) | 70 - 109 mg/dL | [facility] | | | POC | | | [facility] | | | | | | [...] [facility]. | [address] | [place] | [phone] | | [facility] | | [address] | | | - LABORATORY | | | | + + + + + POC Glucose (01/01/2019 11:56 PST) + +-------+ + + + | Component | Value | Ref Range | Performed | Pathologist | | | | | At | Signature | + +-------+ + + + | Glucose, | 98 | 70 - 109 mg/dL | [facility] | | | POC | | | [facility] | | | | | | [...] | + + + + + | [facility] | [address] | [place], [place] | [phone] | | [facility] | | [address] | | | - LABORATORY | | | | + + + + + POC Glucose (01/01/2019 6:49 PST) + +---------+ + + + | Component | Value | Ref Range | Performed | Pathologist | | | | | At | Signature | + +---------+ + + + | Glucose, | 135 (H) | 70 - 109 mg/dL | [facility] | | | POC | | | [facility] | | | | | | MEDICAL [...] | + + + + + | [facility] | [address] | [place] | [phone] | | [facility] | | [address] | | | - LABORATORY | | | | + + + + + POC Glucose (12/31/2018 22:11 PST) + +---------+ + + + | Component | Value | Ref Range | Performed | Pathologist | | | | | At | Signature | + +---------+ + + + | Glucose, | 142 (H) | 70 - 109 mg/dL | [facility] | | | POC | | | [facility] | | | | | | [...] ST. | [address] | [place], [place] | [phone] | | [facility] | | [address] | | | - LABORATORY | | | | + + + + + POC Glucose (12/31/2018 17:17 PST) + +---------+ + + + | Component | Value | Ref Range | Performed | Pathologist | | | | | At | Signature | + +---------+ + + + | Glucose, | 124 (H) | 70 - 109 mg/dL | [facility] | | | POC | | | [...] | + + + + + | [facility] | [address] | [place] | [phone] | | [facility] | | [address] | | | - LABORATORY | | | | + + + + + POC Glucose (12/31/2018 6:46 PST) + +---------+ + + + | Component | Value | Ref Range | Performed | Pathologist | | | | | At | Signature | + +---------+ + + + | Glucose, | 117 (H) | 70 - 109 mg/dL | [facility] | | | POC | | | [facility] | | | | | | MEDICAL [...] | + + + + + | [facility] | [address] | [place] | [phone] | | [facility] | | [address] | | | - LABORATORY | | | | + + + + + POC Glucose (12/30/2018 21:57 PST) + +---------+ + + + | Component | Value | Ref Range | Performed | Pathologist | | | | | At | Signature | + +---------+ + + + | Glucose, | 141 (H) | 70 - 109 mg/dL | [facility] | | | POC | | | [facility] | | | | | | [...] | + + + + + | [facility] | [address] | [place] | [phone] | | [facility] | | [address] | | | - LABORATORY | | | | + + + + + POC Glucose (12/30/2018 17:24 PST) + +---------+ + + + | Component | Value | Ref Range | Performed | Pathologist | | | | | At | Signature | + +---------+ + + + | Glucose, | 115 (H) | 70 - 109 mg/dL | [facility] | | | POC | | | [...] + + | [facility] | [address] | [place] | [phone] | | [facility] | | [address] | | | - LABORATORY | | | | + + + + + POC Glucose (12/30/2018 12:53 PST) + +---------+ + + + | Component | Value | Ref Range | Performed | Pathologist | | | | | At | Signature | + +---------+ + + + | Glucose, | 143 (H) | 70 - 109 mg/dL | [facility] | | | POC | | | [facility] | | | | | | MEDICAL [...] | + + + + + | [facility] | [address] | [place] | [phone] | | [facility] | | [address] | | | - LABORATORY | | | | + + + + + POC Glucose (12/30/2018 6:52 PST) + +---------+ + + + | Component | Value | Ref Range | Performed | Pathologist | | | | | At | Signature | + +---------+ + + + | Glucose, | 130 (H) | 70 - 109 mg/dL | [facility] | | | POC | | | [facility] | | | | | | MEDICAL [...] | + + + + + | [facility] | [address] | [place] | [phone] | | [facility] | | [address] | | | - LABORATORY | | | | + + + + + POC Glucose (12/29/2018 21:44 PST) + +-------+ + + + | Component | Value | Ref Range | Performed | Pathologist | | | | | At | Signature | + +-------+ + + + | Glucose, | 107 | 70 - 109 mg/dL | [facility] | | | POC | | | [...] ST. | [address] | [place] | [phone] | | [facility] | | [address] | | | - LABORATORY | | | | + + + + + POC Glucose (12/29/2018 17:36 PST) + +---------+ + + + | Component | Value | Ref Range | Performed | Pathologist | | | | | At | Signature | + +---------+ + + + | Glucose, | 113 (H) | 70 - 109 mg/dL | [facility] | | | POC | | | [facility] | | | | | | MEDICAL [...] | + + + + + | [facility] | [address] | [place] | [phone] | | [facility] | | [address] | | | - LABORATORY | | | | + + + + + POC Glucose (12/29/2018 11:59 PST) + +-------+ + + + | Component | Value | Ref Range | Performed | Pathologist | | | | | At | Signature | + +-------+ + + + | Glucose, | 91 | 70 - 109 mg/dL | [facility] | | | POC | | | [facility] | | | | | | MEDICAL [...] | + + + + + | [facility] | [address] | [place] | [phone] | | [facility] | | [address] | | | - LABORATORY | | | | + + + + + POC Glucose (12/29/2018 7:54 PST) + +-------+ + + + | Component | Value | Ref Range | Performed | Pathologist | | | | | At | Signature | + +-------+ + + + | Glucose, | 97 | 70 - 109 mg/dL | [facility] | | | POC | | | [facility] | | | | | | [...] [facility]. | [address] | [place], [place] | [phone] | | [facility] | | [address] | | | - LABORATORY | | | | + + + + + POC Glucose (12/28/2018 21:12 PST) + +-------+ + + + | Component | Value | Ref Range | Performed | Pathologist | | | | | At | Signature | + +-------+ + + + | Glucose, | 109 | 70 - 109 mg/dL | [facility] | | | POC | | | [...] | + + + + + | [facility] | [address] | [place] | [phone] | | [facility] | | [address] | | | - LABORATORY | | | | + + + + + POC Glucose (12/28/2018 16:57 PST) + +---------+ + + + | Component | Value | Ref Range | Performed | Pathologist | | | | | At | Signature | + +---------+ + + + | Glucose, | 138 (H) | 70 - 109 mg/dL | [facility] | | | POC | | | [facility] | | | | | | MEDICAL [...] | + + + + + | [facility] | [address] | [place] | [phone] | | [facility] | | [address] | | | - LABORATORY | | | | + + + + + Prealbumin (12/28/2018 6:45 PST) + +-------+ + + + | Component | Value | Ref Range | Performed | Pathologist | | | | | At | Signature | + +-------+ + + + | Prealbumin | 29 | 18 - 38 mg/dL | [facility] | | | | | | [facility] [...] | + + + + + | [facility] | [address] [address] | [place] | [phone] | | [facility] | | [address] | | | - LABORATORY | | | | + + + + + Magnesium (12/28/2018 6:45 PST) + +-------+ + + + | Component | Value | Ref Range | Performed | Pathologist | | | | | At | Signature | + +-------+ + + + | Magnesium | 2.0 | 1.8 - 2.5 mg/dL | [facility] | | | | | | [facility] | | | | | | [...] + + | [facility] | [address] | [place] | [phone] | | [facility] | | [address] | | | - LABORATORY | | | | + + + + + Hemoglobin A1C (12/28/2018 6:45 PST) + +---------+ + + + | Component | Value | Ref Range | Performed | Pathologist | | | | | At | Signature | + +---------+ + + + | Hemoglobin | 6.3 (H) | 4.3 - 6.0 % | [facility] | | | A1c | | | [facility] | | | | | | [facility] | | | | | | CENTER - | | | | | | LABORATORY | | + +---------+ + + + | Estimated | 134 | mg/dL | [facility] | | | Average | | | [facility] | | | Glucose | | | MEDICAL | | | [...] | + + + + + | [facility] | [address] | [place] | [phone] | | [facility] | | [address] | | | - LABORATORY | | | | + + + + + Comprehensive Metabolic Panel (12/28/2018 6:45 PST) + + + + + + | Component | Value | Ref Range | Performed | Pathologist | | | | | At | Signature | + + + + + + | Na | 135 (L) | 136 - 149 | [facility] | | | | | mmol/L | [facility] | | | | | | MEDICAL | | | | | | CENTER - | | | | | | LABORATORY | | + + + + + + | K | 3.8 | 3.5 - 5.1 | [facility] | | | | | mmol/L | [facility] | | | | | | [facility] | | | | | | CENTER - | | | | | | LABORATORY | | + + + + + + | Cl | 97 (L) | 98 - 109 mmol/L | [facility] | | | | | | [facility] | | | | | | [facility]ICAL | | | | | | CENTER - | | | | | | LABORATORY | | + + + + + + | CO2 | 28 | 24 - 31 mmol/L | [facility] | | | | | | [facility] | | | | | | MEDICAL | | | | | | CENTER - | | | | | | LABORATORY | | + + + + + + | Anion Gap | 10 | 3 - 16 mmol/L | [facility] | | | | | | [facility] | | | | | | MEDICAL | | | | | | CENTER - | | | | | | LABORATORY | | + + + + + + | Glucose | 124 (H) | 70 - 109 mg/dL | [facility] | | | | | | [facility] | | | | | | [facility] | | | | | | CENTER - | | | | | | LABORATORY | | + + + + + + | BUN | 21 (H) | 7 - 18 mg/dL | [facility] | | | | | | [facility] | | | | | | [facility]ICAL | | | | | | CENTER - | | | | | | LABORATORY | | + + + + + + | Creatinine | 0.86 | 0.60 - 1.30 | [facility] | | | | | mg/dL | [facility] | | | | | | [facility] | | | | | | CENTER - | | | | | | LABORATORY | | + + + + + + | eGFR if not | >60Comment: GLOMERULAR | >=60 | [facility] | | | | FILTRATION | mL/min/1.73m2 | [facility] | | | [place] | RATE,ESTIMATED mL/min | | MEDICAL | | | | /1.97w1Wkul than 60 | | CENTER - | | | | Chronic kidney | | LABORATORY | | | | disease,if found over a | | | | | | 3-month period.Less than | | | | | | 15 Kidney | | | | | | failureFor | | | | | | Americans,multiply the | | | | | | calculated GFR by 1.21. | | | | | | | | | | + + + + + + | Ca | 8.8 | 8.3 - 10.5 | [facility] | | | | | mg/dL | [facility] | | | | | | MEDICAL | | | | | | CENTER - | | | | | | LABORATORY | | + + + + + + | Albumin | 3.1 (L) | 3.2 - 5.0 g/dL | [facility] | | | | | | [facility] | | | | | | [facility]ICAL | | | | | | CENTER - | | | | | | LABORATORY | | + + + + + + | Bilirubin | 0.8 | 0.1 - 1.5 mg/dL | [facility] | | | Total | | | [facility] | | | | | | MEDICAL | | | | | | CENTER - | | | | | | LABORATORY | | + + + + + + | Total | 6.7 | 6.0 - 7.8 g/dL | [facility] | | | Protein | | | [facility] | | | | | | MEDICAL | | | | | | CENTER - | | | | | | LABORATORY | | + + + + + + | AST | 32 | 10 - 42 U/L | [facility] | | | | | | [facility] | | | | | | MEDICAL | | | | | | CENTER - | | | | | | LABORATORY | | + + + + + + | ALT | 40 | 6 - 45 U/L | [facility] | | | | | | [facility] | | | | | | [facility]ICAL | | | | | | CENTER - | | | | | | LABORATORY | | + + + + + + | Alkaline | 46 | 40 - 110 U/L | [facility] | | | Phosphatase | | | [facility] | | | | | | MEDICAL | | | | | | CENTER - | | | | | | LABORATORY | | + + + + + + | Globulin | 3.6 | 2.1 - 3.8 g/dL | [facility] | | | | | | [facility] | | | | | | MEDICAL | | | | | | CENTER - | | | | | | LABORATORY | | + + + + + + | Albumin/Lilia | 0.9 | 0.8 - 2.0 | [facility] | | | bulin Ratio | | | [facility] | | | | | | MEDICAL | | | | | | CENTER - | | | | | | LABORATORY | | + + + + + + | BUN/Creatin | 24.4 | | [facility] | | | ine Ratio | | | [facility] | | | | | | [facility] [...] | + + + + + | [facility] | [address] | [place] | [phone] | | [facility] | | [address] | | | - LABORATORY | | | | + + + + + CBC with Differential (12/28/2018 6:45 PST) + + + + + + | Component | Value | Ref Range | Performed | Pathologist | | | | | At | Signature | + + + + + + | WBC | 18.7 (H) | 4.0 - 11.0 K/uL | [facility] | | | | | | [facility] | | | | | | [facility]ICAL | | | | | | CENTER - | | | | | | LABORATORY | | + + + + + + | RBC | 5.55 | 4.30 - 5.70 | [facility] | | | | | M/uL | [facility] | | | | | | MEDICAL | | | | | | CENTER - | | | | | | LABORATORY | | + + + + + + | Hemoglobin | 15.4 | 13.5 - 18.0 | [facility] | | | | | g/dL | [facility] | | | | | | [facility] | | | | | | CENTER - | | | | | | LABORATORY | | + + + + + + | Hematocrit | 46.1 | 40.0 - 51.0 % | [facility] | | | | | | [facility] | | | | | | [facility]ICAL | | | | | | CENTER - | | | | | | LABORATORY | | + + + + + + | MCV | 83.1 | 83.0 - 101.0 fL | [facility] | | | | | | [facility] | | | | | | MEDICAL | | | | | | CENTER - | | | | | | LABORATORY | | + + + + + + | MCH | 27.7 (L) | 28.0 - 35.0 pg | [facility] | | | | | | [facility] | | | | | | [facility] | | | | | | CENTER - | | | | | | LABORATORY | | + + + + + + | MCHC | 33.4 | 32.0 - 36.0 | [facility] | | | | | g/dL | [facility] | | | | | | MEDICAL | | | | | | CENTER - | | | | | | LABORATORY | | + + + + + + | RDW-CV | 13.3 | <15.0 % | [facility] | | | | | | [facility] | | | | | | [facility]ICAL | | | | | | CENTER - | | | | | | LABORATORY | | + + + + + + | RDW-SD | 40.1 | 35.1 - 46.3 fL | [facility] | | | | | | [facility] | | | | | | [facility] | | | | | | CENTER - | | | | | | LABORATORY | | + + + + + + | Platelet | 402 | 140 - 440 K/uL | [facility] | | | Count | | | [facility] | | | | | | [facility]ICAL | | | | | | CENTER - | | | | | | LABORATORY | | + + + + + + | MPV | 8.7 | 6.5 - 12.4 fL | [facility] | | | | | | [facility] | | | | | | [facility]ICAL | | | | | | CENTER - | | | | | | LABORATORY | | + + + + + + | % | 64.7 | 45.0 - 82.0 % | [facility] | | | Neutrophils | | | [facility] | | | | | | MEDICAL | | | | | | CENTER - | | | | | | LABORATORY | | + + + + + + | % | 20.9 | 20.0 - 45.0 % | [facility] | | | Lymphocytes | | | [facility] | | | | | | MEDICAL | | | | | | CENTER - | | | | | | LABORATORY | | + + + + + + | % Monocytes | 9.0 | 4.0 - 12.0 % | [facility] | | | | | | [facility] | | | | | | [facility]ICAL | | | | | | CENTER - | | | | | | LABORATORY | | + + + + + + | % | 0.9 | 0.0 - 5.0 % | [facility] | | | Eosinophils | | | [facility] | | | | | | MEDICAL | | | | | | CENTER - | | | | | | LABORATORY | | + + + + + + | % Basophils | 0.4 | 0.0 - 1.0 % | [facility] | | | | | | [facility] | | | | | | MEDICAL | | | | | | CENTER - | | | | | | LABORATORY | | + + + + + + | % Immature | 4.1 (H)Comment: | 0.0 - 0.4 % | [facility] | | | Granulocyte | Preliminary studIes have | | [facility] | | | s | indicated the IG% | | MEDICAL | | | | and/or IG# show promise | | CENTER - | | | | as an early screen for | | LABORATORY | | | | infection. | | | | + + + + + + | Absolute | 12.09 (H) | 1.80 - 8.50 | [facility] | | | Neutrophils | | K/uL | [facility] | | | | | | MEDICAL | | | | | | CENTER - | | | | | | LABORATORY | | + + + + + + | Absolute | 3.91 (H) | 0.60 - 3.20 | [facility] | | | Lymphocytes | | K/uL | [facility] | | | | | | MEDICAL | | | | | | CENTER - | | | | | | LABORATORY | | + + + + + + | Absolute | 1.68 (H) | 0.00 - 1.00 | [facility] | | | Monocytes | | K/uL | [facility] | | | | | | MEDICAL | | | | | | CENTER - | | | | | | LABORATORY | | + + + + + + | Absolute | 0.17 | 0.00 - 0.40 | [facility] | | | Eosinophils | | K/uL | [facility] | | | | | | MEDICAL | | | | | | CENTER - | | | | | | LABORATORY | | + + + + + + | Absolute | 0.07 | 0.00 - 0.10 | [facility] | | | Basophils | | K/uL | [facility] | | | | | | MEDICAL | | | | | | CENTER - | | | | | | LABORATORY | | + + + + + + | Absolute | 0.77 (H) | 0.00 - 0.03 | [facility] | | | Immature | | K/uL | [facility] | | | Granulocyte | | | [...] + + + + | Absolute | 0.02 (H)Comment: | 0.00 - 0.01 | [facility] | | | nRBC | Presence of any NRBC's | K/uL | [facility] | | | | in adults is clinically | | MEDICAL | | | | significant | | CENTER - | | | | | | LABORATORY | | + + + + + + + + | Specimen | + + | Blood | + + + + + + + | Performing | Address | City/State/Zipcode | Phone Number | | Organization | | | | + + + + + | [facility] | [address] | [place] | [phone] | | [facility] | | [address] | | | - LABORATORY | | | | + + + + + B Type Natriuretic Peptide (12/28/2018 6:45 PST) + +---------+ + + + | Component | Value | Ref Range | Performed | Pathologist | | | | | At | Signature | + +---------+ + + + | BNP | 115 (H) | <100 pg/mL | [facility] | | | | | | [facility] | | | | | | [...] + + | [facility] | [address] | [place] | [phone] | | [facility] | | [address] | | | - LABORATORY | | | | + + + + + documented in this encounter Visit Diagnoses + + | Diagnosis | + + | Lumbar radiculopathy - Primary Thoracic or lumbosacral neuritis or radiculitis, | | unspecified | + + | Spinal stenosis of lumbar region without neurogenic claudication Spinal stenosis, | | lumbar region, without neurogenic claudication | + + | Synovial cyst of lumbar spine Synovial cyst, unspecified | + + | Foraminal stenosis of lumbar region Spinal stenosis, lumbar region, without | | neurogenic claudication | + + | Hypertension Unspecified essential hypertension | + + | Acute bilateral low back pain with sciatica | + + | Simple chronic bronchitis (HCC) Simple chronic bronchitis | + + documented in this encounter Administered Medications + +--------+ +--------+------+------+ | Medication Order | MAR | Action | Dose | Rate | Site | | | Action | Date | | | | + +--------+ +--------+------+------+ | acetaminophen (TYLENOL) tablet | Given | 01/04/20 | 650 mg | | | | 650 mg 650 mg, Oral, EVERY 4 | | 19 5:36 | | | | | HOURS PRN, Pain, Starting Mon | | PST | | | | | 12/27/18 at 1509 | | | | | | + +--------+ +--------+------+------+ +-------+ +--------+---+---+ | Given | 01/04/20 | 650 mg | | | | | 19 1:20 | | | | | | PST | | | | +-------+ +--------+---+---+ | Given | 01/03/20 | 650 mg | | | | | 19 21:28 | | | | | | PST | | | | +-------+ +--------+---+---+ +---+---+ | | | +---+---+ + +-------+ +--------+---+---+ | albuterol 2.5 mg/3 mL nebulizer | Given | 12/30/19 | 2.5 mg | | | | solution 2.5 mg 2.5 mg, | | 19 20:07 | | | | | Nebulization, RT EVERY 4 HOURS | | PST | | | | | PRN, Shortness of Breath, | | | | | | | Starting 12/27/18 at 1510, RT | | | | | | | will administer., | | | | | | + +-------+ +--------+---+---+ +-------+ +--------+---+---+ | Given | 12/29/19 | 2.5 mg | | | | | 19 20:49 | | | | | | PST | | | | +-------+ +--------+---+---+ +---+---+ | | | +---+---+ + +-------+ +--------+---+---+ | aluminum & magnesium | Given | 12/30/19 | 30 mLs | | | | hydroxide-simethicone (MAALOX | | 19 13:48 | | | | | PLUS REGULAR STRENGTH) 200-200-20 | | PST | | | | | mg/5 mL suspension 30 mL 30 mL, | | | | | | | Oral, EVERY 4 HOURS PRN, | | | | | | | Indigestion, Starting 12/27/18 | | | | | | | at 1509, Shake well., | | | | | | + +-------+ +--------+---+---+ +-------+ +--------+---+---+ | Given | 12/28/19 | 30 mLs | | | | | 19 4:28 | | | | | | PST | | | | +-------+ +--------+---+---+ +---+---+ | | | +---+---+ + +-------+ +--------+---+---+ | aluminum & magnesium | Given | 01/04/20 | 30 mLs | | | | hydroxide-simethicone (MAALOX | | 19 8:04 | | | | | PLUS REGULAR STRENGTH) 200-200-20 | | PST | | | | | mg/5 mL suspension 30 mL 30 mL, | | | | | | | Oral, 4 TIMES DAILY AFTER MEALS | | | | | | | & NIGHTLY, First dose on Thu | | | | | | | 12/30/18 at 1800, Danny well., | | | | | | + +-------+ +--------+---+---+ +-------+ +--------+---+---+ | Given | 01/03/20 | 30 mLs | | | | | 19 21:28 | | | | | | PST | | | | +-------+ +--------+---+---+ | Given | 01/03/20 | 30 mLs | | | | | 19 18:40 | | | | | | PST | | | | +-------+ +--------+---+---+ +---+---+ | | | +---+---+ + +-------+ +-------+---+---+ | atorvaSTATin (LIPITOR) tablet | Given | 01/03/20 | 20 mg | | | | 20 mg 20 mg, Oral, NIGHTLY, | | 19 21:28 | | | | | First dose on 12/27/18 at 2100 | | PST | | | | + +-------+ +-------+---+---+ +-------+ +-------+---+---+ | Given | 01/02/20 | 20 mg | | | | | 19 21:12 | | | | | | PST | | | | +-------+ +-------+---+---+ | Given | 01/01/20 | 20 mg | | | | | 19 22:00 | | | | | | PST | | | | +-------+ +-------+---+---+ +---+---+ | | | +---+---+ + +-------+ +--------+---+---+ | budesonide (PULMICORT) 0.5 mg/2 | Given | 01/04/20 | 0.5 mg | | | | mL nebulizer solution 0.5 mg | | 19 9:36 | | | | | 0.5 mg, Nebulization, RT BID, | | PST | | | | | First dose on Thu12/27/18 at | | | | | | | 2100, RT will administer. Shake | | | | | | | well. Protect from light. Rinse | | | | | | | mouth after use., | | | | | | + +-------+ +--------+---+---+ +-------+ +--------+---+---+ | Given | 01/03/20 | 0.5 mg | | | | | 19 20:49 | | | | | | PST | | | | +-------+ +--------+---+---+ | Given | 01/03/20 | 0.5 mg | | | | | 19 7:51 | | | | | | PST | | | | +-------+ +--------+---+---+ +---+---+ | | | +---+---+ + +-------+ + +---+---+ | calcium carbonate (TUMS) | Given | 12/30/19 | 1,000 mg | | | | chewable tablet 500-1,000 mg | | 19 9:55 | | | | | 500-1,000 mg, Oral, EVERY 4 HOURS | | PST | | | | | PRN, Heartburn, Starting Mon | | | | | | | 12/27/18 at 1454 | | | | | | + +-------+ + +---+---+ +-------+ + +---+---+ | Given | 12/30/19 | 1,000 mg | | | | | 19 0:59 | | | | | | PST | | | | +-------+ + +---+---+ | Given | 12/28/19 | 1,000 mg | | | | | 19 20:36 | | | | | | PST | | | | +-------+ + +---+---+ + +---+ | | | + +---+ | cloNIDine (CATAPRES) tablet 0.1 | | | mg 0.1 mg, Oral, 4 TIMES DAILY | | | PRN, Systolic blood pressure | | | greater than 185, Starting Mon | | | 12/27/18 at 1514 | | + +---+ | | | + +---+ + +-------+ +-------+---+---+ | cyclobenzaprine (FLEXERIL) | Given | 01/04/20 | 10 mg | | | | tablet 10 mg 10 mg, Oral, EVERY | | 19 3:07 | | | | | 8 HOURS PRN, Muscle spasms, | | PST | | | | | Starting 12/27/18 at 1511 | | | | | | + +-------+ +-------+---+---+ +-------+ +-------+---+---+ | Given | 01/03/20 | 10 mg | | | | | 19 14:40 | | | | | | PST | | | | +-------+ +-------+---+---+ | Given | 12/29/19 | 10 mg | | | | | 19 1:16 | | | | | | PST | | | | +-------+ +-------+---+---+ + +---+ | | | + +---+ | cyclobenzaprine (FLEXERIL) | | | tablet 10 mg 10 mg, Oral, EVERY | | | 8 HOURS PRN, Muscle spasms, | | | Starting 01/03/19 at 1014 | | + +---+ | | | + +---+ + +-------+ +--------+---+---+ | docusate sodium (COLACE) | Given | 01/04/20 | 100 mg | | | | capsule 100 mg 100 mg, Oral, | | 19 8:04 | | | | | TIMES DAILY AFTER MEALS, First | | PST | | | | | dose on 12/27/18 at 1800, | | | | | | | Swallow capsule whole., | | | | | | + +-------+ +--------+---+---+ +-------+ +--------+---+---+ | Given | 01/03/20 | 100 mg | | | | | 19 18:40 | | | | | | PST | | | | +-------+ +--------+---+---+ | Given | 01/03/20 | 100 mg | | | | | 19 10:56 | | | | | | PST | | | | +-------+ +--------+---+---+ +---+---+ | | | +---+---+ + +-------+ +---------+---+---+ | docusate-senna (SENOKOT-S) | Given | 01/04/20 | 2 | | | | 50-8.6 mg per tablet 2 tablet 2 | | 19 8:04 | tablets | | | | tablet, Oral, 2 TIMES DAILY AFTER | | PST | | | | | MEALS, First dose on 12/27/18 | | | | | | | at 1800 | | | | | | + +-------+ +---------+---+---+ +-------+ +---------+---+---+ | Given | 01/03/20 | 2 | | | | | 19 18:40 | tablets | | | | | PST | | | | +-------+ +---------+---+---+ | Given | 01/03/20 | 2 | | | | | 19 10:56 | tablets | | | | | PST | | | | +-------+ +---------+---+---+ +---+---+ | | | +---+---+ + +-------+ +-------+---+ + | enoxaparin (LOVENOX) 40 mg/0.4 | Given | 01/04/20 | 40 mg | | Abdomen- | | mL injection 40 mg 40 mg, | | 19 8:05 | | | LLQ | | Subcutaneous, EVERY 24 HOURS | | PST | | | | | (Daily), First dose on Tue | | | | | | | 12/28/18 at 0900 | | | | | | + +-------+ +-------+---+ + +-------+ +-------+---+ + | Given | 01/03/20 | 40 mg | | Abdomen- | | | 19 10:54 | | | RUQ | | | PST | | | | +-------+ +-------+---+ + | Given | 03/02/20 | 40 mg | | Abdomen- | | | 19 9:40 | | | LUQ | | | PST | | | | +-------+ +-------+---+ + +---+---+ | | | +---+---+ + +-------+ +-------+---+---+ | famotidine (PEPCID) tablet 20 | Given | 12/30/19 | 20 mg | | | | mg 20 mg, Oral, 2 TIMES DAILY, | | 19 8:20 | | | | | First dose on 12/27/18 at 2100 | | PST | | | | + +-------+ +-------+---+---+ +-------+ +-------+---+---+ | Given | 12/29/19 | 20 mg | | | | | 19 20:31 | | | | | | PST | | | | +-------+ +-------+---+---+ | Given | 12/29/19 | 20 mg | | | | | 19 8:56 | | | | | | PST | | | | +-------+ +-------+---+---+ +---+---+ | | | +---+---+ + +-------+ +-------+---+---+ | famotidine (PEPCID) tablet 20 | Given | 01/04/20 | 20 mg | | | | mg 20 mg, Oral, 2 TIMES DAILY | | 19 6:30 | | | | | BEFORE MEALS, First dose on Flora | | PST | | | | | 12/30/18 at 1630 | | | | | | + +-------+ +-------+---+---+ +-------+ +-------+---+---+ | Given | 01/03/20 | 20 mg | | | | | 19 16:45 | | | | | | PST | | | | +-------+ +-------+---+---+ | Given | 01/03/20 | 20 mg | | | | | 19 6:44 | | | | | | PST | | | | +-------+ +-------+---+---+ + +---+ | | | + +---+ | fluticasone (FLONASE) 50 | | | mcg/nasal spray 2 spray 2 spray, | | | Each Nare, 2 TIMES DAILY PRN, | | | Allergies, Starting 12/27/18 | | | at 1514, Shake gently., | | + +---+ | | | + +---+ + +-------+ + +---+---+ | methocarbamol (ROBAXIN) tablet | Given | 01/04/20 | 1,500 mg | | | | 1,500 mg 1,500 mg, Oral, EVERY 6 | | 19 6:28 | | | | | HOURS PRN, Muscle spasms, | | PST | | | | | Starting 12/27/18 at 1515 | | | | | | + +-------+ + +---+---+ +-------+ + +---+---+ | Given | 01/03/20 | 1,500 mg | | | | | 19 10:55 | | | | | | PST | | | | +-------+ + +---+---+ | Given | 01/02/20 | 1,500 mg | | | | | 19 23:46 | | | | | | PST | | | | +-------+ + +---+---+ + +---+ | | | + +---+ | methocarbamol (ROBAXIN) tablet | | | 750 mg 750 mg, Oral, EVERY 6 | | | HOURS PRN, Muscle spasms, | | | Starting 01/03/19 at 0959 | | + +---+ | | | + +---+ | ondansetron (ZOFRAN ODT) | | | disintegrating tablet 4 mg 4 mg, | | | Oral, EVERY 6 HOURS PRN, Nausea, | | | Vomiting, Starting 12/27/18 | | | at 1516 | | + +---+ | | | + +---+ + +-------+ +------+---+---+ | oxyCODONE (ROXICODONE) tablet 5 | Given | 12/29/19 | 5 mg | | | | mg 5 mg, Oral, EVERY 3 HOURS | | 19 14:49 | | | | | PRN, Pain, Starting 12/27/18 | | PST | | | | | at 1516 | | | | | | + +-------+ +------+---+---+ +-------+ +------+---+---+ | Given | 12/29/19 | 5 mg | | | | | 19 11:28 | | | | | | PST | | | | +-------+ +------+---+---+ | Given | 12/29/19 | 5 mg | | | | | 19 7:51 | | | | | | PST | | | | +-------+ +------+---+---+ +---+---+ | | | +---+---+ + +-------+ +-------+---+---+ | oxyCODONE (ROXICODONE) tablet | Given | 12/30/19 | 10 mg | | | | 5-10 mg 5-10 mg, Oral, EVERY 3 | | 19 8:19 | | | | | HOURS PRN, Pain, Starting Wed | | PST | | | | | 12/29/18 at 1701 | | | | | | + +-------+ +-------+---+---+ +-------+ +-------+---+---+ | Given | 12/30/19 | 10 mg | | | | | 19 5:14 | | | | | | PST | | | | +-------+ +-------+---+---+ | Given | 12/30/19 | 10 mg | | | | | 19 0:56 | | | | | | PST | | | | +-------+ +-------+---+---+ +---+---+ | | | +---+---+ + +-------+ +-------+---+---+ | oxyCODONE (ROXICODONE) tablet | Given | 01/04/20 | 10 mg | | | | 5-10 mg 5-10 mg, Oral, EVERY 4 | | 19 5:36 | | | | | HOURS PRN, Pain, Starting Flora | | PST | | | | | 12/30/18 at 1245 | | | | | | + +-------+ +-------+---+---+ +-------+ +-------+---+---+ | Given | 01/04/20 | 10 mg | | | | | 19 1:20 | | | | | | PST | | | | +-------+ +-------+---+---+ | Given | 01/03/20 | 10 mg | | | | | 19 21:28 | | | | | | PST | | | | +-------+ +-------+---+---+ +---+---+ | | | +---+---+ + +-------+ +-------+---+---+ | oxyCODONE (ROXICODONE) tablet | Given | 01/04/20 | 10 mg | | | | 5-10 mg 5-10 mg, Oral, EVERY 4 | | 19 10:52 | | | | | HOURS PRN, Pain, Starting Mon | | PST | | | | | 01/03/19 at 1014 | | | | | | + +-------+ +-------+---+---+ +---+---+ | | | +---+---+ + +-------+ +------+---+---+ | polyethylene glycol (MIRALAX) | Given | 01/02/20 | 17 g | | | | powder 17 g 17 g, Oral, DAILY, | | 19 9:40 | | | | | First dose on Thu12/28/18 at | | PST | | | | | 0900, Mix with 8 oz. water., | | | | | | + +-------+ +------+---+---+ +-------+ +------+---+---+ | Given | 01/01/20 | 17 g | | | | | 19 8:17 | | | | | | PST | | | | +-------+ +------+---+---+ | Given | 12/30/19 | 17 g | | | | | 19 8:19 | | | | | | PST | | | | +-------+ +------+---+---+ +---+---+ | | | +---+---+ + +-------+ +---------+---+---+ | triamterene-hydrochlorothiazide | Given | 01/04/20 | 1 | | | | (DYAZIDE) 37.5-25 MG per capsule | | 19 8:04 | capsule | | | | 1 capsule 1 capsule, Oral, | | PST | | | | | DAILY, First dose on Thu12/28/18 | | | | | | | at 0900 | | | | | | + +-------+ +---------+---+---+ +-------+ +---------+---+---+ | Given | 01/03/20 | 1 | | | | | 19 10:55 | capsule | | | | | PST | | | | +-------+ +---------+---+---+ | Given | 01/02/20 | 1 | | | | | 19 9:41 | capsule | | | | | PST | | | | +-------+ +---------+---+---+ +---+---+ | | | +---+---+ documented in this encounter
--- OUTSIDE RECORDS SUMMARY | ~2019-03-29 | XMS | Clinical Summary ---
Demographics + + + | Address | [address] | | | [place] [address] | + + + | Home Phone | | + + + | Preferred Language | Unknown | + + + | Marital Status | | + + + | Lutheran Affiliation | Unknown | + + + | Race | Unknown | + + + | Ethnic Group | Unknown | + + + Author + + + | Author | [facility] | | | and [place] | + + + | Organization | [facility] | | | and [place] | + + + | Address | Unknown | + + + | Phone | Unavailable | + + + Support + + + + + | Name | Relationship | Address | Phone | + + + + + | Detailed,Message | ECON | [address] | | | | | [place], [place] | | | | | [address] | | + + + + + | Bhavani Echeverria | ECON | Unknown | | + + + + + Care Team Providers + +------+ + | Care Butane Compressor Operator Name | Role | Phone | [...] | | | 1940MR | | | [id number] | | | 76Admit | | | [...] | | | Cody, | | | BLOCKER METAL BASE | | | Impairment | | | [...] | | admitted to | | | [facility] | | | [facility] | | | on | | | [...] | | | Cody, | | | BLOCKER METAL BASE | | | Neurosurgeo | | | [...] | | | equipment.S | | | igned:Sanatna | | | H. Hill, | | | MD | | | 0:44CC: | | | Neurosurgeo | | | n : Caleb | | | A Yam, | | | MD | | | | | | | | | Primary | | | Care | | | Physician: | | | Darrel Lawson | | | Cody, | | | BLOCKER METAL BASE Portions | | | of this | [...] | + +--------+--------+ +--------+--------+--------+ | Tlif Oblique [id number] 12deg | Generi | N/A: | NUVASIVE - | | | [id number] | | - Sn/AImplanted: Qty: 1 on | c | Spine | NVSV | | | 2 /N/A | | 12/23/2018 by Caleb Romero, | | Lumbar | | | | /N/A | | MD | | | | | | | + +--------+--------+ +--------+--------+--------+ | Tlif Oblique [id number] 12deg | Generi | N/A: | NUVASIVE - | | | [id number] | | - Sn/AImplanted: Qty: 1 on | c | Spine | NVSV | | | 2 /N/A | | 12/23/2018 by Caleb Romero, | | Lumbar | | | | /N/A | | MD | | | | | | | + +--------+--------+ +--------+--------+--------+ | Imp Spn Intbdy Cor | Generi | N/A: | NUVASIVE - | | | [id number] | | [id number] - Sn/AImplanted: | c | Spine | NVSV | | | 5 /N/A | | Qty: 1 on 12/23/2018 by Heather, | | Lumbar | | | | /N/A | | Caleb Calero MD | | | | | | | + +--------+--------+ +--------+--------+--------+ | He Ti Prebent Lordtc 65mm - | Generi | N/A: | NUVASIVE - | | | [id number] | | Sn/AImplanted: Qty: 1 on | c | Spine | NVSV | | | 5 /N/A | | 12/23/2018 by Caleb Romero, | | Lumbar | | | | /N/A | | MD | | | | | | | + +--------+--------+ +--------+--------+--------+ | He Ti Prebent Lordtc 60mm - | Generi | N/A: | NUVASIVE - | | | [id number] | | Sn/AImplanted: Qty: 1 on | c | Spine | NVSV | | | 0 /N/A | | 12/23/2018 by Caleb Romero, | | Lumbar | | | | /N/A | | MD | | | | | | | + +--------+--------+ +--------+--------+--------+ | Putty Ai 10cc Dbm - | Graft | N/A: | [employer] - | | 06/30/ | [id number] | | [id number]: Qty: 1 | | Spine | MEDT [...] | [employer] - | | 09/01/ | [id number] | | Sn/AImplanted: Qty: 1 on | [...] | [employer] - | | 09/01/ | [id number] | | Sn/AImplanted: Qty: 1 on | [...] N/A: | NUVASIVE - | | | [id number] | | Qty: 6 on 12/23/2018 by Heather, | | Spine | NVSV | | | 0 /N/A | | Caleb Calero MD | | Lumbar | | | | /N/A | + +--------+--------+ +--------+--------+--------+ | Screw Yaquelin Alba Xlf 5.5x25mm - | Screw | N/A: | NUVASIVE - | | | [id number] | | Sn/AImplanted: Qty: 2 on | | Spine | NVSV | | | 5 /N/A | | 12/23/2018 by Caleb Romero, | | Lumbar | | | | /N/A | | MD | | | | | | | + +--------+--------+ +--------+--------+--------+ | Screw Polyax Prcpt 7.5x50mm - | Screw | N/A: | NUVASIVE - | | | [id number] | | [id number]: Qty: 4 | | Spine | NVSV | | | 0A / / | | on 12/23/2018 by Caleb Romero | | Lumbar | | | | | | A, MD | | | | | | | + +--------+--------+ +--------+--------+--------+ | Screw Polyax Prcpt 8.5x50mm - | Screw | N/A: | NUVASIVE - | | | [id number] | | [id number]: Qty: 2 | | Spine | NVSV [...] [address] | [place] | [phone] | | [facility] | | [address] | | | - LABORATORY | | [...] ST. | [address] | [place], [place] | [phone] | | [facility] | | [address] | | | - LABORATORY | | [...] mL/min/1.73m2 | [facility] | | | [facility] | | | MEDICAL | | | [...] ST. | [address] | [place] | [phone] | | [facility] | | [address] | | | - LABORATORY | | [...] +--------+ +---------+--------+ | MEDICARE | MEDICA | [id number] | 01/01/20 | [phone] | | Medica | | | RE | | 05-Pre | 5 | | re | | | PART A | | sent | | | | | | AND B | | | | | | + +--------+ +--------+ +---------+--------+ | CIGNA | CIGNA | [id number] | 03/02/20 | [phone] | | Indemn [...] | 1940 | [phone] | [place] [address] | | | margie | | | 0 (Home) | | + +--------+ +--------+ + + Advance Directives Patient has advance care planning documents, and code status on file. For more information, please contact:[facility] [place] [address] + + + + + | Code [...]
--- OUTSIDE RECORDS SUMMARY | ~2019-03-29 | XMS | Encounter Summary ---
Demographics + + + | Address | [address] | | | [place] [address] | + + + | Home Phone | | + + + | Preferred Language | Unknown | + + + | Marital Status | | + + + | Orthodoxy Affiliation | Unknown | + + + | Race | Unknown | + + + | Ethnic Group | Unknown | + + + Author + + + | Author | [facility] | | | and [place] | + + + | Organization | [facility] | | | and [place] | + + + | Address | Unknown | + + + | Phone | Unavailable | + + + Support + + + + + | Name | Relationship | Address | Phone | + + + + + | Detailed,Message | ECON | [address] | | | | | [place] | | | | | [address] | | + + + + + | Bhavani Echeverria | ECON | Unknown | | + + + + + Care Team Providers + +------+ + | Care Twister In Name | Role | Phone | + [...] | Services | Therapy | Spinal | [facility] | | | Required | | stenosis of | MD [place] | PHYSICAL | | | | | lumbar | [address] | [address] | | | | | region | [place] | [facility] | | | | | without | [place] | [place] | | | | | neurogenic | [address] | [address] | | | | | claudication | Phone: | Phone: | | | | | | [phone] | [phone] | | | | | | Fax: | Fax: | | | | | | [phone] | [phone] | + + + + + + + Evaluate & Treat (Routine) + + + + + + + | Status | Reason | Specialty | Diagnoses / | Referred By | Referred To | | | | | Procedures | Contact | Contact | + + + + + + + | Authorized | Specialty | Physical | Diagnoses | [place], | [facility] | | | Services | Therapy | Spinal | [facility] | [facility] | | | Required | | stenosis of | MD [place] | PHYSICAL | | | | | lumbar | [address] | TH[address] | | | | | region | ST [place] | [place] | | | | | without | [place] | [place] | | | | | neurogenic | [address] | [address] | | | | | claudication | Phone: | Phone: | | | | | | [phone] | [phone] | | | | | | Fax: | Fax: | | | | | | [phone] | [phone] | + + + + + + + Encounter Details +--------+ + + + + | Date | Type | Department | Care Team | Description | +--------+ + + + + | 12/27/ | Hospital | [facility] | Santana Sagastume | Spinal stenosis of | | 2019 - | Encounter | [facility] [address] | MD [place] [address] | lumbar region | | | | [address], | [address] [place] | without neurogenic | | 01/03/ | | [place] [address] | [place] [address] | claudication | | 2019 | | [phone] | [phone] | (Primary Dx); Lumbar | | | [...] Lewis a 78 y.o.malewho was admitted to [facility] on 2018for Lumbar radiculopathy (M54.16), Synovial [...] worse than left. Thyroid neurosurgically by Dr. villasenor. Imaging study showed advanced degenerative changes of [...] safely and avoid prolonged [facility]. PMHx: (per chart review confirmed [...] L5-S1 TLIF; Surgeon: Caleb Villasenor MD; Location: [facility] OR skin cancer removal Basel cell carcinoma TONSILLECTOMY TURP N/A 01/09/2017 Procedure: Cyber Laser Prostate Vaporization; Surgeon: Vinnie Silverio MD; Location: [facility] OR VASECTOMY Meds During Hospitalization No [...] this chart may have been created with Miro voice recognition software. Occasi onal wrong-word or [...] higher, or as advised Date Last Reviewed: 04/02/201819993601-6279 [employer]. [address] [place] [address]. All righ ts reserved. This information is [...] more often than directed. Talk to your street light repairer regarding the use of this medicine in children. Special care may be needed. What side effects may I notice from receiving this medicine? Side effects that you should report to your doctor or health care program resident as soon as p ossible: allergic reactions like skin rash, itching or hives, swelling of the face, lips, or tong ue breathing problems chest pain fast, irregular heartbeat hallucinations seizures unusually weak or tired Side effects that usually do not require medical attention (report to your doctor or health care program resident if they continue or are bothersome): headache [...] this medicine? Tell your doctor or health care program resident if your symptoms do not start to [...] pharmacist, or health care provider. Copyright 2019 [employer] Methocarbamol tablets Brand Name: Robaxin What is [...] more often than directed. Talk to your street light repairer regarding the use of this medicine in children. Special care may be needed. What side effects may I notice from receiving this medicine? Side effects that you should report to your doctor or health care program resident as soon as p ossible: allergic reactions like skin rash, itching or hives, swelling of the face, lips, or tong ue breathing problems confusion seizures unusually weak or tired Side effects that usually do not require medical attention (report to your doctor or health care program resident if they continue or are bothersome): dizziness [...] this medicine? Tell your doctor or health care program resident if your symptoms do not start to [...] pharmacist, or health care provider. Copyright 2019 [employer] Acetaminophen; Oxycodone capsules What is this medicine? [...] information carefully each time. Talk to your street light repairer regarding the use of this medicine in children. Special care may be needed. What side effects may I notice from receiving this medicine? Side effects that you should report to your doctor or health care program resident as soon as p ossible: allergic reactions [...] attention (report to your doctor or health care program resident if they continue or are bothersome): constipation [...] official disposal site. Contact the [facility] at [phone] [facility] to find a site. If you [...] this medicine? Tell your doctor or health care program resident if your pain does not go away, [...] pharmacist, or health care provider. Copyright 2019 [employer] documented in this encounter Medications at Time [...] Santana Sagastume MD - 01/02/2019 1327 PST Ccpq-wv-Zjle Rehabilitation Medicine Daily Progress Note Date: 01/02/2019 [...] HS, Santana Sagastume MD, 30 mL at 105 atorvaSTATin (LIPITOR) [...] therapy, speech therapy, case management, and social welfare research worker #Rehab - -Continue PT for gait, mobility -Continue OT for ADL's, toileting, adaptive equipment -Continue CERTIFIED ACTIVITIES DIRECTOR for cognition, -Continue SW for discharge planning [...] Notes document close and ongoing Physiatric involvement; veqg-tn-tdux vis its , professionally assessing the Patient, both Medically and Functionally, with the empha sis on the important interactions between our Patient's current clinical status, especially issues/barriers that may impact on the Rehabilitation Team's treatment and progress toward o ur medical and functional go I opine that this is important, so we may maximize our Patient's capacity to benefit from [facility]patient Medical Rehabilitation process. I also [...] Zahida Simmons D - 12/31/2018 1647 PST Vrsw-us-Ahrr Rehabilitation Medicine Daily Progress Note Date: 12/31/2018 [...] the active medical diagnoses as documented in [facility] History and Physical Impressions , Progress [...] The [facility] on [facility] to [...] therapy, speech therapy, case management, and social welfare research worker #Rehab - -Continue PT for gait, mobility -Continue OT for ADL's, toileting, adaptive equipment -Continue CERTIFIED ACTIVITIES DIRECTOR for cognition, -Continue SW for discharge planning [...] I met with our patient and the senior case manager, and we reviewed the overall plan of care and p rojected discharged date and destination. The patient is hopeful illness. That the discharge date. We'll follow-up check with the team on this. Note: My Progress Notes document close and ongoing Physiatric involvement; lsud-sc-ikjo vi sits, professionally assessing the Patient, both [...] was provided to the savi galan. Each donor services team leader is addressing this as the patient advances [...] note might be different from the original. Zejs-qh-Gots Rehabilitation Medicine Daily Progress Note Date: 12/30/2018 [...] therapy, speech therapy, case management, and social welfare research worker #Rehab - -Continue PT for gait, mobility -Continue OT for ADL's, toileting, adaptive equipment -Continue CERTIFIED ACTIVITIES DIRECTOR for cognition, -Continue SW for discharge planning [...] Conference and led the Team's discussion. Each Twister In reported on the current treatment focus ; [...] information from all of the Medical Rehabilitation amphibian crewmember's assessments and reports as we synthesized and [...] and reviewed with the patient and our senior case manager. She is collaborating with the [...] Zahida Simmons D - 12/29/2018 1702 PST Ulda-pd-Pqmw Rehabilitation Medicine Daily Progress Note Date: 12/29/2018 [...] 500-1,000 mg, Oral, Q4H PRN, Deutsch reyes aSgastume MD, 1,000 mg at 12/28/18 2036 cloNIDine [...] therapy, occupational therapy, case management, and social welfare research worker #Rehab - -Continue PT for gait, mobility [...] plan was provided to the patient. Each donor services team leader is addressing this as the patient advances [...] I met with our patient and the senior case manager, and we reviewed the overall plan of care and p rojected discharged date and destination. Note: My Progress Notes document close and ongoing Physiatric involvement; bzat-fa-hlpu vi sits, professionally assessing the Patient, both [...] bowel and bladder, and coordination with the Computer Systems Integrator managing medical co -morbidities; including Coordinate with [...] safely function and perform self care skills Territory Account Executive Respiratory Therapy Please see each of the [...] of function to allow discharge to the [facility] at the optimal level of function. Current [...] am is advanced. Specific short term and joint terminal attack controller Rehabilitation Team Treatment Goals will be developed, sh ared and implemented in collaboration with our patient and family/caregivers. The Real Estate Professor is the faye Rehab donor services team leader interfacing with them. Rehab Potential: Good Expected [...] time, as well as time communicating with [facility] patient and treatment team as discussed above. Signed: Santana Sagastume MD Portions of this chart may have been created with Miro voice recognition software. Occasi onal wrong-word or [...] PSTHill, Santana Walters MD - 1401 PST Kudo-qc-Nogn Rehabilitation Medicine Daily Progress Note Date: 12/28/2018 [...] therapy, occupational therapy, case management, and social welfare research worker #Rehab - -Continue PT for gait, mobility [...] and his , as well as our senior case manager, and we reviewed the over [...] Notes document close and ongoing Physiatric involvement; doqa-ms-xavi vi sits, professionally assessing the Patient, both [...] continuing to coordinate and collaborate with the [facility]'s nursing staff to complement their therapy [...] up with the patient's bedside nurse, and senior case manager/older adult social work specialist. Total time: 37 minutes. I spent greater than 50% of the time regarding patient care and co ordination of the Medical Rehabilitation Team treatment focus addressing these patient care needs on this date, including nursing unit/floor time, as well as time communicating with [facility] patient and treatment team as discussed above. [...] bowel and bladder, and coordination with the Computer Systems Integrator management medical comorbid ities. Therapies: Physical Therapy [...] of the Comprehensive Medical Rehabilitation Program.) Clinical Fiberglass Fabricator Pharmacist Goals: Medical stability and safety with [...] collaboration with our patient and family/caregivers. The Real Estate Professor is the faye Rehab donor services team leader interfacing with them. Rehab potential is good. Estimated length of stay: 6 days. Discharge Plan: Discharge to premorbid independent living setting with the supportive car e of family/caregivers and community resources. Signed: Santana Sagastume MD 12/28/2018 14:02 Portions of this chart may have been created with Miro voice recognition software. Occasi onal wrong-word or [...] [address] | [place] | [phone] | | [facility] | | [address] | | | - LABORATORY | | [...] + | [facility] | [address] | [place] | [phone] | | [facility] | | [address] | | | - LABORATORY | | [...] | | | | mmol/L | [facility] | | | | | | MEDICAL [...] mL/min/1.73m2 | [facility] | | | [place] | | | MEDICAL | | | [...] + | [facility] | [address] | [place] | [phone] | | [facility] | | [address] | | | - LABORATORY | | [...] [address] | [place] | [phone] | | [facility] | | [address] | | | - LABORATORY | | [...] | | | POC | | | [facility] | | | | | | MEDICAL [...] [address] | [place] | [phone] | | [facility] | | [address] | | | - LABORATORY | | [...] + | [facility] | [address] | [place] | [phone] | | [facility] | | [address] | | | - LABORATORY | | [...] + | [facility] | [address] | [place] | [phone] | | [facility] | | [address] | | | - LABORATORY | | [...] [address] | [place] | [phone] | | [facility] | | [address] | | | - LABORATORY | | [...] + | [facility] | [address] | [place], [place] | [phone] | | [facility] | | [address] | | | - LABORATORY | | [...] [address] | [place] | [phone] | | [facility] | | [address] | | | - LABORATORY | | [...] | + + + + + | [facility] [facility] | [address] | [place], [place] | [phone] | | [facility] | | [address] | | | - LABORATORY | | [...] [address] | [place] | [phone] | | [facility] | | [address] | | | - LABORATORY | | [...] + | [address] | [address] | [place] | [phone] | | [facility] | | [address] | | | - LABORATORY | | [...] | | POC | | | [facility] | | | | | | MEDICAL [...] [address] | [place] | [phone] | | [facility] | | [address] | | | - LABORATORY | | [...] [address] | [place] | [phone] | | [facility] | | [address] | | | - LABORATORY | | [...] + | [facility] | [address] | [place] | [phone] | | [facility] | | [address] | | | - LABORATORY | | [...] [address] | [place] | [phone] | | [facility] | | [address] | | | - LABORATORY | | [...] ST. | [address] | [place] | [phone] | | [facility] | | [address] | | | - LABORATORY | | [...] [address] | [place] | [phone] | | [facility] | | [address] | | | - LABORATORY | | [...] + | [address] | [address] | [place] | [phone] | | [facility] | | [address] | | | - LABORATORY | | [...] ST. | [address] | [place], [place] | [phone] | | [facility] | | [address] | | | - LABORATORY | | [...] [address] | [place] | [phone] | | [facility] | | [address] | | | - LABORATORY | | [...] [address] | [place] | [phone] | | [facility] | | [address] | | | - LABORATORY | | [...] [address] | [place] | [phone] | | [facility] | | [address] | | | - LABORATORY | | [...] [address] | [place] | [phone] | | [facility] | | [address] | | | - LABORATORY | | [...] + | [facility] | [address] | [place] | [phone] | | [facility] | | [address] | | | - LABORATORY | | [...] | | | | mmol/L | [facility] | | | | | | MEDICAL [...] mL/min/1.73m2 | [facility] | | | [place] | RATE,ESTIMATED mL/min | | MEDICAL | | | | /1.04w6Urny than 60 | | CENTER - | [...] [address] | [place] | [phone] | | [facility] | | [address] | | | - LABORATORY | | [...] [address] | [place] | [phone] | | [facility] | | [address] | | | - LABORATORY | | [...] ST. | [address] | [place] | [phone] | | [facility] | | [address] | | | - LABORATORY | | [...]
--- OUTSIDE RECORDS SUMMARY | ~2019-03-29 | XMS | Encounter Summary ---
Demographics + + + | Address | [address] | | | [place] [address] | + + + | Home Phone | | + + + | Preferred Language | Unknown | + + + | Marital Status | | + + + | Islam Affiliation | Unknown | + + + | Race | Unknown | + + + | Ethnic Group | Unknown | + + + Author + + + | Author | [facility] | | | and [place] | + + + | Organization | [facility] | | | and [place] | + + + | Address | Unknown | + + + | Phone | Unavailable | + + + Support + + + + + | Name | Relationship | Address | Phone | + + + + + | Detailed,Message | ECON | [address] | | | | | [place], [place] | | | | | [address] | | + + + + + | Bhavani Echeverria | ECON | Unknown | | + + + + + Care Team Providers + +------+ + | Care Cutter Woodwind Reeds Name | Role | Phone | + [...] (Primary Dx); Lumbar | | | | [place], [place] | [place] [address] | radiculopathy | | | | [address] | [phone] | | | | | [phone] | | | +--------+ + + + [...]
--- OUTSIDE RECORDS SUMMARY | ~2019-03-29 | XMS | Encounter Summary ---
Demographics + + + | Address | [address] | | | [place] [address] | + + + | Home Phone | | + + + | Preferred Language | Unknown | + + + | Marital Status | | + + + | Religion Affiliation | Unknown | + + + | Race | Unknown | + + + | Ethnic Group | Unknown | + + + Author + + + | Author | [facility] | | | and [place] | + + + | Organization | [facility] | | | and [place] | + + + | Address | Unknown | + + + | Phone | Unavailable | + + + Support + + + + + | Name | Relationship | Address | Phone | + + + + + | Detailed,Message | ECON | [address] | | | | | [place], [place] | | | | | [address] | | + + + + + | Bhavani Echeverria | ECON | Unknown | | + + + + + Care Team Providers + +------+ + | Care Crate Opener Name | Role | Phone | + [...] lumbar | Mahesh E, | [address] | | | | | fusion Back | PA-C [address] | [place], | | | | | pain, | [address] | [place] | | | | | unspecified | [address] | [address] | | | | | back | [place], | Phone: | | | | | location, | [place] [address] | [phone] | | | | | unspecified | Phone: | Fax: | | | | | back pain | [phone] | [phone] | | | | | laterality, | Fax: | | | | | | unspecified | [phone] | | | | | | chronicity [...] lumbar | Mahesh E, | [address] | | | | | fusion Back | PA-C [address] | [place], | | | | | pain, | [address] | [place] | | | | | unspecified | [address] | [address] | | | | | back | [place], | Phone: | | | | | location, | [place] [address] | [phone] | | | | | unspecified | Phone: | Fax: | | | | | back pain | [phone] | [phone] | | | | | laterality, | Fax: | | | | | | unspecified | [phone] | | | | | | chronicity [...] lumbar | Mahesh E, | [address] | | | | | fusion Back | PA-C [address] | [place], | | | | | pain, | [address] | [place] | | | | | unspecified | [address] | [address] | | | | | back | [place], | Phone: | | | | | location, | [place] [address] | [phone] | | | | | unspecified | Phone: | Fax: | | | | | back pain | [phone] | [phone] | | | | | laterality, | Fax: | | | | | | unspecified | [phone] | | | | | | chronicity [...] + + | 02/14/ | Hospital | [facility] | Mahesh Perez, | S/P lumbar fusion; | | 2019 | Encounter | [facility] [address] | PA-C [address] | Back pain, | | | | [address] [place], | [address] [place] | unspecified back | | | | [place] [address] | [place] [address] | location, | | | | [phone] | [phone] | unspecified back | | | | [...]
--- OUTSIDE RECORDS SUMMARY | ~2019-03-29 | XMS | Encounter Summary ---
Demographics + + + | Address | [address] | | | [place] [address] | + + + | Home Phone [...] + + + | Author | [facility] | | | and [place] | + + + | Organization | [facility] | | | and [place] | + + + | Address | Unknown | + + + | Phone | Unavailable | + + + Support + + + + + | Name | Relationship | Address | Phone | + + + + + | Detailed,Message | ECON | [address] | | | | | [place], [place] | | | | | [address] | | + + + + + | Bhavani Echeverria | ECON | Unknown | | + + + + + Care Team Providers + +------+ + | Care Crib Attendant Name | Role | Phone | + [...] + + | 01/25/ | Telephone | [facility] [place] | Caleb Romero MD | Post-op Question | | 2019 | | NEUROSURGERY [address] [facility] | | | | | [address] [facility] [address] | [address] [place] | | | | | [place], [place] | [address] | | | | | [address] | | | | | | [phone] | | | +--------+ + + + [...]
[~2019-03-29 12:21] MED LIST changes: +DOXYCYCLINE HY100 MG PO
--- OUTSIDE RECORDS SUMMARY | 2019-03-29 12:24 | XMS ---
PreManage Notification: NEYMAR BHANDARI Security Digital Imager Events No recent Security Events currently on file CRITERIA MET - JUANP CARE PROVIDERS Ammon Perez MD Primary Care Current PHONE: Unknown orray Case or Remote Inpatient Coder Current PHONE: Unknown Loli has no Care Guidelines for this patient. Evelio VISIT COUNT (12 MO.) 2 [facility] TOTAL 2 NOTE: Visits indicate total known visits. ED/UCC VISIT TRACKING (12 MO.) 03/29/2019 12:22 [facility] [place] TYPE: Emergency COMPLAINT: - HEADACHE,BLURY VISION 08/08/2018 10:41 [facility] [place] TYPE: Emergency COMPLAINT: - DIFFICULTY BREATHING DIAGNOSES: - Allergy status to narcotic agent status - Pneumonia, unspecified organism - Chronic obstructive pulmonary disease with acute lower respiratory infection - Other snf (current) drug therapy - intermediate (current) use of aspirin - Allergy status to sulfonamides status - Personal history of nicotine dependence - Chronic obstructive pulmonary disease with (acute) exacerbation - Shortness of breath INPATIENT V[facility]IT TRACK[facility] (12 MO.) [facility] DIAGNOSES: - Other biomechanical lesions of lumbar region - Radiculopathy, lumbar region - Spondylosis without myelopathy or radiculopathy, lumbar region - Encounter for other preprocedural examination - Arthrodesis status - Other bursal cyst, other site [id number]
[2019-03-29] MEDS ORDERED: MAXZIDE 37.5 MG-1 EA PO (12:38)
[2019-03-29] MEDS ORDERED: LATANOPROST2.5 ML OPTH (12:38)
[2019-03-29] MEDS ORDERED: MELOXICAM15 MG PO (12:38)
[2019-03-29] MEDS ORDERED: ASMANEX220 MC1 INH (12:40)
[2019-03-29] MEDS ORDERED: STRIVERDI RESPIM4 GM INH (12:40)
[2019-03-29] MEDS ORDERED: AUGMENTIN 875-1 EACH PO (14:03)
[2019-03-29] MEDS ORDERED: FLONASE ALLERG9.9 ML NAS (14:03)
== END 2019-03-29 15:19 | disposition home or self-care (01) ==
LOC: ED 12:21
DX: J32.9 Chronic sinusitis, unspecified (principal); J45.909 Unspecified asthma, uncomplicated; Z88.2 Allergy status to sulfonamides; Z88.5 Allergy status to narcotic agent; Z79.899 Other long term (current) drug therapy
CPT/HCPCS: 70450; 71045; 80053; 81001; 83605; 85025; 96361; 96365; 96375; 99284-25; J0696; J2405; J7030

== ENCOUNTER 2021-03-07 09:40 | Emergency (ER) | payer MEDICARE, OTHER ==
[~2021-03-07] VITALS: Ht 175.3 cm; Wt 94.8 kg
[~2021-03-07 09:40] MED LIST changes: +ASMANEX220 MC1 INH; +AUGMENTIN 875-1 EACH PO; +FLONASE ALLERG9.9 ML NAS; +LATANOPROST2.5 ML OPTH; +MAXZIDE 37.5 MG-1 EA PO; +MELOXICAM15 MG PO; +STRIVERDI RESPIM4 GM INH
[2021-03-07] MEDS ORDERED: OMEPRAZOLE20 MG PO (10:26)
--- NOTE | 2021-03-07 10:41 | EKG ---
[facility] [address] [facility] [address] [place] [address] Signed Sinus rhythm with premature atrial complexes Right bundle branch block Left anterior fascicular block Bifascicular block Abnormal ECG When compared with ECG of 08-AUG-2018 10:45, premature atrial complexes are now present Confirmed by JOSE DAVID COLON MD ([id number] on 03/07/2021 10:41:45 AM Electronically Signed By: JOSE DAVID COLON MD 03/07/21 1041 PATIENT NAME: NEYMAR BHANDARI Electrocardiogram DATE OF : 40 PHYSICIAN: JOSE DAVID COLON MD REPORT #: [id number] REPORT IS CONFIDENTIAL AND NOT TO BE RELEASED WITHOUT AUTHORIZATION
[2021-03-07] MEDS ORDERED: ONDANSETRON ODT4 MG PO (12:40)
== END 2021-03-07 13:01 | disposition home or self-care (01) ==
LOC: ED 09:40
DX: R11.2 Nausea with vomiting, unspecified (principal); J45.909 Unspecified asthma, uncomplicated; Z88.2 Allergy status to sulfonamides; Z88.5 Allergy status to narcotic agent; Z79.899 Other long term (current) drug therapy
CPT/HCPCS: 71045; 74018; 80053; 81001; 83735; 84484; 85025; 93005; 93010; 96374; 96375; 99284-25; J2405; J2765; J7030